=== PATIENT | female | born 2005 | race Caucasian/White ===

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

== ENCOUNTER 2025-04-10 02:31 | Emergency (ER) | payer OTHER, SELFPAY ==
[2025-04-10 02:36] VITALS: BP 129/94; PULSE 80; RESP 18; TEMP 36.7; O2SAT 99; BMI 24.5
[2025-04-10] MEDS: Ondansetron 4 MG/2 ML Vial IV (03:06)
[2025-04-10] MEDS: 0.9% Normal Saline (1000mL) 1,000 ML 999 ML IV (03:06)
[2025-04-10] MEDS: Morphine 4 MG/ML Syringe IV (03:07)
[2025-04-10] MEDS: Dicyclomine 20 MG/2 ML Vial IM (03:08)
[2025-04-10 03:17] LABS: Absolute Neutrophil Count 10.9 X10^3/uL (2.0-7.7); Basophil# 0.05 X10^3/uL; Basophil% 0.4 % (0-1); Eosinophil# 0.15 X10^3/uL; Eosinophils% 1.1 % (0-5); Hematocrit 38.9 % (37-47); Hemoglobin 13.5 g/dL (12.0-15.0); Lymphocyte % 15.5 % (19-41); Mean Corp Hgb Conc 34.7 g/dL (32-36); Mean Corpuscular Hgb 30.3 pg (27.0-32.0); Mean Corpuscular Volume 87.2 fL (81-99); Mean Platelet Vol. 10.1 fl (6.2-12.0); Monocyte# 0.83 X10^3/uL; Monocyte% 5.9 % (0-10); NRBC Flagged by Analyzer 0 % (0-5); Neutrophil # 10.89 X10^3/uL (2.7-7.7); Neutrophil % 76.7 % (47-70); Platelet Count 270 K/mm3 (150-450); RBC Distribution Width SD 38.7 fl (35.1-43.9); Red Blood Count 4.46 M/mm3 (4.2-5.4); White Blood Count 14.2 K/mm3 (4.4-11.0)
[2025-04-10 03:25] LABS: AST(SGOT) 23 U/L (<=31); Alanine Aminotransfer ALT/SGPT 15 U/L (<=34); Albumin, Serum 4.2 g/dL (3.5-5.0); Alkaline Phosphatase 80 U/L (35-104); Anion Gap 14 (5-15); BUN 18 mg/dL (4-19); BUN/Creat Ratio 20.5 RATIO (10-20); Calcium,Total 9.1 mg/dL (7.6-11.0); Carbon Dioxide 23.5 mmol/L (21.0-32.0); Chloride 102 mmol/L (98-108); Creatinine, Serum 0.87 mg/dL (0.70-1.20); EST Glomerular Filtration Rate 98 (>60); Estimated Creatinine Clearance 88.61 ml/min (50-250); Globulin 2.7 g/dL (2.2-4.2); Glucose 98 mg/dL (70-99); Lipase 19 U/L (13-75); Magnesium 2.1 mg/dL (1.5-2.2); Potassium 3.6 mmol/L (3.3-5.1); Protein, Total 6.9 g/dL (5.9-8.4); Sodium Level 139 mmol/L (133-145); Total Bilirubin 0.25 mg/dL (0.00-1.30)
--- NOTE | 2025-04-10 03:26 | CT_ITS ---
PROCEDURE: ABDOMEN/PELVIS W IV CONT ONLY 04/10/2025 REASON FOR EXAM: POSTOPERATIVE ABDOMINAL PAIN TECHNIQUE: Abdomen and pelvis CT with intravenous contrast. Coronal and Sagittal reconstruction series were provided. PATIENT PREPARATION: Per protocol ORAL CONTRAST TYPE: None. CONTRAST: Isovue-350 VOLUME: 100 mL Gauge IV One or more dose reduction techniques were used (e.g., Automated exposure control, adjustment of the mA and/or kV according to patient size, use of iterative reconstruction technique. RADIATION DOSE SUMMARY: CTDlvol: 7.2 mGy DLP: 402 mGycm COMPARISON: None. FINDINGS: Diffuse thickening of the anorectal junction, probably secondary to recent intervention, edema and/or spasm. Associated perirectal fluid collection is noted measuring 7.6 x 4.2 cm in its largest transverse and anteroposterior dimensions respectively. Secondary moderate narrowing of the anorectal junction. Fluid-filled dilated colon proximal to this level. Associated mild stercoral colitis of the sigmoid colon. No evidence of perforation or pneumatosis coli. The largest transverse dimension of the distended colon is 4.8 cm at the level of the transverse colon. The visualized lung bases are unremarkable. Normal liver. Normal gallbladder and extrahepatic biliary system. Normal spleen. Normal pancreas. Normal bilateral adrenal glands. Normal size of the right kidney. There is no right renal mass. There are no right renal calculi. There is no right hydronephrosis. Normal visualized right ureter. Normal size of the left kidney. There is no left renal mass. There are no left renal calculi. There is no left hydronephrosis. Normal visualized left ureter. Normal visualized stomach. Normal small intestine. The appendix is visualized and appears normal. Normal abdominal aorta. Normal inferior vena cava. Normal retroperitoneum. Normal urinary bladder. There is no pelvic mass lesion or lymphadenopathy. Normal abdominal wall. Normal osseous structures. CT/Abdomen/Pelvis W IV Cont ONLY IMPRESSION: 1. Diffuse thickening of the anorectal junction, probably secondary to recent i ntervention, edema and/or spasm. Associated perirectal fluid collection is noted measuring 7.6 x 4.2 cm in its largest montes sverse and anteroposterior dimensions respectively. 2. Secondary moderate narrowing of the anorectal junction. 3. Fluid-filled dilated colon proximal to this level. 4. Associated mild stercoral colitis of the sigmoid colon. 5. No evidence of perforation or pneumatosis coli. 6. The largest transverse dimension of the distended colon is 4.8 cm at the lev el of the transverse colon. Reading Location: [id number]
[2025-04-10] MEDS: DiphenhydrAMINE 50 MG/ML Syringe 25 MG IV (03:57)
[2025-04-10] MEDS: Haloperidol Lactate 5 MG/ML Vial IV (03:58)
[2025-04-10 04:32] VITALS: RESP 16
[2025-04-10] MEDS: Magnesium Citrate 300 ML PO (05:31)
--- NOTE | 2025-04-10 05:41 | EX.ED.DYSGE1 ---
HPI History of Present Illness Chief Complaint: Abd Pain Informant: patient and parent Narrative Narrative: Patient is a 20-year-old female who underwent a robotic rectopexy surgery at by Dr. Rodríguez roughly 1 week ago. Patient and mother state that she was doing well and her symptoms are managed with just Tylenol and/or Motrin. However on Thursday she developed increasing abdominal pain and back pain. She states she took oxycodone which was prescribed after the surgery and this did seem to help for a few hours but then the pain returned and worsened and would not respond to further doses of the medication. The patient denies any fevers or chills or dysuria. She states she feels that she has to have a bowel movement but is only able to get a small amount out. Based on the worsening pain roughly 1 week from surgery she presents for evaluation [facility] Medical History (Updated 04/10/25 @ 05:[address] Clifton Gonsalves, ) IBS (irritable bowel syndrome) Fracture of thumb, right, closed Disease of tonsils and adenoids Encounter for screening for COVID-19 Home Medications ?Medication ?Instructions ?Recorded ?Last Taken ?Type docusate sodium 100 mg capsule 100 mg PO BID 04/10/25 Unknown History ibuprofen 600 mg tablet 600 mg PO .Q3HR PRN pain 04/10/25 Unknown History oxycodone 5 mg tablet 5 mg PO Q6H PRN pain 04/10/25 Unknown History Allergy/AdvReac Type Severity Reaction Status Date / Time azithromycin Allergy Mild RASH Verified 04/10/25 02:36 Social History Smoking Status: Never smoker substance use type: does not use ROS ROS ED Constitutional Constitutional ED: Denies chills or fever(s) ENT ENT ED: Denies sore throat Cardiovascular Cardiovascular: Denies chest pain Respiratory/Chest Respiratory/Chest: Denies cough or dyspnea Gastrointestinal Gastrointestinal: Reports abdominal pain, constipation and nausea; Denies diarrhea or vomiting Genitourinary Genitourinary ED: Denies dysuria Musculoskeletal Musculoskeletal: Reports back pain; Denies myalgias Integumentary Denies rash Neurologic Neurologic: Denies headache(s) Hematologic/Lymphatic Hematologic/Lymphatic: Denies easy bleeding or easy bruising EXAM Physical Exam Const Vital Signs: 04/10/25 02:36 04/10/25 04:32 Temperature 98.0 F Temperature Source Temporal Pulse Rate 80 Respiratory Rate 18 16 Blood Pressure 129/94 H Blood Pressure Mean 105 Pulse Ox 99 Oxygen Delivery Method Room Air Positive well nourished and well developed General Appearance ED: well developed; Negative for pallor HEENT HEENT Narrative: Normocephalic atraumatic No tongue or lip swelling no oral lesions no airway edema or compromise No signs of infection noted in the posterior pharynx Eyes PERRL and EOMs intact bilaterally General Eye ED: Negative for scleral icterus Neck supple Resp normal respiratory effort and clear to auscultation bilaterally Cardio regular rate and regular rhythm GI no masses GI Narrative: Abdomen is soft with hypoactive bowel sounds. There is slight/mild distention noted without increased tympany. There is mild diffuse pain with palpation without voluntary guarding or rigidity. No peritoneal signs or pulsatile mass There are abdominal wounds consistent with recent surgical procedure that are clean dry and intact without secondary findings to suggest infection Auscultation: hypoactive bowel sounds Palpation: soft Extremity normal to inspection Neuro oriented x3, CN's II-XII intact bilaterally and no sensory deficits noted Sensorium / Orientation: alert Motor Exam: strength 5/5 throughout Psych mental status grossly normal Skin no rashes or lesions noted Skin Narrative: Postsurgical abdominal wounds that are clean dry and intact as documented above General Skin Exam: Negative for jaundice or pallor MDM MDM MDM Narrative Medical decision making narrative: Patient arrived to the ER with stable vitals. She reported she has been doing well status post surgery but today had increasing pain. With concern for postoperative infection such as abscess or perforation she was brought in for evaluation. Exam indicates patient could be constipated versus ileus versus potential gas distention from the surgical procedure. Basic blood work is obtained and does show a white count of 14.2 and her neutrophil count is elevated 10.9. However the patient is afebrile and normotensive so I feel this is most likely stress response and not secondary to true infection. The patient CT scan of the abdomen and pelvis reveals a large stool burden with intestinal inflammation and distention. However there is no sign of bowel obstruction or perforation. There is a fluid collection but this is most likely secondary to her recent surgical procedure. I did discuss the case with her general surgeon Dr. Rodríguez. At this time she agrees that the fluid collection is most likely sterile and not infectious as the patient is afebrile and normotensive and that her pain is most likely related to the intestinal inflammation and constipation. She recommends an enema and magnesium citrate. This was provided to the patient in the ER. The patient and mother were informed of the discussion with her general surgeon and that the recommendation is discharge at this time with outpatient follow-up. The patient was able to have further bowel movements in the ER which reportedly did help reduce some of her symptoms. She has remained hemodynamically stable with a soft nonsurgical abdomen and therefore she will be discharged to follow-up with general surgery as directed History & Record Review Discussion w/independent historian: Patient and Family Lab Data Attestation: I reviewed the patient's lab results. Labs: Laboratory Results - last 24 hr 04/10/25 02:53 WBC 14.2 H RBC 4.46 Hgb 13.5 Hct 38.9 MCV 87.2 MCH 30.3 MCHC 34.7 RDW Std Deviation 38.7 RDW Coeff of Sarah 12.0 Plt Count 270 MPV 10.1 Immature Gran % (Auto) 0.400 Neut % (Auto) 76.7 H Lymph % (Auto) 15.5 L Butts % (Auto) 5.9 Eos % (Auto) 1.1 Baso % (Auto) 0.4 Absolute Neuts (auto) 10.9 H Absolute Lymphs (auto) 2.20 Nucleated RBC % 0 Sodium 139 Potassium 3.6 Chloride 102 Carbon Dioxide 23.5 Anion Gap 14 BUN 18 Creatinine 0.87 Estim Creat Clear Calc 88.61 Est GFR (MDRD) Non-Af 98 BUN/Creatinine Ratio 20.5 H Glucose 98 Calcium 9.1 Magnesium 2.1 Total Bilirubin 0.25 Direct Bilirubin 0.10 AST 23 ALT 15 Alkaline Phosphatase 80 Total Protein 6.9 Albumin 4.2 Globulin 2.7 Lipase 19 Radiography Diagnostic Testing: Clinical Impression(s) from Imaging Studies Abdomen/Pelvis CT 04/10/25 03:26 IMPRESSION: 1. Diffuse thickening of the anorectal junction, probably secondary to recent intervention, edema and/or spasm. Associated perirectal fluid collection is noted measuring 7.6 x 4.2 cm in its largest transverse and anteroposterior dimensions respectively. 2. Secondary moderate narrowing of the anorectal junction. 3. Fluid-filled dilated colon proximal to this level. 4. Associated mild stercoral colitis of the sigmoid colon. 5. No evidence of perforation or pneumatosis coli. 6. The largest transverse dimension of the distended colon is 4.8 cm at the level of the transverse colon. Reading [facility] Management Discussion w/another healthcare provider: [facility] Nurse Discharge Plan Triage Chief Complaint: Abd Pain ED Provider: Clifton Gonsalves Dx/Rx/DC Orders Clinical Impression: Acute postoperative abdominal pain, Constipation Instructions: Abdominal Pain, ED Constipation (Adult) Prescriptions: No Action docusate sodium 100 mg capsule 100 mg PO BID ibuprofen 600 mg tablet 600 mg PO .Q3HR PRN (Reason: pain) oxycodone 5 mg tablet 5 mg PO Q6H PRN (Reason: pain) Primary Care Provider: Dean Flores Referrals: Dean Flores MD [Primary Care Provider] - Activity Restrictions/Additional Instructions: Please follow-up with your surgeon Dr. Rodríguez for repeat evaluation. She was notified this morning. She will review your CT scan later today and contact you. As your scan shows significant constipation please do not take any further oxycodone as this will worsen your constipation. Use Tylenol and Motrin for pain control. Continue with Dulcolax and/or MiraLAX or Colace to help stimulate bowel movement. You may also use the magnesium citrate provided from the ER to help evacuate your intestines. If you develop a fever of 100.4 or higher or have any further concerns please return to the ER for repeat evaluation. Print Language: Latvian Disposition Disposition: Home, Self Care
[2025-04-10 06:32] VITALS: BP 118/70; PULSE 85; RESP 16; TEMP 36.4; O2SAT 96
== END 2025-04-10 06:33 | disposition home or self-care (01) ==
PROVIDERS: Emergency Provider Emergency Medicine; PCP Family Medicine; Visit Provider Emergency Medicine
DX: G89.18 Other acute postprocedural pain (principal); R10.9 Unspecified abdominal pain; K59.00 Constipation, unspecified; M54.9 Dorsalgia, unspecified
CPT/HCPCS: 74177; 80048; 80076; 83690; 83735; 85025; 99283; Q9967; A4216; J2405

== ENCOUNTER 2025-04-13 19:34 | Emergency (ER) | payer OTHER, SELFPAY ==
[2025-04-13 19:34] VITALS: BP 119/102; PULSE 128; RESP 20; TEMP 36.6; O2SAT 100
--- NOTE | 2025-04-13 19:58 | ED.VIS.GI ---
HPI HPI - GI History of Present Illness Chief Complaint: Other, Pain/Inj Detail of Chief Complaint: Constipation after rectal prolapse repair surgery about a week ago. Informant: patient and parent Abdominal Pain/Flank Pain Onset: Days Context: Gradual Onset Timing: Intermittent Quality: Cramping Location: - (Lower abdomen and rectum.) Current Severity: Mild Maximum Severity: Mild Nausea/Vomiting/Emesis GI Symptom: Negative for Nausea or Vomiting Diarrhea/Melena/Hematochezia GI Symptom: Positive for - (Constipation. Last bowel movement on Thursday.); Negative for Diarrhea, Melena or Hematochezia Associated Symptoms Associated Symptoms: Negative for Dysuria, Frequency, Hematuria or Urgency Narrative Narrative: 20-year-old female on April 04 had laparoscopic rectal prolapse repair surgery done at [facility]. Since that time she has had problems with constipation. Was recently seen in this emergency department had a CAT scan which showed constipation and normal postop changes. Was treated with enemas and improved. She has not had much of a bowel movement since Thursday. They have been trying different things at home and working with her: Rectal surgeon from . Today was having more crampy pain. Prior similar symptoms: Yes Recent Ill[facility] Medical History IBS (irritable bowel syndrome) Fracture of thumb, right, closed Disease of tonsils and adenoids Encounter for screening for COVID-19 Home Medications ?Medication ?Instructions ?Recorded ?Last Taken ?Type docusate sodium 100 mg capsule 100 mg PO BID 04/10/25 Unknown History ibuprofen 600 mg tablet 600 mg PO .Q3HR PRN pain 04/10/25 Unknown History Allergy/AdvReac Type Severity Reaction Status Date / Time azithromycin Allergy Mild RASH Verified 04/13/25 19:37 Social History Smoking Status: Never smoker substance use type: does not use ROS ROS ED ROS Narrative Constipation. Constitutional Constitutional ED: Denies chills or fever(s) ENT ENT ED: Denies ear pain Cardiovascular Cardiovascular: Denies chest pain Respiratory/Chest Respiratory/Chest: Denies cough Gastrointestinal Gastrointestinal: Reports abdominal pain and constipation; Denies diarrhea, melena, nausea or vomiting Genitourinary Genitourinary ED: Denies dysuria or hematuria Musculoskeletal Musculoskeletal: Denies arthralgias or back pain Integumentary Denies abscess or Abrasions Neurologic Neurologic: Denies headache(s) Psychiatric Psychiatric: Denies anxiety Endocrine Endocrinology: Denies polydipsia Hematologic/Lymphatic Hematologic/Lymphatic: Denies easy bleeding Allergic/Immunologic Allergic/Immunologic ED: Denies mouth swelling, tongue swelling or urticaria EXAM Physical Exam Narrative Exam Narrative: 20-year-old female vital signs are stable is tachycardic. Complaining of abdominal cramping. Parents present in room. H EENT exam pupils round react light. Moist mucous membranes. Neck nontender. Back nontender. Lungs clear to auscultation bilaterally. Heart tachycardic rate about 120 no murmur. Abdomen soft fusilli tender well-healing laparoscopic incisions. Dry and clean. No significant distention. No signs of obstruction. Positive bowel sounds. Moving all 4 extremities. Nontender no edema. Neurologically she is awake alert. No focal motor deficits. Answering questions and following commands. Const Vital Signs: 04/13/25 19:34 04/13/25 20:34 04/13/25 20:35 Temperature 98 F Temperature Source Temporal Pulse Rate 128 H 98 Respiratory Rate 20 H 18 Respiratory Effort Normal Respiratory Pattern Tachypnea Blood Pressure 119/102 H 136/93 H Blood Pressure Mean 107 107 Pulse Ox 100 97 Oxygen Delivery Method Room Air Room Air Positive well nourished and well developed; Negative for obese, cachectic, contractures or unkempt General Appearance ED: well developed and NAD; Negative for unkempt, cachectic, contractures or pallor Nutritional Appearance: Negative for cachectic or obese HEENT Reports moist mucous membranes normocephalic and atraumatic Eyes PERRL and EOMs intact bilaterally Neck no lymphadenopathy, supple and no JVD Resp normal respiratory effort and clear to auscultation bilaterally Cardio regular rhythm, S1 normal heart sound, S2 normal heart sound and no murmurs; Negative for regular rate Rate: tachycardic GI non-distended and no masses; Negative for non-tender GI Narrative: Mildly tender. Well-healing laparoscopic incisions. Dry and clean. No obstruction. No significant distention. Auscultation: normoactive bowel sounds Palpation: soft and tender; Negative for guarding, rigid, hernia, mass, pulsatile mass or rebound tenderness present Back/Spine no CVA tenderness Extremity full ROM General Extremety ED: Negative for edema or tenderness General Extremity: Negative for edema Neuro CN's II-XII intact bilaterally and moves all extremities Sensorium / Orientation: alert, oriented to person, oriented to place and oriented to time; Negative for orientation impaired Motor Exam: strength 5/5 throughout Psych mental status grossly normal and thought process normal Appearance: Negative for unkempt Skin no wounds General Skin Exam: Negative for jaundice or pallor Lesions: no lesions Rashes: no rashes MDM MDM MDM Narrative Medical decision making narrative: 20-year-old female constipation with abdominal cramping after rectal prolapse laparoscopic repair surgery on April 04. I spoke to her general surgeon who did her procedure Dr. Rodríguez. She recommended a enema. And if the patient needs to be transferred she is have to accept her to . I will discuss this with the family. Repeat exam patient is doing well at 21:18. She has had 3 liquid bowel movement since she has been here. She wanted to hold off on the enema because she was feeling better. Her abdomen is benign. Her and her parents are comfortable with her being discharged home. They will follow-up with her colorectal surgeon from tomorrow. They are going to do a soft diet. Liquids. Continue using the MiraLAX and stool softeners. History & Record Review Discussion w/independent historian: Patient Additional record(s) reviewed:: Prior inpatient record, Prior outpatient record, Prior ED visit and Prior labs Radiography Diagnostic Testing: Clinical Impression(s) from Imaging Studies [facility] X-Ray 04/13/25 20:01 IMPRESSION: No bowel obstruction or ileus. Reading Location: [id number] 2 films 1 view. By myself and radiologist. Shows no obstruction. Stool in the rectum but not significantly throughout the colon. No air-fluid levels. I went over the film with the parents. Discharge Plan Triage Chief Complaint: Other, Pain/Inj ED Provider: Mark Lowry Dx/Rx/DC Orders Clinical Impression: Constipation, History of intestinal surgery Instructions: ED Constipation (Adult) Prescriptions: No Action docusate sodium 100 mg capsule 100 mg PO BID ibuprofen 600 mg tablet 600 mg PO .Q3HR PRN (Reason: pain) Primary Care Provider: Dean Flores Referrals: Dean Flores MD [Primary Care Provider] - Activity Restrictions/Additional Instructions: Call and follow-up with your surgeon from Dr. Rodríguez in her office tomorrow. Plenty of fluids. Fiber. Soft diet. Slowly increase as tolerated. Continue your MiraLAX as needed. Enema if having significant constipation with you not having bowel movements and feel bloated. Print Language: Sinhala Disposition Disposition: Home, Self Care
--- NOTE | 2025-04-13 20:01 | RAD_ITS ---
PROCEDURE: ABDOMEN SINGLE VIEW 04/13/2025 REASON FOR EXAM: CONSTIPATION TECHNIQUE: Single view abdomen. FINDINGS: No bowel obstruction or ileus. No suspicious calcifications. No acute fracture or dislocations. RAD/Abdomen Single View IMPRESSION: No bowel obstruction or ileus. Reading Location: [id number]
[2025-04-13 20:34] VITALS: BP 136/93; PULSE 98; RESP 18; O2SAT 97
[2025-04-13 21:24] VITALS: BP 122/70; PULSE 68; RESP 15; TEMP 36.6; O2SAT 99
--- OUTSIDE RECORDS SUMMARY | 2025-04-13 22:19 | XMS RPT_ITS | CCD ---
Author Organization [facility] Care Team Providers Care Half Section Ironer Name Role Phone Unavailable Primary Care Provider UnavailDr. Wing Enrique Primary Care Unavailable [facility], Mr. Ollie Cunningham Attending Unavail able Mark MEANS, Wing Raphael Primary Care Provider PIPER LIN Referring Unavailable FLORES, WING XANDER Primary Care Unavailable MARIANA PARRY Attending Unavailable PIPER LIN Referring Unavailable FLORES, WING XANDER Primary Care Unavailable LIZETH LOPEZ Attending Unavailwilber FLORES, WING XANDER Primary Care Unavailable VAHE BOWMAN Attending Unavailable VAHE BOWMAN Referring Unavailable PIPER LIN Admitting Unavailable PIPER LIN Attending Unavailable FLORES, WING XANDER Primary Care Unavailable FLORES, WING XANDER Primary Care Unavailable FLORES, WING XANDER Referring Unavailable VAHE BOWMAN Attending Unavailable MARK, WING XANDER Primary Care Unavailable VAHE BOWMAN Attending Unavailable PIPER LIN Attending Unavailable ANA JACK Referring Unavailable FLORES, WING XANDER Primary Care Unavailable PETERSON THORNTON Attending Unavailable PIPER LIN Referring Unavailable FLORES, WING XANDER Primary Care Unavailable PIPER LIN Referring Unavailable PIPER LIN Attending Unavailable FLORES, WING XANDER Primary Care Unavailable PIPER LIN Attending Unavailable PIPER LIN Referring Unavailable FLORES, WING XANDER Primary Care Unavailable Mark MEANS, Wing Weber Primary Care Provider [phone] Wing Flores MD Primary Care Provider WING FLORES Primary Care Unavailable WING FLORES Primary Care Unavailable WING FLORES Primary Care Unavailable KARIME ROSS Attending Unavailable Dr. Wing Flores MD Primary Care Provider [phone] Dr. Clifton Gonsalves DO Emergency Provider [phone] Clifton Gonsalves Attending Unavailable Wing Flores Primary Care Unavailable WING FLORES Primary Care Unavailable WING FLORES Primary Care Unavailable DENA TODD Attending Unavailable WING FLORES Primary Care Unavailable DENA TODD Admitting Unavailable DENA TODD Attending Unavailable WING FLORES Primary Care Unavailable DENA TODD Referring Unavailable WING FLORES Primary Care Unavailable Allergies Allergy Classification Reported Allergen(s) Allergy Type Date of Onset Reaction(s) Facility (4 sources) Azithromycin; Translations: [AZITHROMYCIN] Drug Allergy 04-04-2025 [facility] (3 sources) Neomycin; Translations: [NEOMYCIN] Drug Allergy 04-04-[address] [facility] Work Phone: (1 source) Azithromycin Drug Allergy 04-10-2025 [facility] Medications Current Medications Medication Drug Class(es) Dates Sig (Normalized) Sig (Original) acetaminophen 325 mg oral tablet (3 sources) Start: 04-04-2025 End: 04-18-2025 take 2 tablets by mouth every six hours acetaminophen (Tylenol) 325 mg tablet Indications: Rectal prolapse Take 2 tablets (650 mg) by mouth every 6 hours for 14 days. 112 tablet 04/04/2025 04/18/2025 Active Start: 04-04-2025 take 1 tablet by thomas th every four hours as needed 650 mg, oral, Every 4 hours PRN, pain mild (1-3), first line, Starting on Thu04/04/25 at 1050, Recovery (only), When able to take oral medications., If ordered PRN for pain, nurse is permitted to administer this medication for higher pain scores based on patient preference? Yes End: 04-04-2025 acetaminophen (Tylenol 8 KRYSTLE R) 650 mg ER tablet Take 1,000 mg by mouth every 8 hours if needed for mild pain (1 - 3). Do not crush, chew, or split. 04/04/2025 Discontinued (Stop Taking at Discharge) amoxicillin 875 mg / clavulanate 125 mg oral tablet (2 sources) Penicillin-class Antibacterial Start: 11-13-2023 take 1 tablet by mouth every twelve hours amoxicillin-pot clavulanate (Augmentin) 875-125 mg tablet Take 1 tablet by mouth every 12 hours. 11/13/2023 Active benzonatate 100 mg oral capsule (1 source) Non-narcotic Antitussive Start: 11-18-2024 End: 11-25-2024 take 1 capsule by mouth three times daily as needed for cough benzonatate (TESSALON PERLE) 100 mg capsule Indications: Viral illness Take 1 capsule by mouth three times a day as needed for cough for up to 7 days. 21 capsule 11/18/2024 11/25/2024 Active docusate sodium 100 mg oral capsule (2 sources) Start: 04-10-2025 take 1 capsule by mouth twice daily Docusate Sodium 100 mg capsule Active 100 mg PO TWICE A DAY April 10, 2025 12:00am Start: 04-04-2025 End: 04-14-2025 take 1 tablet by mouth twice daily docusate sodium (Colace) 100 mg tablet Indications: Rectal prolapse Take 1 tablet (100 mg) by mouth 2 times a day for 20 doses. 20 tablet 04/04/2025 04/14/2025 Active doxycycline hyclate 100 mg oral tablet (1 source) Tetracycline-class Drug Start: 10-22-2024 End: 10-27-2024 take 1 tablet by mouth twice daily doxycycline (VIBRA-TABS) 100 mg tablet Take 1 tablet by mouth two times a day for 5 days. 10 tablet 10/22/2024 10/27/2024 Active escitalopram 10 mg oral tablet (10 sources) Serotonin Reuptake Inhibitor Start: 11-30-2022 End: 10-12-2024 take 1 tablet by mouth once daily escitalopram (Lexapro) 10 mg tablet Take 1 tablet (10 mg) by mouth once daily. 11/30/2022 Active Start: 11-30-2022 End: 10-22-2024 escitalopram oxalate (LEXAPR O) 10 mg tablet Take 15 mg by mouth once daily. 11/30/2022 10/22/2024 Discontinued (Course of therapy completed) Comment on above: Take 15 mg by mouth once daily. gabapentin 100 mg oral capsule (2 sources) Anti-epileptic Agent Start: 12-15-2024 take 1 capsule by mouth 3 day(s) before bedtime gabapentin (Neurontin) 100 mg capsule Indications: Rectal prolapse Take one capsule by mouth starting three days before surgery at bedtime. 3 capsule 12/15/2024 Active 0.5 ml HYDROmorphone hydrochloride 1 mg/ml prefilled syringe (2 sources) Opioid Agonist Start: 04-04-2025 0.5 mg, intravenous, Every 5 min PRN, pain severe (7-10), first line, Starting on Thu04/04/25 at 1050, Recovery (only), Max total of 4 mg regardless of dose. Start: 04-04-2025 0.25 mg, intra venous, Every 5 min PRN, pain moderate (4-6), first line, Starting on Thu04/04/25 at 1050, Recovery (only), Max total of 4 mg regardless of dose. hyoscyamine sulfate 0.125 mg oral tablet (3 sources) Start: 10-06-2023 End: 10-22-2024 take 1 tablet by mouth every six hours hyoscyamine (Anaspaz, Levsin) 0.125 mg tablet Take 1 tablet (0.125 mg) by mouth every 6 hours. 10/06/2023 Active ibuprofen 600 mg oral tablet (5 sources) Nonsteroidal Anti-inflammatory Drug Start: 04-10-2025 take 1 tablet by mouth every three hours as needed for pain Ibuprofen 600 mg tablet Active 600 mg PO .Q3HR as needed for pain April 10, 2025 12:00am Start: 04-04-2025 End: 04-18-2025 take 1 tablet by mouth every six hours ibuprofen 600 mg tablet Indications: Rectal prolapse Take 1 tablet (600 mg) by mouth every 6 hours for 14 days. 56 tablet 04/04/2025 04/18/2025 Active Start: 11-10-2023 End: 04-04-2025 take 1 tablet by mouth four times daily at mealtime ibuprofen 400 mg tablet take 1 tablet by mouth 4 TIMES A DAY with FOOD 11/10/2023 04/04/2025 Discontinued (Stop Taking at Discharge) methylPREDNISolone 4 mg oral tablet (2 sources) Corticosteroid Start: 11-13-2023 methylPREDNISolone (Medrol Dospak) 4 mg tablets TAKE BY MOUTH DIRECTED ON PACKAGE 11/13/2023 Active metroNIDAZOLE 250 mg oral tablet (2 sources) Nitroimidazole Antimicrobial Start: 12-15-2024 metroNIDAZOLE (Flagyl) 250 mg tablet Indications: Rectal prolapse Take one tablet at 6p, 7p, and 11p the night before surgery. 3 tablet 12/15/2024 Active neomycin sulfate 500 mg oral tablet (2 sources) Aminoglycoside Antibacterial Start: 12-15-2024 neomycin (Mycifradin) 500 mg tablet Indications: Rectal prolapse Take two tabs by mouth at 6p, 7pm, and 11p the night before surgery. 6 tablet 12/15/2024 Active ondansetron 4 mg oral tablet (4 sources) Serotonin-3 Receptor Antagonist Start: 04-04-2025 End: 04-11-2025 take 1 tablet by mouth every six hours for nausea ondansetron (Zofran) 4 mg tablet Indications: Rectal prolapse Take 1 tablet (4 mg) by mouth every 6 hours if needed for nausea for up to 20 doses. 20 tablet 04/04/2025 04/11/2025 Active Start: 03-02-2025 End: 03-02-2025 ondansetron ODT (Zofran-ODT) disintegrating tablet 4 mg Start: 03-02-2025 End: 03-02-2025 take 4 mg by mouth once 4 mg, oral, Once, On 02/08 at 1735, For 1 dose Start: 03-02-2025 End: 03-09-2025 take 1 tablet by mouth every eight hours as needed for nausea and nausea ondansetron ODT (Zofran-ODT) 4 mg disintegrating tablet Indications: Nausea Dissolve 1 tablet (4 mg) in the mouth every 8 hours if needed for nausea or vomiting for up to 7 days. 20 tablet 03/02/2025 03/09/2025 Active oxyCODONE hydrochloride 5 mg oral tablet (3 sources) Opioid Agonist Start: 04-04-2025 End: 04-11-2025 take 1 tablet by mouth every six hours as needed for pain Oxycodone 5 mg tablet Active 5 mg PO EVERY 6 HOURS as needed for pain April 10, 2025 12:00am Start: 04-04-2025 take 1 tablet by thomas every four hours as needed 5 mg, oral, Every 4 hours PRN, pain moderate (4-6), second line, Starting on Thu04/04/25 at 1050, Recovery (only), When able to take oral medications., If ordered PRN for pain, nurse is permitted to administer this medication for higher pain scores based on patient preference? Yes oxygen (O2) therapy (1 source) Start: 04-04-2025 inhalation, Co ntinuous PRN - O2/gases, other, Starting on Thu04/04/25 at 1050, Recovery (only), Device: Nasal Cannula, Rate in liters per minute: Other, Custom Value: 1-6 LPM, Keep O2 Sat Above: 92% predniSONE 20 mg oral tablet (1 source) Start: 11-18-2024 End: 11-21-2024 take 1 tablet by mouth twice daily predniSONE (DELTASONE) 20 mg tablet Indications: Viral illness Take 1 tablet by mouth two times a day for 3 days. 6 tablet 11/18/2024 11/21/2024 Active Completed/Discontinued Medications Medication Drug Class(es) Dates Sig (Normalized) Sig (Original) acetaminophen 325 mg / HYDROcodone bitartrate 5 mg oral tablet (3 sources) Opioid Agonist Start: 11-10-2023 End: 04-04-2025 take 1 tablet by mouth once HYDROcodone-acetam inophen (Arnold) 5-325 mg tablet Take 1 tablet by mouth 1 time. 11/10/2023 04/04/2025 Discontinued (Stop Taking at Discharge) aprepitant 40 mg oral capsule (1 source) Substance P/Neurokinin-1 Receptor Antagonist Start: 04-04-2025 End: 04-04-2025 take 40 mg by mouth once 40 mg, oral, Once, On Thu04/04/25 at 1430, For 1 dose, Phase II/On Unit Start: 04-04-2025 End: 04-04-2025 take 40 mg by mouth once 40 mg, oral, Once, On Thu at 1430, For 1 dose, Phase II/On Unit azithromycin 40 mg/ml oral suspension (3 sources) Macrolide Antimicrobial Start: 10-15-2015 End: 10-22-2024 azithromycin (ZITHROMAX) 200 mg/5 mL suspension Indications: Cough Take 12 ml by mouth on day one. Then 6 ml by mouth on days 2-5. 36 mL 0 10/15/2015 10/22/2024 Discontinued (Course of therapy completed) Comment on above: Take 12 ml by mouth on day one. Then 6 ml by mouth on days 2-5. calcium chloride 0.0014 meq/ml / potassium chloride 0.004 meq/ml / sodium chloride 0.103 meq/ml / sodium lactate 0.028 meq/ml injectable solution (2 sources) Start: 04-04-2025 End: 04-04-2025 take 100 mL intravenously every hour 100 mL/hr, intravenous, Continuous, Starting on Thu04/04/25 at 1115, For 2 hours, Recovery (only) Start: 03-23-2024 End: 03-23-2024 CONTINUOUS, Intravenous, at 100 mL/hr, Starting on Thu03/23/24 at 1100, For 90 days, PACU chlorhexidine gluconate 1.2 mg/ml mouthwash (5 sources) Start: 11-10-2023 End: 04-04-2025 chlorhexidine (Peridex) 0.12 % solution Indications: Rectal prolapse Rinse mouth with 15 ml after toothbrushing the night before surgery and on the morning of surgery. Expectorate after rinsing. Do not swallow. 120 mL 12/15/2024 04/04/2025 Discontinued (Stop Taking at Discharge) Start: 11-10-2023 End: 10-22-2024 Chlorhexidine Gluconate (PER IDEX) 0.12 % solution swish 15 MLS by mouth for 30 SECONDS then SPIT use twice a day after meals 11/10/2023 10/22/2024 Discontinued (Course of therapy completed) codeine phosphate 2 mg/ml / guaiFENesin 20 mg/ml oral solution (3 sources) Opioid Agonist Start: 11-03-2014 End: 10-22-2024 take 2.5-5 mL by mouth every six hours as needed codeine-guaiFENesin (ROBITUSSIN AC) 10-100 mg/5 mL syrup Take 2.5-5 mL by mouth four times daily as needed for Cough. May cause drowsiness. 60 mL 0 11/03/2014 10/22/2024 Discontinued (Course of therapy completed) Comment on above: Take 2.5-5 mL by thomas th four times daily as needed for Cough. May cause drowsiness. Dextromethorphan (3 sources) Uncompetitive O-hymcge-X-aspart ate Receptor Antagonist, Sigma-1 Agonist End: 10-22-2024 DEXTROMETHORPHAN HBR (DELSYM ORAL) Take by mouth. 10/22/2024 Discontinued (Course of therapy completed) DEXTROMETHORPHAN HBR (DELSYM ORAL) Take by mouth. 0 Active Comment on above: Take by mouth. diatrizoate meglumine-sodium (GASTROGRAFIN) 66-10 % oral solution 120 mL (1 source) Start: 02-25-20 End: 02-25-20 120 mL (2.02 ml/kg/DOSE), Rectal, ONCE, 1 dose, On Brandy 02/25/24 at 1400 diphenhydrAMINE (1 source) Histamine-1 Receptor Antagonist Start: 04-04-20 End: 04-04-20 25 mg, intravenous, Once, On 04/04/25 at 1215, For 1 dose, If giving IV push, max rate of 25 mg/min. rifAXIMin 550 mg oral tablet (7 sources) Rifamycin Antibacterial Start: 10-05-20 End: 10-22-20 take 1 tablet by mouth three times daily XIFAXAN 550 mg tablet Take 550 mg by mouth three times a day. 10/05/2023 10/22/2024 Discontinued (Course of therapy completed) rifAXIMin (Xifax an) 200 mg tablet Take 0.5 tablets (100 mg) by mouth. Active End: 10-12-2024 RIFAXIMIN ORAL Take by mouth once daily. 10/12/2024 Discontinued (Med List Cleanup) rifAXIMin (XIFAX AN) 100 MG TABS Take 1 Tablet (100 mg) by mouth Active Problems Active Problems Problem Classification Problem Date Documented Da te Episodic/Chronic Fracture of upper limb (3 sources) Closed fracture thumb distal phalanx ; Translations: [Displaced fracture of distal phalanx of unspecified thumb, initial encounter for closed fracture] 03-25-2021 Episodic Immunizations and screening for infectious disease (3 sources) Patient encounter status; Translations: [Encounter for screening for COVID-19] 07-11-2021 Episodic Nausea and vomiting (3 sources) Nausea; Translations: [Nausea] Onset: 03-02-2025 03-02-2025 Episodic Noninfectious gastroenteritis (3 sources) Gastroenteritis; Translations: [Noninfective gastroenteritis and colitis, unspecified] Onset: 03-02-2025 03-02-2025 Episodic Other gastrointestinal disorders (1 source) Constipation; Translations: [Constipation, unspecified] 04-10-2025 Episodic Other lower respiratory disease (1 source) Lower respiratory tract infection; Translations: [Unspecified acute lower respiratory infection] 10-22-2024 Episodic Other nervous system disorders (1 source) Acute abdominal pain; Translations: [Other acute postprocedural pain] 04-10-2025 Episodic Other upper respiratory disease (3 sources) Respiratory tract congestion; Translations: [Nasal congestion] 07-11-2021 Episodic Other upper respiratory infections (3 sources) Viral upper respiratory tract infection; Translations: [Acute upper respiratory infection, unspecified] 11-14-2021 Episodic Unclassified (7 sources) Colorectal ERAS Onset: 10-13-2024 10-13-2024 Unclassified (7 sources) ERAS Nutrition Onset: 10-13-2024 10-13-2024 Viral infection (1 source) Viral disease; Translations: [Viral infection, unspecified] 11-18-2024 Episodic Past or Other Problems Problem Classification Problem Date Documented Date Episodic/Chronic Abdominal pain (6 sources) Abdominal pain; Translations: [Unspecified abdominal pain] Onset: 12-02-2014 12-02-2014 Episodic Anal and rectal conditions (13 sources) Rectal prolapse; Translations: [Rectal prolapse] Onset: 01-21-2024 01-21-2024 Episodic Other connective tissue disease (2 sources) Hypermobility syndrome; Translations: [Hypermobility syndrome] Onset: 10-12-2024 10-12-2024 Episodic Other connective tissue disease (1 source) Hypermobility syndrome; Translations: [Hypermobility syndrome] Onset: 10-12-2024 Episodic Unclassified (3 sources) Onset: 10-12-2024 10-12-2024 Results Test Name Value Interpretation Reference Range Facility CT TRANSFER OF OUTSIDE FILMS on 04-11-2025 CT TRANSFER OF OUTSIDE FILMS Outside images for comparison or treatment purposes, not interpreted by Radiologists. [facility] [place] Comment on above: Order Comment: Abdom en/Pelvis W IV Cont ONLY 04/10/2025 3:26am Abdomen/Pelvis W IV Cont ONL Yon 04-10-2025 Abdomen/Pelvis W IV Cont ONLY [facility] Imaging Services [id number] [place], [place] [id number] Abdomen/Pelvis W IV Cont ONLY MR#: [id number] Acct: [id number] Name: KELLY RAMOS Rep #: [id number] : 2005 F 20 From: Matthias garsia MD PCP: Dr. Wing Flores MD Status: REG ER Study: Abdomen/Pelvis W IV Cont ONLY Date of Exam: Exam# [id number] Ordering Dr: Clifton Gonsalves DO PROCEDURE: ABDOMEN/PELVIS W IV CONT ONLY 04/10/2025 REASON FOR EXAM: POSTOPERATIVE ABDOMINAL PAIN TECHNIQUE: Abdomen and pelvis CT with intravenous contrast. Coronal and Sagittal reconstruction series were provided. PATIENT PREPARATION: Per protocol ORAL CONTRAST TYPE: None. CONTRAST: Isovue-350 VOLUME: 100 mL Gauge IV One or more dose reduction techniques were used (e.g., Automated exposure control, adjustment of the mA and/or kV according to patient size, use of iterative reconstruction technique. RADIATION DOSE SUMMARY: CTDlvol: 7.2 mGy DLP: 402 mGycm COMPARISON: None. FINDINGS: Diffuse thickening of the anorectal junction, probably secondary to recent intervention, edema and/or spasm. Associated perirectal fluid collection is noted measuring 7.6 x 4.2 cm in its largest transverse and anteroposterior dimensions respectively. Secondary moderate narrowing of the anorectal junction. Fluid-filled dilated colon proximal to this level. Associated mild stercoral colitis of the sigmoid colon. No evidence of perforation or pneumatosis coli. The largest transverse dimension of the distended colon is 4.8 cm at the level of the transverse colon. The visualized lung bases are unremarkable. Normal liver. Normal gallbladder and extrahepatic biliary system. Normal spleen. Normal pancreas. Normal bilateral adrenal glands. Normal size of the right kidney. There is no right renal mass. There are no right renal calculi. There is no right hydronephrosis. Normal visualized right ureter. Normal size of the left kidney. There is no left renal mass. There are no left renal calculi. There is no left hydronephrosis. Normal visualized left ureter. Normal visualized stomach. Normal small intestine. The appendix is visualized and appears normal. Normal abdominal aorta. Normal inferior vena cava. Normal retroperitoneum. Normal urinary bladder. There is no pelvic mass lesion or lymphadenopathy. Normal abdominal wall. Normal osseous structures. CT/Abdomen/Pelvis W IV Cont ONLY IMPRESSION: 1. Diffuse thickening of the anorectal junction, probably secondary to recent intervention, edema and/or spasm. Associated perirectal fluid collection is noted measuring 7.6 x 4.2 cm in its largest transverse and anteroposterior dimensions respectively. 2. Secondary moderate narrowing of the anorectal junction. 3. Fluid-filled dilated colon proximal to this level. 4. Associated mild stercoral colitis of the sigmoid colon. 5. No evidence of perforation or pneumatosis coli. 6. The largest transverse dimension of the distended colon is 4.8 cm at the level of the transverse colon. Reading Location: [place] [address] CC: Dr. Wing Flores MD; Clifton Gonsalves DO Aerospace Engineer: Signed Normal [facility] Absolute lymphocyte countOrd ered By: Clifton Gonsalves on 04-10-2025 Lymphocytes Auto (Unsp spec) [#/Vol] 2.20 10*3/uL 0.83-4.51 [facility] Absolute neutrophil countOrd ered By: Clifton Gonsalves on 04-10-2025 Neutrophils (Bld) [#/Vol] 10.9 10*3/uL High 2.0-7.7 [facility] Anion gap in Serum or Plasma Ordered By: Clifton Gonsalves on 04-10-2025 Anion gap [Moles/Vol] 14 mmol/L 5-15 [facility] Automated lymphocyte count a s percentage of total leukocytesOrdered By: Clifton Gonsalves on 04-10-2025 Lymphocytes/100 WBC Auto (Unsp spec) 15.5 % Low 19-41 [facility] BUN/creatinine ratioOrdered By: Clifton Gonsalves on 04-10-2025 Urea nitrogen/Creatinine [Mass ratio] 20.5 mg/mg High 10-20 [facility] Basic Metabolic Profile (BMP )on 04-10-2025 BUN/CRE 20.5 RATIO High 10- [facility] Comment on above: Performed By: #### L 501.5200, L100.0100, L500.3400, L500.2500, L501.2450 #### [facility] [address] [place], [address] Calcium [Mass/Vol] 9.1 mg/dL Normal 7.6-11.0 [facility] Comment on above: Performed By: #### L 501.5200, L100.0100, L500.3400, L500.2500, L501.2450 #### [facility] [address] [place], [address] Chloride [Moles/Vol] 102 mmol/L Normal 98-108 [facility] Comment on above: Performed By: #### L [id number], L100.0100, L500.3400, L500.2500, L501.2450 #### [facility] [address] [place], [address] CO2 [Moles/Vol] 23.5 mmol/L Normal 21.0-32.0 [facility] Comment on above: Performed By: #### L 501.5200, L100.0100, L500.3400, L500.2500, L501.2450 #### [facility] [address] [place], [address] Creatinine [Mass/Vol] 0.87 mg/dL Normal 0.70-1.20 [facility] Comment on above: Performed By: #### L [id number], L100.0100, L500.3400, L500.2500, L501.2450 #### [facility] [address] [place], [address] ECRCL 88.61 ml/min Normal 50-250 [facility] Comment on above: Performed By: #### L 501.5200, L100.0100, L500.3400, L500.2500, L501.2450 #### [facility] [address] [place], [address] GAP 14 Normal 5-15 [facility] Comment on above: Performed By: #### L 501.5200, L100.0100, L500.3400, L500.2500, L501.2450 #### [facility] [address] [place], [address] GFR/1.73 sq M.predicted among non-blacks MDRD (S/P/Bld) [Vol rate/Area] 98 mL/min/{1.73_m2} Normal >60 [facility] Comment on above: Result Comment: mL/m in/1.73m2 CKD-EPI Creatinine Equation (2020) Performed By: #### L 501.5200, L100.0100, L500.3400, L500.2500, L501.2450 #### [facility] [address] [place], [address] Glucose [Mass/Vol] 98 mg/dL Normal 70-99 [facility] Comment on above: Performed By: #### L 501.5200, L100.0100, L500.3400, L500.2500, L501.2450 #### [facility] [address] [place], [address] Potassium [Moles/Vol] 3.6 mmol/L Normal 3.3-5.1 [facility] Comment on above: Performed By: #### L 501.5200, L100.0100, L500.3400, L500.2500, L501.2450 #### [facility] [address] [place], [address] Sodium [Moles/Vol] 139 mmol/L Normal 133-145 [facility] Comment on above: Performed By: #### L 501.5200, L100.0100, L500.3400, L500.2500, L501.2450 #### [facility] [address] [place], [address] Urea nitrogen [Mass/Vol] 18 mg/dL Normal 4-19 [facility] Comment on above: Performed By: #### L 501.5200, L100.0100, L500.3400, L500.2500, L501.2450 #### [facility] [address] [place], [address] Basophil percentageOrdered B y: Clifton Gonsalves on 04-10-2025 Basophils/100 WBC (Bld) 0.4 % 0-1 [facility] Bilirubin directOrdered By: Clifton Gonsalves on 04-10-2025 Bilirubin.direct [Mass/Vol] 0.10 mg/dL 0.00-0.30 [facility] Bilirubin, totalOrdered By: Clifton Gonsalves on 04-10-2025 Bilirubin [Mass/Vol] 0.25 mg/dL 0.00-1.30 [facility] CBC W/Diff, Automatedon Absolute Lymph 2.20 X10 3/uL Normal 0.83-4.51 [facility] [facility] Comment on above: Performed By: #### L 501.5200, L100.0100, L500.3400, L500.2500, L501.2450 #### [facility] [address] [place], [address] Absolute Neut 10.9 X10 3/uL High 2.0-7.7 [facility] Comment on above: Performed By: #### L 501.5200, L100.0100, L500.3400, L500.2500, L501.2450 #### [facility] [address] [place], [address] Basophils/100 WBC (Bld) 0.4 % Normal 0-1 [facility] Comment on above: Performed By: #### L 501.5200, L100.0100, L500.3400, L500.2500, L501.2450 #### [facility] [address] [place], [address] Eosinophils/100 WBC (Bld) 1.1 % Normal 0-5 [facility] Comment on above: Performed By: #### L 501.5200, L100.0100, L500.3400, L500.2500, L501.2450 #### [facility] [address] [place], [address] Erythrocyte distribution width (RBC) [Ratio] 12.0 % Normal 11.6-14.6 [facility] Comment on above: Performed By: #### L 501.5200, L100.0100, L500.3400, L500.2500, L501.2450 #### [facility] [address] [place], [address] Hematocrit (Bld) [Volume fraction] 38.9 % Normal 37-47 [facility] Comment on above: Performed By: #### L 501.5200, L100.0100, L500.3400, L500.2500, L501.2450 #### [facility] [address] [place], [address] Hemoglobin (Bld) [Mass/Vol] 13.5 g/dL Normal 12.0-15.0 [facility] Comment on above: Performed By: #### L 501.5200, L100.0100, L500.3400, L500.2500, L501.2450 #### [facility] [address] [facility] [place], [address] IG% 0.400 Normal 0.0-0.9 [facility] Comment on above: Result Comment: IG% - Immature Granulocytes (promyelocytes, myelocytes and metamyelocytes) > 1% indicates that a LEFT SHIFT is Present. Performed By: #### L 501.5200, L100.0100, L500.3400, L500.2500, L501.2450 #### [facility] [address] [place], [address] Lymphocytes/100 WBC (Bld) 15.5 % Low 19-41 [facility] Comment on above: Performed By: #### L 501.5200, L100.0100, L500.3400, L500.2500, L501.2450 #### [facility] [address] [place], [address] MCH (RBC) [Entitic mass] 30.3 pg Normal 27.0-32.0 [facility] Comment on above: Performed By: #### L 501.5200, L100.0100, L500.3400, L500.2500, L501.2450 #### [facility] [address] [place], [address] MCHC (RBC) [Mass/Vol] 34.7 g/dL Normal 32-36 [facility] Comment on above: Performed By: #### L 501.5200, L100.0100, L500.3400, L500.2500, L501.2450 #### [facility] [address] [place], [address] MCV (RBC) [Entitic vol] 87.2 fL Normal 81-99 [facility] Comment on above: Performed By: #### L 501.5200, L100.0100, L500.3400, L500.2500, L501.2450 #### [facility] [address] [place], [address] Monocytes/100 WBC (Bld) 5.9 % Normal 0-10 [facility] Comment on above: Performed By: #### L 501.5200, L100.0100, L500.3400, L500.2500, L501.2450 #### [facility] [address] [place], [address] Neutrophils/100 WBC (Bld) 76.7 % High 47-70 [facility] Comment on above: Performed By: #### L 501.5200, L100.0100, L500.3400, L500.2500, L501.2450 #### [facility] [address] [place], [address] Nucleated RBC (Bld) [#/Vol] 0 10*3/uL Normal 0-5 [facility] Comment on above: Performed By: #### L 501.5200, L100.0100, L500.3400, L500.2500, L501.2450 #### [facility] [address] [place], [address] Platelet mean volume (Bld) [Entitic vol] 10.1 fL Normal 6.2-12.0 [facility] Comment on above: Performed By: #### L 501.5200, L100.0100, L500.3400, L500.2500, L501.2450 #### [facility] [address] [place], [address] Platelets (Bld) [#/Vol] 270 10*3/uL Normal 150-450 [facility] Comment on above: Performed By: #### L 501.5200, L100.0100, L500.3400, L500.2500, L501.2450 #### [facility] [address] [place], [address] RBC (Bld) [#/Vol] 4.46 10*6/uL Normal 4.2-5.4 [facility] Comment on above: Performed By: #### L 501.5200, L100.0100, L500.3400, L500.2500, L501.2450 #### [facility] [address] [place], [address] RDW SD 38.7 fl Normal 35.1-43.9 [facility] Comment on above: Performed By: #### L 501.5200, L100.0100, L500.3400, L500.2500, L501.2450 #### [facility] [address] [facility] [place], [address] WBC (Bld) [#/Vol] 14.2 10*3/uL High 4.4-11.0 [facility] Comment on above: Performed By: #### L 501.5200, L100.0100, L500.3400, L500.2500, L501.2450 #### [facility] [address] [place], [address] Carbon dioxide, total [Moles /volume] in Central venous bloodOrdered By: Clifton Gonsalves on 04-10-2025 CO2 [Moles/Vol] 23.5 mmol/L 21.0-32.0 [facility] Chloride assayOrdered By: Glory Gonsalves on 04-10-2025 Chloride [Moles/Vol] 102 mmol/L 98-108 [facility] Emergency Department Summary on 04-10-2025 Emergency Department Summary [facility] Medical Records Department [address] [place] [address] Emergency Department Summary 04/10/25 MR#: [id number] Acct: [id number] Name: KELLY RAMOS Rep #: [id number] : 2005 20 From: Clifton Gonsalves DO PCP: Dr. Wing Flores MD Status:REG ER Location: ED HPI History of Present Illness Chief Complaint: Abd Pain Informant: patient and parent Narrative Narrative: Patient is a 20-year-old female who underwent a robotic rectopexy surgery at by Dr. Todd roughly 1 week ago. Patient and mother state that she was doing well and her symptoms are managed with just Tylenol and/or Motrin. However on Thursday she developed increasing abdominal pain and back pain. She states she took oxycodone which was prescribed after the surgery and this did seem to help for a few hours but then the pain returned and worsened and would not respond to further doses of the medication. The patient denies any fevers or chills or dysuria. She states she feels that she has to have a bowel movement but is only able to get a small amount out. Based on the worsening pain roughly 1 week from surgery she presents for evaluation [facility] Medical History (Updated 04/10/25 @ 05:[address] Clifton Gonsalves, DO) IBS (irritable bowel syndrome) Fracture of thumb, right, closed Disease of tonsils and adenoids Encounter for screening for COVID-19 Home Medications ???Medication ???Instructions ???Recorded ???Last Taken ???Type docusate sodium 100 mg capsule 100 mg PO BID 04/10/25 Unknown His tory ibuprofen 600 mg tablet 600 mg PO .Q3HR PRN pain 04/10/25 Unknown History oxycodone 5 mg tablet 5 mg PO Q6H PRN pain 04/10/25 Unkn own History Allergy/AdvReac Type Severity Reaction Status Date / Time azithromycin Allergy Mild RASH Verified 04/10/25 02:36 Social History Smoking Status: Never smoker substance use type: does not use ROS ROS ED Constitutional Constitutional ED: Denies chills or fever(s) ENT ENT ED: Denies sore throat Cardiovascular Cardiovascular: Denies chest pain Respiratory/Chest Respiratory/Chest: Denies cough or dyspnea Gastrointestinal Gastrointestinal: Reports abdominal pain, constipation and nausea; Denies diarrhea or vomiting Genitourinary Genitourinary ED: Denies dysuria Musculoskeletal Musculoskeletal: Reports back pain; Denies myalgias Integumentary Denies rash Neurologic Neurologic: Denies headache(s) Hematologic/Lymphati c Hematologic/Lymphati c: Denies easy bleeding or easy bruising EXAM Physical Exam Const Vital Signs: 04/10/25 02:36 04/10/25 04:32 Temperature 98.0 F Temperature Source Temporal Pulse Rate 80 Respiratory Rate 18 16 Blood Pressure 129/94 H Blood Pressure Mean 105 Pulse Ox 99 Oxygen Delivery Method Room Air Positive well nourished and well developed General Appearance ED: well developed; Negative for pallor HEENT HEENT Narrative: Normocephalic atraumatic No tongue or lip swelling no oral lesions no airway edema or compromise No signs of infection noted in the posterior pharynx Eyes PERRL and EOMs intact bilaterally General Eye ED: Negative for scleral icterus Neck supple Resp normal respiratory effort and clear to auscultation bilaterally Cardio regular rate and regular rhythm GI no masses GI Narrative: Abdomen is soft with hypoactive bowel sounds. There is slight/mild distention noted without increased tympany. There is mild diffuse pain with palpation without voluntary guarding or rigidity. No peritoneal signs or pulsatile mass There are abdominal wounds consistent with recent surgical procedure that are clean dry and intact without secondary findings to suggest infection Auscultation: hypoactive bowel sounds Palpation: soft Extremity normal to inspection Neuro oriented x3, CN's II-XII intact bilaterally and no sensory deficits noted Sensorium / Orientation: alert Motor Exam: strength 5/5 throughout Psych mental status grossly normal Skin no rashes or lesions noted Skin Narrative: Postsurgical abdominal wounds that are clean dry and intact as documented above General Skin Exam: Negative for jaundice or pallor MDM MDM MDM Narrative Medical decision making narrative: Patient arrived to the ER with stable vitals. She reported she has been doing well status post surgery but today had increasing pain. With concern for postoperative infection such as abscess or perforation she was brought in for evaluation. Exam indicates patient could be constipated versus ileus versus potential gas distention from the surgical procedure. Basic blood work is obtained and does show a white count of 14.2 and her neutrophil count is elevated 10.9. However the patient is afebrile and (more content not included)... Normal [facility] Eosinophil percentageOrdered By: Clifton Gonsalves on 04-10-2025 Eosinophils/100 WBC (Bld) 1.1 % 0-5 [facility] Erythrocyte distribution wid th ratioOrdered By: Clifton Gonsalves on 04-10-2025 Erythrocyte distribution width (RBC) [Ratio] 12.0 % 11.6-14.6 [facility] Erythrocyte distribution wid th standard deviationOrdered By: Clifton Gonsalves on 04-10-2025 Erythrocyte distribution width (RBC) [Ratio] 38.7 fl 35.1-43.9 [facility] Glomerular filtration rate ( GFR) estimation/1.73 sq m using serum, plasma, or whole bOrdered By: Clifton Gonsalves on 04-10-2025 GFR/1.73 sq M.predicted among non-blacks MDRD (S/P/Bld) [Vol rate/Area] 98 mL/min/{1.73_m2} >60 [facility] Comment on above: mL/min/1.73m2 CKD-EP I Creatinine Equation (2020) Hematocrit Auto (Bld) [Volum e fraction]Ordered By: Clifton Gonsalves on 04-10-2025 Hematocrit (Bld) [Volume fraction] 38.9 % 37-47 [facility] Hemoglobin measurementOrdere d By: Clifton Gonsalves on 04-10-2025 Hemoglobin (Bld) [Mass/Vol] 13.5 g/dL 12.0-15.0 [facility] Immature granulocytes/100 WB C Auto (Bld)Ordered By: Clifton Gonsalves on 04-10-2025 Immature granulocytes/100 WBC (Bld) 0.400 % 0.0-0.9 [facility] Comment on above: IG% - Immature Granu locytes (promyelocytes, myelocytes and metamyelocytes) > 1% indicates that a LEFT SHIFT is Present. Laboratory - Chemistry and C hemistry - challengeOrdered By: Clifton Gonsalves on 04-10-2025 AST [Catalytic activity/Vol] 23 U/L <32 [facility] Lipaseon 04-10-2025 Lipase [Catalytic activity/Vol] 19 U/L Normal 13-75 [facility] Comment on above: Result Comment: Minal ortez note: LIPASE revised reference range effective 23. New Lipase methodology. Expected to produce lower values than the previous assay method. NEW Reference Range: 13 - 75 U/L Performed By: #### L 501.5200, L100.0100, L500.3400, L500.2500, L501.2450 #### [facility] [address] [place] [address], [id number] Lipase measurementOrdered By : Clifton Gonsalves on 04-10-2025 Lipase [Catalytic activity/Vol] 19 U/L 13-75 [facility] Comment on above: Please note:LIPASE r evised reference range effective 23. New Lipase methodology. Expected to produce lower values than the previous assay method. NEW Reference Range: 13 - 75 U/L Liver Profileon 04-10-2025 Albumin [Mass/Vol] 4.2 g/dL Normal 3.5-5.0 [facility] Comment on above: Performed By: #### L 501.5200, L100.0100, L500.3400, L500.2500, L501.2450 #### [facility] [address] [place], [address] ALK PHOS 80 U/L Normal 35-104 [facility] Comment on above: Performed By: #### L 501.5200, L100.0100, L500.3400, L500.2500, L501.2450 #### [facility] [address] [place], [address] ALT [Catalytic activity/Vol] 15 U/L Normal <=34 [facility] Comment on above: Performed By: #### L 501.5200, L100.0100, L500.3400, L500.2500, L501.2450 #### [facility] [address] [place], [address] AST [Catalytic activity/Vol] 23 U/L Normal <=31 [facility] Comment on above: Performed By: #### L 501.5200, L100.0100, L500.3400, L500.2500, L501.2450 #### [facility] [address] [place], [address] Bilirubin [Mass/Vol] 0.25 mg/dL Normal 0.00-1.30 [facility] Comment on above: Performed By: #### L 501.5200, L100.0100, L500.3400, L500.2500, L501.2450 #### [facility] [address] [place], [address] Bilirubin.direct [Mass/Vol] 0.10 mg/dL Normal 0.00-0.30 [facility] Comment on above: Performed By: #### L 501.5200, L100.0100, L500.3400, L500.2500, L501.2450 #### [facility] [address] [place], [address] Globulin (S) [Mass/Vol] 2.7 g/dL Normal 2.2-4.2 [facility] Comment on above: Performed By: #### L 501.5200, L100.0100, L500.3400, L500.2500, L501.2450 #### [facility] [address] [place], [address] T PROT 6.9 g/dL Normal 5.9-8.4 [facility] Comment on above: Performed By: #### L 501.5200, L100.0100, L500.3400, L500.2500, L501.2450 #### [facility] [address] [place], [address] MCV (mean corpuscular volume ) determinationOrdered By: Clifton Gonsalves on 04-10-2025 MCV (RBC) [Entitic vol] 87.2 fL 81-99 [facility] Magnesiumon 04-10-2025 Magnesium [Mass/Vol] 2.1 mg/dL Normal 1.5-2.2 [facility] Comment on above: Performed By: #### L 501.5200, L100.0100, L500.3400, L500.2500, L501.2450 #### [facility] [address] [place], [address] Magnesium measurement (mass/ volume)Ordered By: Clifton Gonsalves on 04-10-2025 Magnesium (Unsp spec) [Mass/Vol] 2.1 mg/dL 1.5-2.2 [facility] Mean corpuscular hemoglobin (MCH) determinationOrdered By: Clifton Gonsalves on 04-10-2025 MCH (RBC) [Entitic mass] 30.3 pg 27.0-32.0 [facility] Mean corpuscular hemoglobin concentration (MCHC) determinationOrdered By: Clifton Gonsalves on 04-10-2025 MCHC (RBC) [Mass/Vol] 34.7 g/dL 32-36 [facility] Mean platelet volume determi nationOrdered By: Clifton Gonsalves on 04-10-2025 Platelet mean volume (Bld) [Entitic vol] 10.1 fL 6.2-12.0 [facility] Monocyte percentageOrdered B y: Clifton Gonsalves on 04-10-2025 Monocytes/100 WBC (Bld) 5.9 % 0-10 [facility] Neutrophil percentageOrdered By: Clifton Gonsalves on 04-10-2025 Neutrophils/100 WBC (Bld) 76.7 % High 47-70 [facility] Nucleated red blood cell per centageOrdered By: Clifton Gonsalves on 04-10-2025 Nucleated RBC/100 WBC (Bld) [Ratio] 0 % 0-5 [facility] Platelet countOrdered By: Glory Gonsalves on 04-10-2025 Platelets (Bld) [#/Vol] 270 10*3/uL 150-450 [facility] Potassium measurement (mass/ volume)Ordered By: Clifton Gonsalves on 04-10-2025 Potassium (Unsp spec) [Mass/Vol] 3.6 mmol/L 3.3-5.1 [facility] RBC Auto (Bld) [#/Vol]Ordere d By: Clifton Gonsalves on 04-10-2025 RBC (Bld) [#/Vol] 4.46 10*6/uL 4.2-5.4 [facility] Serum creatinine measurement (mass/volume)Ordered By: Clifton Gonsalves on 04-10-2025 Creatinine [Mass/Vol] 0.87 mg/dL 0.70-1.20 [facility] Serum globulin measurementOr dered By: Clifton Gonsalves on 04-10-2025 Globulin (S) [Mass/Vol] 2.7 g/dL 2.2-4.2 [facility] Serum glucose measurement (m ass/volume)Ordered By: Clifton Gonsalves on 04-10-2025 Glucose [Mass/Vol] 98 mg/dL 70-99 [facility] Serum or plasma alanine sprague otransferase (ALT) measurementOrdered By: Clifton Gonsalves on 04-10-2025 ALT [Catalytic activity/Vol] 15 U/L <35 [facility] Serum or plasma albumin jem urement (mass/volume)Ordered By: Clifton Gonsalves on 04-10-2025 Albumin [Mass/Vol] 4.2 g/dL 3.5-5.0 [facility] Serum or plasma alkaline emre sphatase measurementOrdered By: Clifton Gonsalves on 04-10-2025 ALP [Catalytic activity/Vol] 80 U/L 35-104 [facility] Serum or plasma calcium jem urement (mass/volume)Ordered By: Clifton Gonsalves on 04-10-2025 Calcium [Mass/Vol] 9.1 mg/dL 7.6-11.0 [facility] Serum or plasma urea nitroge n measurement (mass/volume)Ordered By: Clifton Gonsalves on 04-10-2025 Urea nitrogen [Mass/Vol] 18 mg/dL 4-19 [facility] Sodium levelOrdered By: Fazal Gonsalves on 04-10-2025 Sodium [Moles/Vol] 139 mmol/L 133-145 [facility] Total proteinOrdered By: Dustin Gonsalves on 04-10-2025 Protein [Mass/Vol] 6.9 g/dL 5.9-8.4 [facility] White blood cell (WBC) count Ordered By: Clifton Gonsalves on 04-10-2025 WBC (Bld) [#/Vol] 14.2 10*3/uL High 4.4-11.0 [facility] HCG ( test) Ql (U)o n 04-04-2025 Interpretation and review of laboratory results Normal [facility] Work Phone: Preg Test, Ur Negative Negative [facility] Work Phone: [facility] Work Phone: BASIC METABOLIC PANEL WITH A NION GAPon 03-25-2025 BUN/CREATININE RATIO SEE NOTE: Normal 6-22 [facility] Comment on above: Result Comment: Not Reported: BUN and Creatinine are within reference range. Performed By: #### 9 0027, 6477 #### [facility] [address] [place] [address], [address] [place] [address] Installer Helper: Chilo Matias MD Calcium [Mass/Vol] 9.1 mg/dL Normal 8.6-10.2 [facility] Comment on above: Performed By: #### 9 2497, 1759 #### [facility] of [address], [address] [place] [address] Installer Helper: Chilo Matias MD Chloride [Moles/Vol] 103 mmol/L Normal 98-110 [facility] Comment on above: Performed By: #### 9 2497, 1759 #### [facility] of [address], [address] [place] [address] Installer Helper: Chilo Matias MD CO2 [Moles/Vol] 24 mmol/L Normal 20-32 [facility] Comment on above: Performed By: #### 9 2497, 1759 #### [facility] [place] [address] Installer Helper: Chilo Matias MD Creatinine [Mass/Vol] 0.93 mg/dL Normal 0.50-0.[address] [facility] [address] [facility] Comment on above: Performed By: #### 9 2497, 1759 #### [facility] of [address], [address] [place] [address] Installer Helper: Chilo Matias MD ELECTROLYTE BALANCE 12 mmol/L (calc) Normal 7-17 [facility] Comment on above: Performed By: #### 9 2497, 1759 #### [facility] [place] [address] Installer Helper: Chilo Matias MD GFR/1.73 sq M.predicted among non-blacks MDRD (S/P/Bld) [Vol rate/Area] 90 mL/min/{1.73_m2} Normal > OR = 60 [facility] Comment on above: Performed By: #### 9 2497, 1759 #### [facility] of [place] [address] Installer Helper: Chilo Matias MD Glucose [Mass/Vol] 78 mg/dL Normal 65-99 [facility] Comment on above: Result Comment: Fasting reference interval Performed By: #### 9 2497, 1759 #### [facility] of [address] [place] [address] Installer Helper: Chilo Matias MD Potassium [Moles/Vol] 4.3 mmol/L Normal 3.5-5.[address] [facility] [address] [facility] Comment on above: Performed By: #### 9 2497, 1759 #### [facility] of [address], [address] [place] [address] Installer Helper: Chilo Matias MD Sodium [Moles/Vol] 139 mmol/L Normal 135-146 [facility] Comment on above: Performed By: #### 9 2497, 1759 #### [facility] of [address], [address] [place] [address] Installer Helper: Chilo Matias MD Urea nitrogen [Mass/Vol] 19 mg/dL Normal 7-25 [facility] Comment on above: Performed By: #### 9 2497, 1759 #### [facility] of [address], [address] [place] [address] Installer Helper: Chilo Matias MD CBC (H/H, RBC, INDICES, WBC, PLT)on 03-25-2025 Erythrocyte distribution width (RBC) [Ratio] 12.4 % Normal 11.0-15.0 [facility] Comment on above: Performed By: #### 9 2497, 1759 #### [facility] of [address], [address] [place] [address] Installer Helper: Chilo Matias MD Hematocrit (Bld) [Volume fraction] 44.5 % Normal 35.0-45.0 [facility] Comment on above: Performed By: #### 9 2497, 1759 #### [facility] of [address], [address] [place] [address] Installer Helper: Chilo Matias MD Hemoglobin (Bld) [Mass/Vol] 14.8 g/dL Normal 11.7-15.5 [facility] Comment on above: Performed By: #### 9 2497, 1759 #### [facility] of [address], [address] [place] [address] Installer Helper: Chilo Matias MD MCH (RBC) [Entitic mass] 31.0 pg Normal 27.0-33.0 [facility] Comment on above: Performed By: #### 9 2497, 1759 #### [facility] [place] [address] Installer Helper: Chilo Matias MD MCHC (RBC) [Mass/Vol] 33.3 g/dL Normal 32.0-36.[address] [facility] Comment on above: Result Comment: For adults, a slight decrease in the calculated MCHC value (in the range of 30 to 32 g/dL) is most likely not clinically significant; however, it should be interpreted with caution in correlation with other red cell parameters and the patient's clinical condition. Performed By: #### 9 2497, 1759 #### [facility] [place] [address] Installer Helper: Chilo Matias MD MCV (RBC) [Entitic vol] 93.1 fL Normal 80.0-100.0 [facility] Comment on above: Performed By: #### 9 2497, 1759 #### [facility] [place] [address] Installer Helper: Chiol Matias MD Platelet mean volume (Bld) [Entitic vol] 10.0 fL Normal 7.5-12.5 [facility] Comment on above: Performed By: #### 9 2497, 175 #### [facility] [place] [address] Installer Helper: Chilo Matias MD Platelets (Bld) [#/Vol] 227 10*3/uL Normal 140-400 [facility] Comment on above: Performed By: #### 9 2497, 1759 #### [facility] [place] [address] Installer Helper: Chilo Matias MD RBC (Bld) [#/Vol] 4.78 10*6/uL Normal 3.80-5.10 [facility] Comment on above: Performed By: #### 9 2498, 1759 #### [facility] [address], [address] [place] [address] Installer Helper: Chilo Matias MD WBC (Bld) [#/Vol] 6.1 10*3/uL Normal 3.8-10.8 [facility] Comment on above: Performed By: #### 9 2498, 1759 #### [facility] of [facility] [address], [address] [place] [address] Installer Helper: Chilo Matias MD Blood type and Indirect anti body screen panel (Bld)on 03-23-2025 ABO group Nom (Bld) B [facility] Comment on above: Performed By: #### 3 4532-2 #### DONAL JACQUES ([id number]) [facility] [address] [place] [address] [place] Blood group antibody screen Ql Negative [facility] Comment on above: Performed By: #### 3 4532-2 #### DONAL JACQUES ([id number]) [facility] ([facility]) [address] [place] [address] [place] D Ag Ql (Bld) Positive [facility] Comment on above: Performed By: #### 3 4532-2 #### DONAL JACQUES ([id number]) [facility] ([facility]) [address] [place] [address] [place] CBC (H/H, RBC, INDICES, WBC, PLT)on 12-22-2024 HEMATOCRIT Normal [facility] Comment on above: Performed By: #### 1 300, 20149 #### [facility] [address], [address] [place] [address] Installer Helper: Chilo Matias MD HEMOGLOBIN Normal [facility] Comment on above: Performed By: #### 1 938, 47547 #### [facility] [address], [address] [place] [address] Installer Helper: Chilo Matias MD [facility] Normal [facility] Comment on above: Performed By: #### 1 744, 77473 #### [facility] [address], [address] [place] [phone] Installer Helper: Chilo Matias MD [facility] Normal [facility] Comment on above: Performed By: #### 1 759, 05444 #### [facility] [address], [address] [place] [phone] Installer Helper: Chilo Matias MD [facility] Normal [facility] Comment on above: Performed By: #### 1 759, 63491 #### [facility] [address], [address] [place], [place] [phone] Installer Helper: Chilo Matias MD [facility] Normal [facility] Comment on above: Performed By: #### 1 759, 15102 #### [facility] [address], [address] [place], [place] [phone] Installer Helper: Chilo Matias MD PLATELET COUNT Normal [facility] Comment on above: Performed By: #### 1 759, 04103 #### [facility] [address], [address] [place], [place] [phone] Installer Helper: Chilo Matias MD [facility] Normal [facility] Comment on above: Performed By: #### 1 499, 56511 #### [facility] [address], [address] [place] [address] Installer Helper: Chilo Matias MD RED BLOOD CELL COUNT [facility] Comment on above: Performed By: #### 1 759, 46243 #### [facility] [address], [address] [place] [phone] Installer Helper: Chilo Matias MD WHITE BLOOD CELL COUNT [facility] Comment on above: Performed By: #### 1 566, 58389 #### [facility] [address], [address] [place] [phone] Installer Helper: Chilo Matias MD COMPREHENSIVE METABOLIC PANE L W/ANION GAPon 12-22-2024 Albumin [Mass/Vol] 4.4 g/dL Normal 3.6-5.1 [facility] Comment on above: Performed By: #### 1 289, 96702 #### [facility] of [place] [address] Installer Helper: Chilo Matias MD ALP [Catalytic activity/Vol] 66 U/L Normal 36-128 [facility] Comment on above: Performed By: #### 1 759, 64876 #### [facility] of [address], [address] [place] [address] Installer Helper: Chilo Matias MD ALT [Catalytic activity/Vol] 13 U/L Normal 5-32 [facility] Comment on above: Performed By: #### 1 759, 48616 #### [facility] of [place] [address] Installer Helper: Chilo Matias MD AST [Catalytic activity/Vol] 18 U/L Normal 12-32 [facility] Comment on above: Performed By: #### 1 699, 32344 #### [facility] of [place] [address] Installer Helper: Chilo Matias MD Bilirubin [Mass/Vol] 0.4 mg/dL Normal 0.2-1.1 [facility] Comment on above: Performed By: #### 1 420, 00576 #### [facility] [place] [address] Installer Helper: Chilo Matias MD Calcium [Mass/Vol] 9.0 mg/dL Normal 8.9-10.4 [facility] Comment on above: Performed By: #### 1 999, 79285 #### [facility] of [place] [address] Installer Helper: Chilo Matias MD Chloride [Moles/Vol] 106 mmol/L Normal 98-110 [facility] Comment on above: Performed By: #### 1 232, 23215 #### [facility] [place] [address] Installer Helper: Chilo Matias MD CO2 [Moles/Vol] 27 mmol/L Normal 20-32 [facility] Comment on above: Performed By: #### 1 659, 96777 #### [facility] of [address], [address] [place] [address] Installer Helper: Chilo Matias MD Creatinine [Mass/Vol] 0.83 mg/dL Normal 0.50-0.[address] [facility] [address] [facility] Comment on above: Performed By: #### 1 759, 39206 #### [facility] of [address], [address] [place] [address] Installer Helper: Chilo Matias MD ELECTROLYTE BALANCE 8 mmol/L (calc) Normal 7-17 [facility] Comment on above: Performed By: #### 1 688, 07286 #### [facility] [address], [address] [place] [address] Installer Helper: Chilo Matias MD GFR/1.73 sq M.predicted among non-blacks MDRD (S/P/Bld) [Vol rate/Area] 104 mL/min/{1.73_m2} Normal > OR = 60 [facility] Comment on above: Performed By: #### 1 534, 80657 #### [facility] [place] [address] Installer Helper: Chilo Matias MD Glucose [Mass/Vol] 77 mg/dL Normal 65-99 [facility] Comment on above: Result Comment: Fasting reference interval Performed By: #### 1 786, 06580 #### [facility] of [address], [address] [place] [address] Installer Helper: Chilo Matias MD Potassium [Moles/Vol] 4.3 mmol/L Normal 3.8-5.[address] [facility] Comment on above: Performed By: #### 1 131, 51381 #### [facility] of [address], [address] [place] [address] Installer Helper: Chilo Matias MD Protein [Mass/Vol] 6.5 g/dL Normal 6.3-8.2 [facility] Comment on above: Performed By: #### 1 759, 65246 #### [facility] [address], [address] [place] [address] Installer Helper: Chilo Matias MD Sodium [Moles/Vol] 141 mmol/L Normal 135-146 [facility] Comment on above: Performed By: #### 1 759, 92018 #### [facility] [address], [address] [place] [address] Installer Helper: Chilo Matias MD Urea nitrogen [Mass/Vol] 15 mg/dL Normal 7-20 [facility] Comment on above: Performed By: #### 1 759, 31818 #### [facility] [address], [address] [place] [address] Installer Helper: Chilo Matias MD Blood type and Indirect anti body screen panel (Bld)on 12-21-2024 ABO group Nom (Bld) B [facility] Comment on above: Performed By: #### 3 4532-2 #### DONAL JACQUES ([id number]) [facility] [address] [place] [address] Blood group antibody screen Ql Negative [facility] Comment on above: Performed By: #### 3 4532-2 ###Hussain JACQUES ([id number]) [facility] [address] [place] [address] D Ag Ql (Bld) Positive [facility] Comment on above: Performed By: #### 3 4532-2 ###Hussain JACQUES ([id number]) [facility] [address] [place] [address] CNOVon 11-18-2024 CNOV Office Visit ([facility]) KELLY RAMOS ([id number]) 5 F Date Time Provider Department 11/18/24 4:45 PM DAVID HOPKINS [facility] During your visit today, we recorded the following information about you: Temperature Pulse Respiration Blood pressure 97.6 degrees 76/minute 18/minute 131/75 Weight Last Period 58 kg 11/07/24 David Hopkins PA-C 11/18/2024 5:31 PM Signed This note was created using [employer]. Subjective Kelly Ramos is a 19 year old female. Patient is a 19-year-old female who complains of congestion and cough that she has been experiencing for the past 6 days. Patient also reports mild sore throat that she has had for the past 3 days. Patient does attend [employer] and does live in the dormitory. Patient reports that there have been no cases of mononucleosis or strep that she is aware of in the dorm. Patient has no history of asthma and does not smoke. Patient states that several of her family members were also recently evaluated for similar symptoms and all were diagnosed with viral upper respiratory infections. Cough Associated symptoms include sore throat. Ear Pain Associated symptoms include congestion, coughing and a sore throat. Review of Systems HENT: Positive for congestion and sore throat. Respiratory: Positive for cough. All other systems reviewed and are negative. Objective BP 131/75 Pulse 76 Temp 36.4 ?C (97.6 ?F) Resp 18 Wt 58 kg (127 lb 13.9 oz) LMP 11/07/2024 (Approximate) SpO2 99% Physical Exam Vitals and nursing note reviewed. Constitutional: Appearance: Normal appearance. She is normal weight. HENT: Head: Normocephalic and atraumatic. Right Ear: Tympanic membrane, ear canal and external ear normal. Left Ear: Tympanic membrane, ear canal and external ear normal. Nose: Nose normal. Mouth/Throat: Mouth: Mucous membranes are moist. Pharynx: Oropharynx is clear. Eyes: Extraocular Movements: Extraocular movements intact. Conjunctiva/sclera: Conjunctivae normal. Pupils: Pupils are equal, round, and reactive to light. Cardiovascular: Rate and Rhythm: Normal rate and regular rhythm. Pulses: Normal pulses. Heart sounds: Normal heart sounds. Pulmonary: Effort: Pulmonary effort is normal. Breath sounds: Normal breath sounds. Musculoskeletal: Cervical back: Normal range of motion and neck supple. Skin: General: Skin is warm and dry. Capillary Refill: Capillary refill takes less than 2 seconds. Neurological: General: No focal deficit present. Mental Status: She is alert and oriented to person, place, and time. Psychiatric: Mood and Affect: Mood normal. Behavior: Behavior normal. Thought Content: Thought content normal. Judgment: Judgment normal. Assessment and Plan Unremarkable physical exam findings as noted above. Rapid strep PCR is negative. Patient was provided with prescriptions for prednisone 20 mg and Tessalon 100 mg. Supportive care was discussed and the patient verbalizes clear understanding of same. CLINICAL IMPRESSION: Viral Illness ASSESSMENT/PLAN: 1. Viral illness - ICD9: 079.99, ICD10: B34.9 - STREP A MOLECULAR (POC) - PREDNISONE 20 MG TABLET - BENZONATATE 100 MG CAPSULE David Hopkins PA-C Allergies As of Date: 11/18/2024 (No Known Allergies) Date Reviewed: 11/18/2024 Reviewed by: Paige Cunningham LPN - Fully Assessed Reason for Visit: Cough [28] Cmt: Cough, chest congestion, productive green, thick phlegm, heaviness in chest, low grade fever, x 6 days Ear Pain [817] Cmt: Bilat ear pain R is worse Primary Visit Diagnosis:Viral illness [B34.9] Order(s):STREP A MOLECULAR (POC) [8816948] Order #: [id number]. #:[id number] predniSONE (DELTASONE) 20 mg tabletTake 1 tablet by mouth two times a day for 3 days.Disp: 6 tabletRfl: 0 benzonatate (TESSALON PERLE) 100 mg capsuleTake 1 capsule by mouth three times a day as needed for cough for up to 7 days.Disp: 21 capsuleRfl: 0 Prescriptions as of 11/18/2024 - escitalopram oxalate (LEXAPRO) 10 mg tablet Take 10 mg by mouth once daily. - predniSONE (DELTASONE) 20 mg tablet Take 1 tablet by mouth two times a day for 3 days. - benzonatate (TESSALON PERLE) 100 mg capsule Take 1 capsule by mouth three times a day as needed for cough for up to 7 days. Problem List As Of Date: 11/18/2024 (None) Prescriptions ordered this encounter Disp Refills Start End PREDNISONE 20 MG TABLET 6 ta* 0 11/18/2024 11/21/2024 Route: ORAL Sig: Take 1 tablet by mouth two times a day for 3 days. BENZONATATE 100 MG CAPSULE 21 c* 0 11/18/2024 11/25/2024 Route: ORAL Sig: Take 1 capsule by mouth three times a day as needed for cough for up to 7 days. Level of Service: OFFICE/OUTPATIENT ESTABLISHED MOD [facility] 30 MIN [97390] Encounter Status:Closed by DAVID HOPKINS on 11/18/24 Normal [facility] STREP A MOLECULAR (POC)on Procedural Control Valid [facility] Strep A (POCT) Negative Negative [facility] CNOVon 10-22-2024 CNOV Office Visit ([facility]) KELLY RAMOS ([id number]) 5 F Date Time Provider Department 10/22/24 11:30 AM JAIR RILEY [facility] During your visit today, we recorded the following information about you: Temperature Pulse Respiration Blood pressure 98.2 degrees 82/minute 18/minute 108/68 Weight Last Period 59.5 kg 10/08/24 Jair Riley APRN.LABORATORY TECHNICIAN 10/22/2024 11:31 AM Signed Subjective HPI Nontoxic-appearing female presents urgent care chief complaint cough chest congestion. Initially had bodyaches chills fatigue. The symptoms have improved. Cough is stayed productive and prominent. OTC medications at night and this has helped with cough suppressant. Denies any chest pain or hemoptysis. No fevers. No pleuritic pain. Is not is not breast-feeding. Past medical history prescription medications allergies reviewed. BP 108/68 Pulse 82 Temp 36.8 ?C (98.2 ?F) Resp 18 Wt 59.5 kg (131 lb 2.8 oz) LMP 10/08/2024 (Approximate) SpO2 99% .Patient presents with: Cough: Persistent cough, fatigue, chest tightness, wheeze, lots of mucous, deep cough x 1.5 weeks History reviewed. No pertinent past medical history. History reviewed. No pertinent surgical history. ALLERGIES Patient has no known allergies. MEDICATIONS doxycycline (VIBRA-TABS) 100 mg tablet Take 1 tablet by mouth two times a day for 5 days. History reviewed. No pertinent family history. Social History Tobacco Use Smoking status: Never Smokeless tobacco: Never Review of Systems Constitutional: Positive for malaise/fatigue. Negative for chills and fever. HENT: Negative for congestion, ear discharge, ear pain, sinus pain and sore throat. Eyes: Negative for blurred vision, pain, discharge and redness. Respiratory: Positive for cough and sputum production. Negative for hemoptysis, shortness of breath, wheezing and stridor. Cardiovascular: Negative for chest pain. Gastrointestinal: Negative for abdominal pain, diarrhea, nausea and vomiting. Musculoskeletal: Positive for myalgias. Skin: Negative for itching and rash. Neurological: Negative for dizziness and headaches. Objective Physical Exam Constitutional: General: She is not in acute distress. Appearance: She is not diaphoretic. HENT: Head: Normocephalic. Jaw: No trismus, tenderness, swelling or pain on movement. Mouth/Throat: Mouth: Mucous membranes are moist. Pharynx: Oropharynx is clear. Uvula midline. No pharyngeal swelling, oropharyngeal exudate, posterior oropharyngeal erythema or uvula swelling. Eyes: Conjunctiva/sclera: Conjunctivae normal. Pupils: Pupils are equal, round, and reactive to light. Cardiovascular: Rate and Rhythm: Normal rate and regular rhythm. Heart sounds: Normal heart sounds. Pulmonary: Effort: Pulmonary effort is normal. No tachypnea, accessory muscle usage or respiratory distress. Breath sounds: No stridor. Rhonchi present. No wheezing or rales. Abdominal: General: There is no distension. Palpations: Abdomen is soft. Tenderness: There is no abdominal tenderness. There is no guarding or rebound. Musculoskeletal: Cervical back: Normal range of motion and neck supple. No edema, erythema, rigidity or tenderness. No pain with movement. Normal range of motion. Lymphadenopathy: Cervical: No cervical adenopathy. Skin: General: Skin is warm and dry. Neurological: Mental Status: She is alert and oriented to person, place, and time. ASSESSMENT/PLAN: 1. Lower respiratory tract infection - ICD9: 519.8, ICD10: J22 Diagnosed with lower respiratory tract infection. Placed on doxycycline. Patient was educated on supportive therapies. Patient will follow up with primary care provider 48 hours reevaluation. Patient was instructed to immediately proceed to emergency room for any new, worsening, or symptoms lasting longer than anticipated. The patient's clinical presentation is otherwise unremarkable at this time. Based on exam and clinical finding, the patient is stable for discharge. Plan of care was discussed with patient. Patient verbalizes understanding and agrees to plan of care. This note was generated using [employer] Navigation software. It may contain errors in wording, punctuation, or spelling. Jair Riley APRN.LABORATORY TECHNICIAN Allergies As of Date: 10/22/2024 (No Known Allergies) Date Reviewed: 10/22/2024 Reviewed by: Jair Riley APRN.LABORATORY TECHNICIAN - Fully Assessed Reason for Visit: Cough [28] Cmt: Persistent cough, fatigue, chest tightness, wheeze, lots of mucous, deep cough x 1.5 weeks Primary Visit Diagnosis:Lower respiratory tract infection [J22] Order(s):doxycycline (VIBRA-TABS) 100 mg tabletTake 1 tablet by mouth two times a day for 5 days.Disp: 10 tabletRfl: 0 Prescriptions as of 10/22/2024 - doxycycline (VIBRA-TABS) 100 mg tablet Take 1 tablet by mouth two times a day for 5 days. Problem (more content not included)... Normal [facility] CNOV Office Visit ([facility]STR) KELLY RAMOS ([id number]) 5 F Date Time Provider Department 10/22/24 11:00 AM [facility] During your visit today, we recorded the following information about you: Referring Provider: SELF [200] Allergies As of Date: 10/22/2024 (No Known Allergies) Date Reviewed: 10/22/2024 Reviewed by: Jair Riley APRN.LABORATORY TECHNICIAN - Fully Assessed Reason for Visit: Appointment Cancelled [1023] Primary Visit Diagnosis:APPOINTMEN T CANCELLED Prescriptions as of 10/26/2024 - doxycycline (VIBRA-TABS) 100 mg tablet Take 1 tablet by mouth two times a day for 5 days. Problem List As Of Date: 10/22/2024 (None) Encounter Status:Closed by MEGA JOLLY CMA on 10/26/24 Normal [facility] Progress Noteon 04-06-2024 [employer] Authentication Interface Message Text [facility] SURG[facility] CONSULT Name: Kelly Ramos Referring/Requesting Physician: Piper Lin MD PCP: Wing Flores MD Source: Mother Date of Service: 04/06/2024 CHIEF COMPLAINT: rectal prolapse HISTORY OF PRESENT ILLNESS: Patient is a 19 y.o. female with an unremarkable PMH, who presents w/the chief complaint of rectal prolapse. She had issues with rectal prolapse when she was 3 and 4 years old and that was due to constipation and treated with Miralax. She was diagnosed with irritable bowel syndrome at 10 years old. It improved but she feels like she has had issues with partial prolapse but full prolapse at about 16 years old. She has the full rectal prolapse with every bowel movement, sometimes while urinating, or any increased interabdomianl pressure. She is able to reduce it by squeezing her buttocks together. She started to see again in the Spring 2023. She has more issues with diarrhea but also has issues with constipation. She has not tried many medications.She is flexible and able to hyperextend elbows, she has issues with fatigue, has issues with orthostatic hypotension, IBS, and rectal prolapse. No issues with her heart or eyes. The patient's mother states that Dr. Piper Lin requests recommendations regarding the chief complaint listed above. My evaluation and recommendations on this patient will be communicated back to the requesting provider by way of shared medical record or letter/fax. PAST MEDICAL HISTORY: Past Medical History: Diagnosis Date Constipation PAST SURGICAL HISTORY: Past Surgical History: Procedure Laterality Date COLONOSCOPY N/A 03/23/2024 Colonoscopy with biopsies (possible polypectomy) performed by Piper Lin MD at [facility] OR RECTAL PROLAPSE REPAIR TONSILLECTOMY AND ADENOIDECTOMY ANESTHESIA COMPLICATIONS: None MEDS: Current Outpatient Medications: escitalopram (LEXAPRO) 10 MG tablet, Take 1 Tablet (10 mg) by mouth daily, Disp: , Rfl: rifAXIMin (XIFAXAN) 100 MG TABS, Take 1 Tablet (100 mg) by mouth, Disp: , Rfl: ALLERGY: No Known Allergies FAMILY HISTORY: Family History Problem Relation Age of Onset Anesth Problems Neg Hx Bleeding Problem Neg Hx SOCIAL HISTORY: Patient lives with the her mother School: [employer] REVIEW OF SYSTEMS: History obtained from Mother General ROS: negative Psychological ROS: anxiety Ophthalmic ROS: negative ENT ROS: negative Allergy and Immunology ROS: negative Hematological and Lymphatic ROS: negative Endocrine ROS: negative Respiratory ROS: no cough, shortness of breath, or wheezing Cardiovascular ROS: negative Gastrointestinal ROS: IBS Genito-Urinary ROS: negative Musculoskeletal ROS: hyperextension of elbows, flexible Neurological ROS: negative Dermatological ROS: negative PHYSICAL EXAM: VITAL SIGNS: Temp 36.6 C (97.8 F) (Temporal) Ht (!) 156.5 cm Wt 58.9 kg LMP 03/28/2024 BMI 24.05 kg/m GEN/CONSTITUTIONAL: The patient is a 19 y.o. female who is in no apparent acute distress, well developed and well nourished. Non-toxic appearing SKIN: No jaundice, rashes, or petechiae. HEENT: Normocephalic, atraumatic. Normal appearing external nose, lips and ears. EYES: The sclera are anicteric NECK: Supple, No mass. No cervical lymphadenopathy RESPIRATORY: Breath sounds clear and equal to auscultation bilaterally. Normal respiratory effort. No crackles or rhonchi, No wheezing, no crepitus, no repiratory distress. CV: The heart has a regular rate and rhythm without murmur, clicks, or rubs. The extremities are warm and well perfused bilaterally. No lower extremity edema. GI: The abdomen is soft, non-tender, and non-distended. ANUS/BUTTOCKS: circumferential rectal prolapse out about 1 to 2 cm(she was able to reproduce while using the restroom and examined with ). MUSCULOSKELETAL: The extremities are grossly normal, without major deformity. NEURO/PSYCH: Alert and oriented x3, Kelly follows commands well. Normal and appropriate mood and affect for his age and the situation. IMAGING: FL Colon Order: [id number] Status: Final result Visible to patient: Yes (seen) Next appt: 07/26/2024 at 09:00 AM in Gastroenterology (Piper Lin MD) Dx: Rectal prolapse 0 Result Notes Details Reading Physician Reading Date Result Priority Josue Daley MD [phone] 02/25/2024 Kelton Zhou MD [phone] 02/25/2024 Narrative & Impression CLINICAL HISTORY: Recurrent Rectal prolapse COMPARISON: None TECHNIQUE: Low-dose fluoroscopy (3 frames/sec) was used for evaluation of the colon. Fluoroscopy time: 1.1 minutes Estimated Dose area product: 310.46 uGy-m2. Contrast: Dilute Gastrografin (diluted 1:5 with water) administered per rectum by gravity drip. FINDINGS: The limited fluoroscopic polisher hand image shows bowel gas in a nonobstructive patte (more content not included)... Normal [facility] PATHOLOGY SURGICAL LAB TESTo n 03-23-2024 CASE REPORT Normal [facility] Comment on above: Order Comment: Relea se to patient->Automatic (5 days after final result) Result Comment: Surg ical Pathology Report Case: [id number] Authorizing Provider: Piper Lin MD Collected: 03/23/2024 0935 Ordering Location: [facility] Received: 03/23/2024 1300 Pathologist: Ilana Mccormack DO Specimens: A) - Terminal Ileum, TERMINAL ILEUM B) - Right Colon, RIGHT COLON C) - Left Colon, LEFT COLON D) - Rectosigmoid, RECTOSIGMOID Performed By: #### 7 741 #### FRANCIS Galan ([id number]) [employer] ([employer] Clinical Information Normal [facility] Comment on above: Order Comment: Relea se to patient->Automatic (5 days after final result) Result Comment: Rect al prolapse. Performed By: #### 7 741 #### FRANCIS Galan ([id number]) [employer] ([employer]) [address] Final Diagnosis Normal [facility] Comment on above: Order Comment: Relea se to patient->Automatic (5 days after final result) Result Comment: A. S mall bowel, terminal ileum, biopsies: -Small bowel mucosa with no significant histopathologic changes. B. Colon, right, biopsies: -Colonic mucosa with mucosal lymphoid aggregate. C. Colon, left, biopsy: -Colonic mucosa with focal active colitis. D. Colon, rectosigmoid, biopsy: -Colonic mucosa with no significant histopathologic changes. Performed By: #### 7 741 #### FRANCIS Galan ([id number]) [employer] ([employer]) [address] Gross Description Normal [facility] Comment on above: Order Comment: Relea se to patient->Automatic (5 days after final result) Result Comment: A. R eceived in formalin labeled with the patient's name and MRN are two breaux soft tissue fragments aggregating to 0.6 x 0.1 x 0.1 cm. They are totally submitted in cassette A1. B. Received in formalin labeled with the patient's name and MRN are two breaux soft tissue fragments aggregating to 0.7 x 0.1 x 0.1 cm. They are totally submitted in cassette B1. C. Received in formalin labeled with the patient's name and MRN is a breaux soft tissue fragment measuring 0.3 x 0.2 x 0.1 cm. It is totally submitted in cassette C1. D. Received in formalin labeled with the patient's name and MRN is a breaux soft tissue fragment measuring 0.3 x 0.1 x 0.1 cm. It is totally submitted in cassette D1. Performed By: #### 7 741 #### FRANCIS Galan ([id number]) [employer] ([employer]) [address] Microscopic Examination Microscopic slid es reviewed. Normal [facility] Comment on above: Order Comment: Relea se to patient->Automatic (5 days after final result) Performed By: #### 7 741 #### FRANCIS ANTONIO W ([id number]) [facility] ([place]) [address] POCT urine HCGOrdered By: Ronnie Onofre on 03-23-2024 Clear Background *Present [facility] Control Line *Present [facility] HCG ( test) Ql (U) Negative Negative [facility] LOT # [id number] [facility] [place] COLONon 02-25-2024 [place] COLON CLINICAL HISTORY: Recurrent Rectal prolapse COMPARISON: None TECHNIQUE: Low-dose fluoroscopy (3 frames/sec) was used for evaluation of the colon. Fluoroscopy time: 1.1 minutes Estimated Dose area product: 310.46 uGy-m2. Contrast: Dilute Gastrografin (diluted 1:5 with water) administered per rectum by gravity drip. FINDINGS: The limited fluoroscopic polisher hand image shows bowel gas in a nonobstructive pattern. There is a minimal amount of stool in the colon. Contrast extended to the cecum located in the right lower quadrant with reflux into the distal ileum. The rectosigmoid ratio is normal. Caliber of the descending and sigmoid colon is less than the rest of the colon, however normal haustral markings are seen throughout. No focal stricture was visualized. With drainage via gravity and subsequent spontaneous evacuation, there is partial clearance of contrast with moderate residual contrast within the colonic and distal ileal loops. IMPRESSION: 1. Normal contrast enema findings. 2. The rectal prolapse is not assessed dynamically with this examination. Defecography may be helpful for dynamic assessment (noting, however, this study is not performed at [facility]). Created by resident and approved This report has been created using voice recognition software Signed by: Dr. Josue Daley at 02/25/2024 15:13 Normal [facility] RF Colon Views W contrast [place] on 02-25-2024 IMPRESSION: 1. Normal contrast enema findings. 2. The rectal prolapse is not assessed dynamically with this examination. Defecography may be helpful for dynamic assessment (noting, however, this study is not performed at [facility]). Created by resident and approved This report has been created using voice recognition software [facility] CLINICAL HISTORY: Recurrent Rectal prolapse COMPARISON: None TECHNIQUE: Low-dose fluoroscopy (3 frames/sec) was used for evaluation of the colon. Fluoroscopy time: 1.1 minutes Estimated Dose area product: 310.46 uGy-m2. Contrast: Dilute Gastrografin (diluted 1:5 with water) administered per rectum by gravity drip. FINDINGS: The limited fluoroscopic polisher hand image shows bowel gas in a nonobstructive pattern. There is a minimal amount of stool in the colon. Contrast extended to the cecum located in the right lower quadrant with reflux into the distal ileum. The rectosigmoid ratio is normal. Caliber of the descending and sigmoid colon is less than the rest of the colon, however normal haustral markings are seen throughout. No focal stricture was visualized. With drainage via gravity and subsequent spontaneous evacuation, there is partial clearance of contrast with moderate residual contrast within the colonic and distal ileal loops. [facility] Josue Daley MD - 02/25/2024 CLINICAL HISTORY: Recurrent Rectal prolapse COMPARISON: None TECHNIQUE: Low-dose fluoroscopy (3 frames/sec) was used for evaluation of the colon. Fluoroscopy time: 1.1 minutes Estimated Dose area product: 310.46 uGy-m2. Contrast: Dilute Gastrografin (diluted 1:5 with water) administered per rectum by gravity drip. FINDINGS: The limited fluoroscopic polisher hand image shows bowel gas in a nonobstructive pattern. There is a minimal amount of stool in the colon. Contrast extended to the cecum located in the right lower quadrant with reflux into the distal ileum. The rectosigmoid ratio is normal. Caliber of the descending and sigmoid colon is less than the rest of the colon, however normal haustral markings are seen throughout. No focal stricture was visualized. With drainage via gravity and subsequent spontaneous evacuation, there is partial clearance of contrast with moderate residual contrast within the colonic and distal ileal loops. IMPRESSION: 1. Normal contrast enema findings. 2. The rectal prolapse is not assessed dynamically with this examination. Defecography may be helpful for dynamic assessment (noting, however, this study is not performed at [facility]. Created by resident and approved This report has been created using voice recognition software [facility] Study observation (narrative) [facility] RF Colon Views W contrast [place] Ordered By: Josue Daley on 02-25-2024 [facility] Work Phone: Endomysial IgA Abon 01-26-20 Endomysial IgA Ab Negative Normal Negative [facility] Comment on above: Order Comment: Relea se to patient->Automatic [id number]&Blood Result Comment: A ne gative serum IgA endomysial antibody is usually seen in normal individuals, however a diagnosis of celiac disease, dermatitis herpetiformis and other gluten sensitive disorders cannot be completely excluded, as this test may be negative in a subset of individuals with these disorders. If the clinical suspicion for one of these disorders is high, recommend further testing for gluten sensitivity as indicated by the Celiac Disease Comprehensive [place] ([place] Test Unit Code CDCOM). In addition serum IgA endomysial antibody may also be negative in gluten-sensitive patients (with celiac disease, dermatitis herpetiformis or other gluten-sensitive disorders), who adhere to a strict gluten-free diet. ADDITIONAL INFORMATION This test has been modified from the validation architect's instructions. Its performance characteristics were determined by [facility] in a manner consistent with CLIA requirements. This test has not been cleared or approved by the U.S. Food and Drug Administration. Test Performed by: [facility] [place] [address] Production Broaching Machine Operator: Ramirez Alatorre M.D. Ph.D.; CLIA# [id number] Performed By: #### E NDOM #### [address] [id number] Transglutaminase IgAon 01-24 Transglutaminase IgA 2.00 AU/mL Normal 0.00-8.99 [facility] Comment on above: Order Comment: Relea se to patient->Automatic [id number]&Blood Result Comment: NEGATIVE Interpretation of Results: Negative: <9.0 AU/mL Equivocal: 9.0-16.0 AU/mL Positive: >16.0 AU/mL Method: The anti-tTG antibodies were determined using an TONY-based commercially available kit (Eu-tTG [facility], [facility]). Performed By: #### T RGLA #### [address] [id number] IgAon 01-21-2024 Immunoglobulin A 196 mg/dL 61 - 348 mg/dL [facility] Immunoglobulin Aon 4 Immunoglobulin A 196 mg/dL Normal 61-348 [facility] Comment on above: Order Comment: Relea se to patient->Automatic [id number]&Blood Performed By: #### I GA #### [address] [id number] No Panel Informationon 01-20 Release to patient->Automatic [facility] Progress Noteon 01-21-2024 [employer] Authentication Interface Message Text Assessment Kelly is a 19 y.o. female with a past medical history of Rectal Prolapse , here with Rectal prolapse. ---History from patient ---Last seen in 2014 (also for rectal prolapse) 1. Rectal prolapse Currently - Patient has issues of recurrent rectal prolapse; has been going on longer than she can remember. Happens with every stool. No diarrhea or constipation noted. Plan Labs - one week for results ---Celiac/Thyroid Continue Xifaxan 550mg po q8hrs ---started by PCP for IBS - D Discussed, given recurrent rectal prolapse, and if surgery is a consideration - there are several other tests to consider 1) Colonoscopy 2) AR-Manometry 3) Barium enema If patient would like to consider surgery, we have to evaluate and know there are no other issues causing her problems, so this is the workup we would need to do ---patient agreeable to workup Patient was apparently going to be seen by Peds Surgery - but they asked that further workup be done before considering surgical intervention for her rectal Prolapase Follow up 3-4 months ---Really depends on results of workup This note or partial portions of this note may have been created using a copy forward or copy paste feature, but these portions have been verified and re-edited for accuracy and any portions not in need of editing or reviews are not being used to generate any component necessary for billing purposes. Elements necessary for proper CPT code selection are based only on elements of the visit that are truly unique to this visit. Subjective Chief Complaint: Rectal Problems She is unaccompanied. No certified court/medical interpreter was used. Initial History ABD pain - No overt issues, unless may have some RLQ/LLQ pain with stooling Stooling - 3-4x per day ---Soft ---no blood ---no pain ---Some straining and uncomfortable ---Prolapse happens everyday; anytime she stools ---Easily reducible; no signs of incarceration UO - No issues N/V - No issues Appetite - No issues Growth - No weight loss Activity - No issues ---1st year; [place] Fevers - No issues Rashes - No issues Mouth - No issues Currently - Overall, feeling well, but chronic/recurrent issues of rectal prolapse for years Review of Systems Constitutional: Positive for weight gain. Negative for recurrent fevers and weight loss. HENT: Negative for trouble swallowing. Respiratory: Negative for coughing, wheezing and asthma. Cardiovascular: Negative for heart murmur, heart problems and chest pain. Endocrine: Negative for poor growth. Gastrointestinal: Negative for constipation (Recurrent Rectal Prolapse), diarrhea, vomiting, heartburn, blood in stool, trouble swallowing, abdominal pain and nausea. Genitourinary: Negative for dysuria, hematuria and frequent urination. Neurological: Negative for developmental delays and seizures. Musculoskeletal: Negative for joint pain. Skin: Negative for rash. Allergy/Immune: Negative for allergies. Hematology: Negative for no easy bleeding and no anemia. Objective Visit Vitals: BP 110/60 (BP Site: Right Arm, Patient Position: Sitting, BP Cuff Size: Adult) Pulse 72 Temp 36.4 C (97.6 F) (Temporal) Ht 158 cm Wt 59.5 kg LMP 01/14/2024 BMI 23.84 kg/m Physical Exam Vitals reviewed. Constitutional: General: She is active. Appearance: She is well-developed and well-nourished. She is not overweight and not thin. HENT: Mouth/Throat: Mouth: Mucous membranes are moist. Eyes: Conjunctiva/sclera: Conjunctivae normal. Cardiovascular: Heart sounds: No murmur heard. Pulmonary: Effort: Pulmonary effort is normal. Breath sounds: Normal breath sounds. Abdominal: General: Bowel sounds are normal. There is no distension. Palpations: Abdomen is soft. Abdomen is not rigid. There is no hepatosplenomegaly. Tenderness: There is no abdominal tenderness. There is no CVA tenderness, guarding or rebound. Genitourinary: Comments: Deferred Musculoskeletal: Cervical back: Normal range of motion. Neurological: Mental Status: She is alert. Skin: General: Skin is warm. Coloration: Skin is not jaundiced or pale. Findings: No petechiae. Nails: There is no cyanosis. Piper Lin MD P - [phone] 01/21/2024 Normal [facility] TSH with Reflex to T4, Freeo n 01-21-2024 TSH with reflex to T4, Free 1.270 [facility] TSH with reflex T4FRon 01-20 TSH with reflex T4FR 1.270 uIU/mL Normal 0.500-4.[address] [facility] Comment on above: Order Comment: Relea se to patient->Automatic [id number]&Blood Performed By: #### T SHR #### [place] [address] No Panel InformationOrdered By: Neo Jean on 10-05-2023 Endomysial IgA Antibody Negative Negative [facility] Serum IgA measurement (units /volume)Ordered By: Neo Jean on 10-05-2023 IgA Qn (S) 140 mg/dL 87-352 [facility] Comment on above: Performed at: [facility] [employer] [address] [id number] Director: Neo Hewitt PhD, Phone: [phone] Serum or plasma C reactive p rotein measurement (mass/volume)Ordered By: Neo Jean on 10-05-2023 CRP [Mass/Vol] mg/L 0.0-3.0 [facility] Comment on above: C-Reactive Protein ( CRP) provides useful information for thediagnosis, therapy and monitoring of inflammatory processesand associated diseases. For the evaluation of Relative Riskfor Cardiovascular Disease, a High Sensitivity CRP (HSCRP)should be ordered. Serum tissue transglutaminas e IgA antibody assay (units/volume)Ordered By: Neo Jean on 10-05-2023 tTG IgA Qn (S) <2 U/mL 0-3 [facility] Comment on above: Negative 0 - 3 Weak Positive 4 - 10 Positive >10 Tissue Transglutaminase (tTG) has been identified as the endomysial antigen. Studies have demonstr- ated that endomysial IgA antibodies have over 99% specificity for gluten sensitive enteropathy. Provider Note - ED v3on 08-2 Provider Note - ED v3 Provider Note: Results/Vital Signs: Pediatric Clinical Scoring (KALEY) is no recent KALEY charted on this account Chart Review: HISTORY OF PRESENTING ILLNESS KELLY is a 18 year old Female and was seen by me at 03-Jul-2023 17:10 for a chief complaint of (Left thumb wound). Other complaints include: Patient presents for evaluation of left thumb wound. Patient accidentally lacerated the pad of the left thumb with a razor just prior to arrival. Patient did cleanse the wound and wrapped. Patient states achieving hemostasis has been difficult. Patient is current with Tdap. No other reported injuries. No other complaints.. Triage Information: Most recent Vital Sign Value Date PAST MEDICAL HISTORY ALLERGIES/INTOLERANC ES: No Known Allergies HEALTH HISTORY: No documented data. OUTPATIENT MEDICATIONS: Home Medications Review Status for Reconciliation: Complete Med Status: Patient Currently Takes Medications Drug Name: Lexapro Instructions: null SIGNIFICANT EVENTS: No documented data. REVIEW OF SYSTEMS REVIEW OF SYSTEMS: Comments Constitutional: See HPI Integumentary: See HPI Neurologic: Alert and oriented X4, No numbness, No tingling. All other systems are negative PHYSICAL EXAM CONSTITUTIONAL: Well appearing, well nourished, awake, alert, oriented to person, place, time/situation and in no apparent distress. EYES: Clear bilaterally, pupils equal, round and reactive to light. MUSCULOSKELETAL: Spine appears normal, range of motion is not limited, no muscle or joint tenderness. NEUROLOGICAL: Alert and oriented, no focal deficits, no motor or sensory deficits. SKIN: Palmar aspect of the still left thumb with an approximate 1 cm diameter skin avulsion; the wound is clean MDM MDM/ED COURSE: Exam revealed a skin avulsion of the left thumb. Hemostasis was difficult to achieve so to mL of 1% lidocaine with epinephrine was injected and good hemostasis was achieved. Wound was cleansed with Betasept and dressed with bacitracin and Telfa. Patient tolerated well. Wound was reviewed and written down for the patient. Patient was provided with necessary wound care materials. Patient's clinical presentation is otherwise unremarkable at this time. Patient is discharged with instructions to follow-up with primary care or seek emergency medical attention for worsening symptoms or any new concerns. DISPOSITION Diagnosis/Annotation : ED Dx Name:Avulsion of skin of thumb Code:S61.009A Disposition: discharged Type: home CONSULT CRITICAL CARE TIME Is this a critically ill patient: no Electronic Signatures: Ollie Poe (PAC) (Signed 03-Jul-2023 17:18) Authored: HPI, PMH, ROS, PE, Results/Vital Signs, MDM/ED Course, Clinical Impression, Attestation, Chart Review, Scores Last Updated: 03-Jul-2023 17:18 by Ollie Poe (PAC) [facility] Absolute lymphocyte counton 10-06-2022 Lymphocytes Auto (Unsp spec) [#/Vol] 2.62 10*3/uL 0.83-4.51 [facility] Work Phone: Basophil percentageon 2021 Basophils/100 WBC (Bld) 0.4 % 0-1 [facility] Work Phone: Bilirubin [Mass/Vol] 0.20 mg/dL 0.20-1.00 [facility] Work Phone: Comment on above: For patients on eltr ombopag therapy, use of Dimension [place] TBIL is not recommended. Chloride [Moles/Vol] 105 mmol/L 98-107 [facility] Work Phone: Eosinophils/100 WBC (Bld) 1.5 % 0-3 [facility] Work Phone: Glucose [Mass/Vol] 82 mg/dL 74-106 [facility] Work Phone: Neutrophils (Bld) [#/Vol] 4.0 10*3/uL 2.0-7.7 [facility] Work Phone: Neutrophils/100 WBC (Bld) 54.1 % 34-64 [facility] Work Phone: Potassium [Moles/Vol] 4.3 mmol/L 3.5-5.1 [facility] Work Phone: Protein [Mass/Vol] 6.8 g/dL 6.4-8.2 [facility] Work Phone: Sodium [Moles/Vol] 139 mmol/L 136-145 [facility] Work Phone: WBC (Bld) [#/Vol] 7.5 10*3/uL 4.5-13.0 [facility] Work Phone: Blood erythrocytes count (nu mber/volume)on 10-06-2022 RBC (Bld) [#/Vol] 4.31 10*6/uL 4.1-4.8 [facility] Work Phone: Blood hemoglobin measurement (mass/volume)on 10-06-2022 Hemoglobin (Bld) [Mass/Vol] 13.5 g/dL 12.0-15.0 [facility] Work Phone: Blood lymphocytes/100 leukoc yteson 10-06-2022 Lymphocytes/100 WBC (Bld) 35.2 % 25-45 [facility] Work Phone: Blood monocytes/100 leukocyt eson 10-06-2022 Monocytes/100 WBC (Bld) 8.5 % 3-6 [facility] Work Phone: Blood platelet mean volumeon 10-06-2022 Platelet mean volume (Bld) [Entitic vol] 10.4 fL 6.2-12.0 [facility] Work Phone: Determination of erythrocyte mean corpuscular volume (MCV)on 10-06-2022 MCV (RBC) [Entitic vol] 92.1 fL 78-96 [facility] Work Phone: Hematocrit Auto (Bld) [Volum e fraction]on 10-06-2022 Hematocrit (Bld) [Volume fraction] 39.7 % 37-46 [facility] Work Phone: Laboratory - Chemistry and C hemistry - challengeon 10-06-2022 ALP [Catalytic activity/Vol] 83 U/L 47-119 [facility] Work Phone: ALT [Catalytic activity/Vol] 34 U/L 13-56 [facility] Work Phone: CO2 [Moles/Vol] 26.0 mmol/L 21.0-32.0 [facility] Work Phone: Globulin (S) [Mass/Vol] 2.9 g/dL 2.2-4.2 [facility] Work Phone: Urea nitrogen/Creatinine [Mass ratio] 25.8 mg/mg 10-20 [facility] Work Phone: Laboratory - Hematology and Cell countson 10-06-2022 Erythrocyte distribution width (RBC) [Entitic vol] 40.9 fL 35.1-43.9 [facility] Work Phone: Erythrocyte distribution width (RBC) [Ratio] 11.9 % 11.6-14.6 [facility] Work Phone: Immature granulocytes/100 WBC (Bld) 0.300 % 0.0-0.9 [facility] Work Phone: Comment on above: IG% - Immature Granu locytes (promyelocytes, myelocytes and metamyelocytes) > 1% indicates that a LEFT SHIFT is Present. MCH (RBC) [Entitic mass] 31.3 pg 25.0-35.0 [facility] Work Phone: Nucleated RBC/100 WBC (Bld) [Ratio] 0 % 0-5 [facility] Work Phone: MCHC Auto (RBC) [Mass/Vol]on 10-06-2022 MCHC (RBC) [Mass/Vol] 34.0 g/dL 32-36 [facility] Work Phone: No Panel Informationon 10-06 Estimated GFR (MDRD) [facility] Work Phone: Comment on above: Test not performedAf rican Gambian GFR Calc Estimated GFR (MDRD) Non-Af [facility] Work Phone: Comment on above: Test not performedNo n- GFR Calc Thyroid Stimulating Hormone (TSH) 1.79 uIU/mL 0.358-3.74 [facility] Work Phone: Vitamin D 25-Hydroxy 27.9 ng/mL [facility] Work Phone: Comment on above: Vitamin D 25(OH) Sta tus Range Deficiency <20 ng/mL (50nmol/L) Insufficiency 20 - 30 ng/mL (50 - 75 nmol/L) Sufficiency 30 - 100 ng/mL (75 - 250 nmol/L) Toxicity >100 ng/mL (>250 nmol/L) Platelets bldon 10-06-2022 Platelets (Bld) [#/Vol] 246 10*3/uL 150-450 [facility] Work Phone: Serum or plasma albumin jem urement (mass/volume)on 10-06-2022 Albumin [Mass/Vol] 3.9 g/dL 3.2-5.0 [facility] Work Phone: Serum or plasma albumin/glob ulin mass ratioon 10-06-2022 Albumin/Globulin [Mass ratio] 1.3 {ratio} 0.9-2.4 [facility] Work Phone: Serum or plasma calcium jem urement (mass/volume)on 10-06-2022 Calcium [Mass/Vol] 8.4 mg/dL 8.5-10.1 [facility] Work Phone: Serum or plasma creatinine m easurement (mass/volume)on 10-06-2022 Creatinine [Mass/Vol] 0.81 mg/dL 0.55-1.02 [facility] Work Phone: Comment on above: The validity of the calculated GFR & GFRAA in patients over 70 years has not been determined. Clinical correlation is essential. Serum or plasma urea nitroge n measurement (mass/volume)on 10-06-2022 Urea nitrogen [Mass/Vol] 21 mg/dL 7-18 [facility] Work Phone: Thin prep Papanicolaou smear with manual screeningon 10-06-2022 Thin prep Papanicolaou smear with manual screening 27 U/L 15-37 [facility] Work Phone: Thin prep Papanicolaou smear with manual screening 8 5-15 [facility] Work Phone: Vital Signs Date Time Vital Sign Value Performing Clinician Facility 04-10-2025 06:32-0400 Body temperature 97.6 [degF] Dr. Wing Flores MD Work Phone: [facility] 04-10-2025 06:32-0400 Diastolic blood pressure 70 mm[Hg] Dr. Wing Flores MD Work Phone: [phone] [address] 04-10-2025 06:32-0400 Heart rate 85 /min Dr. Wing Flores MD Work Phone: [facility] 04-10-2025 06:32-0400 Respiratory rate 16 /min Dr. Wing Flores MD Work Phone: [facility] 04-10-2025 06:32-0400 SaO2% (BldA) [Mass fraction] 96 % Dr. Wing Flores MD Work Phone: [phone] [place] [address] 04-10-2025 06:32-0400 Systolic blood pressure 118 mm[Hg] Dr. Wing Flores MD Work Phone: [facility] 04-10-2025 02:36-0400 Body height 157.[address] Wing Flores MD Work Phone: [facility] 04-10-2025 02:36-0400 Body mass index (BMI) [Ratio] 24.5 kg/m2 Dr. Wing Flores MD Work Phone: [facility] 04-10-2025 02:36-0400 Body weight 60.[address] Wing Flores MD Work Phone: [facility] 04-04-2025 14:21-0400 Body temperature 97.5 [degF] Dena Todd MD Work Phone: [facility] 04-04-2025 14:21-0400 Diastolic blood pressure 56 mm[Hg] Dena Todd MD Work Phone: [facility] 04-04-2025 14:21-0400 Heart rate 88 /min Dena Todd MD Work Phone: [facility] 04-04-2025 14:21-0400 Respiratory rate 16 /min Dena Todd MD Work Phone: [facility] 04-04-2025 14:21-0400 SaO2% (BldA) [Mass fraction] 98 % Dena Todd MD Work Phone: [facility] 04-04-2025 14:21-0400 Systolic blood pressure 115 mm[Hg] Dena Todd MD Work Phone: [facility] 04-04-2025 06:53-0400 Body height 157.5 cm Dena Todd MD Work Phone: [facility] 04-04-2025 06:53-0400 Body mass index (BMI) [Ratio] 23.59 kg/m2 Dena Todd MD Work Phone: [facility] 04-04-2025 06:53-0400 Body weight 58.5 kg Dena Todd MD Work Phone: [facility] 03-02-2025 17:21-0400 Body temperature 98.29 [degF] Karime Ross APRN-LABORATORY TECHNICIAN Work Phone: [facility] 03-02-2025 17:21-0400 Diastolic blood pressure 73 mm[Hg] Karime Ross APRN-LABORATORY TECHNICIAN Work Phone: [facility] 03-02-2025 17:21-0400 Heart rate 90 /min Karime Ross INTERMODAL TRUCK DRIVER-LABORATORY TECHNICIAN Work Phone: [facility] 03-02-2025 17:21-0400 Respiratory rate 15 /min Karime Ross INTERMODAL TRUCK DRIVER-LABORATORY TECHNICIAN Work Phone: [facility] 03-02-2025 17:21-0400 SaO2% (BldA) [Mass fraction] 98 % Karime Ross INTERMODAL TRUCK DRIVER-LABORATORY TECHNICIAN Work Phone: [facility] 03-02-2025 17:21-0400 Systolic blood pressure 109 mm[Hg] Karime Ross INTERMODAL TRUCK DRIVER-LABORATORY TECHNICIAN Work Phone: [facility] 11-18-2024 16:50-0500 Body temperature 97.59 [degF] David Clutter PA-C Work Phone: [facility] 11-18-2024 16:50-0500 Body weight 58 kg David Clutter PA-C Work Phone: [facility] 11-18-2024 16:50-0500 Diastolic blood pressure 75 mm[Hg] David Clutter PA-C Work Phone: [facility] 11-18-2024 16:50-0500 Heart rate 76 /min David Clutter PA-C Work Phone: [facility] 11-18-2024 16:50-0500 Respiratory rate 18 /min David Clutter PA-C Work Phone: [facility] 11-18-2024 16:50-0500 SaO2% (BldA) [Mass fraction] 99 % David Clutter PA-C Work Phone: [facility] 11-18-2024 16:50-0500 Systolic blood pressure 131 mm[Hg] David Clutter PA-C Work Phone: [facility] 10-22-2024 11:17-0500 Body temperature 98.2 [degF] Jair Riley INTERMODAL TRUCK DRIVER.LABORATORY TECHNICIAN Work Phone: [facility] 10-22-2024 11:17-0500 Body weight 59.5 kg Jair Krishnasheri INTERMODAL TRUCK DRIVER.LABORATORY TECHNICIAN Work Phone: [facility] 10-22-2024 11:17-0500 Diastolic blood pressure 68 mm[Hg] Jair Krishnasheri INTERMODAL TRUCK DRIVER.LABORATORY TECHNICIAN Work Phone: [facility] 10-22-2024 11:17-0500 Heart rate 82 /min Jair Krishnasheri INTERMODAL TRUCK DRIVER.LABORATORY TECHNICIAN Work Phone: [facility] 10-22-2024 11:17-0500 Respiratory rate 18 /min [facility] INTERMODAL TRUCK DRIVER.LABORATORY TECHNICIAN Work Phone: [facility] 10-22-2024 11:17-0500 SaO2% (BldA) [Mass fraction] 99 % Jair Krishnasheri INTERMODAL TRUCK DRIVER.LABORATORY TECHNICIAN Work Phone: [facility] 10-22-2024 11:17-0500 Systolic blood pressure 108 mm[Hg] Jair Rosemary INTERMODAL TRUCK DRIVER.LABORATORY TECHNICIAN Work Phone: [facility] 10-12-2024 09:05-0500 Body height 157.5 cm Dena Todd MD Work Phone: [facility] 10-12-2024 09:05-0500 Body mass index (BMI) [Ratio] 23.23 kg/m2 Dena Todd MD Work Phone: [facility] 10-12-2024 09:05-0500 Body temperature 96.8 [degF] Dena Todd MD Work Phone: [facility] 10-12-2024 09:05-0500 Body weight 57.61 kg Dena Todd MD Work Phone: [facility] 10-12-2024 09:05-0500 Diastolic blood pressure 68 mm[Hg] Dena Todd MD Work Phone: [facility] 10-12-2024 09:05-0500 Heart rate 75 /min Dena Todd MD Work Phone: [facility] 10-12-2024 09:05-0500 Respiratory rate 18 /min Dena Todd MD Work Phone: [facility] 10-12-2024 09:05-0500 Systolic blood pressure 106 mm[Hg] Dena Todd MD Work Phone: [facility] 03-23-2024 11:15-0400 Body temperature 98.2 [degF] Piper Lin MD Work Phone: [facility] 03-23-2024 11:15-0400 Diastolic blood pressure 63 mm[Hg] Piper Lin MD Work Phone: [facility] 03-23-2024 11:15-0400 Heart rate 67 /min Piper Lin MD Work Phone: [facility] 03-23-2024 11:15-0400 Respiratory rate 16 /min Piper Lin MD Work Phone: [facility] 03-23-2024 11:15-0400 SaO2% (BldA) [Mass fraction] 100 % Piper Lin MD Work Phone: [facility] 03-23-2024 11:15-0400 Systolic blood pressure 102 mm[Hg] Piper Lin MD Work Phone: [facility] 03-23-2024 08:34-0400 Body height 157.7 cm Piper Lin MD Work Phone: [facility] 03-23-2024 08:34-0400 Body mass index (BMI) [Ratio] 23.16 kg/m2 Piper Lin MD Work Phone: [facility] 03-23-2024 08:34-0400 Body weight 57.6 kg Piper Lin MD Work Phone: [facility] Encounters Encounter Date Encounter Type Care Provider Facility Start: 04-11-2025 End: 04-11-2025 ambulatory [facility] Start: 04-10-2025 End: 04-10-2025 Emergency department patient visit Dr. Wing Flores MD Work Phone: -Emergency Department Work Phone: Start: 04-04-2025 End: 04-04-2025 ambulatory [facility] Start: 04-04-2025 End: 04-04-2025 Subsequent hospital visit by physician Dena Todd MD Work Phone: [facility] [place] Comment on above: Rectal prolapse (Deborah molly Dx) Start: 03-23-2025 End: 03-23-2025 [facility] Start: 03-02-2025 End: 03-02-2025 Patient encounter procedure Karime Ross INTERMODAL TRUCK DRIVER-LABORATORY TECHNICIAN Work Phone: [facility] Comment on above: Gastroenteritis (Deborah molly Dx); Nausea Start: 03-02-2025 End: 03-02-2025 [facility] Start: 12-21-2024 End: 12-21-2024 [facility] Start: 11-18-2024 End: 11-18-2024 [facility] Facility:[facility] Start: 11-18-2024 End: 11-18-2024 Office outpatient visit 25 minutes David Hopkins PA-C Work Phone: [facility] Comment on above: Viral illness (Prima ry Dx) Start: 10-22-2024 End: 10-22-2024 Office outpatient visit 25 minutes Jair Riley INTERMODAL TRUCK DRIVER.LABORATORY TECHNICIAN Work Phone: [facility] Comment on above: Lower respiratory tr act infection (Primary Dx) Start: 10-22-2024 End: 10-22-2024 ambulatory [facility] Facility:[facility] Start: 10-12-2024 End: 10-12-2024 ambulatory [facility] Start: 10-12-2024 End: 10-12-2024 Office outpatient new 45 minutes Dena Todd MD Work Phone: [facility] Comment on above: Rectal prolapse (Deborah molly Dx); Hypermobility syndrome Start: 07-27-2024 End: 07-27-2024 ambulatory [facility] Start: 06-29-2024 End: 06-29-2024 ambulatory [facility] Start: 06-22-2024 End: 06-22-2024 ambulatory [facility] Start: 04-06-2024 End: 04-06-2024 ambulatory [facility] Start: 03-28-2024 End: 03-28-2024 ambulatory [facility] Start: 03-23-2024 End: 03-23-2024 ambulatory [facility] Start: 03-23-2024 End: 03-23-2024 Preprocedural examination done Piper Lin MD Work Phone: [facility] Start: 03-23-2024 End: 03-23-2024 Subsequent hospital visit by physician Piper Lin MD Work Phone: [facility] Comment on above: Pre-operative examin ation; Abdominal pain, unspecified abdominal location; Rectal prolapse Start: 03-08-2024 End: 03-08-2024 ambulatory [facility] Start: 02-25-2024 End: 02-25-2024 Subsequent hospital visit by physician Piper Lin MD Work Phone: Radiology Comment on above: Rectal prolapse (Deborah molly Dx) Start: 02-25-2024 End: 02-25-2024 ambulatory PIPER LIN [facility] Start: 01-21-2024 End: 01-21-2024 Subsequent hospital visit by physician Piper Lin MD Work Phone: [facility] Comment on above: Rectal prolapse Start: 01-21-2024 End: 01-21-2024 ambulatory [facility] Start: 10-05-2023 End: 10-05-2023 ambulatory [facility] Work Phone: Start: 10-05-2023 End: 10-05-2023 Patient encounter procedure [facility] Work Phone: Start: 07-03-2023 End: 07-03-2023 Emergency department patient visit Dr. Wing Flores Facility:[id number] Start: 12-23-2022 Telephone encounter Rhiannon Antonio INTERMODAL TRUCK DRIVER.LABORATORY TECHNICIAN Work Phone: [facility] Comment on above: Results Results (Lab/) Start: 10-06-2022 End: 10-06-2022 ambulatory [facility] Work Phone: Start: 10-06-2022 End: 10-06-2022 Patient encounter procedure [facility] Family Procedures Date Procedure Procedure Detail Performing Clinician Start: 04-10-2025 Computed tomography of abdomen and pelvis with intravenous contrast Dr. Wing Flores MD Work Phone: Start: 04-10-[address] Wing Flores MD Work Phone: Start: 04-04-2025 PULSE OXIMETRY, CONTINUOUS Danny Mcqueen MD Work Phone: Start: 04-04-2025 Urine test visual color cmprsn meths Dena Todd MD Work Phone: Start: 04-04-2025 PULSE OXIMETRY, SPOT Me robby Todd MD Work Phone: Start: 11-18-2024 STREP A MOLECULAR (POC) David BARRAGANC Work Phone: Start: 03-23-2024 Urine test visual color cmprsn meths Peterson Norberto INTERMODAL TRUCK DRIVER-LABORATORY TECHNICIAN Work Phone: Start: 02-25-2024 Radiologic exam colo n single contrast study Piper Lin MD Work Phone: Start: 01-21-2024 IMMUNOGLOBULIN A Kathie Lin MD Work Phone: Start: 01-21-2024 TSH WITH REFLEX TO T4, FREE Piper Lin MD Work Phone: Plan of Treatment Date Care Activity Detail Author Start: 2055 Zoster Vaccines (1 of 2) Zoster Vaccines (1 of 2) [facility] Start: 07-10-2025 Influenza vaccination Influenza Vaccine (Season Ended) [facility] Start: 04-04-2025 End: 04-04-2025 Admission to same day surgery center 04/04/2025 8:05 AM EDT - 04/04/2025 11:35 AM EDT Surgery [facility] [place] [address] [place] [address] eDna Todd MD [address] [place] [address] Robot Assisted Rectopexy [66060 (CPT )] [facility] [place] Comment on above: Robot Assisted Rectopexy [10042 (CPT )] Start: 04-04-2025 End: 04-04-2025 Laparoscopy proctopexy prolapse RECTOPEXY, ROBOT-ASSISTED Rectal prolapse 04/04/2025 8:05 AM [facility] Start: 04-04-2025 Subsequent hospital visit by physician 04/04/2025 6:35 AM EDT Hospital Encounter [facility] [place] [address] [place] [address] Dena Todd MD [address] [place] [address] [facility] [place] Start: 07-26-2024 End: 07-26-2024 Patient encounter procedure 07/26/2024 9:00 AM EDT Office Visit [address] [address] [place] [address] [facility] [place] Start: 07-10-2024 COVID-19 Vaccine ( season) COVID-19 Vaccine ( season) [facility] Start: 07-10-2024 FLU (Season Ended) FLU (Season Ended) [facility] Start: 07-10-2024 Influenza vaccination Influenza Vaccine (#1) [facility] Start: 03-28-2024 End: 03-28-2024 Patient encounter procedure 03/28/2024 1:00 PM EDT Procedure visit [facility] [place] [address] [place], [place] [id number] Mariana Parry, [address] [id number] [facility] [place] Start: 03-23-2024 End: 03-23-2024 Admission to same day surgery center 03/23/2024 9:30 AM EDT - 03/23/2024 10:25 AM EDT Surgery [facility] [place] [id number] Piper Lin MD [place] [id number] Colonoscopy with biopsies (possible polypectomy) [facility] Comment on above: Colonoscopy with biopsies (possible poly pectomy) Start: 03-23-2024 End: 03-23-2024 Colsc flx w/removal lesion by hot bx forceps [facility] Start: 03-23-2024 Subsequent hospital visit by physician 03/23/2024 9:30 AM EDT Hospital Encounter [facility] [place], [place] [id number] Piper Lin MD [place], [place] [id number] [facility] Start: 03-08-2024 End: 03-08-2024 ambulatory 03/08/2024 3:00 PM EDT Telehealth [facility] -[address] [address] Peterson Thornton APRN-[place] [address] Pre [facility] - Start: 02-25-2024 End: 02-25-2024 Patient encounter procedure 02/25/2024 1:40 PM EDT Appointment Radiology [address] [place] [address] [place] [address] Radiology Start: 2024 Hepatitis B (1 of 3 - 19+ 3-dose series) Hepatitis B (1 of 3 - 19+ 3-dose series) [facility] Start: 2024 Hepatitis B Vaccine (1 of 3 - 19+ 3-dose series) Hepatitis B Vaccine (1 of 3 - 19+ 3-dose series) [facility] Start: 2024 Hepatitis B Vaccines (1 of 3 - 19+ 3-dose series) Hepatitis B Vaccines (1 of 3 - 19+ 3-dose series) [facility] Start: 2024 Urine microalbumin profile DTaP,Tdap,Td Vaccine (1 - Tdap) [facility] Start: 12-30-2023 Meningococcal B Vaccine (2 of 2 - Trumenba SCDM 2-dose series) Meningococcal B Vaccine (2 of 2 - Trumenba SCDM 2-dose series) [facility] Start: 12-30-2023 Meningococcal B Vaccine: Consider Based On Risk (2 of 2 - Risk Trumenba 2-dose series) Meningococcal B Vaccine: Consider Based On Risk (2 of 2 - Risk Trumenba 2-dose series) [facility] Start: 07-10-2023 COVID-19 ( season) COVID-19 ( season) [facility] Start: 07-10-2023 FLU (#1) FLU (#1) [facility] Start: 2023 Anxiety Screening Anxiety Screening [facility] Start: 02-24-2023 Depression Screening Depression Screening [facility] Start: 2023 GC (Gonorrhea) Screening (18-24) GC (Gonorrhea) Screening (18-24) [facility] Start: 2023 Hearing Screening Hearing Screening [facility] Start: 2023 Hepatitis C screening Hepatitis C Screening [facility] Start: 2023 HIV screening HIV Screening [facility] Start: 2023 PATH Education 18+ Years PATH Education 18+ Years [facility] Start: 2023 Screening for Chlamydia trachomatis Chlamydia Screening () [facility] Start: 07-10-2022 Influenza vaccination INFLUENZA (#1) [facility] Start: 01-10-2021 Hepatitis A Vaccines (2 of 2 - 2-dose series) Hepatitis A Vaccines (2 of 2 - 2-dose series) [facility] Start: 2021 MenB (1 of 2 - MenB 2-Dose Series Bexsero) MenB (1 of 2 - MenB 2-Dose Series Bexsero) [facility] Start: 2021 MENINGOCOCCAL CONJUGATE (1 - 2-dose series) MENINGOCOCCAL CONJUGATE (1 - 2-dose series) [facility] Start: 08-10-2020 HPV Vaccine (2 - 3-dose series) HPV Vaccine (2 - 3-dose series) [facility] Start: 08-10-2020 HPV Vaccines (2 - 3-dose series) HPV Vaccines (2 - 3-dose series) [facility] Start: 2020 CHLAMYDIA SCREENING (<18) CHLAMYDIA SCREENING (<18) [facility] Start: 2020 GC (GONORRHEA) SCREENING (<18) GC (GONORRHEA) SCREENING (<18) [facility] Start: 2020 HPV (1 - 3-dose series) HPV (1 - 3-dose series) [facility] Start: 2020 PATH Education 15-17+ Years PATH Education 15-17+ Years [facility] Start: 2020 Vision Screening Vision Screening [facility] Start: 2019 PEDS TO ADULT TRANSITION ANNUAL ASSESSMENT PEDS TO ADULT TRANSITION ANNUAL ASSESSMENT [facility] Start: 2018 Varicella (1 of 2 - 13+ 2-dose series) Varicella (1 of 2 - 13+ 2-dose series) [facility] Start: 2018 Varicella vaccination Varicella Vaccines (1 of 2 - 13+ 2-dose series) [facility] Start: 2017 Adult depression screening assessment DEPRESSION SCREENING [facility] Start: 2017 PATH Education 12-14+ Years PATH Education 12-14+ Years [facility] Start: 2017 PATH Transitional Assessment PATH Transitional Assessment [facility] Start: 2017 PEDS TO ADULT TRANSITION INITIAL DISCUSSION PEDS TO ADULT TRANSITION INITIAL DISCUSSION [facility] Start: 2016 HPV VACCINE (1 - 2-dose series) HPV VACCINE (1 - 2-dose series) [facility] Start: 2015 MENINGOCOCCAL B: Consider based on risk (1 of 2 - Risk Bexsero 2-dose series) MENINGOCOCCAL B: Consider based on risk (1 of 2 - Risk Bexsero 2-dose series) [facility] Start: 2012 DTaP/Tdap/Td Vaccines (1 - Tdap) DTaP/Tdap/Td Vaccines (1 - Tdap) [facility] Start: 2012 Tetanus Diphtheria and Pertussis Vaccines (1 - Tdap) Tetanus Diphtheria and Pertussis Vaccines (1 - Tdap) [facility] Start: 2012 Urine microalbumin profile DTAP,TDAP,TD (1 - Tdap) [facility] Start: 09-28-2009 MMR (1 of 1 - Standard series) MMR (1 of 1 - Standard series) [facility] Start: 09-28-2009 MMR (1 of 2 - Standard series) MMR (1 of 2 - Standard series) [facility] Start: 09-28-2009 MMR Vaccines (1 of 1 - Standard series) MMR Vaccines (1 of 1 - Standard series) [facility] Start: 09-28-2009 VARICELLA (1 of 2 - 2-dose childhood series) VARICELLA (1 of 2 - 2-dose childhood series) [facility] Start: 2009 Hearing Screening (#1) Hearing Screening (#1) [facility] Start: 2005 COVID-19 VACCINE (#1) COVID-19 VACCINE (#1) [facility] Start: 2005 POLIO (1 of 3 - 4-dose series) POLIO (1 of 3 - 4-dose series) [facility] Start: 2005 HEPATITIS B (1 of 3 - 3-dose series) HEPATITIS B (1 of 3 - 3-dose series) [facility] Start: 2005 HIV screening HIV Screening [facility] Start: 2005 Lipid panel Lipid Panel [facility] Start: 2005 Yearly Adult Physical Yearly Adult Physical [facility] End: 04-04-2025 Blood type and Indirect antibody screen panel - Blood Type And Screen Lab Timed As needed (Lab) until discontinued starting 04/04/2025 [facility] Service Area Work Phone: Comment on above: As needed (Lab) until discontinued start ing 04/04/2025 Colonoscopy w/biopsy single/multiple Colonoscopy Rectal prolapse [facility] End: 01-21-2024 Endomysial IgA Ab [facility] Work Phone: Comment on above: 1 Occurrences starting 01/21/2024 until 01/21/2024 Patient Education Abdominal Pain ED Constipation (Adult) [facility] Work Phone: Patient referral [facility] Work Phone: Surgical Pathology Lab Test [facility] Work Phone: Comment on above: Release Upon Ordering for 1 Occurrences starting 03/23/2024, 1 completed End: 01-21-2024 Tissue transglutaminase, IgA [facility] Comment on above: 1 Occurrences starting 01/21/2024 until 01/21/2024 Immunizations Immunization Date Immunization Notes Care Provider Fa marc 06-29-2023 meningococcal B vacc ine, fully recombinant Karime Ross APRN-LABORATORY TECHNICIAN Work Phone: [facility] Work Phone: 06-29-2023 meningococcal oligosaccharide (groups A, C, Y and W-135) diphtheria toxoid conjugate vaccine (MCV4O) Karime Ross APRN-LABORATORY TECHNICIAN Work Phone: [facility] Work Phone: 07-13-2020 hepatitis A vaccine, pediatric/adolescent dosage, 2 dose schedule Karime Ross APRN-CATRACHITA Work Phone: [facility] Work Phone: 07-13-2020 Human Papillomavirus 9-valent vaccine Karime Ross APRN-CATRACHITA Work Phone: [facility] Work Phone: 07-13-2020 hepatitis A and hepa titis B vaccine Dena Todd MD Work Phone: [facility] Work Phone: 07-13-2020 HPV, unspecified formulation Dena Todd MD Work Phone: [facility] Work Phone: 09-29-2018 influenza, injectabl e, quadrivalent, preservative free Karime Ross APRN-CATRACHITA Work Phone: [facility] Work Phone: 09-29-2018 influenza virus vacc ine, unspecified formulation Dena Todd MD Work Phone: [facility] Work Phone: 08-31-2009 influenza virus vacc ine, live, attenuated, for intranasal use Karime Ross APRN-LABORATORY TECHNICIAN Work Phone: [facility] Work Phone: 08-31-2009 novel Influenza-H1N1 -09, live virus for nasal administration Karime Ross APRN-LABORATORY TECHNICIAN Work Phone: [facility] Work Phone: Payers Date Payer Category Payer Self-pay [id number] 2024 Unknown MMO MMO [employer] PPO [id number] 2024-[facility] [phone] [address] [place] [address] PPO [id number] 2022 Private Health Insurance [id number] 2019 Managed Care (Private) [id number] 2019 Private Health Insurance [id number] 2014 Unknown [id number] 2005 Unknown [id number] 069 2005 Unknown [id number] [id number] 79 2005 Unknown [id number] [id number] 79 2005 Unknown [id number] 2.16.840.1.968149.3.579.2.4 79 2005 Unknown [id number] 2.16.840.1.436756.3.579.2.4 79 2005 Unknown [id number] 2.16.840.1.275637.3.579.2.4 79 2005 Unknown [id number] 2.16.840.1.620037.3.579.2.4 79 2005 Unknown [id number] 2.16.840.1.716168.3.579.2.4 79 2005 Unknown [id number] 2.16.840.1.390316.3.579.2.4 79 2005 Unknown [id number] 2.16.840.1.776269.3.579.2.4 79 2005 Unknown [id number] 2.16.840.1.345432.3.579.2.4 79 2005 Unknown [id number] 2.16.840.1.682639.3.579.2.1 243 2005 Unknown [id number] 2.16.840.1.021265.3.579.2.1 242 2005 Unknown [id number] 2.16.840.1.416617.3.579.2.1 242 2005 Unknown [id number] 2.16.840.1.353508.3.579.2.1 242 2005 Unknown [id number] 2.16.840.1.023101.3.579.2.1 242 2005 Unknown [id number] [id number] 245 Private Health Insurance [id number] Unknown [id number] 62 Social History Date Type Detail Facility Start: 11-06-2021 Tobacco smoking status [facility] Unknown if ever smoked [facility] Start: 03-25-2021 Non-smoker [facility] Start: 2005 Sex Assigned At Female [facility] Start: 10-15-2015 End: 04-10-2025 Tobacco smoking status TXIS Never smoked tobacco [facility] Start: 10-15-2015 End: 03-02-2025 Tobacco use and exposure Smokeless tobacco non-user [facility] Start: 12-22-2022 End: 11-18-2024 Alcohol intake Not Asked [facility] Start: 2005 Sex Assigned At Not on file [facility] Start: 01-21-2024 End: 03-08-2024 Alcoholic beverage intake Current non-drinker of alcohol (finding) [facility] Start: 01-21-2024 End: 04-04-2025 History of Social function [facility] Start: 01-21-2024 End: 04-04-2025 Tobacco use panel [facility] Start: 10-02-2024 End: 04-04-2025 Exposure to SARS-CoV-2 (event) Not sure [facility] Start: 04-04-2025 Alcoholic beverage intake Lifetime non-drinker (finding) [facility] Work Phone: NEGATED: Highlighted rowStart: NINF History of tobacco use Passive smoker [facility] Goals Date Patient Goal Desired Activity /State Personal health goal Personal health goal Personal health goal Personal health goal Functional Status Date Assessment Result Facility 04-04-2025 [facility] s everity rating scale screener - recent [C-SSRS] [facility] Work Phone: Clinical Notes 12-23-2022 to 04-10-2025 Perioperative Nursing Note - Annalisa Avitia RN - 04/04/2025 1:21 PM EDTPerioperative Nursing Note - Annabel Berkowitz RN - 04/04/2025 12:39 PM EDTSDavid Gomes MD - 04/04/2025 8:13 AM EDT Note Date & Type Note Facility 04-10-2025 Discharge summary [facility] 04-10-2025 Radiology Diagnostic study note [facility] Imaging Services [address] [place] [address] Abdomen/Pelvis W IV Cont ONLY MR#: [id number] Acct: [id number] Name: KELLY RAMOS Rep #: [id number] : 2005 F 20 From: Abdoul Franklin MD PCP: Dr. Wing Flores MD Status: REG ER Study:Abdomen/Pelvis W IV Cont ONLY Date of E xam: 04/10/25 Exam# [id number] Ordering Dr: Glory Gonsalves DO PROCEDURE: ABDOMEN/PELVIS W IV CONT ONLY 04/10/2025 REASON FOR EXAM: POSTOPERATIVE ABDOMINAL PAIN TECHNIQUE: Abdomen and pelvis CT with intravenous contrast. Coronal and Sagittal reconstruction series were provided. PATIENT PREPARATION: Per protocol ORAL CONTRAST TYPE: None. CONTRAST: Isovue-350 VOLUME: 100 mL Gauge IV One or more dose reduction techniques were used (e.g., Automated exposure control, adjustment of the mA and/or kV according to patient size, use of iterative reconstruction technique. RADIATION DOSE SUMMARY: CTDlvol: 7.2 mGy DLP: 402 mGycm COMPARISON: None. FINDINGS: Diffuse thickening of the anorectal junction, probably secondary to recent intervention, edema and/or spasm. Associated perirectal fluid collection is noted measuring 7.6 x 4.2 cm in its largest transverse and anteroposterior dimensions respectively. Secondary moderate narrowing of the anorectal junction. Fluid-filled dilated colon proximal to this level. Associated mild stercoral colitis of the sigmoid colon. No evidence of perforation or pneumatosis coli. The largest transverse dimension of the distended colon is 4.8 cm at the level of the transverse colon. The visualized lung bases are unremarkable. Normal liver. Normal gallbladder and extrahepatic biliary system. Normal spleen. Normal pancreas. Normal bilateral adrenal glands. Normal size of the right kidney. There is no right renal mass. There are no right renal calculi. There is no right hydronephrosis. Normal visualized right ureter. Normal size of the left kidney. There is no left renal mass. There are no leftrenal calculi. There is no left hydronephrosis. Normal visualized left ureter. Normal visualized stomach. Normal small intestine. The appendix is visualized and appears normal. Normal abdominal aorta. Normal inferior vena cava. Normal retroperitoneum. Normal urinary bladder. There is no pelvic mass lesion or lymphadenopathy. Normal abdominal wall. Normal osseous structures. CT/Abdomen/Pelvis W IV Cont ONLY IMPRESSION: 1. Diffuse thickening of the anorectal junction, probably secondary to recent intervention, edema and/or spasm. Associated perirectal fluid collection is noted measuring 7.6 x 4.2 cm in its largest transverse and anteroposterior dimensions respectively. 2. Secondary moderate narrowing of the anorectal junction. 3. Fluid-filled dilated colon proximal to this level. 4. Associated mild stercoral colitis of the sigmoid colon. 5. No evidence of perforation or pneumatosis coli. 6. The largest transverse dimension of the distended colon is 4.8 cm at the level of the transverse colon. Reading [facility] CC: Dr. Wing Flores MD; Clifton Andes, DO ~ Aerospace Engineer: Signed [facility] 04-04-2025 Miscellaneous Notes 1321- Assuming care of pt at this time. Bedside report received from outgoing RN. 1344- Discharge instructions provided to pt and family. Educated on medications, effects of anesthesia, and homecoming care. Pt and family verbalizing understanding of all instructions provided at this time. All questions and concerns answered. Pt given contact information for provider. 1355- Pt assisted with dressing with help of family. pt complaining of increased nausea. Dr. Mcqueen notified at this time. 1409- pt medicated per emr order. 1236 Assuming care of pt at this time. Bedside report received from outgoing RN. 1242 Pt mother- amna given update 1245 no changes 1300 no changes 1315 no changes 1320 see changes 1059 Assuming care of pt at this time. Bedside report received from outgoing RN. Pt arrived to pacu bay 45 at this time, report received from OR and anesthesia staff. Phase 1 care started. Message sent to family via text at this time. 1100 see changes 1108 o2 removed 1115 see changes 1128 dilaudid 0.5mg given 1130 see changes 1135 dilaudid 0.5mg given 1145 see changes 1148 dilaudid 0.5mg given 1200 report given to Bess pts mother given update Robotic Assisted Rectopexy Operative Note Date: 04/04/2025 OR Location: [facility] OR Name: Kelly Marvin Ramos, : 2005, Age: 20 y.o., , Sex: female Diagnosis Pre-op Diagnosis * Rectal prolapse [K62.3] Post-op Diagnosis * Rectal prolapse [K62.3] Procedures Robotic Assisted Rectopexy 22176 - [place] LAPAROSCOPY PROCTOPEXY PROLAPSE Surgeons * Dena Todd - Primary Resident/Fellow/Other Branch Billing Payroll Clerk: Surgeons and Role: * Verónica Gomes MD - Resident - Assisting Staff: Bonded Strand Operator: Head Still Operator: Chante Guillory Person: Henrietta Agrawalub Person: Jw Montoya Scrub: Susanne Montoya Head Still Operator: Mayelin Anesthesia Staff: Anesthesiologist: Danny Mcqueen MD C-AA: RADHA Mayo; RADHA Mendoza Procedure Summary Anesthesia: Anesthesia type not filed in the log. ASA: II Estimated Blood Loss: 10 mL Intra-op Medications: Administrations occurring from 0805 to 1230 on 04/04/25: Medication Name Total Dose BUPivacaine HCl (Marcaine) 0.5 % (5 mg/mL) 30 mL in sodium chloride 0.9% 30 mL syringe 53 mL ceFAZolin (Ancef) vial 1 g 2 g dexAMETHasone (Decadron) 4 mg/mL IV Syringe 2 mL 8 mg esmolol (Brevibloc) injection 50 mg fentaNYL (Sublimaze) injection 50 mcg/mL 200 mcg HYDROmorphone (Dilaudid) injection 1 mg/mL 1 mg LR infusion Cannot be calculated lidocaine (Xylocaine) injection 2 % 100 mg midazolam PF (Versed) injection 1 mg/mL 2 mg ondansetron (Zofran) 2 mg/mL injection 4 mg propofol (Diprivan) injection 10 mg/mL 200 mg rocuronium (ZeMuron) 50 mg/5 mL injection 150 mg sugammadex (Bridion) 200 mg/2 mL injection 200 mg metroNIDAZOLE (Flagyl) 500 mg in sodium chloride (iso) IV 100 mL 500 mg Anesthesia Record Intraprocedure I/O Totals Intake metroNIDAZOLE (Flagyl) 500 mg in sodium chloride (iso) IV 100 mL 100.00 mL Total Intake 100 mL Output Est. Blood Loss 10 mL Total Output 10 mL Net Net Volume 90 mL Specimen: No specimens collected Drains and/or Catheters: * None in log * Findings: stretchy pelvic tissues, otherwise normal peritoneal cavity. Indications: Kelly Ramos is an 20 y.o. female who is having surgery for Rectal prolapse [K62.3]. The patient was seen in the preoperative area. The risks, benefits, complications, treatment options, non-operative alternatives, expected recovery and outcomes were discussed with the patient. The possibilities of reaction to medication, pulmonary aspiration, injury to surrounding structures, bleeding, recurrent infection, the need for additional procedures, failure to diagnose a condition, and creating a complication requiring transfusion or operation were discussed with the patient. The patient concurred with the proposed plan, giving informed consent. The site of surgery was properly noted/marked if necessary per policy. The patient has been actively warmed in preoperative area. Preoperative antibiotics have been ordered and given within 1 hours of incision. Venous thrombosis prophylaxis have been ordered including bilateral sequential compression devices Procedure Details: The patient was brought to the operating room and moved to the table in the lithotomy position. General endotracheal anesthesia was induced IV antibiotics and a heparin shot were administered. The patient was prepped using ChloraPrep which was allowed to dry for 3 minutes and taped and draped in the usual sterile fashion. An 8 mm robotic port site was created in the umbilicus the peritoneal cavity was entered using an Optiview without injury to the underlying bowel. Pneumoperitoneum was established and two 8 mm ports were placed on the left and 1 on the right under direct vision. A 5 mm assistant business manager port was placed in the right lateral position. The patient was then placed in the Trendelenburg position and the robot was brought in and docked. The right peritoneum of the mesorectum was scored using cut on the monopolar scissors. The avascular plane between the posterior aspect of the mesorectum and the presacral tissues was dissected using the monopolar cautery all the way to the pelvic floor. The right and left sides were joined and the anterior peritoneal reflection was scored. The rectovaginal septum was dissected down to the anus. The lateral stalks were maintained intact. The sacral promontory was cleared and the left thickened peritoneum was sutured to the sacral promontory using two #1 Ethibond sutures. The right side of the thickened anterior peritoneal reflection was sutured to the sacral promontory using two #1 Ethibond sutures as well. There was no kinking of the rectum or the colon after this procedure. The uterus was held up using a Octavio needle stitch this was taken down and bleeding was stopped and the uterus and tubes and ovaries laid over the exposed mesorectum, therefore the peritoneum was not closed. A four-quadrant tap block was performed instilling 10 cc of quarter percent Marcaine in the right upper quadrant of the right lower quadrant left upper quadrant left lower quadrant under direct vision in the transversus abdominus plane. We watched the ports come out and the skin was closed using 4-0 Monocryl in an interrupted fashion and closed with LiquiBand. Evidence of Infection: No Complications: None; patient tolerated the procedure well. Disposition: PACU - hemodynamically stable. Condition: stable Attending Attestation: I was present and scrubbed for the entire procedure. Dena Todd documented in this encounter [facility] Work Phone: 04-04-2025 Nurse Surgical operation note 1321- Assuming care of pt at this time. Bedside report received from outgoing RN. 1344- Discharge instructions provided to pt and family. Educated on medications, effects of anesthesia, and homecoming care. Pt and family verbalizing understanding of all instructions provided at this time. All questions and concerns answered. Pt given contact information for provider. 1355- Pt assisted with dressing with help of family. pt complaining of increased nausea. Dr. Mcqueen notified at this time. 1409- pt medicated per emr order. [facility] 04-04-2025 Nurse Surgical operation note 1236 Assuming care of pt at this time. Bedside report received from outgoing RN. 1242 Pt mother- amna given update 1245 no changes 1300 no changes 1315 no changes 1320 see changes [facility] Work Phone: 04-04-2025 Nurse Surgical operation note 1059 Assuming care of pt at this time. Bedside report received from outgoing RN. Pt arrived to pacu bay 45 at this time, report received from OR and anesthesia staff. Phase 1 care started. Message sent to family via text at this time. 1100 see changes 1108 o2 removed 1115 see changes 1128 dilaudid 0.5mg given 1130 see changes 1135 dilaudid 0.5mg given 1145 see changes 1148 dilaudid 0.5mg given 1200 report given to Bess, pts mother given update [facility] Work Phone: 04-04-2025 Surgery Surgical operation note Robotic Assisted Rectopexy Operative Note Date: 04/04/2025 OR Location: [facility] OR Name: Kelly Ramos, : 2005, Age: 20 y.o., , Sex: female Diagnosis Pre-op Diagnosis * Rectal prolapse [K62.3] Post-op Diagnosis * Rectal prolapse [K62.3] Procedures Robotic Assisted Rectopexy 29918 - [place] LAPAROSCOPY PROCTOPEXY PROLAPSE Surgeons * Dena Todd - Primary Resident/Fellow/Other Branch Billing Payroll Clerk: Surgeons and Role: * Verónica Gomes MD - Resident - Assisting Staff: Bonded Strand Operator: Head Still Operator: Chante Guillory Person: Henrietta Agrawalub Person: Jw Montoya Scrub: Susanne Montoya Head Still Operator: Mayelin Anesthesia Staff: Anesthesiologist: Danny Mcqueen MD C-AA: RADHA Mayo; RADHA Mendoza Procedure Summary Anesthesia: Anesthesia type not filed in the log. ASA: II Estimated Blood Loss: 10 mL Intra-op Medications: Administrations occurring from 0805 to 1230 on 04/04/25: Medication Name Total Dose BUPivacaine HCl (Marcaine) 0.5 % (5 mg/mL) 30 mL in sodium chloride 0.9% 30 mL syringe 53 mL ceFAZolin (Ancef) vial 1 g 2 g dexAMETHasone (Decadron) 4 mg/mL IV Syringe 2 mL 8 mg esmolol (Brevibloc) injection 50 mg fentaNYL (Sublimaze) injection 50 mcg/mL 200 mcg HYDROmorphone (Dilaudid) injection 1 mg/mL 1 mg LR infusion Cannot be calculated lidocaine (Xylocaine) injection 2 % 100 mg midazolam PF (Versed) injection 1 mg/mL 2 mg ondansetron (Zofran) 2 mg/mL injection 4 mg propofol (Diprivan) injection 10 mg/mL 200 mg rocuronium (ZeMuron) 50 mg/5 mL injection 150 mg sugammadex (Bridion) 200 mg/2 mL injection 200 mg metroNIDAZOLE (Flagyl) 500 mg in sodium chloride (iso) IV 100 mL 500 mg Anesthesia Record Intraprocedure I/O Totals Intake metroNIDAZOLE (Flagyl) 500 mg in sodium chloride (iso) IV 100 mL 100.00 mL Total Intake 100 mL Output Est. Blood Loss 10 mL Total Output 10 mL Net Net Volume 90 mL Specimen: No specimens collected Drains and/or Catheters: * None in log * Findings: stretchy pelvic tissues, otherwise normal peritoneal cavity. Indications: Kelly Ramos is an 20 y.o. female who is having surgery for Rectal prolapse [K62.3]. The patient was seen in the preoperative area. The risks, benefits, complications, treatment options, non-operative alternatives, expected recovery and outcomes were discussed with the patient. The possibilities of reaction to medication, pulmonary aspiration, injury to surrounding structures, bleeding, recurrent infection, the need for additional procedures, failure to diagnose a condition, and creating a complication requiring transfusion or operation were discussed with the patient. The patient concurred with the proposed plan, giving informed consent. The site of surgery was properly noted/marked if necessary per policy. The patient has been actively warmed in preoperative area. Preoperative antibiotics have been ordered and given within 1 hours of incision. Venous thrombosis prophylaxis have been ordered including bilateral sequential compression devices Procedure Details: The patient was brought to the operating room and moved to the table in the lithotomy position. General endotracheal anesthesia was induced IV antibiotics and a heparin shot were administered. The patient was prepped using ChloraPrep which was allowed to dry for 3 minutes and taped and draped in the usual sterile fashion. An 8 mm robotic port site was created in the umbilicus the peritoneal cavity was entered using an Optiview without injury to the underlying bowel. Pneumoperitoneum was established and two 8 mm ports were placed on the left and 1 on the right under direct vision. A 5 mm assistant business manager port was placed in the right lateral position. The patient was then placed in the Trendelenburg position and the robot was brought in and docked. The right peritoneum of the mesorectum was scored using cut on the monopolar scissors. The avascular plane between the posterior aspect of the mesorectum and the presacral tissues was dissected using the monopolar cautery all the way to the pelvic floor. The right and left sides were joined and the anterior peritoneal reflection was scored. The rectovaginal septum was dissected down to the anus. The lateral stalks were maintained intact. The sacral promontory was cleared and the left thickened peritoneum was sutured to the sacral promontory using two #1 Ethibond sutures. The right side of the thickened anterior peritoneal reflection was sutured to the sacral promontory using two #1 Ethibond sutures as well. There was no kinking of the rectum or the colon after this procedure. The uterus was held up using a Octavio needle stitch this was taken down and bleeding was stopped and the uterus and tubes and ovaries laid over the exposed mesorectum, therefore the peritoneum was not closed. A four-quadrant tap block was performed instilling 10 cc of quarter percent Marcaine in the right upper quadrant of the right lower quadrant left upper quadrant left lower quadrant under direct vision in the transversus abdominus plane. We watched the ports come out and the skin was closed using 4-0 Monocryl in an interrupted fashion and closed with LiquiBand. Evidence of Infection: No Complications: None; patient tolerated the procedure well. Disposition: PACU - hemodynamically stable. Condition: stable Attending Attestation: I was present and scrubbed for the entire procedure. Dena Todd [facility] Work Phone: 04-04-2025 History and physical note History Of Present Illness Kelly Ramos is a 20 y.o. female presenting with rectal prolapse. Has been dealing with it since she was a toddler. Has been taking miralax and benefiber for constipation. It is not painful but is generally uncomfortable and happens very frequently. Completed bowel prep, had some nausea and episodes of emesis. Otherwise feels well. No new medical issues or medications since she saw Dr. Todd in 10/2024 Past Medical History Medical History[1] Surgical History Surgical History[2] Social History She reports that she has never smoked. She has never used smokeless tobacco. She reports that she does not drink alcohol and does not use drugs. Family History Family History[3] Allergies Azithromycin and Neomycin Review of Systems: negative other than noted in HPI Physical Exam General: Awake, alert, conversive, nontoxic appearing HENT: NCAT Eyes: EOMI, no icterus Cardio: RR Respiratory/Thorax: even, unlabored on RA Gastrointestinal: soft, NT, ND Genitourinary: voiding Skin: warm, dry Musculoskeletal: BENAVIDEZ Extremities: no edema Psychological: appropriate mood/affect Last Recorded Vitals Blood pressure 112/61, pulse 68, temperature 36.7 C (98.1 F), temperature source Temporal, resp. rate 16, height 1.575 m (5' 2), weight 58.5 kg (128 lb 15.5 oz), last menstrual period 03/21/2025, SpO2 98%. Relevant Results Assessment & Plan Rectal prolapse Proceed to OR for Robotic Rectopexy with Dr. Todd Consent completed at office visit, questions addressed today Verónica Gomes MD General Surgery PGY-3 Colon and Rectal Surgery Verónica Gomes MD [1] Past Medical History: Diagnosis Date Abdominal pain Rectal prolapse [2] Past Surgical History: Procedure Laterality Date COLONOSCOPY WISDOM TOOTH EXTRACTION [3] No family history on file. Cosigned by Dena Todd MD at 04/04/2025 8:22 AM EDT [facility] Work Phone: 04-04-2025 History and physical note History Of Present Illness Kelly Ramos is a 20 y.o. female presenting with rectal prolapse. Has been dealing with it since she was a toddler. Has been taking miralax and benefiber for constipation. It is not painful but is generally uncomfortable and happens very frequently. Completed bowel prep, had some nausea and episodes of emesis. Otherwise feels well. No new medical issues or medications since she saw Dr. Todd in 10/2024 Past Medical History Medical History[1] Surgical History Surgical History[2] Social History She reports that she has never smoked. She has never used smokeless tobacco. She reports that she does not drink alcohol and does not use drugs. Family History Family History[3] Allergies Azithromycin and Neomycin Review of Systems: negative other than noted in HPI Physical Exam General: Awake, alert, conversive, nontoxic appearing HENT: NCAT Eyes: EOMI, no icterus Cardio: RR Respiratory/Thorax: even, unlabored on RA Gastrointestinal: soft, NT, ND Genitourinary: voiding Skin: warm, dry Musculoskeletal: BENAVIDEZ Extremities: no edema Psychological: appropriate mood/affect Last Recorded Vitals Blood pressure 112/61, pulse 68, temperature 36.7 C (98.1 F), temperature source Temporal, resp. rate 16, height 1.575 m (5' 2), weight 58.5 kg (128 lb 15.5 oz), last menstrual period 03/21/2025, SpO2 98%. Relevant Results Assessment & Plan Rectal prolapse Proceed to OR for Robotic Rectopexy with Dr. Todd Consent completed at office visit, questions addressed today Verónica Gomes MD General Surgery PGY-3 Colon and Rectal Surgery Verónica Gomes MD [1] Past Medical History: Diagnosis Date Abdominal pain Rectal prolapse [2] Past Surgical History: Procedure Laterality Date COLONOSCOPY WISDOM TOOTH EXTRACTION [3] No family history on file. Cosigned by Dena Todd MD at 04/04/2025 8:22 AM EDT documented in this encounter [facility] Work Phone: 03-02-2025 History of Present illness Narrative [facility] NOTE: Name: Kelly Ramos, 20 y.o. CSN:[id number] ALL: Allergies[1] Chief Complaint: Nausea, loss of appetite, and Diarrhea (Chills, sweats X 6 days) Encounter Date: 03/02/2025 HPI: The history was obtained from the patient. Kelly is a 20 y.o. female, who presents with a chief complaint of nausea that began 3 days ago. The nausea is described as moderate and is associated with such as diarrhea and decreased appetite. Nausea wax and wanes, worse with eating. Tolerating PO fluids well. No history of recent travel, medication use, alcohol consumption, or dietary changes. The nausea has worsened since onset. Denies any recent trauma, fever, or significant weight loss, reports bloating and diarrhea. Reports history of rectal prolapse which is scheduled for surgical repair on 04/04/2025, patient reports no change in those symptoms. PMHx: Medical History[2] Current Medications[3] PMSx: Surgical History[4] Fam Hx: Family History[5] SOC. Hx: Social History Socioeconomic History Marital status: Single Spouse name: Not on file Number of children: Not on file Years of education: Not on file Highest education level: Not on file Occupational History Not on file Tobacco Use Smoking status: Never Smokeless tobacco: Never Substance and Sexual Activity Alcohol use: Not on file Drug use: Not on file Sexual activity: Not on file Other Topics Concern Not on file Social History Narrative Not on file Social Drivers of Health Financial Resource Strain: Not on file Food Insecurity: Not on file Transportation Needs: Not on file Physical Activity: Not on file Stress: Not on file Social Connections: Not on file Intimate Partner Violence: Not on file Housing Stability: Not on file Vitals: 03/02/25 1721 BP: 109/73 Pulse: 90 Resp: 15 Temp: 36.8 C (98.3 F) SpO2: 98% Physical Exam Vitals and nursing note reviewed. Constitutional: Appearance: Normal appearance. HENT: Head: Normocephalic and atraumatic. Mouth/Throat: Mouth: Mucous membranes are moist. Pharynx: Oropharynx is clear. Eyes: Pupils: Pupils are equal, round, and reactive to light. Cardiovascular: Rate and Rhythm: Normal rate and regular rhythm. Pulses: Normal pulses. Heart sounds: Normal heart sounds. Pulmonary: Effort: Pulmonary effort is normal. Breath sounds: Normal breath sounds. Abdominal: General: Abdomen is flat. Bowel sounds are increased. Palpations: Abdomen is soft. Tenderness: There is generalized abdominal tenderness. There is no guarding or rebound. Negative signs include Adrian's sign, Rovsing's sign, McBurney's sign, psoas sign and obturator sign. Musculoskeletal: General: Normal range of motion. Cervical back: Normal range of motion. Skin: General: Skin is warm and dry. Capillary Refill: Capillary refill takes less than 2 seconds. Neurological: Mental Status: She is alert and oriented to person, place, and time. I did personally review Kelly's past medical history, surgical history, social history, as well as family history (when relevant). In this case, I also oversaw the her drug management by reviewing her medication list, allergy list, as well as the medications that I prescribed during the UC course and/or recommended as an out-patient (including possible OTC medications such as acetaminophen, NSAIDs , etc). After reviewing the items above, I did look at previous medical documentation, such as recent hospitalizations, office visits, and/or recent consultations with PCP/specialist. SDOH: Another factor that I considered in Kelly's care was her Social Determinants of Health (SDOH). During this UC encounter, she did not have social determinants of health. Those SDOH influencing Kelly's care are: none UC COURSE/MEDICAL DECISION MAKING: Kelly is a 20 y.o., who presents with a working diagnosis of 1. Gastroenteritis 2. Nausea Plan of Care: 1) Zofran given in office and prescription sent to [facility] pharmacy 2) encouraged to continue drinking p.o. fluids, if unable to tolerate fluids to be seen in the emergency department for further evaluation of dehydration 3) if symptoms change or worsen, develop abdominal pain, fever, chills patient agreeable to follow-up at the emergency department for further evaluation No red flags. Plan of care reviewed with patient, agreeable to discharge Dwain Ross DNP Advanced Practice Provider [facility] Please note: While the patient may or may not have received printed discharge paperwork, all relevant medical findings, test results, and treatment details are accessible through the electronic medical record system. The patient is encouraged to review their chart via the patient portal for comprehensive information and follow-up instructions. [1] No Known Allergies [2] No past medical history on file. [3] Current Outpatient Medications Medication Sig Dispense Refill escitalopram (Lexapro) 10 mg tablet Take 1 tablet (10 mg) by mouth once daily. amoxicillin-pot clavulanate (Augmentin) 875-125 mg tablet Take 1 tablet by mouth every 12 hours. (Patient not taking: Reported on 03/02/2025) chlorhexidine (Peridex) 0.12 % solution swish 15 MLS by mouth for 30 SECONDS then SPIT use twice a day after meals (Patient not taking: Reported on 03/02/2025) chlorhexidine (Peridex) 0.12 % solution Rinse mouth with 15 ml after toothbrushing the night before surgery and on the morning of surgery. Expectorate after rinsing. Do not swallow. (Patient not taking: Reported on 03/02/2025) 120 mL 0 gabapentin (Neurontin) 100 mg capsule Take one capsule by mouth starting three days before surgery at bedtime. (Patient not taking: Reported on 03/02/2025) 3 capsule 0 HYDROcodone-acetaminophen (Arnold) 5-325 mg tablet Take 1 tablet by mouth 1 time. (Patient not taking: Reported on 03/02/2025) hyoscyamine (Anaspaz, Levsin) 0.125 mg tablet Take 1 tablet (0.125 mg) by mouth every 6 hours. (Patient not taking: Reported on 03/02/2025) ibuprofen 400 mg tablet take 1 tablet by mouth 4 TIMES A DAY with FOOD (Patient not taking: Reported on 03/02/2025) methylPREDNISolone (Medrol Dospak) 4 mg tablets TAKE BY MOUTH DIRECTED ON PACKAGE (Patient not taking: Reported on 03/02/2025) metroNIDAZOLE (Flagyl) 250 mg tablet Take one tablet at 6p, 7p, and 11p the night before surgery. (Patient not taking: Reported on 03/02/2025) 3 tablet 0 neomycin (Mycifradin) 500 mg tablet Take two tabs by mouth at 6p, 7pm, and 11p the night before surgery. (Patient not taking: Reported on 03/02/2025) 6 tablet 0 ondansetron ODT (Zofran-ODT) 4 mg disintegrating tablet Dissolve 1 tablet (4 mg) in the mouth every 8 hours if needed for nausea or vomiting for up to 7 days. 20 tablet 0 rifAXIMin (Xifaxan) 200 mg tablet Take 0.5 tablets (100 mg) by mouth. (Patient not taking: Reported on 03/02/2025) No current facility-administered medications for this visit. [4] No past surgical history on file. [5] No family history on file. documented in this encounter [facility] Work Phone: 11-18-2024 Note HNO ID: [id number] Author: DAVID HOPKINS PA-C Service: ? Author Type: Physician Branch Billing Payroll Clerk Type: Progress Notes Filed: 11/18/2024 17:31 Note Text: This note was created using [employer]ter. Subjective Kelly Ramos is a 19 year old female. Patient is a 19-year-old female who complains of congestion and cough that she has been experiencing for the past 6 days. Patient also reports mild sore throat that she has had for the past 3 days. Patient does attend [employer] and does live in the dormitory. Patient reports that there have been no cases of mononucleosis or strep that she is aware of in the dorm. Patient has no history of asthma and does not smoke. Patient states that several of her family members were also recently evaluated for similar symptoms and all were diagnosed with viral upper respiratory infections. Cough Associated symptoms include sore throat. Ear Pain Associated symptoms include congestion, coughing and a sore throat. Review of Systems HENT: Positive for congestion and sore throat. Respiratory: Positive for cough. All other systems reviewed and are negative. Objective BP 131/75 Pulse 76 Temp 36.4 ?C (97.6 ?F) Resp 18 Wt 58 kg (127 lb 13.9 oz) LMP 11/07/2024 (Approximate) SpO2 99% Physical Exam Vitals and nursing note reviewed. Constitutional: Appearance: Normal appearance. She is normal weight. HENT: Head: Normocephalic and atraumatic. Right Ear: Tympanic membrane, ear canal and external ear normal. Left Ear: Tympanic membrane, ear canal and external ear normal. Nose: Nose normal. Mouth/Throat: Mouth: Mucous membranes are moist. Pharynx: Oropharynx is clear. Eyes: Extraocular Movements: Extraocular movements intact. Conjunctiva/sclera: Conjunctivae normal. Pupils: Pupils are equal, round, and reactive to light. Cardiovascular: Rate and Rhythm: Normal rate and regular rhythm. Pulses: Normal pulses. Heart sounds: Normal heart sounds. Pulmonary: Effort: Pulmonary effort is normal. Breath sounds: Normal breath sounds. Musculoskeletal: Cervical back: Normal range of motion and neck supple. Skin: General: Skin is warm and dry. Capillary Refill: Capillary refill takes less than 2 seconds. Neurological: General: No focal deficit present. Mental Status: She is alert and oriented to person, place, and time. Psychiatric: Mood and Affect: Mood normal. Behavior: Behavior normal. Thought Content: Thought content normal. Judgment: Judgment normal. Assessment and Plan Unremarkable physical exam findings as noted above. Rapid strep PCR is negative. Patient was provided with prescriptions for prednisone 20 mg and Tessalon 100 mg. Supportive care was discussed and the patient verbalizes clear understanding of same. CLINICAL IMPRESSION: Viral Illness ASSESSMENT/PLAN: 1. Viral illness - ICD9: 079.99, ICD10: B34.9 - STREP A MOLECULAR (POC) - PREDNISONE 20 MG TABLET - BENZONATATE 100 MG CAPSULE David Hopkins PA-C [facility] 11-18-2024 History of Present illness Narrative This note was created using [employer]ter. Subjective Kelly Ramos is a 19 year old female. Patient is a 19-year-old female who complains of congestion and cough that she has been experiencing for the past 6 days. Patient also reports mild sore throat that she has had for the past 3 days. Patient does attend [employer] and does live in the dormitory. Patient reports that there have been no cases of mononucleosis or strep that she is aware of in the dorm. Patient has no history of asthma and does not smoke. Patient states that several of her family members were also recently evaluated for similar symptoms and all were diagnosed with viral upper respiratory infections. Cough Associated symptoms include sore throat. Ear Pain Associated symptoms include congestion, coughing and a sore throat. Review of Systems HENT: Positive for congestion and sore throat. Respiratory: Positive for cough. All other systems reviewed and are negative. Objective BP 131/75 Pulse 76 Temp 36.4 C (97.6 F) Resp 18 Wt 58 kg (127 lb 13.9 oz) LMP 11/07/2024 (Approximate) SpO2 99% Physical Exam Vitals and nursing note reviewed. Constitutional: Appearance: Normal appearance. She is normal weight. HENT: Head: Normocephalic and atraumatic. Right Ear: Tympanic membrane, ear canal and external ear normal. Left Ear: Tympanic membrane, ear canal and external ear normal. Nose: Nose normal. Mouth/Throat: Mouth: Mucous membranes are moist. Pharynx: Oropharynx is clear. Eyes: Extraocular Movements: Extraocular movements intact. Conjunctiva/sclera: Conjunctivae normal. Pupils: Pupils are equal, round, and reactive to light. Cardiovascular: Rate and Rhythm: Normal rate and regular rhythm. Pulses: Normal pulses. Heart sounds: Normal heart sounds. Pulmonary: Effort: Pulmonary effort is normal. Breath sounds: Normal breath sounds. Musculoskeletal: Cervical back: Normal range of motion and neck supple. Skin: General: Skin is warm and dry. Capillary Refill: Capillary refill takes less than 2 seconds. Neurological: General: No focal deficit present. Mental Status: She is alert and oriented to person, place, and time. Psychiatric: Mood and Affect: Mood normal. Behavior: Behavior normal. Thought Content: Thought content normal. Judgment: Judgment normal. Assessment and Plan Unremarkable physical exam findings as noted above. Rapid strep PCR is negative. Patient was provided with prescriptions for prednisone 20 mg and Tessalon 100 mg. Supportive care was discussed and the patient verbalizes clear understanding of same. CLINICAL IMPRESSION: Viral Illness ASSESSMENT/PLAN: 1. Viral illness - ICD9: 079.99, ICD10: B34.9 - STREP A MOLECULAR (POC) - PREDNISONE 20 MG TABLET - BENZONATATE 100 MG CAPSULE David ANGELA Hopkins documented in this encounter [facility] 10-22-2024 Note HNO ID: [id number] Author: JAIR RILEY APRN.LABORATORY TECHNICIAN Service: ? Author Type: Nurse Practitioner Type: Progress Notes Filed: 10/22/2024 11:31 Note Text: Subjective HPI Nontoxic-appearing female presents urgent care chief complaint cough chest congestion. Initially had bodyaches chills fatigue. The symptoms have improved. Cough is stayed productive and prominent. OTC medications at night and this has helped with cough suppressant. Denies any chest pain or hemoptysis. No fevers. No pleuritic pain. Is not is not breast-feeding. Past medical history prescription medications allergies reviewed. BP 108/68 Pulse 82 Temp 36.8 ?C (98.2 ?F) Resp 18 Wt 59.5 kg (131 lb 2.8 oz) LMP 10/08/2024 (Approximate) SpO2 99% .Patient presents with: Cough: Persistent cough, fatigue, chest tightness, wheeze, lots of mucous, deep cough x 1.5 weeks History reviewed. No pertinent past medical history. History reviewed. No pertinent surgical history. ALLERGIES Patient has no known allergies. MEDICATIONS doxycycline (VIBRA-TABS) 100 mg tablet Take 1 tablet by mouth two times a day for 5 days. History reviewed. No pertinent family history. Social History Tobacco Use Smoking status: Never Smokeless tobacco: Never Review of Systems Constitutional: Positive for malaise/fatigue. Negative for chills and fever. HENT: Negative for congestion, ear discharge, ear pain, sinus pain and sore throat. Eyes: Negative for blurred vision, pain, discharge and redness. Respiratory: Positive for cough and sputum production. Negative for hemoptysis, shortness of breath, wheezing and stridor. Cardiovascular: Negative for chest pain. Gastrointestinal: Negative for abdominal pain, diarrhea, nausea and vomiting. Musculoskeletal: Positive for myalgias. Skin: Negative for itching and rash. Neurological: Negative for dizziness and headaches. Objective Physical Exam Constitutional: General: She is not in acute distress. Appearance: She is not diaphoretic. HENT: Head: Normocephalic. Jaw: No trismus, tenderness, swelling or pain on movement. Mouth/Throat: Mouth: Mucous membranes are moist. Pharynx: Oropharynx is clear. Uvula midline. No pharyngeal swelling, oropharyngeal exudate, posterior oropharyngeal erythema or uvula swelling. Eyes: Conjunctiva/sclera: Conjunctivae normal. Pupils: Pupils are equal, round, and reactive to light. Cardiovascular: Rate and Rhythm: Normal rate and regular rhythm. Heart sounds: Normal heart sounds. Pulmonary: Effort: Pulmonary effort is normal. No tachypnea, accessory muscle usage or respiratory distress. Breath sounds: No stridor. Rhonchi present. No wheezing or rales. Abdominal: General: There is no distension. Palpations: Abdomen is soft. Tenderness: There is no abdominal tenderness. There is no guarding or rebound. Musculoskeletal: Cervical back: Normal range of motion and neck supple. No edema, erythema, rigidity or tenderness. No pain with movement. Normal range of motion. Lymphadenopathy: Cervical: No cervical adenopathy. Skin: General: Skin is warm and dry. Neurological: Mental Status: She is alert and oriented to person, place, and time. ASSESSMENT/PLAN: 1. Lower respiratory tract infection - ICD9: 519.8, ICD10: J22 Diagnosed with lower respiratory tract infection. Placed on doxycycline. Patient was educated on supportive therapies. Patient will follow up with primary care provider 48 hours reevaluation. Patient was instructed to immediately proceed to emergency room for any new, worsening, or symptoms lasting longer than anticipated. The patient's clinical presentation is otherwise unremarkable at this time. Based on exam and clinical finding, the patient is stable for discharge. Plan of care was discussed with patient. Patient verbalizes understanding and agrees to plan of care. This note was generated using UAV Navigation software. It may contain errors in wording, punctuation, or spelling. Jair Riley APRN.[facility] 10-22-2024 History of Present illness Narrative Subjective HPI Nontoxic-appearing female presents urgent care chief complaint cough chest congestion. Initially had bodyaches chills fatigue. The symptoms have improved. Cough is stayed productive and prominent. OTC medications at night and this has helped with cough suppressant. Denies any chest pain or hemoptysis. No fevers. No pleuritic pain. Is not is not breast-feeding. Past medical history prescription medications allergies reviewed. BP 108/68 Pulse 82 Temp 36.8 C (98.2 F) Resp 18 Wt 59.5 kg (131 lb 2.8 oz) LMP 10/08/2024 (Approximate) SpO2 99% .Patient presents with: Cough: Persistent cough, fatigue, chest tightness, wheeze, lots of mucous, deep cough x 1.5 weeks History reviewed. No pertinent past medical history. History reviewed. No pertinent surgical history. ALLERGIES Patient has no known allergies. MEDICATIONS doxycycline (VIBRA-TABS) 100 mg tablet Take 1 tablet by mouth two times a day for 5 days. History reviewed. No pertinent family history. Social History Tobacco Use Smoking status: Never Smokeless tobacco: Never Review of Systems Constitutional: Positive for malaise/fatigue. Negative for chills and fever. HENT: Negative for congestion, ear discharge, ear pain, sinus pain and sore throat. Eyes: Negative for blurred vision, pain, discharge and redness. Respiratory: Positive for cough and sputum production. Negative for hemoptysis, shortness of breath, wheezing and stridor. Cardiovascular: Negative for chest pain. Gastrointestinal: Negative for abdominal pain, diarrhea, nausea and vomiting. Musculoskeletal: Positive for myalgias. Skin: Negative for itching and rash. Neurological: Negative for dizziness and headaches. Objective Physical Exam Constitutional: General: She is not in acute distress. Appearance: She is not diaphoretic. HENT: Head: Normocephalic. Jaw: No trismus, tenderness, swelling or pain on movement. Mouth/Throat: Mouth: Mucous membranes are moist. Pharynx: Oropharynx is clear. Uvula midline. No pharyngeal swelling, oropharyngeal exudate, posterior oropharyngeal erythema or uvula swelling. Eyes: Conjunctiva/sclera: Conjunctivae normal. Pupils: Pupils are equal, round, and reactive to light. Cardiovascular: Rate and Rhythm: Normal rate and regular rhythm. Heart sounds: Normal heart sounds. Pulmonary: Effort: Pulmonary effort is normal. No tachypnea, accessory muscle usage or respiratory distress. Breath sounds: No stridor. Rhonchi present. No wheezing or rales. Abdominal: General: There is no distension. Palpations: Abdomen is soft. Tenderness: There is no abdominal tenderness. There is no guarding or rebound. Musculoskeletal: Cervical back: Normal range of motion and neck supple. No edema, erythema, rigidity or tenderness. No pain with movement. Normal range of motion. Lymphadenopathy: Cervical: No cervical adenopathy. Skin: General: Skin is warm and dry. Neurological: Mental Status: She is alert and oriented to person, place, and time. ASSESSMENT/PLAN: 1. Lower respiratory tract infection - ICD9: 519.8, ICD10: J22 Diagnosed with lower respiratory tract infection. Placed on doxycycline. Patient was educated on supportive therapies. Patient will follow up with primary care provider 48 hours reevaluation. Patient was instructed to immediately proceed to emergency room for any new, worsening, or symptoms lasting longer than anticipated. The patient's clinical presentation is otherwise unremarkable at this time. Based on exam and clinical finding, the patient is stable for discharge. Plan of care was discussed with patient. Patient verbalizes understanding and agrees to plan of care. This note was generated using UAV Navigation software. It may contain errors in wording, punctuation, or spelling. Jair Riley APRN.CATRACHITA documented in this encounter [facility] 10-12-2024 History of Present illness Narrative Kelly Ramos is a 19 year old female presents to the office for evaluation of rectal prolapse. She has been dealing with rectal prolapse for about since she was [age] years old. She was having issues with constipation. She was moving her bowel every day but she was straining. She was taking Miralax 1/2 capful daily and Benefiber. Mom took Kelly to the doctor and was diagnosed with rectal prolapse. Then the prolapse stopped bothering her and was not coming out all the time. By middle school she was having stomach upset, gas, cramping and intermittent loose bowels. Was diagnosed with IBS. She was not taking Miralax or fiber at this time. Sometimes had the feeling in her stomach that she needed to move her bowels but nothing would come out. When she got to high school the prolapse is sticking out further. Current bowel habit is 2-3 times per day. Prolapse is coming out all the time when she is on the toilet and coming out when she is working out. She is not taking any laxatives. Her stool consistency is all over the place from watery to soft and formed. She is sitting on the toilet for only a few minutes to have a bowel motion. No pain with a bowel motion. She did go for biofeedback 2023. She reports that the biofeedback did not help her at all. She started biofeedback, but they She is only sitting for 1-2 minutes. She does have some stomach discomfort and tries to poop and doesn't really need to go and sits a little longer. She does have occasional diarrhea. 01/21/2024 Anorectal Manometry Normal resting pressure Normal squeeze. Normal push Unable to elicit RAIR 03/23/2024 Colonoscopy to TI The ascending colon, descending colon, transverse colon and terminal ileum were identified by visual landmarks. In the rectum the scope was retroflexed to evaluate for internal hemorrhoids and anorectal pathology. Normal terminal ileum. Biopsy obtained. Normal in the mid ascending colon, mid descending colon and rectum. Biopsy obtained. Pathology A. Small bowel, terminal ileum, biopsies: Small bowel mucosa with no significant histopathologic changes B. Colon, right, biopsies: Colonic mucosa with mucosal lymphoid aggregate C. Colon, left, biopsy: Colonic mucosa with focal active colitis D. Colon, rectosigmoid biopsy: Colonic mucosa with no significant histopathologic changes. Past Medical History Constipation Surgical History Social History Smoking: ETOH: Family History Allergies Patient has no known allergies. Review of Systems Constitutional: Negative for fever, chills, anorexia, weight loss, malaise ENMT: Negative for nasal discharge, congestion, ear pain, mouth pain, throat pain Respiratory: Negative for cough, hemoptysis, wheezing, shortness of breath Cardiac: Negative for chest pain, dyspnea on exertion, orthopnea, palpitations, syncope Gastrointestinal: Negative for nausea, vomiting, diarrhea, constipation, abdominal pain, Genitourinary: Negative for discharge, dysuria, flank pain, frequency, hematuria Musculoskeletal: Negative for decreased ROM, pain, swelling, weakness Neurological: Negative for dizziness, confusion, headache, seizures, syncope Psychiatric: Negative for mood changes, anxiety, hallucinations, sleep changes, suicidal ideas Skin: Negative for mass, pain, itching, rash, ulcer Endocrine: Negative for heat intolerance, cold intolerance, excessive sweating, polyuria, excess thirst Hematologic/Lymph: Negative for anemia, bruising, easy bleeding, night sweats, petechiae, history of DVT/PE or cancer Allergic/Immunologic: Negative for anaphylaxis, itchy/ teary eyes, itching, sneezing, swelling Physical Exam Constitutional: Well developed, awake/alert/oriented x3, no distress, alert and cooperative Eyes: Sclera anicteric, no conjunctival inflammation, conjugate gaze ENMT: mucous membranes moist, no apparent injury, Head/Neck: Neck supple, no apparent injury, No JVD, trachea midline, no bruits Respiratory/Thorax: Patent airways, CTAB, normal breath sounds with good chest expansion, thorax symmetric Cardiovascular: Regular, rate and rhythm, no murmurs, normal S1 and S2 Gastrointestinal: Nondistended, soft, non-tender, no rebound tenderness or guarding, no masses palpable, no organomegaly, +BS, no bruits Extremities: normal extremities, no cyanosis edema, contusions or wounds, 2+ femoral pulses B/L, hypermobility of the hands, elbow joints Neurological: alert and oriented x3, normal strength, Normal gait Lymphatic: No palpable inguinal lymphadenopathy Psychological: Appropriate mood and behavior Skin: Warm and dry, no lesions, no rashes Anorectal: Normal rectal tone. No external hemorrhoids. Full thickness prolapse that comes in an out with a push and has concentric rings Impression: Pt with rectal prolapse has had the appropriate work up I think that she is high risk of Ehler's Danlos IBS Plan: Metamucil discussed Discussed food sensitivity testing Plan for robotic rectopexy Consent done documented in this encounter [facility] Work Phone: 03-23-2024 Plan of care note Ongoing [facility] 03-23-2024 Miscellaneous Notes Ongoing Patient Name KELLY RAMOS Date of 2005 Record Number [id number] Date/Time of Procedure 03/23/2024 , 9:30:00 AM Referring Physician Endoscopist VEDA SALDAÑA PROCEDURE PERFORMED Colonoscopy INDICATIONS FOR EXAMINATION Rectal prolapse [K62.3] K62.3 Rectal prolapse MEDICATIONSGeneral Anesthesia with LMA; ASA II ESTIMATED BLOOD LOSS2 ML INSTRUMENTS CF [id number] PROCEDURE TECHNIQUE A physical exam was performed. Informed consent was obtained from the patient's parents/guardian after explaining all the risks (perforation, bleeding, infection and adverse effects to the medicine), benefits and alternatives to the procedure which the patient's parents appeared to understand and so stated. The patient was connected to the monitoring devices and placed in the supine position. Continuous oxygen was provided and IV medicine administered thru an indwelling cannula. After adequate general anesthesia was achieved, a digital exam was performed and the colonoscope introduced in to the rectum and advanced under direct visualization to the terminal ileum The ascending colon, descending colon, transverse colon and terminal ileum were identified by visual landmarks. The scope was subsequently removed slowly while carefully examining the color, texture, anatomy, and integrity of the mucosa on the way out. In the rectum, the scope was retroflexed to evaluate for internal hemorrhoids and anorectal pathology. The patient was subsequently transferred to the recovery area in satisfactory condition. Bowel Prep Quality: Excellent FINDINGS Normal in the terminal ileum. Biopsy obtained, results pending. Complete hemostasis achieved. Normal in the mid ascending colon, mid descending colon and rectum. Biopsy obtained, results pending. Complete hemostasis achieved. ENDOSCOPIC DIAGNOSIS Normal colonoscopy RECOMMENDATIONS Pending biopsy. documented in this encounter [facility] 03-23-2024 Procedure note Patient Name KELLY RAMOS Date of 2005 Record Number [id number] Date/Time of Procedure 03/23/2024 , 9:30:00 AM Referring Physician Endoscopist VEDA SALDAÑA PROCEDURE PERFORMED Colonoscopy INDICATIONS FOR EXAMINATION Rectal prolapse [K62.3] K62.3 Rectal prolapse MEDICATIONSGeneral Anesthesia with LMA; ASA II ESTIMATED BLOOD LOSS2 ML INSTRUMENTS CF [id number] PROCEDURE TECHNIQUE A physical exam was performed. Informed consent was obtained from the patient's parents/guardian after explaining all the risks (perforation, bleeding, infection and adverse effects to the medicine), benefits and alternatives to the procedure which the patient's parents appeared to understand and so stated. The patient was connected to the monitoring devices and placed in the supine position. Continuous oxygen was provided and IV medicine administered thru an indwelling cannula. After adequate general anesthesia was achieved, a digital exam was performed and the colonoscope introduced in to the rectum and advanced under direct visualization to the terminal ileum The ascending colon, descending colon, transverse colon and terminal ileum were identified by visual landmarks. The scope was subsequently removed slowly while carefully examining the color, texture, anatomy, and integrity of the mucosa on the way out. In the rectum, the scope was retroflexed to evaluate for internal hemorrhoids and anorectal pathology. The patient was subsequently transferred to the recovery area in satisfactory condition. Bowel Prep Quality: Excellent FINDINGS Normal in the terminal ileum. Biopsy obtained, results pending. Complete hemostasis achieved. Normal in the mid ascending colon, mid descending colon and rectum. Biopsy obtained, results pending. Complete hemostasis achieved. ENDOSCOPIC DIAGNOSIS Normal colonoscopy RECOMMENDATIONS Pending biopsy. [facility] 03-23-2024 Attending History and physical note H&P reviewed, patient examined, no changes have occured since H&P completed. Piper Lin MD P - [phone] 03/23/2024 Source Note - Peterson Thornton APRN-CNP - 03/08/2024 3:00 PM EDT PRE-OP CONSULTATION This is a telemedicine video visit requested by the patient/guardian that was performed with the patient's location at home and the provider's location at office. DATE OF SERVICE: 03/08/2024 TRAVELING OPERATOR PROVIDER: LAYLA Godinez SURGICAL DIAGNOSIS: Rectal prolapse Proposed surgery date: 03/23/2024 Proposed surgical procedure: Colonoscopy with biopsies (possible polypectomy) Advice/opinion was requested by Piper Lin MD for pre-surgical consultation. CHIEF COMPLAINT: Rectal prolapse HISTORY OF PRESENT ILLNESS: Kelly Ramos is a 19 y.o. female who is being consulted via telehealth/video for perioperative evaluation. The history is provided by the patient and a chart review for evaluation for surgical risk factors. PMH significant for rectal prolapse and abdominal pain Kelly has a history of recurrent rectal prolapse, she is currently been experiencing rectal prolapse with every bowel movement. She complains of discomfort with the prolapse. Abdominal pain: intermittently, related to IBS, treats with xifaxin Vomiting: no. Nausea: no. Regurgitation: no. Trouble swallowing: no. Bowel movements: Frequency: several x/day. Consistency: soft. Blood in stools: no. Blood on toilet paper with wiping: no Denies: Decreased appetite, weight loss, fever, joint pain, or rashes. Endorses: mouth sores, rashes Symptoms are not improving with conservative therapy and will need to proceed to the OR. MEDICAL/SURGICAL HISTORY: Past Medical History: Diagnosis Date Constipation Past Surgical History: Procedure Laterality Date RECTAL PROLAPSE REPAIR TONSILLECTOMY AND ADENOIDECTOMY Past hospitalizations: yes - not in last year DRUG/FOOD ALLERGIES: No Known Allergies MEDICATIONS: Outpatient Encounter Medications as of 03/08/2024 Medication Sig Dispense Refill escitalopram (LEXAPRO) 10 MG tablet Take 1 Tablet (10 mg) by mouth daily rifAXIMin (XIFAXAN) 100 MG TABS Take 1 Tablet (100 mg) by mouth No facility-administered encounter medications on file as of 03/08/2024. ANESTHESIA HISTORY: Difficulty with anesthesia? No Family history of difficulty with anesthesia? no Signs/symptoms of MAXX? no BLEEDING HISTORY: History of bleeding issues in patient? no Bleeding problems in family? no History of anemia in patient? no Sickle Cell issues in patient or family? no 03/08/2024 VTE Flowsheet Mobility Status: Any impaired mobility 48hrs post-operative 0 Surgery/procedure will require indwelling CVC or PICC > 48 hrs post-op 0 REVIEW OF SYSTEMS: Comprehensive review of systems: History obtained from chart review and the patient. General ROS: negative ENT ROS: negative Respiratory ROS: no cough, shortness of breath, or wheezing Cardiovascular ROS: no chest pain or dyspnea on exertion Gastrointestinal ROS: positive for - rectal prolapse-see HPI Musculoskeletal ROS: negative Dermatological ROS: negative A complete ROS was performed. Pertinent positives have been documented above or are in the HPI. All other systems were negative. Recent Illnesses? no Hx of COVID in last 12 months? no HISTORY: Noncontributory DEVELOPMENTAL HISTORY: Milestones: Not pertinent IMMUNIZATIONS: Stated as up to date, no records available COVID vaccinated? no SOCIAL/FAMILY HISTORY: Kelly lives with parents, one brother, and one sister Special Needs: None Preferred Language: Citizen Of [place] School: College Smoking/Alcohol/Drug Use or Exposure: None Family History Problem Relation Age of Onset Anesth Problems Neg Hx Bleeding Problem Neg Hx VITAL SIGNS: Temp and weight obtained via home equipment/family during this Telehealth visit. Completed set of vital signs to be completed on the day of this procedure. Vitals: Ht Readings from Last 1 Encounters: 01/21/24 158 cm (21%, Z= -0.81)* * Growth percentiles are based on CDC (Girls, 2-20 Years) data. Wt Readings from Last 1 Encounters: 01/21/24 59.5 kg (59%, Z= 0.22)* * Growth percentiles are based on CDC (Girls, 2-20 Years) data. No height and weight on file for this encounter. SpO2 Readings from Last 3 Encounters: No data found for SpO2 PHYSICAL EXAM: Focused provider physical to be completed on the day of this procedure General: Patient appears healthy, well developed, well nourished, in no acute distress and alert, oriented appropriately for age Head: atraumatic and normocephalic Neuro: alert, oriented appropriately for age Eyes: sclera and conjunctiva clear Ears: normal, tragus nontender Nose: nares patent without discharge Dentition: intact Throat: oropharynx is clear Neck: there is full range of motion Chest: pt appears to be breathing easily, no acute distress noted Cardiac: deferred Abdomen: nontender Back: deferred : deferred Skin: pink Lymphatic: not examined Musculoskeletal: normal tone, moves all extremities equally with full range of motion DIAGNOSTIC STUDIES REVIEWED: The following lab results have been ordered/reviewed. HCG DOS Calcium Date Value Ref Range Status 12/03/2014 9.2 7.6 - 11.0 mg/dL Final Carbon Dioxide Date Value Ref Range Status 12/03/2014 24.2 20.0 - 29.0 mEq/L Final Chloride Date Value Ref Range Status 12/03/2014 107 96 - 108 mEq/L Final Creatinine Date Value Ref Range Status 12/03/2014 0.64 (H) 0.30 - 0.60 mg/dL Final Comment: Premature 0.3-1.0 mg/dL Glucose Date Value Ref Range Status 12/03/2014 89 70 - 99 mg/dL Final Comment: Criteria for Diagnosis of Diabetes(Effective 04/14/11): Fasting specimen (no caloric intake for at least 8 hours). <100 mg/dl Normal 100-125 mg/dl Increased Risk for Diabetes >125 mg/dl Diagnostic for Diabetes Random Glucose (any time of day without regard to last meal). >=200 mg/dl plus Classic Symptoms of Diabetes Potassium Date Value Ref Range Status 12/03/2014 4.2 3.3 - 5.1 mEq/L Final Sodium Date Value Ref Range Status 12/03/2014 139 133 - 145 mEq/L Final BUN Date Value Ref Range Status 12/03/2014 13 4 - 19 mg/dL Final No results found for: RBC, RDW, WBC, HCT, HGB, MCH, MCHC, MCV, MPV, BASOPCT, EOSPCT, LYMPHOPCT, MONOPCT, NEUTOPHILPCT, CORRECTEDWBC, NEUTROPHIL, NRBC, PLTEST No results found for: HGB No results found for: APTT, INR TSH Date Value Ref Range Status 12/03/2014 1.565 0.350 - 5.500 uIU/mL Final No results found for: HCGUR No results found for: HCGSERUM ASSESSMENT: Patient Active Problem List Diagnosis Abdominal pain Rectal prolapse Kelly Ramos is a 19 y.o. female with PMH significant for rectal prolapse and abdominal pain. [facility] physical examination limited due to telehealth via video encounter. Pertinent and/or unperformed aspects of physical exam due to these limitations will be performed and/or addended by attending provider/anesthesia on day of surgery. Family instructed to contact the surgery center/PSH if any changes occur since this evaluation. PLAN: Surgery as scheduled Patient/family education -No contraindication to surgery based off history and physical exam. -Educated family that if patient develops viral illness, fever, requires unexpected breathing treatments or antibiotics or any other changes prior to surgery to notify the surgery center. -Educated family to stop all herbals/multivitamins/ibuprofen products at least 2 weeks prior to surgery. -Educated family to postpone vaccines for 3 days prior to surgery -Remove all piercings and nail italian/acrylics on the day of surgery -HCG DOS Care coordination: Wing Flores MD OTHER FINDINGS OR COMMENTS: Cc: MD Peterson Delgadillo APRN-CNP 03/08/2024 3:08 PM This visit was conducted via telehealth. I spent 40 minutes with patient/family and performing chart review for this consult. Counseling and/or coordination of care was greater than 50% of the total time spent on the encounter. This note or partial portions of this note may have been created using a copy forward or copy paste feature, but these portions have been verified and re-edited for accuracy and any portions not in need of editing or review are not being used to generate any component necessary for billing purposes. Elements necessary for proper CPT code selection are based only on elements of the visit that are reviewed, re-examined or unique to this visit. [facility] 03-23-2024 History and physical note H&P reviewed, patient examined, no changes have occured since H&P completed. Piper Lin MD P - [phone] 03/23/2024 Source Note - Peterson Thornton APRN-CNP - 03/08/2024 3:00 PM EDT PRE-OP CONSULTATION This is a telemedicine video visit requested by the patient/guardian that was performed with the patient's location at home and the provider's location at office. DATE OF SERVICE: 03/08/2024 TRAVELING OPERATOR PROVIDER: LAYLA Godinez SURGICAL DIAGNOSIS: Rectal prolapse Proposed surgery date: 03/23/2024 Proposed surgical procedure: Colonoscopy with biopsies (possible polypectomy) Advice/opinion was requested by Piper Lin MD for pre-surgical consultation. CHIEF COMPLAINT: Rectal prolapse HISTORY OF PRESENT ILLNESS: Kelly Ramos is a 19 y.o. female who is being consulted via telehealth/video for perioperative evaluation. The history is provided by the patient and a chart review for evaluation for surgical risk factors. PMH significant for rectal prolapse and abdominal pain Kelly has a history of recurrent rectal prolapse, she is currently been experiencing rectal prolapse with every bowel movement. She complains of discomfort with the prolapse. Abdominal pain: intermittently, related to IBS, treats with xifaxin Vomiting: no. Nausea: no. Regurgitation: no. Trouble swallowing: no. Bowel movements: Frequency: several x/day. Consistency: soft. Blood in stools: no. Blood on toilet paper with wiping: no Denies: Decreased appetite, weight loss, fever, joint pain, or rashes. Endorses: mouth sores, rashes Symptoms are not improving with conservative therapy and will need to proceed to the OR. MEDICAL/SURGICAL HISTORY: Past Medical History: Diagnosis Date Constipation Past Surgical History: Procedure Laterality Date RECTAL PROLAPSE REPAIR TONSILLECTOMY AND ADENOIDECTOMY Past hospitalizations: yes - not in last year DRUG/FOOD ALLERGIES: No Known Allergies MEDICATIONS: Outpatient Encounter Medications as of 03/08/2024 Medication Sig Dispense Refill escitalopram (LEXAPRO) 10 MG tablet Take 1 Tablet (10 mg) by mouth daily rifAXIMin (XIFAXAN) 100 MG TABS Take 1 Tablet (100 mg) by mouth No facility-administered encounter medications on file as of 03/08/2024. ANESTHESIA HISTORY: Difficulty with anesthesia? No Family history of difficulty with anesthesia? no Signs/symptoms of MAXX? no BLEEDING HISTORY: History of bleeding issues in patient? no Bleeding problems in family? no History of anemia in patient? no Sickle Cell issues in patient or family? no 03/08/2024 VTE Flowsheet Mobility Status: Any impaired mobility 48hrs post-operative 0 Surgery/procedure will require indwelling CVC or PICC > 48 hrs post-op 0 REVIEW OF SYSTEMS: Comprehensive review of systems: History obtained from chart review and the patient. General ROS: negative ENT ROS: negative Respiratory ROS: no cough, shortness of breath, or wheezing Cardiovascular ROS: no chest pain or dyspnea on exertion Gastrointestinal ROS: positive for - rectal prolapse-see HPI Musculoskeletal ROS: negative Dermatological ROS: negative A complete ROS was performed. Pertinent positives have been documented above or are in the HPI. All other systems were negative. Recent Illnesses? no Hx of COVID in last 12 months? no HISTORY: Noncontributory DEVELOPMENTAL HISTORY: Milestones: Not pertinent IMMUNIZATIONS: Stated as up to date, no records available COVID vaccinated? no SOCIAL/FAMILY HISTORY: Kelly lives with parents, one brother, and one sister Special Needs: None Preferred Language: Citizen Of [place] School: College Smoking/Alcohol/Drug Use or Exposure: None Family History Problem Relation Age of Onset Anesth Problems Neg Hx Bleeding Problem Neg Hx VITAL SIGNS: Temp and weight obtained via home equipment/family during this Telehealth visit. Completed set of vital signs to be completed on the day of this procedure. Vitals: Ht Readings from Last 1 Encounters: 01/21/24 158 cm (21%, Z= -0.81)* * Growth percentiles are based on CDC (Girls, 2-20 Years) data. Wt Readings from Last 1 Encounters: 01/21/24 59.5 kg (59%, Z= 0.22)* * Growth percentiles are based on CDC (Girls, 2-20 Years) data. No height and weight on file for this encounter. SpO2 Readings from Last 3 Encounters: No data found for SpO2 PHYSICAL EXAM: Focused provider physical to be completed on the day of this procedure General: Patient appears healthy, well developed, well nourished, in no acute distress and alert, oriented appropriately for age Head: atraumatic and normocephalic Neuro: alert, oriented appropriately for age Eyes: sclera and conjunctiva clear Ears: normal, tragus nontender Nose: nares patent without discharge Dentition: intact Throat: oropharynx is clear Neck: there is full range of motion Chest: pt appears to be breathing easily, no acute distress noted Cardiac: deferred Abdomen: nontender Back: deferred : deferred Skin: pink Lymphatic: not examined Musculoskeletal: normal tone, moves all extremities equally with full range of motion DIAGNOSTIC STUDIES REVIEWED: The following lab results have been ordered/reviewed. HCG DOS Calcium Date Value Ref Range Status 12/03/2014 9.2 7.6 - 11.0 mg/dL Final Carbon Dioxide Date Value Ref Range Status 12/03/2014 24.2 20.0 - 29.0 mEq/L Final Chloride Date Value Ref Range Status 12/03/2014 107 96 - 108 mEq/L Final Creatinine Date Value Ref Range Status 12/03/2014 0.64 (H) 0.30 - 0.60 mg/dL Final Comment: Premature 0.3-1.0 mg/dL Glucose Date Value Ref Range Status 12/03/2014 89 70 - 99 mg/dL Final Comment: Criteria for Diagnosis of Diabetes(Effective 04/14/11): Fasting specimen (no caloric intake for at least 8 hours). <100 mg/dl Normal 100-125 mg/dl Increased Risk for Diabetes >125 mg/dl Diagnostic for Diabetes Random Glucose (any time of day without regard to last meal). >=200 mg/dl plus Classic Symptoms of Diabetes Potassium Date Value Ref Range Status 12/03/2014 4.2 3.3 - 5.1 mEq/L Final Sodium Date Value Ref Range Status 12/03/2014 139 133 - 145 mEq/L Final BUN Date Value Ref Range Status 12/03/2014 13 4 - 19 mg/dL Final No results found for: RBC, RDW, WBC, HCT, HGB, MCH, MCHC, MCV, MPV, BASOPCT, EOSPCT, LYMPHOPCT, MONOPCT, NEUTOPHILPCT, CORRECTEDWBC, NEUTROPHIL, NRBC, PLTEST No results found for: HGB No results found for: APTT, INR TSH Date Value Ref Range Status 12/03/2014 1.565 0.350 - 5.500 uIU/mL Final No results found for: HCGUR No results found for: HCGSERUM ASSESSMENT: Patient Active Problem List Diagnosis Abdominal pain Rectal prolapse Kelly Ramos is a 19 y.o. female with PMH significant for rectal prolapse and abdominal pain. [facility] physical examination limited due to telehealth via video encounter. Pertinent and/or unperformed aspects of physical exam due to these limitations will be performed and/or addended by attending provider/anesthesia on day of surgery. Family instructed to contact the surgery center/PSH if any changes occur since this evaluation. PLAN: Surgery as scheduled Patient/family education -No contraindication to surgery based off history and physical exam. -Educated family that if patient develops viral illness, fever, requires unexpected breathing treatments or antibiotics or any other changes prior to surgery to notify the surgery center. -Educated family to stop all herbals/multivitamins/ibuprofen products at least 2 weeks prior to surgery. -Educated family to postpone vaccines for 3 days prior to surgery -Remove all piercings and nail italian/acrylics on the day of surgery -HCG DOS Care coordination: Wing Flores MD OTHER FINDINGS OR COMMENTS: Cc: MD Peterson Delgadillo APRN-CNP 03/08/2024 3:08 PM This visit was conducted via telehealth. I spent 40 minutes with patient/family and performing chart review for this consult. Counseling and/or coordination of care was greater than 50% of the total time spent on the encounter. This note or partial portions of this note may have been created using a copy forward or copy paste feature, but these portions have been verified and re-edited for accuracy and any portions not in need of editing or review are not being used to generate any component necessary for billing purposes. Elements necessary for proper CPT code selection are based only on elements of the visit that are reviewed, re-examined or unique to this visit. documented in this encounter [facility] 03-08-2024 Note PRE-OP CONSULTATION This is a telemedicine video visit requested by the patient/guardian that was performed with the patient's location at home and the provider's location at office. DATE OF SERVICE: 03/08/2024 TRAVELING OPERATOR PROVIDER: LAYLA Godinez SURGICAL DIAGNOSIS: Rectal prolapse Proposed surgery date: 03/23/2024 Proposed surgical procedure: Colonoscopy with biopsies (possible polypectomy) Advice/opinion was requested by Piper Lin MD for pre-surgical consultation. CHIEF COMPLAINT: Rectal prolapse HISTORY OF PRESENT ILLNESS: Kelly Ramos is a 19 y.o. female who is being consulted via telehealth/video for perioperative evaluation. The history is provided by the patient and a chart review for evaluation for surgical risk factors. PMH significant for rectal prolapse and abdominal pain Kelly has a history of recurrent rectal prolapse, she is currently been experiencing rectal prolapse with every bowel movement. She complains of discomfort with the prolapse. Abdominal pain: intermittently, related to IBS, treats with xifaxin Vomiting: no. Nausea: no. Regurgitation: no. Trouble swallowing: no. Bowel movements: Frequency: several x/day. Consistency: soft. Blood in stools: no. Blood on toilet paper with wiping: no Denies: Decreased appetite, weight loss, fever, joint pain, or rashes. Endorses: mouth sores, rashes Symptoms are not improving with conservative therapy and will need to proceed to the OR. MEDICAL/SURGICAL HISTORY: Past Medical History: Diagnosis Date Constipation Past Surgical History: Procedure Laterality Date RECTAL PROLAPSE REPAIR TONSILLECTOMY AND ADENOIDECTOMY Past hospitalizations: yes - not in last year DRUG/FOOD ALLERGIES: No Known Allergies MEDICATIONS: Outpatient Encounter Medications as of 03/08/2024 Medication Sig Dispense Refill escitalopram (LEXAPRO) 10 MG tablet Take 1 Tablet (10 mg) by mouth daily rifAXIMin (XIFAXAN) 100 MG TABS Take 1 Tablet (100 mg) by mouth No facility-administered encounter medications on file as of 03/08/2024. ANESTHESIA HISTORY: Difficulty with anesthesia? No Family history of difficulty with anesthesia? no Signs/symptoms of MAXX? no BLEEDING HISTORY: History of bleeding issues in patient? no Bleeding problems in family? no History of anemia in patient? no Sickle Cell issues in patient or family? no 03/08/2024 VTE Flowsheet Mobility Status: Any impaired mobility 48hrs post-operative 0 Surgery/procedure will require indwelling CVC or PICC > 48 hrs post-op 0 REVIEW OF SYSTEMS: Comprehensive review of systems: History obtained from chart review and the patient. General ROS: negative ENT ROS: negative Respiratory ROS: no cough, shortness of breath, or wheezing Cardiovascular ROS: no chest pain or dyspnea on exertion Gastrointestinal ROS: positive for - rectal prolapse-see HPI Musculoskeletal ROS: negative Dermatological ROS: negative A complete ROS was performed. Pertinent positives have been documented above or are in the HPI. All other systems were negative. Recent Illnesses? no Hx of COVID in last 12 months? no HISTORY: Noncontributory DEVELOPMENTAL HISTORY: Milestones: Not pertinent IMMUNIZATIONS: Stated as up to date, no records available COVID vaccinated? no SOCIAL/FAMILY HISTORY: Kelly lives with parents, one brother, and one sister Special Needs: None Preferred Language: Citizen Of [place] School: College Smoking/Alcohol/Drug Use or Exposure: None Family History Problem Relation Age of Onset Anesth Problems Neg Hx Bleeding Problem Neg Hx VITAL SIGNS: Temp and weight obtained via home equipment/family during this Telehealth visit. Completed set of vital signs to be completed on the day of this procedure. Vitals: Ht Readings from Last 1 Encounters: 01/21/24 158 cm (21%, Z= -0.81)* * Growth percentiles are based on CDC (Girls, 2-20 Years) data. Wt Readings from Last 1 Encounters: 01/21/24 59.5 kg (59%, Z= 0.22)* * Growth percentiles are based on CDC (Girls, 2-20 Years) data. No height and weight on file for this encounter. SpO2 Readings from Last 3 Encounters: No data found for SpO2 PHYSICAL EXAM: Focused provider physical to be completed on the day of this procedure General: Patient appears healthy, well developed, well nourished, in no acute distress and alert, oriented appropriately for age Head: atraumatic and normocephalic Neuro: alert, oriented appropriately for age Eyes: sclera and conjunctiva clear Ears: normal, tragus nontender Nose: nares patent without discharge Dentition: intact Throat: oropharynx is clear Neck: there is full range of motion Chest: pt appears to be breathing easily, no acute distress noted Cardiac: deferred Abdomen: nontender Back: deferred : deferred Skin: pink Lymphatic: not examined Musculoskeletal: normal tone, moves all extremities equally with full range of motion DIAGNOSTIC [place] (more content not included)... [facility] 02-25-2024 History of Present illness Narrative On 02/25/2024 at 1359 I performed Diagnostic contrast enema without supervision. The supervising provider for this procedure was N/A. The procedure was successfully performed. There were not complications. documented in this encounter [facility] 12-23-2022 Miscellaneous Notes Pt's father Mark notified of all results, mark voiced understanding. Sabi Ledezma LPN Covid flu, rsv all negative. .me documented in this encounter [facility] 12-23-2022 Miscellaneous Notes Patient given results and verbalized understanding of instructions given. Ilana Castaneda Please notify of negative covid test, flu rsv still pending. Rhiannon Antonio APRN.CNP documented in this encounter [facility] Discharge summary Note Date/Time April 10, 2025 6:25am [facility] Medical Records Department [address] [place] [address] Emergency Department Summary 04/10/25 MR#: [id number] Acct: [id number] Name: KELLY RAMOS Rep #:[id number] : 2005 20 From: Clifton Gonsalves DO PCP: Dr. Wing Flores MD Status:REG ER Location: ED HPI History of Present Illness Chief Complaint: Abd Pain Informant: patient and parent Narrative Narrative: Patient is a 20-year-old female who underwent a robotic rectopexy surgery at by Dr. Todd roughly 1 week ago. Patient and mother state that she was doingwell and her symptoms are managed with just Tylenol and/or Motrin. However on Thursday she developed increasing abdominal pain and back pain. She states she took oxycodone which was prescribed after the surgery and this did seem to help for a few hours but then the pain returned and worsened and would not respond tofurther doses of the medication. The patient denies any fevers or chills or dysuria. She states she feels that she has to have a bowel movement but is onlyable to get a small amount out. Based on the worsening pain roughly 1 week fromsurgery she presents for evaluation [facility] Medical History (Updated 04/10/25 @ 05:[address] Clifton Gonsalves DO) IBS (irritable bowel syndrome) Fracture of thumb, right, closed Disease of tonsils and adenoids Encounter for screening for COVID-19 Home Medications ?Medication ?Instructions ?Recorded ?Last Taken ?Type docusate sodium 100 mg capsule 100 mg PO BID 04/10/25 Unknown History ibuprofen 600 mg tablet 600 mg PO .Q3HR PRN pain 01/03 Unknown History oxycodone 5 mg tablet 5 mg PO Q6H PRN pain 5 Unknown History Allergy/AdvReac Type Severity Reaction Status Date / Time azithromycin Allergy Mild RASH Verified 04/10/25 02:36 Social History Smoking Status: Never smoker substance use type: does not use ROS ROS ED Constitutional Constitutional ED: Denies chills or fever(s) ENT ENT ED: Denies sore throat Cardiovascular Cardiovascular: Denies chest pain Respiratory/Chest Respiratory/Chest: Denies cough or dyspnea Gastrointestinal Gastrointestinal: Reports abdominal pain, constipation and nausea; Denies diarrhea or vomiting Genitourinary Genitourinary ED: Denies dysuria Musculoskeletal Musculoskeletal: Reports back pain; Denies myalgias Integumentary Denies rash Neurologic Neurologic: Denies headache(s) Hematologic/Lymphatic Hematologic/Lymphatic: Denies easy bleeding or easy bruising EXAM Physical Exam Const Vital Signs: 04/10/25 02:36 04/10/25 04:32 Temperature 98.0 F Temperature Source Temporal Pulse Rate 80 Respiratory Rate 18 16 Blood Pressure 129/94 H Blood Pressure Mean 105 Pulse Ox 99 Oxygen Delivery Method Room Air Positive well nourished and well developed General Appearance ED: well developed; Negative for pallor HEENT HEENT Narrative: Normocephalic atraumatic No tongue or lip swelling no oral lesions no airway edema or compromise No signs of infection noted in the posterior pharynx Eyes PERRL and EOMs intact bilaterally General Eye ED: Negative for scleral icterus Neck supple Resp normal respiratory effort and clear to auscultation bilaterally Cardio regular rate and regular rhythm GI no masses GI Narrative: Abdomen is soft with hypoactive bowel sounds. There is slight/mild distention noted without increased tympany. There is mild diffuse pain with palpation without voluntary guarding or rigidity. No peritoneal signs or pulsatile mass There are abdominal wounds consistent with recent surgical procedure that are clean dry and intact without secondary findings to suggest infection Auscultation: hypoactive bowel sounds Palpation: soft Extremity normal to inspection Neuro oriented x3, CN's II-XII intact bilaterally and no sensory deficits noted Sensorium / Orientation: alert Motor Exam: strength 5/5 throughout Psych mental status grossly normal Skin no rashes or lesions noted Skin Narrative: Postsurgical abdominal wounds that are clean dry and intact as documented above General Skin Exam: Negative for jaundice or pallor MDM MDM MDM Narrative Medical decision making narrative: Patient arrived to the ER with stable vitals. She reported she has been doing well status post surgery but today had increasing pain. With concern for postoperative infection such as abscess or perforation she was brought in for evaluation. Exam indicates patient could be constipated versus ileus versus potential gas distention from the surgical procedure. Basic blood work is obtained and does show a white count of 14.2 and her neutrophil count is elevated 10.9. However the patient is afebrile and normotensive so I feel this is most likely stress response and not secondary to true infection. The patientCT scan of the abdomen and pelvis reveals a large stool burden with intestinal inflammation and distention. However there is no sign of bowel obstruction or perforation. There is a fluid collection but this is most likely secondary to her recent surgical procedure. I did discuss the case with her general surgeon Dr. Todd. At this time she agrees that the fluid collection is most likely sterile and not infectious as the patient is afebrile and normotensive and that her pain is most likely related to the intestinal inflammation and constipation. She recommends an enema and magnesium citrate. This was provided to the patient in the ER. The patient and mother were informed of the discussion with her general surgeon and that the recommendation is discharge at this time with outpatient follow-up. The patient was able to have further bowel movements in the ER which reportedly did help reduce some of her symptoms. She has remained hemodynamically stable with a soft nonsurgical abdomen and therefore she will bedischarged to follow-up with general surgery as directed History & Record Review Discussion w/independent historian: Patient and Family Lab Data Attestation: I reviewed the patient's lab results. Labs: Laboratory Results - last 24 hr 04/10/25 02:53 WBC 14.2 H RBC 4.46 Hgb 13.5 Hct 38.9 MCV 87.2 MCH 30.3 MCHC 34.7 RDW Std Deviation 38.7 RDW Coeff of Sarah 12.0 Plt Count 270 MPV 10.1 Immature Gran % (Auto) 0.400 Neut % (Auto) 76.7 H Lymph % (Auto) 15.5 L [place] % (Auto) 5.9 Eos % (Auto) 1.1 Baso % (Auto) 0.4 Absolute Neuts (auto) 10.9 H Absolute Lymphs (auto) 2.20 Nucleated RBC % 0 Sodium 139 Potassium 3.6 Chloride 102 Carbon Dioxide 23.5 Anion Gap 14 BUN 18 Creatinine 0.87 Estim Creat Clear Calc 88.61 Est GFR (MDRD) Non-Af 98 BUN/Creatinine Ratio 20.5 H Glucose 98 Calcium 9.1 Magnesium 2.1 Total Bilirubin 0.25 Direct Bilirubin 0.10 AST 23 ALT 15 Alkaline Phosphatase 80 Total Protein 6.9 Albumin 4.2 Globulin 2.7 Lipase 19 Radiography Diagnostic Testing: Clinical Impression(s) from Imaging Studies Abdomen/Pelvis CT 04/10/25 03:26 IMPRESSION: 1. Diffuse thickening of the anorectal junction, probably secondary to recent intervention, edema and/or spasm. Associated perirectal fluid collection is noted measuring 7.6 x 4.2 cm in its largest transverse and anteroposterior dimensions respectively. 2. Secondary moderate narrowing of the anorectal junction. 3. Fluid-filled dilated colon proximal to this level. 4. Associated mild stercoral colitis of the sigmoid colon. 5. No evidence of perforation or pneumatosis coli. 6. The largest transverse dimension of the distended colon is 4.8 cm at the level of the transverse colon. Reading Location: [place] [address] Management Discussion w/another healthcare provider: [employer] Discharge Plan Triage Chief Complaint: Abd Pain ED Provider: Clifton Gonsalves Dx/Rx/DC Orders Clinical Impression: Acute postoperative abdominal pain, Constipation Instructions: Abdominal Pain, ED Constipation (Adult) Prescriptions: No Action docusate sodium 100 mg capsule 100 mg PO BID ibuprofen 600 mg tablet 600 mg PO .Q3HR PRN (Reason: pain) oxycodone 5 mg tablet 5 mg PO Q6H PRN (Reason: pain) Primary Care Provider: Wing Flores Referrals: Wing Flores MD [Primary Care Provider] - Activity Restrictions/Additional Instructions: Please follow-up with your surgeon Dr. Todd for repeat evaluation. She was notified this morning. She will review your CT scan later today and contactyou. As your scan shows significant constipation please do not take any furtheroxycodone as this will worsen your constipation. Use Tylenol and Motrin for pain control. Continue with Dulcolax and/or MiraLAX or Colace to help stimulatebowel movement. You may also use the magnesium citrate provided from the ER to help evacuate your intestines. If you develop a fever of 100.4 or higher or have any further concerns please return to the ER for repeat evaluation. Print Language: Citizen Of [place] Disposition Disposition: Home, Self Care What to do if you have Problems For any increased pain, shortness of breath, bleeding, nausea or vomiting, chestpain, or any unexpected problems, contact your Primary Care Provider. Call [facility] ([phone]) or report to the closest Emergency Room. Call 911 if necessary. 04/10/25624 <Electronically signed by Clifton Gonsalves DO> Cosigner Signature (if applicable): CC: Dr. Wing Flores MD ~ Signed [facility] Work Phone: Evaluation noteNo assessment information available [facility] Work Phone: Evaluation note* Diagnosis Rectal prolapse documented in this encounter [facility] note* Diagnosis Rectal prolapse- Primary Rectal prolapse- Primary Rectal prolapse documented in this encounter [facility] note* Diagnosis Rectal prolapse- Primary Pre-operative examination Preoperative examination, unspecified Abdominal pain, unspecified abdominal location Rectal prolapse documented in this encounter [facility] note* Diagnosis Rectal prolapse- Primary Hypermobility syndrome documented in this encounter [facility] Work Phone: Evaluation note* Diagnosis Lower respiratory tract infection- Primary Other diseases of respiratory system, not elsewhere classified documented in this encounter [facility] note* Diagnosis Viral illness- Primary Unspecified viral infection, in conditions classified elsewhere and of unspecified site documented in this encounter [facility] note* Diagnosis Rectal prolapse- Primary Gastroenteritis- Primary Other and unspecified noninfectious gastroenteritis and colitis Nausea Nausea alone Rectal prolapse documented in this encounter [facility] Work Phone: Evaluation note* Diagnosis Rectal prolapse- Primary Rectal prolapse documented in this encounter [facility] Work Phone: Hospital Discharge instructions* Attachments The following attachments cannot be sent through Care Everywhere. * Managing pain after surgery (Citizen Of [place]) * How to Prevent Surgical Site Infections (Citizen Of [place]) * General Anesthesia Discharge Instructions (Citizen [place]) documented in this [facility] Work Phone: Hospital Discharge instructions Additional Instructions Please follow-up with your surgeon Dr. Todd for repeat evaluation. She was notified this morning. She will review your CT scan later today and contact you. As your scan shows significant constipation please do not take any further oxycodone as this will worsen your constipation. Use Tylenol and Motrin for pain control. Continue with Dulcolax and/or MiraLAX or Colace to help stimulate bowel movement. You may also use the magnesium citrate provided from the ER to help evacuate your intestines. If you develop a fever of 100.4 or higher or have any further concerns please return to the ER for repeat evaluation.[facility] Work Phone: Reason for referral (narrative)* Referral (Routine) - Closed Specialty Diagnoses / Procedures Referred By Contac t Referred To Contact Radiology Diagnoses Rectal prolapse Procedures FL Colon Piper Lin MD [place] [id number] Referral ID Status Reason Start Date Expiration Date Visits Re quested Visits Authorized [id number] Closed 01/26/2024 03/08/2024 1 [facility]No reason for referral [facility] Work Phone: Reason for visit Narrative* Referral (Routine) - Closed Specialty Diagnoses / Procedures Referred By Contac t Referred To Contact Radiology Diagnoses Rectal prolapse Procedures [place] [address] Referral ID Status Reason Start Date Expiration Date Visits Re quested Visits Authorized [id number] Closed 01/26/2024 03/08/2024 1 1 [facility] Narrative* Auth/Cert Specialty Diagnoses / Procedures Referred By Contac t Referred To Contact Diagnoses Rectal prolapse Rectal prolapse [K62.3] Procedures [place] LAPAROSCOPY PROCTOPEXY PROLAPSE Robotic Assisted Rectopexy Dena Todd MD [address] [place] [address] Phone: tel: fax: [facility] [place] [address] [place] [address] fax: Referral ID Status Reason Start Date Expiration Date Visits Re quested Visits Authorized [id number] 1 1 [facility] Work Phone: Advance Directives No Advanced Directives Records Found Advance Directive Response Recorded Date/ Time Living Will No October 26 015 9:30pm Power of Aluminum Molder No October 26, 2015 9:30pm Date Activated Date Inactivated Comments 04/04/2025 6:37 AM Question Answer Comments Plan of Care: Code Status Discussion Completed Decision Maker: Patient Advance Directive Response Recorded Date/ Time Do you have a Healthcare Power of Aluminum Molder? No April 10, 2025 2:40am Health Concerns Infection Onset Date Last Indicated Resolved Time COVID-19 Rule-Out 12/22/2022 12/22/2022 12/23/2022 5:57 AM EST Summary Purpose Family History No Family History Records FoundNo Family History Records FoundNo Family History Records FoundNo Family History Records FoundNo Family History Records FoundNo Family History Records FoundNo Family History Records FoundNo Family History Records FoundNo Family History Records FoundNo Family History Records Found Chief Complaint and Reason for Visit Chief Complaint ABD PAIN/DIARRHEA Chief Complaint Admit Date ABDOMINAL PAIN April 10, 2025 2:31a m Additional Source Comments Goals (unrecognized section and content) Goals may be documented in a n alternate sectionGoals may be documented in an alternate sectionGoals may be documented in an alternate section Source Comments (unrecognize d section and content) In the event this informatio n is protected by the Federal Confidentiality of Alcohol and Drug Abuse Patient Records regulations: The Federal rules restrict any use of the information to criminally investigate or prosecute any alcohol or drug abuse patient.[facility] the event this information is protected by the Federal Confidentiality of Alcohol and Drug Abuse Patient Records regulations: The Federal rules restrict any use of the information to criminally investigate or prosecute any alcohol or drug abuse patient.[facility] the event this information is protected by the Federal Confidentiality of Alcohol and Drug Abuse Patient Records regulations: The Federal rules restrict any use of the information to criminally investigate or prosecute any alcohol or drug abuse patient.[facility] the event this information is protected by the Federal Confidentiality of Alcohol and Drug Abuse Patient Records regulations: The Federal rules restrict any use of the information to criminally investigate or prosecute any alcohol or drug abuse patient.[facility] Reason for Visit (unrecogniz ed section and content) Reason Comments Results Reason Comments Results Lab Specialty Diagnoses / Procedures Referred By Jenac t Referred To Contact Diagnoses Rectal prolapse Rectal prolapse [K62.3] Procedures [place] COLSC FLX W/REMOVAL LESION BY HOT BX FORCEPS W[place] COLSC FLX W/RMVL OF TUMOR POLYP LESION SNARE TQ Colonoscopy with biopsies (possible polypectomy) Colonoscopy with biopsies (possible polypectomy) [place] [address] Referral ID Status Reason Start Date Expiration Date Visits Re quested Visits Authorized [id number] 1 1 Reason Comments New patient visit rectal prolapse Reason Comments Cough Persistent cough, fa tigue, chest tightness, wheeze, lots of mucous, deep cough x 1.5 weeks Reason Comments Cough Cough, chest congest ion, productive green, thick phlegm, heaviness in chest, low grade fever, x 6 days Ear Pain Bilat ear pain R is worse Reason Comments Nausea loss of appetite Diarrhea Chills, sweats X 6 d ays INFORMATION SOURCE (unrecogn ized section and content) DATE CREATED AUTHOR 07/04/2023 [facility] DATE CREATED AUTHOR AUTHOR'S ORGANIZ ATION 07/29/2024 [facility] DATE CREATED AUTHOR AUTHOR'S ORGANIZ ATION 10/25/2024 [facility] DATE CREATED AUTHOR AUTHOR'S ORGANIZ ATION 11/23/2024 [facility] DATE CREATED AUTHOR AUTHOR'S ORGANIZ ATION 12/24/2024 [facility] DATE CREATED AUTHOR AUTHOR'S ORGANIZ ATION 03/04/2025 [facility] DATE CREATED AUTHOR AUTHOR'S ORGANIZ ATION 03/25/2025 [facility] DATE CREATED AUTHOR AUTHOR'S ORGANIZ ATION 04/10/2025 [facility] DATE CREATED AUTHOR AUTHOR'S ORGANIZ ATION 04/12/2025 [facility] DATE CREATED AUTHOR AUTHOR'S ORGANIZ ATION 04/12/2025 [facility] Care Teams (unrecognized sec tion and content) Team Status: Active Member Role Status Dates Dr. Wing Flores MD Family Provider Active Dr. Wing Flores MD Primary Care Provider Active Team Status: Inactive Member Role Status Dates Dr. Wing Flores MD Primary Care Provider Active Dr. Neo Jean MD Attending Provider, Referring Provider Active Half Section Ironer Relationship Specialty Start Date End Date Wing Flores MD [address] [place] [address] PCP - General 12/02/14 Half Section Ironer Relationship Specialty Start Date End Date Wing Flores MD [address] [facility] [address] [place] [address] PCP - General 12/02/14 Half Section Ironer Relationship Specialty Start Date End Date Wing Flores MD [address] [facility] [address] [place] [address] PCP - General 12/02/14 Half Section Ironer Relationship Specialty Start Date End Date Wing Flores MD [address] [facility] [address] [place] [address] PCP - General 07/03/23 Half Section Ironer Relationship Specialty Start Date End Date iWng Flores MD [address] [facility] [address] [place] [address] PCP - General Family Medicine 11/13/23 Half Section Ironer Relationship Specialty Start Date End Date Wing Flores MD [address] [facility] [address] [place] [address] PCP - General Family Medicine 11/13/23 Half Section Ironer Relationship Specialty Start Date End Date Wing Flores MD [address] [facility] [address] [place] [address] PCP - General 07/03/23 Half Section Ironer Relationship Specialty Start Date End Date Wing Flores MD [address] [facility] [address] [place] [address] PCP - General 07/03/23 Team Status: Active Member Role Status Dates Dr. Wing Flores MD Primary Care Provider Active Team Status: Inactive Member Role Status Dates Dr. Wing Flores MD Primary Care Provider Active Start: April 10, 2025 End: April 10, 2025 Dr. Clifton Gonsalves DO Emergency Provider Active Start: April 10, 2025 End: April 10, 2025 Continuous Active and Recently Administ ered Medications (unrecognized section and content) Medication Order 03/21/2024 03/22/2024 03/23/2024 Lactated Ringers IV (CANCELED) CONTINUOUS, Intravenous, at 100 mL/hr, Starting on Thu03/23/24 at 1100, For 90 days, PACU 1031 (Restarted from Bag - Provider: Madison Fernandez, RN)1044 (Dose/Rate Verification - Provider: Madison Fernandez, RN)1053 (Stopped - Provider: Madison Fernandez, GERMAINE) Scheduled Medication Order 04/02/2025 04/03/2025 04/04/2025 aprepitant (Emend) capsule 40 mg (COMPLETED) 40 mg, oral, Once, On Thu04/04/25 at 1430, For 1 dose, Phase II/On Unit 1409 (Given - Provid er: Annalisa Avitia RN) ceFAZolin (Ancef) 1 g in dextrose (iso) IV 50 mL 1 g, intravenous, at 100 mL/hr, Administer over 30 Minutes, Once, On Thu04/04/25 at 0700, For 1 dose, Preprocedure, Administer within 60 minutes prior to incision. premix bag, Dosing of this medication varies based on severity of illness. Does this patient have sepsis or concern for sepsis (probable or documented infection plus systemic manifestations of infection)? No, Suspected Indication (Select all that apply): Surgical Prophylaxis, Indications: Surgical Prophylaxis 0700 (Due) diphenhydrAMINE (BENADryl) injection 25 mg (COMPLETED) 25 mg, intravenous, Once, On Thu04/04/25 at 1215, For 1 dose, If giving IV push, max rate of 25 mg/min. 1235 (Given - Provid er: Bess Adames RN) lidocaine PF (Xylocaine) 10 mg/mL (1 %) injection 1 mg 1 mg (0.1 mL), subcutaneous, Once, On Thu04/04/25 at 1115, For 1 dose, Recovery (only), To be used for IV insertion ONLY 1115 (Due) metroNIDAZOLE (Flagyl) 500 mg in sodium chloride (iso) IV 100 mL (COMPLETED) 500 mg, intravenous, Administer over 60 Minutes, Once, On Thu04/04/25 at 0700, For 1 dose, Preprocedure, Administer within 60 minutes of incision., Dosing of this medication varies based on severity of illness. Does this patient have sepsis or concern for sepsis (probable or documented infection plus systemic manifestations of infection)? No, Suspected Indication (Select all that apply): Surgical Prophylaxis, Indications: Surgical Prophylaxis 0851 (Given - Provid er: RADHA Mendoza) Continuous Medication Order 04/02/2025 04/03/2025 04/04/2025 lactated Ringer's infusion 100 mL/hr, intravenous, Continuous, Starting on Thu04/04/25 at 1115, For 2 hours, Recovery (only) 1059 (Continued from OR - Provider: Annabel Berkowitz RN)1258 (Due: Order Ending - Provider: Annabel Berkowitz RN - Comment: [Order ends at this time. Document the following action when infusion is complete: Stopped]) PRN Medication Order 04/02/2025 04/03/2025 04/04/2025 acetaminophen (Tylenol) tablet 650 mg 650 mg, oral, Every 4 hours PRN, pain mild (1-3), first line, Starting on Thu04/04/25 at 1050, Recovery (only), When able to take oral medications., If ordered PRN for pain, nurse is permitted to administer this medication for higher pain scores based on patient preference? Yes BUPivacaine HCl (Marcaine) 0.5 % (5 mg/mL) 30 mL in sodium chloride 0.9% 30 mL syringe (CANCELED) As needed, Starting on Thu04/04/25 at 0911, Intraprocedure 0911 (Given - Provid er: Dena Todd MD) HYDROmorphone (Dilaudid) injection 0.25 mg 0.25 mg, intravenous, Every 5 min PRN, pain moderate (4-6), first line, Starting on Thu04/04/25 at 1050, Recovery (only), Max total of 4 mg regardless of dose. HYDROmorphone (Dilaudid) injection 0.5 mg 0.5 mg, intravenous, Every 5 min PRN, pain severe (7-10), first line, Starting on Thu04/04/25 at 1050, Recovery (only), Max total of 4 mg regardless of dose. 1128 (Given - Provid er: Annabel Berkowitz RN)1135 (Given - Provider: Annabel Berkowitz RN)1148 (Given - Provider: Annabel Berkowitz RN) oxyCODONE (Roxicodone) immediate release tablet 5 mg 5 mg, oral, Every 4 hours PRN, pain moderate (4-6), second line, Starting on Thu04/04/25 at 1050, Recovery (only), When able to take oral medications., If ordered PRN for pain, nurse is permitted to administer this medication for higher pain scores based on patient preference? Yes oxygen (O2) therapy inhalation, Continuous PRN - O2/gases, other, Starting on Thu04/04/25 at 1050, Recovery (only), Device: Nasal Cannula, Rate in liters per minute: Other, Custom Value: 1-6 LPM, Keep O2 Sat Above: 92% 1059 (Start - Provid er: Annabel Berkowitz RN)1108 (Stopped - Provider: Annabel Berkowitz RN) FOR RECORDS PERTAINING TO PATIENTS WHO ARE OR HAVE BEEN ENROLLED IN A CHEMICAL DEPENDENCY/SUBSTANCEABUSE PROGRAM, SOME INFORMATION MAY BE OMITTED. This clinical summary was aggregated from multiple sources. Caution should be exercised in using it in the provision of clinical care. This summary normalizes information from multiple sources, and as a consequence, information in this document may materially change the coding, format and clinical context of patient data. In addition, data may be omitted in some cases. CLINICAL DECISIONS SHOULD BE BASED ON THE PRIMARY CLINICAL RECORDS. [employer] provides no warranty or guarantee of the accuracy or completeness of information in this document.
== END 2025-04-13 21:25 | disposition home or self-care (01) ==
PROVIDERS: Emergency Provider Emergency Medicine; PCP Family Medicine; Referring Provider Emergency Medicine; Visit Provider Emergency Medicine
DX: K59.00 Constipation, unspecified (principal); R10.9 Unspecified abdominal pain; Z98.890 Other specified postprocedural states
CPT/HCPCS: 74018; 99282; A4216

== ENCOUNTER 2025-05-11 18:27 | Emergency (ER) | payer OTHER, SELFPAY ==
[2025-05-11 18:28] VITALS: BP 119/88; PULSE 115; RESP 18; TEMP 36.2; O2SAT 97; BMI 22.4
[2025-05-11 18:49] LABS: Mucous, Urine 0 SEEN /hpf (<or=2+); Red Blood Cells-Urine 0 SEEN /hpf (0-5)
[2025-05-11] MEDS: 0.9% Normal Saline (1000mL) 1,000 ML 999 ML IV (19:32)
[2025-05-11 19:41] LABS: Color, Urine Yellow (Yellow); Glucose, Dipstick Normal (Normal); Ketone-Dipstick 50 mg/dl (Negative); Leukocyte Esterase-Dipstick Negative /ul (Negative); Nitrite-Dipstick Negative (Negative); Occult Blood-Urine Negative /ul (Negative); Protein-Dipstick 15 mg/dl (Negative); Specific Gravity, Urine 1.025 (1.002-1.030); Urine Bilirubin Dipstick Negative (Negative)
[2025-05-11 20:14] LABS: Hematocrit 39.1 % (37-47); Hemoglobin 13.9 g/dL (12.0-15.0); Immature Granulocytes Count 0.020 X10^3/uL (0.0-0.0); Mean Corp Hgb Conc 35.5 g/dL (32-36); Mean Corpuscular Volume 87.7 fL (81-99); Mean Platelet Vol. 9.9 fl (6.2-12.0); NRBC Flagged by Analyzer 0 % (0-5); Platelet Count 236 K/mm3 (150-450); RBC Distribution Width CV 12.0 % (11.6-14.6); RBC Distribution Width SD 38.8 fl (35.1-43.9); Red Blood Count 4.46 M/mm3 (4.2-5.4); White Blood Count 7.5 K/mm3 (4.4-11.0)
[2025-05-11 20:27] VITALS: BP 119/70; PULSE 71; RESP 14; O2SAT 100
[2025-05-11 20:40] LABS: Squamous Epithelial Cells - UA 0-5 SEEN /hpf (5-10)
[2025-05-11 20:49] LABS: AST(SGOT) 20 U/L (<=31); Alanine Aminotransfer ALT/SGPT 13 U/L (<=34); Albumin, Serum 4.4 g/dL (3.5-5.0); Alkaline Phosphatase 93 U/L (35-104); Anion Gap 13 (5-15); BUN 12 mg/dL (4-19); BUN/Creat Ratio 13.2 RATIO (10-20); Calcium,Total 9.0 mg/dL (7.6-11.0); Carbon Dioxide 22.3 mmol/L (21.0-32.0); Chloride 104 mmol/L (98-108); Estimated Creatinine Clearance 77.15 ml/min (50-250); Globulin 2.5 g/dL (2.2-4.2); Glucose 81 mg/dL (70-99); Lipase 23 U/L (13-75); Potassium 3.8 mmol/L (3.3-5.1)
[2025-05-11 20:58] LABS: Internal QC Validated? YES +Cl - CLEAR BKGD; Pregnancy, Serum, hCG Quali. NEGATIVE Negative; Record Kit Lot#, Serum Preg. 947241
[2025-05-11 22:33] VITALS: BP 118/60; PULSE 75; RESP 18; TEMP 36.8; O2SAT 99
== END 2025-05-11 22:34 | disposition home or self-care (01) ==
PROVIDERS: Emergency Provider Emergency Medicine; PCP Family Medicine; Visit Provider Emergency Medicine
DX: R19.7 Diarrhea, unspecified (principal); R10.84 Generalized abdominal pain; R11.0 Nausea; K58.2 Mixed irritable bowel syndrome
CPT/HCPCS: 74177; 80053; 81001; 83690; 84703; 85025; 87493; 96361; 96374; 96376; 99283; Q9967; A4216; J2405

== ENCOUNTER → 2025-06-12 | Outpatient (CLI) | payer SELFPAY ==
[2025-06-12 16:17] LABS: AST(SGOT) 21 U/L (<=31); Alanine Aminotransfer ALT/SGPT 12 U/L (<=34); Albumin, Serum 4.4 g/dL (3.5-5.0); Alkaline Phosphatase 89 U/L (35-104); Anion Gap 12 (5-15); BUN 19 mg/dL (4-19); BUN/Creat Ratio 23.0 RATIO (10-20); Calcium,Total 9.0 mg/dL (7.6-11.0); Carbon Dioxide 21.8 mmol/L (21.0-32.0); Chloride 107 mmol/L (98-108); Globulin 2.2 g/dL (2.2-4.2); Glucose 121 mg/dL (70-99); Potassium 4.0 mmol/L (3.3-5.1)
[2025-06-12 16:59] LABS: CRP < 3.00 mg/L (0.0-3.0)
[2025-06-16 04:07] LABS: Egg, White <0.10 kU/L (Class 0); SCALLOP <0.10 kU/L (Class 0); SESAME SEED <0.10 kU/L (Class 0); Walnut, (Food) <0.10 kU/L (Class 0)
== END | disposition home or self-care (01) ==
LOC: LAB 15:06
PROVIDERS: PCP Family Medicine; Referring Provider Internal Medicine Gastroenterology; Visit Provider Internal Medicine Gastroenterology
DX: K59.00 Constipation, unspecified (principal)
CPT/HCPCS: 36415; 80053; 82784; 82785; 83516; 86003; 86036; 86037; 86140; 86255; 86664; 86671

== ENCOUNTER → 2025-06-13 | Outpatient (CLI) | payer SELFPAY ==
--- OUTSIDE RECORDS SUMMARY | 2025-06-13 18:55 | XMS RPT_ITS | CCD ---
Author Organization [facility] CliniSywi Care Team Providers Care Video Recorder Mechanic Name Role Phone Unavailable Primary Care Provider UnavailDr. Wing Enrique Primary Care Unavailable [facility], Mr. Ollie Cunningham Attending Unavail able Wing Flores MD Primary Care Provider PIPER LIN Referring Unavailable [...] Unavailable FLORES, WING XANDER Primary Care Unavailable Wing Flores MD Primary Care Provider [phone] Wing Flores MD Primary Care Provider [phone] WING FLORES Primary Care Unavailable WING FLORES Primary Care Unavailable WING FLORES Primary Care Unavailable KARIME ROSS Attending Unavailable Mark MEANS, Dr. Moran Primary Care Provider Dr. Clifton Gonsalves DO Emergency Provider Alen MEANS, Dr. Flores Referring Provider Dr. Mark Lowry MD Emergency Provider COSTEDIO, DENA M Referring Unavailable FLORES, WING A Primary Care Unavailable COSTEDIO, DENA M Referring Unavailable FLORES, WING A Primary Care Unavailable COSTEDIO, DENA M Referring Unavailable FLORES, WING A Primary Care Unavailable Dr. Clifton Gonsalves DO Attending Provider Alen MEANS, Dr. Flores Attending Provider Mark MEANS, Dr. Moran Referring Provider Meg Noriega Attending Provider [phone] Jhonathan MEANS, Dr. Malcolm Attending Provider FLORES, WING A Primary Care Unavailable FLORES, WING A Primary Care Unavailable COSTEDIO, DENA M Attending Unavailable FLORES, WING A Primary Care Unavailable COSTEDIO, DENA M Admitting Unavailable COSTEDIO, DENA M Attending Unavailable FLORES, WING A Primary Care Unavailable COSTEDIO, DENA M Attending Unavailable FLORES, WING A Primary Care Unavailable Flores, Wing Referring Unavailable Flores, Wing Primary Care Unavailable Meg Antonio Attending Unavailable Flores, Wing Primary Care Unavailable Gold Ring Attending Unavailable Flores, Wing Primary Care Unavailable Clifton Gonsalves Attending Unavailable Flores, Wing Primary Care Unavailable Mark Lowry Referring Unavailable Mark Lowry Attending Unavailable Flores, Wing Primary Care Unavailable Mark Lowry Attending Unavailable Flores, Wing Primary Care Unavailable Meg Antonio Referring Unavailable Meg Antonio Attending Unavailable Meg Noriega Referring Provider [phone] Xavi Manjarrez DO Attending Provider Allergies Allergy Classification Reported Allergen(s) Allergy Type Date of Onset Reaction(s) Facility (13 sources) Azithromycin; Translations: [AZITHROMYCIN] Drug Allergy 04-04-2025 [facility] (7 sources) Neomycin; Translations: [NEOMYCIN] Drug Allergy 04-04-2025 [facility] Work Phone: (1 source) Azithromycin Drug Allergy 05-16-2025 [facility] Repository Medications Current Medications Medication Drug Class(es) Dates Sig (Normalized) Sig (Original) acetaminophen 325 mg oral tablet (4 sources) Start: 04-04-2025 End: 04-18-2025 take 2 [...] mg / clavulanate 125 mg oral tablet (6 sources) Penicillin-class Antibacterial Start: 11-13-2023 take 1 [...] 7 days. 21 capsule 11/18/2024 11/25/2024 Active chlorhexidine gluconate 1.2 mg/ml mouthwash (9 sources) Start: 11-10-2023 End: 04-04-2025 chlorhexidine (Peridex) 0.12 % solution swish 15 MLS by mouth for 30 SECONDS then SPIT use twice a day after meals 11/10/2023 Active Start: 11-10-2023 End: 10-22-2024 Chlorhexidine Gluconate (PER IDEX) 0.12 % solution swish 15 MLS by mouth for 30 SECONDS then SPIT use twice a day after meals 11/10/2023 10/22/2024 Discontinued (Course of therapy completed) doxycycline hyclate 100 mg oral tablet (1 source) Tetracycline-class Drug Start: 10-22-2024 End: 10-27-2024 take 1 tablet by mouth twice daily doxycycline (VIBRA-TABS) 100 mg tablet Take 1 tablet by mouth two times a day for 5 days. 10 tablet 10/22/2024 10/27/2024 Active escitalopram 10 mg oral tablet (14 sources) Serotonin Reuptake Inhibitor Start: 11-30-2022 End: [...] once daily. gabapentin 100 mg oral capsule (6 sources) Anti-epileptic Agent Start: take 1 capsule by mouth 3 day(s) before bedtime gabapentin (Neurontin) 100 mg capsule Indications: Rectal prolapse Take one capsule by mouth starting three days before surgery at bedtime. 3 capsule 12/15/2024 Active hydrocortisone acetate 25 mg rectal suppository (3 sources) Corticosteroid Start: End: hydrocortisone (Anusol-HC) 25 mg suppository Indications: Rectal prolapse Insert 1 suppository (25 mg) into the rectum 2 times a day for 10 days. 12 suppository 1 04/13/2025 04/23/2025 Active 0.5 ml HYDROmorphone hydrochloride 1 mg/ml prefilled syringe (2 sources) Opioid Agonist Start: 0.5 mg, intravenous, Every 5 min PRN, pain severe (7-10), first line, Starting on Thu04/04/25 at 1050, Recovery (only), Max total of 4 mg regardless of dose. Start: 04-04-2025 0.25 mg, intra venous, Every 5 min PRN, pain moderate (4-6), first line, Starting on Thu04/04/25 at 1050, Recovery (only), Max total of 4 mg regardless of dose. hyoscyamine sulfate 0.125 mg oral tablet (7 sources) Start: 10-06-2023 End: 10-22-2024 take 1 tablet by mouth every six hours hyoscyamine (Anaspaz, Levsin) 0.125 mg tablet Take 1 tablet (0.125 mg) by mouth every 6 hours. 10/06/2023 Active ibuprofen 600 mg oral tablet (12 sources) Nonsteroidal Anti-inflammatory Drug Start: 04-10-2025 take 1 tablet by mouth every three hours as needed for pain Ibuprofen 600 mg tablet Active 600 mg PO .Q3HR as needed for pain April 10, 2025 12:00am Start: 04-04-2025 End: 04-19-2025 take 1 tablet by mouth every six hours ibuprofen 600 mg tablet Indications: Rectal prolapse Take 1 tablet (600 mg) by mouth every 6 hours for 14 days. 56 tablet 04/04/2025 04/19/2025 Active Start: 11-10-2023 End: 04-04-2025 take 1 tablet by mouth four times daily at mealtime ibuprofen 400 mg tablet take 1 tablet by mouth 4 TIMES A DAY with FOOD 11/10/2023 04/04/2025 Discontinued (Stop Taking at Discharge) methylPREDNISolone 4 mg oral tablet (6 sources) Corticosteroid Start: 11-13-2023 methylPREDNISolone (Medrol Dospak) 4 mg tablets TAKE BY MOUTH DIRECTED ON PACKAGE 11/13/2023 Active neomycin sulfate 500 mg oral tablet (6 sources) Aminoglycoside Antibacterial Start: 12-15-2024 neomycin (Mycifradin) 500 mg tablet Indications: Rectal prolapse Take two tabs by mouth at 6p, 7pm, and 11p the night before surgery. 6 tablet 12/15/2024 Active oxygen (O2) therapy (1 source) Start: 04-04-2025 inhalation, Continuous PRN - O2/gases, other, Starting [...] 1 tablet by mouth once HYDROcodone-acetam inophen ([place]) 5-325 mg tablet Take 1 tablet by [...] Thu03/23/24 at 1100, For 90 days, PACU codeine phosphate 2 mg/ml / guaiFENesin 20 [...] on above: Take 2.5-5 mL by thomas four times daily as needed for Cough. May cause drowsiness. Dextromethorphan (3 sources) Uncompetitive C-dzhxzl-G-aspart ate Receptor Antagonist, Sigma-1 Agonist End: 10-22-2024 DEXTROMETHORPHAN HBR (DELSYM ORAL) Take by mouth. 10/22/2024 Discontinued (Course of therapy completed) DEXTROMETHORPHAN HBR (DELSYM ORAL) Take by mouth. 0 Active Comment on above: Take by mouth. diatrizoate meglumine-sodium (GASTROGRAFIN) 66-10 % oral solution 120 mL (1 source) Start: End: 120 mL (2.02 ml/kg/DOSE), Rectal, ONCE, 1 dose, On Brandy 02/25/24 at 1400 dicyclomine hydrochloride 20 mg oral tablet (4 sources) Anticholinergic Start: End: take 1 tablet by mouth three times daily as needed for pain Dicyclomine 20 mg tablet Discontinued 20 mg PO THREE TIMES A DAY as needed for abdominal pain 15 0 May 11, 2025 10:28pm May 16, 2025 9:07am diphenhydrAMINE (1 source) Histamine-1 Receptor Antagonist Start: 025 End: 25 mg, intravenous, Once, On Thu04/04/25 at 1215, For 1 dose, If giving IV push, max rate of 25 mg/min. docusate sodium 100 mg oral capsule (8 sources) Start: End: take 1 capsule by mouth twice daily Docusate Sodium 100 mg capsule Discontinued 100 mg PO TWICE A DAY April 10, 2025 12:00am June 12, 2025 2:07pm Start: 04-04-2025 End: 04-14-2025 take 1 tablet by mouth twice daily docusate sodium (Colace) 100 mg tablet Indications: Rectal prolapse Take 1 tablet (100 mg) by mouth 2 times a day for 20 doses. 20 tablet 04/04/2025 04/14/2025 Active methocarbamol 500 mg oral tablet (2 sources) Muscle Relaxant Start: 05-16-2025 End: 06-12-2025 take 1 tablet by mouth three times daily as needed for pain Methocarbamol 500 mg tablet Discontinued 500 mg PO THREE TIMES A DAY as needed for pain/spasms 30 0 May 16, 2025 12:00am June 12, 2025 2:08pm metroNIDAZOLE 500 mg oral tablet (9 sources) Nitroimidazole Antimicrobial Start: 05-16-2025 End: 06-12-2025 take 1 tablet by mouth three times daily Metronidazole 500 mg tablet Discontinued 500 mg PO THREE TIMES A DAY May 16, 2025 12:00am June 12, 2025 2:08pm Start: 12-15-2024 metroNIDAZOLE (Flagyl) 250 mg tablet Indications: Rectal prolapse Take one tablet at 6p, 7p, and 11p the night before surgery. 3 tablet 12/15/2024 Active ondansetron 4 mg disintegrating oral tablet (8 sources) Serotonin-3 Receptor Antagonist Start: 05-11-2025 End: 06-12-2025 take 1 tablet by mouth every six hours as needed for nausea and vomiting Ondansetron 4 mg tablet,disintegrating Discontinued 4 mg PO EVERY 6 HOURS as needed for nausea and vomiting 14 0 May 11, 2025 12:00am June 12, 2025 2:08pm Start: 04-04-2025 End: 04-11-2025 take 1 tablet [...] mouth once 4 mg, oral, Once, On Brandy02/08 at 1735, For 1 dose Start: 03-02-2025 [...] Active oxyCODONE hydrochloride 5 mg oral tablet (8 sources) Opioid Agonist Start: 04-04-2025 End: 04-13-2025 take 1 tablet by mouth every six hours as needed for pain Oxycodone 5 mg tablet Discontinued 5 mg PO EVERY 6 HOURS as needed for pain April 10, 2025 12:00am April 13, 2025 9:01pm Start: 04-04-2025 take 1 tablet by thomas th every four hours as needed 5 mg, oral, Every 4 hours PRN, pain moderate (4-6), second line, Starting on Thu04/04/25 at 1050, Recovery (only), When able to take oral medications., If ordered PRN for pain, nurse is permitted to administer this medication for higher pain scores based on patient preference? Yes rifAXIMin 550 mg oral tablet (11 sources) Rifamycin Antibacterial Start: 10-05-2023 End: 10-22-2024 take 1 tablet by mouth three times [...] Classification Problem Date Documented Da te Episodic/Chronic Abdominal pain (11 sources) Abdominal pain; Translations: [Unspecified abdominal pain] Onset: 12-02-2014 12-02-2014 Episodic Fracture of upper limb (8 sources) Closed fracture thumb distal phalanx ; Translations: [Displaced fracture of distal phalanx of unspecified thumb, initial encounter for closed fracture] 03-25-2021 Episodic Immunizations and screening for infectious disease (8 sources) Patient encounter status; Translations: [Encounter for screening for COVID-19] 07-11-2021 Episodic Nausea and vomiting (3 sources) Nausea; Translations: [Nausea] Onset: 03-02-2025 03-02-2025 Episodic Noninfectious gastroenteritis (3 sources) Gastroenteritis; Translations: [Noninfective gastroenteritis and colitis, unspecified] Onset: 03-02-2025 03-02-2025 Episodic Other gastrointestinal disorders (12 sources) Constipation; Translations: [Constipation, unspecified] 04-10-2025 Episodic Other gastrointestinal disorders (4 sources) History of irritable bowel syndrome; Translations: [Personal history of other diseases of the digestive system] 05-11-2025 Episodic Other gastrointestinal disorders (4 sources) Diarrhea; Translations: [Diarrhea, unspecified] 05-11-2025 Episodic Other gastrointestinal disorders (1 source) Constipation, unspecified; Translations: [Constipation, unspecified] Onset: 04-21-2025 Episodic Other lower respiratory disease (1 source) Lower respiratory tract infection; Translations: [Unspecified acute lower respiratory infection] 10-22-2024 Episodic Other nervous system disorders (6 sources) Acute abdominal pain; Translations: [Other acute postprocedural pain] 04-10-2025 Episodic Other upper respiratory disease (8 sources) Respiratory tract congestion; Translations: [Nasal congestion] 07-11-2021 Episodic Other upper respiratory infections (8 sources) Viral upper respiratory tract infection; Translations: [Acute upper respiratory infection, unspecified] 11-14-2021 Episodic Spondylosis; intervertebral disc disorders; other back problems (2 sources) Lumbar radiculopathy; Translations: [Radiculopathy, lumbar region] 05-16-2025 Episodic Unclassified (20 sources) [facility] Col[facility]AS Onset: 10-13-2024 10-13-2024 Unclassified (20 sources) [facility] ERAS Nutrition Onset: 10-13-2024 10-13-2024 Unclassified (4 sources) Autogenerated Problem Onset: 03-17-2025 03-17-2025 Unclassified (2 sources) Low back pain, unspecified; Translations: [Low back pain, unspecified] Onset: 05-16-2025 Unclassified (1 source) Lumbar back pain Unclassified (2 sources) M54.50 - Low back pain, unspecified Viral infection (1 source) Viral disease; Translations: [Viral infection, unspecified] 11-18-2024 Episodic Past or Other Problems Problem Classification Problem Date Documented Date Episodic/Chronic Anal and rectal conditions (18 sources) Rectal prolapse; Translations: [Rectal prolapse] Onset: 01-21-2024 01-21-2024 Episodic Other connective tissue disease (3 sources) Hypermobility syndrome; Translations: [Hypermobility syndrome] Onset: 10-12-2024 10-12-2024 Episodic Other connective tissue disease (1 source) Hypermobility syndrome; Translations: [Hypermobility syndrome] Onset: 10-12-2024 Episodic Unclassified (7 sources) Onset: 10-12-2024 Resolved: 04-19-2025 10-12-2024 Results Test Name Value Interpretation Reference Range Facility Inital Evaluation (1) - PT 05-19-2025 Inital Evaluation (1) - PT [facility] Physical Therapy [facility] [place] [address] / REHABILITATION SERVICES INITIAL EVALUATION MR#: [id number] Acct: [id number] Name: KELLY RAMOS Rep #: [id number] : 2005 20 From: Gino Galvez PT, Cert. T, OCS Referring Dr.: ADELE Reyez Status: REG RCR Insurance: [facility] SELF PAY INSURANCE Patient's Visit Information Visit Information Visit Information: KELLY RAMOS is a 20 year old F referred to Physical Therapy by ADELE Reyez with a diagnosis of LOW BACK PAIN. Date of Evaluation: 05/19/25 Physical Therapist: Gino Galvez, PT, Cert MDT, OCS Visit Plan Frequency: 2x /Week Duration: 4 Weeks Plan: PT INTERVENTIONS FOCUS ON DLS IN NEUTRAL POSITION, POSTURAL EX'S HIP STRENGTHENING ,MODALITIES PRN AND ACTIVITY MODIFICATION Subjective Subjective: This 20 y/o female presents to physical therapy with lumbar pain. Patient ahs had lumbar pain many years 14 -15 years old. Symptoms never got better . Patient rectal prolapse surgery abdominal approach April 04 . Symptoms got worse after PT. Patient had lifting restriction 5 # ( gallon milk) . Seen Jackie Antonio ,try PT x-rays -normal ,other than extra vertebrae .If PT doesn't help May do MRI. Patient was in ER abnormal pain. Recommend ibuprofen. Locations symmetrical LS ,ache pain worse right than left. Occasional affects ache. Pain occurred one time with twisting. Occasionally paresthesia/tingling -. Patient aggravating bending ,standing ,lifting ,sitting some ,arching. Last summer did working pain symptom worse. Alleviating flexion in sitting . Coughing/sneezing irritates abdominal. No abnormal night pain. Patient to normal activities ,like pickle ball ,work. VOCATION: student Pain Bilateral Back: Pain Intensity (Out of 10): 4 Pain Intensity Range: 10 Objective Objective: POSTURE: rounded shoulders head forward GAIT:reciprocal pattern PALALPTION: SI right TTP NEURO: denies paresthesia/tingling ,reflexes L3-4,L4-5,L5- S1 2/3 LUMBAR ROM: flexion /extension/side glides WNL all planes excessive motion MMT: quads/hams 4/5 ,hip flexion 4-/5 ,hip abd 4/5 ,ankle 5/5 SYMMETRIES: align - Stork test -Standing [place] test MUSCLUAR ENDURANCE: unable to hold Special Tests L/S Slump test left side: Negative L/S Slump test right side: Negative L/S Left Straight Leg Raise: Negative L/S Right Straight Leg Raise: Negative Lumbar Standing: Flexion - Mechanical Response: No effect Lumbar Standing: Flexion - Symptoms During Testing: No effect Lumbar Standing: Flexion - Symptoms After Testing: No effect Lumbar Standing: Extension - Mechanical Response: No effect Lumbar Standing: Extension - Symptoms During Testing: Increases Lumbar Standing: Extension - Symptoms After Testing: No worse Lumbar Standing: Right Side Glides - Mechanical Response: No effect Lumbar Standing: Right Side [place] - Symptoms During Testing: No effect Lumbar Standing: Right Side [place] - Symptoms After Testing: No effect Lumbar Standing: Left Side [place] - Mechanical Response: No effect Lumbar Standing: Left Side [place] - Symptoms During Testing: No effect Lumbar Standing: Left Side [place] - Symptoms After Testing: No effect Balance/Special Test Scores Oswestry Low Back Score: 23 Goals Goal 1:: Patient to be I with HEP for lumbar Goal Time Frame: 4-6 Weeks Goal 2:: Patient to improve muscular endurance test for abdominals by 10-15 seconds Goal Time Frame: 4-6 Weeks Goal 3:: Patient to improve back oswestry score by 5 points to improve QOL, and function Goal Time Frame: 4-6 Weeks Goal 4:: Patient to demonstrate 50% improvement with less pain and improved function Goal Time Frame: 4-6 Weeks Rehabilitation Potential Physical Therapy Diagnosis: This patient has lumbar pain with poor dynamic lumbar due to weakness with pain worse with standing and bending thus benefit from skilled PT Rehabilitation Potential: Good Anticipated Interventions Patient/Client Instruction: Educate patient on: Condition and Plan of Care For the Purpose of:: To decrease pain, To improve muscle performance and motor function, To improve ability to perform ADL's, To increase tolerance to activity/condition/p osition, To improve ability of physical actions for home/community/work/ leisure, To reduce risk of recurrence and To improve health and function Therapeutic Exercise to Include: Strength training, Endurance training, Balance training, Postural training, Flexibilty training and Dynamic Lumbar Stabilization For the Purpose of:: To decrease pain, To improve muscle performance and motor function, To improve ability to perform ADL's, To increase tolerance to activity/condition/p osition, To improve ability of physical actions for home/community/work/ leisure, To reduce risk of recurrence and To improve health and (more content not included)... Normal [facility] L/S Spine Min 4 Viewson 07-0 L/S Spine Min 4 Views [facility] Imaging Services [address] [place], [place] [address] [phone] L/S Spine Min 4 Views MR#: [id number] Acct: [id number] Name: KELLY RAMOS Rep #: [id number] : 2005 F 20 From: David Zazueta MD PCP: Dr. Wing Flores MD Status: DEP AMB Study: L/S Spine Min 4 Views Date of Exam: 05/16/25 Exam# [id number] Ordering Dr: Meg Antonio EXAM: XR Lumbosacral Spine Flexion/Extension Only, 2 or 3 Views CLINICAL INDICATION: ABDOMINAL SURGERY 2 MONTHS AGO, INCREASED BACK PAIN SINCE TECHNIQUE: Lateral flexion/extension views of the lumbar spine and sacrum. COMPARISON: No relevant prior studies available. FINDINGS: VERTEBRAE: Unremarkable. No acute fracture. Normal sagittal alignment. No instability. SACRUM/COCCYX: Unremarkable as visualized. No acute fracture. DISC SPACES: No acute findings. No significant narrowing. SOFT TISSUES: Unremarkable. OTHER FINDINGS: No acute or significant dynamic instability. RAD/L/S Spine Min 4 Views IMPRESSION: No acute or significant dynamic instability. [facility] CC: ADELE Reyez; Dr. Wing Flores MD Business System Manager: Signed Normal [facility] Orthopedic Visit Reporton Orthopedic Visit Report [facility] [address] [place] [address] OFFICE VISIT Date of Service: 05/16/25 MR#: [id number] Acct: [id number] Name: KELLY RAMOS Rep #: [id number] : 2005 Provider: ADELE Reyez Age/Sex: 20/F [place] [facility] Status: Signed Intake Vital Signs 04/13/25 19:34 05/11/25 18:28 05/16/25 09:05 Height 5 ft 2 in 5 ft 2 in 5 ft 2 in Weight: 126 lb BMI 23.0 Intake Visit Reasons: LUMBAR SPINE Chief Complaint: lumbar spine Accompanied by: Mother Allergies azithromycin Allergy (Mild, Verified 05/16/25 09:07) RASH Medications ???Medication ???Instructions ???Recorded ???Confirmed ???Type docusate sodium 100 mg capsule 100 mg PO BID 04/10/25 05/16/25 Hi story ibuprofen 600 mg tablet 600 mg PO .Q3HR PRN pain 04/10/25 05/16/25 History ondansetron 4 mg disintegrating 4 mg PO Q6H PRN nausea and 5 05/16/25 Rx tablet vomiting #14 tabs methocarbamol 500 mg tablet 500 mg PO TID PRN pain/spasms #30 05/16/25 05/16/25 Rx tabs metronidazole 500 mg tablet 500 mg PO TID 05/16/25 05/16/25 Hi story PFSH Medical History (Updated 05/16/25 @ 10:27 by ADELE Reyez) Rectal prolapse IBS (irritable bowel syndrome) Fracture of thumb, right, closed Disease of tonsils and adenoids Encounter for screening for COVID-19 Surgical History (Updated 05/16/25 @ 09:21 by Susanna Duran RN) History of rectopexy Social History Smoking Status: Never smoker substance use type: does not use HPI LUMBAR SPINE Details: This documentation accurately reflects the service provided and the decisions made by me, ADELE Reyez 05/16/25 0904. Part of today???s visit was documented by Susanna Duran RN, acting as scribe. KELLY RAMOS is a 20 year old F here today for lumbar spine pain. This has been going on for the last 6 years. She had surgery in March for a rectal prolapse. The low back pain has gotten worse since the surgery. During the surgery the peritoneum was sutured to the sacral promontory and she is not sure if this is causing her increased pain. Patient says that she is approximately 6 weeks out from the surgery and during this time that she was on restrictions of no lifting greater than 5 pounds. Says that the restrictions are lifted after 6 weeks and she follows up with the surgeon tomorrow for a postop appointment. The low back pain is equal bilaterally and radiates into her right buttocks. She denies numbness and tingling into her legs. She has difficulty standing for long periods or walking long distances. Sitting for too long also increases her pain. She has done PT about 5 years ago for low back pain and states it was helpful. She has also seen a chiropractor in the past. She has not had an MRI in the past. She has not seen a pain management doctor. She was told during PT that she has hypermobility in her joints and is not sure if this is contributing to her pain. She will take ibuprofen and Tylenol as needed [id number] for her pain. Says that this gives her some mild relief. Ortho Exam General General: Yes no acute distress Neurologic: Yes alert and Yes oriented x3 Spine SPINE TESTING CERVICAL THORACIC LUMBAR Musculoskeletal Strength 0=absent - 5=normal Details: Neurological exam of the lower extremities shows 5x5 power. Normal sensations across all dermatomes. No hyperreflexia. No midline tenderness, mild paraspinal tenderness. Coding Level of Care Code Off vis,new,level 3 Diagnoses Lumbar radiculopathy M54.16 Assessment and Plan Assessment and Plan (1) Lumbar radiculopathy: Status: Acute Orders: Orders L/S Spine Min 4 Views Today M54.50 - Low back pain, unspecified Referrals Physical Therapy Referral M54.50 - Low back pain, unspecified Medications: New methocarbamol 500 mg PO TID PRN 30 tabs 0RF pain/spasms Plan Obtained and reviewed lumbar x-rays today in the clinic. Independent interpretation of the x-rays was performed. X-rays show lumbosacral transitional anatomy. No significant degenerative changes, no significant instability, no fractures. No MRI. Explained the x-ray findings in detail. At this time recommend that the patient attempt physical therapy to increase extensor core strength and stretching before proceeding with an MRI. The patient says that she has not been lifting anything greater than 5 pounds for the last 6 weeks following her surgery, she does follow-up with her surgeon tomorrow and recommend that she get clearance from their office that it is okay for her to do physical therapy or if there is any further restrictions at this time. After physical therapy if she continues to have pain she will let the (more content not included)... Normal [facility] CLOSTRIDIUM DIFFICILE TOXINB ,QL REAL TIME PCRon 05-15-2025 CLOSTRIDIUM DIFFICILE TOXINB,QL REAL TIME PCR Not detected Normal NOT DETECTED [facility] Comment on above: Order Comment: FASTI NG:NO FASTING: NO Result Comment: This test is for use only with liquid or soft stools; performance characteristics of other clinical specimen types have not been established. This assay was performed by Cepheid GeneXpert(R) PCR. The performance characteristics of this assay have been determined by [facility]. Performance characteristics refer to the analytical performance of the test. For additional information, please refer to http://education.InSpa/faq/UXI701 (This link is being provided for informational/educational purposes only.) Performed By: #### [id number] #### [facility] [place] [id number] [facility], [address] [place] [address] Conductor Yard: Chilo Matias MD Abdomen/Pelvis W IV Cont ONL Yon 05-11-2025 Abdomen/Pelvis W IV Cont ONLY [facility] Imaging Services [address] [place] [id number] Abdomen/Pelvis W IV Cont ONLY MR#: [id number] Acct: [id number] Name: KELLY RAMOS Rep #: [id number] : 2005 F 20 From: Felisha Castillo nd, MD PCP: Dr. Wing Flores MD Status: [facility] ER Study: Abdomen/Pelvis W IV Cont ONLY Date of Exam: Exam# [id number] Ordering Dr: Mark Lowry MD PROCEDURE: ABDOMEN/PELVIS W IV CONT ONLY 05/11/2025 REASON FOR EXAM: ABD PAIN TECHNIQUE: ABDOMEN/PELVIS W IV CONT ONLY Coronal and Sagittal reconstruction series were provided. CONTRAST: Isovue 370 VOLUME: 100 mL One or more dose reduction techniques were used (e.g., Automated exposure control, adjustment of the mA and/or kV according to patient size, use of iterative reconstruction technique. RADIATION DOSE SUMMARY: DLP: 314 mGycm COMPARISON: CT abdomen pelvis 04/10/2025. FINDINGS: Lung bases: Unremarkable. Liver: Normal in size without suspicious hepatic mass. The major portal veins are patent. No biliary ductal dilation. Gallbladder: No radiopaque stones within the gallbladder. Spleen: Normal in size. Pancreas: Unremarkable. Adrenals: No adrenal mass. Kidneys: No hydronephrosis or nephrolithiasis. Bladder: Minimally distended and unremarkable. Reproductive Organs: Normal uterine size and contour. Ovaries are unremarkable. Bowel: The bowel loops are nondilated. There is mild improvement in the persistent wall thickening of the distal sigmoid colon and rectum. Slight interval improvement in the moderate narrowing at the anorectal junction. Continued decreased size of the perirectal/presacral fluid collection. No rim enhancement of the ill-defined fluid collection. No pneumoperitoneum. No inflammatory mass in the expected region of the appendix. Lymph nodes: No suspicious lymph node enlargement. Vasculature: The abdominal aorta and IVC are normal. Bones: Unremarkable. CT/Abdomen/Pelvis W IV Cont ONLY IMPRESSION: 1. Slight interval improvement in the persistent wall thickening of the distal sigmoid colon and rectum with moderate narrowing of the anorectal junction. 2. Continued decreased size of the perirectal/presacral fluid collection, which is indeterminate and may represent postoperative edema or developing phlegmon. No discrete abscess identified. Reading Location: [id number] CC: Dr. Wing Flores MD; Dr. Mark Lowry MD Business System Manager: Signed Normal [facility] Absolute lymphocyte countOrd ered By: Mark Lowry on 05-11-2025 Lymphocytes Auto (Unsp spec) [#/Vol] 2.07 10*3/uL 0.83-4.51 [facility] Absolute neutrophil countOrd ered By: Mark Lowry on 05-11-2025 Neutrophils (Bld) [#/Vol] 4.5 10*3/uL 2.0-7.7 [facility] Anion gap in Serum or Plasma Ordered By: Mark Lowry on 05-11-2025 Anion gap [Moles/Vol] 13 mmol/L 5-15 [facility] Automated lymphocyte count a s percentage of total leukocytesOrdered By: Mark Lowry on 05-11-2025 Lymphocytes/100 WBC Auto (Unsp spec) 27.7 % 19-41 [facility] BUN/creatinine ratioOrdered By: Mark Lowry on 05-11-2025 Urea nitrogen/Creatinine [Mass ratio] 13.2 mg/mg 10-20 [facility] Basophil percentageOrdered B y: Mark Lowry on 05-11-2025 Basophils/100 WBC (Bld) 0.4 % 0-1 [facility] Bilirubin Test strip Ql (U)O rdered By: Mark Lowry on 05-11-2025 Bilirubin Ql (U) Negative Negative [facility] Bilirubin, totalOrdered By: Mark Lowry on 05-11-2025 Bilirubin [Mass/Vol] 0.36 mg/dL 0.00-1.30 [facility] CBC W/Diff, Automatedon 07- Absolute Lymph 2.07 X10 3/uL Normal 0.83-4.51 [facility] Comment on above: Performed By: #### M 100.6796 #### [facility] [address] [place], [address] Absolute Neut 4.5 X10 3/uL Normal 2.0-7.7 [facility] Comment on above: Performed By: #### M 100.6796 #### [facility] [address] [place], [address] Basophils/100 WBC (Bld) 0.4 % Normal 0-1 [facility] Comment on above: Performed By: #### M 100.96 #### [facility] [address] [place], [address] Eosinophils/100 WBC (Bld) 2.1 % Normal 0-5 [facility] Comment on above: Performed By: #### M 100.6796 #### [facility] [address] [place], [address] Erythrocyte distribution width (RBC) [Ratio] 12.0 % Normal 11.6-14.6 [facility] Comment on above: Performed By: #### M 100.6796 #### [facility] [address] [place], [address] Hematocrit (Bld) [Volume fraction] 39.1 % Normal 37-47 [facility] Comment on above: Performed By: #### M 100.6796 #### [facility] [address] [place], [address] Hemoglobin (Bld) [Mass/Vol] 13.9 g/dL Normal 12.0-15.0 [facility] Comment on above: Performed By: #### M 100.96 #### [facility] [address] [place], [address] IG% 0.300 Normal 0.0-0.9 [facility] Comment on above: Result Comment: IG% - Immature Granulocytes (promyelocytes, myelocytes and metamyelocytes) > 1% indicates that a LEFT SHIFT is Present. Performed By: #### M 100.96 #### [facility] [address] [place], [address] Lymphocytes/100 WBC (Bld) 27.7 % Normal 19-41 [facility] Comment on above: Performed By: #### M 100.96 #### [facility] [address] [place], [address] MCH (RBC) [Entitic mass] 31.2 pg Normal 27.0-32.0 [facility] Comment on above: Performed By: #### M 100.96 #### [facility] [address] [place], [address] MCHC (RBC) [Mass/Vol] 35.5 g/dL Normal 32-36 [facility] Comment on above: Performed By: #### M 100.96 #### [facility] [address] [place], [address] MCV (RBC) [Entitic vol] 87.7 fL Normal 81-99 [facility] Comment on above: Performed By: #### M 100.96 #### [facility] [address] [place], [address] Monocytes/100 WBC (Bld) 8.7 % Normal 0-10 [facility] Comment on above: Performed By: #### M 100.96 #### [facility] [address] [place], [address] Neutrophils/100 WBC (Bld) 60.8 % Normal 47-70 [facility] Comment on above: Performed By: #### M 100.96 #### [facility] [address] [place], [address] Nucleated RBC (Bld) [#/Vol] 0 10*3/uL Normal 0-5 [facility] Comment on above: Performed By: #### M 100.96 #### [facility] [address] [place], [address] Platelet mean volume (Bld) [Entitic vol] 9.9 fL Normal 6.2-12.0 [facility] Comment on above: Performed By: #### M 100.96 #### [facility] [address] [place], [address] Platelets (Bld) [#/Vol] 236 10*3/uL Normal 150-450 [facility] Comment on above: Performed By: #### M 100.96 #### [facility] [address] [place], [address] RBC (Bld) [#/Vol] 4.46 10*6/uL Normal 4.2-5.4 [facility] Comment on above: Performed By: #### M 100.6795 #### [facility] [address] [place], [address] RDW SD 38.8 fl Normal 35.1-43.9 [facility] Comment on above: Performed By: #### M 100.96 #### [facility] [address] [place], [address] WBC (Bld) [#/Vol] 7.5 10*3/uL Normal 4.4-11.0 [facility] Comment on above: Performed By: #### M .96 #### [facility] [address] [place], [address] CDIFF (PCR)on 05-11-2025 CDIFF Is the patient receiving laxatives? N New/unexplained onset of 3 or more stools in past 24 hrs? Y A positive C. difficile molecular test does not differentiate between an active C. difficile infection and C. difficile colonization. Use clinical judgement and paired toxin/antigen testing to identify true infection and need for treatment. C diff DNA Spec Ql KELSIE+probe Reference Range: Negative Cepheid GeneXpert: polymerase chain reaction (PCR) 027 027 NAP1-B1 Presumptive Negative *for epidemiolologic???us e C. Diff PCR Negative- No toxigenic C. Diff Detected Normal [facility] Comment on above: Performed By: #### M 100.1196 #### [facility] [address] [facility] [address] Carbon dioxide, total [Moles /volume] in Central venous bloodOrdered By: Mark Lowry on 05-11-2025 CO2 [Moles/Vol] 22.3 mmol/L 21.0-32.0 [facility] Chloride assayOrdered By: Micha Lowry on 05-11-2025 Chloride [Moles/Vol] 104 mmol/L 98-108 [facility] Clostridium difficile detect ion by polymerase chain reactionOrdered By: Mark Lowry on 05-11-2025 C. difficile DNA KELSIE+probe Ql (Unsp spec) [facility] Comprehensive Metabolic Prof ilon 05-11-2025 Albumin [Mass/Vol] 4.4 g/dL Normal 3.5-5.0 [facility] Comment on above: Performed By: #### M 100.7896 #### [facility] [address] [facility] [place], [address] Albumin/Globulin [Mass ratio] 1.7 {ratio} Normal 0.9-2.4 [facility] Comment on above: Performed By: #### M 100.8396 #### [facility] [address] [facility] [place], [address] ALK PHOS 93 U/L Normal 35-104 [facility] Comment on above: Performed By: #### M 100.3896 #### [facility] [address] [place], [address] ALT [Catalytic activity/Vol] 13 U/L Normal <=34 [facility] Comment on above: Performed By: #### M 100.9337 #### [facility] [address] [place], [address] AST [Catalytic activity/Vol] 20 U/L Normal <=31 [facility] Comment on above: Performed By: #### M 100.96 #### [facility] [address] [place], [address] Bilirubin [Mass/Vol] 0.36 mg/dL Normal 0.00-1.30 [facility] Comment on above: Performed By: #### M 100.4696 #### [facility] [address] [place], [address] BUN/CRE 13.2 RATIO Normal 10-20 [facility] Comment on above: Performed By: #### M 100.1596 #### [facility] [address] [place], [address] Calcium [Mass/Vol] 9.0 mg/dL Normal 7.6-11.0 [facility] Comment on above: Performed By: #### M 100.8496 #### [facility] [address] [place], [address] Chloride [Moles/Vol] 104 mmol/L Normal 98-108 [facility] Comment on above: Performed By: #### M 100.8196 #### [facility] [address] [place], [address] CO2 [Moles/Vol] 22.3 mmol/L Normal 21.0-32.0 [facility] Comment on above: Performed By: #### M 100.1148 #### [facility] [address] [place], [address] Creatinine [Mass/Vol] 0.92 mg/dL Normal 0.70-1.20 [facility] Comment on above: Performed By: #### M 100.96 #### [facility] [address] [place], [address] ECRCL 77.15 ml/min Normal 50-250 [facility] Comment on above: Performed By: #### M 100.96 #### [facility] [address] [place], [address] GAP 13 Normal 5-15 [facility] Comment on above: Performed By: #### M 100.96 #### [facility] [address] [place], [address] GFR/1.73 sq M.predicted among non-blacks MDRD (S/P/Bld) [Vol rate/Area] 91 mL/min/{1.73_m2} Normal >60 [facility] Comment on above: Result Comment: mL/m in/1.73m2 CKD-EPI Creatinine Equation (2020) Performed By: #### M 100.96 #### [facility] [address] [place], [address] Globulin (S) [Mass/Vol] 2.5 g/dL Normal 2.2-4.2 [facility] Comment on above: Performed By: #### M 100.96 #### [facility] [address] [place], [address] Glucose [Mass/Vol] 81 mg/dL Normal 70-99 [facility] Comment on above: Performed By: #### M 100.96 #### [facility] [address] [place], [address] Potassium [Moles/Vol] 3.8 mmol/L Normal 3.3-5.1 [facility] Comment on above: Performed By: #### M 100.96 #### [facility] [address] [place], [place], [address] Sodium [Moles/Vol] 139 mmol/L Normal 133-145 [facility] Comment on above: Performed By: #### M 100.6796 #### [facility] [address] [place], [id number] T PROT 6.9 g/dL Normal 5.9-8.4 [facility] Comment on above: Performed By: #### M 100.6796 #### [facility] [address] [place], [place], [address] Urea nitrogen [Mass/Vol] 12 mg/dL Normal 4-19 [facility] Comment on above: Performed By: #### M 100.6096 #### [facility] [address] [place], [place], [id number] Emergency Department Summary on 05-11-2025 Emergency Department Summary [facility] Medical Records Department [address] [place] [address] Emergency Department Summary 05/11/25 MR#: [id number] Acct: [id number] Name: KELLY RAMOS Rep #: [id number] : 2005 20 From: Mark Lowry MD PCP: Dr. Wing Flores MD Status:[facility] ER Location: ED HPI HPI - GI History of Present Illness Chief Complaint: Abd Pain Detail of Chief Complaint: Diarrhea x 12 days. Abdominal cramping. Informant: patient, parent and family Abdominal Pain/Flank Pain Onset: Days Context: Gradual Onset Timing: Continuous Quality: Aching and Cramping Location: Diffuse Current Severity: Mild Maximum Severity: Mild Worsened by: Nothing Relieved by: Nothing Nausea/Vomiting/Emes is GI Symptom: Positive for Nausea; Negative for Vomiting Onset: Days Severity: Mild Diarrhea/Melena/Darrius tochezia GI Symptom: Positive for Diarrhea; Negative for Melena or Hematochezia Onset: Days (The last 12 days.) Stool Quality: Positive for Watery Severity: Moderate Associated Symptoms Associated Symptoms: Negative for Dysuria, Frequency, Hematuria or Urgency Narrative Narrative: 20-year-old female history of prolapsed rectum that she had surgery and repair at [facility]. She has a history of irritable bowel and has episodes of constipation and diarrhea. For the last 12 days she she has had increasing amounts of diarrhea she has gone about every 30 minutes to an hour for the last 24 hours. Mild nausea no vomiting. No fever. No dysuria. Diffuse abdominal cramping. No other prior abdominal surgeries other than the rectal prolapse repair. Prior similar symptoms: No Recent Illness/Hospitalizat ion: No PFSH PFS Medical History (Updated 05/11/25 @ 22:[address] Mark Lowry MD) Rectal prolapse IBS (irritable bowel syndrome) Fracture of thumb, right, closed Disease of tonsils and adenoids Encounter for screening for COVID-19 Home Medications ???Medication ???Instructions ???Recorded ???Last Taken ???Type docusate sodium 100 mg capsule 100 mg PO BID 04/10/25 Unknown His tory ibuprofen 600 mg tablet 600 mg PO .Q3HR PRN pain 04/10/25 Unknown History dicyclomine 20 mg tablet 20 mg PO TID PRN abdominal pain Unknown Rx #15 tabs ondansetron 4 mg disintegrating 4 mg PO Q6H PRN nausea and 5 Unknown Rx tablet vomiting #14 tabs Allergy/AdvReac Type Severity Reaction Status Date / Time azithromycin Allergy Mild RASH Verified 05/11/25 18:28 Social History Smoking Status: Never smoker substance use type: does not use ROS ROS ED ROS Narrative Nausea. No vomiting. Positive diarrhea. Abdominal cramping. Constitutional Constitutional ED: Denies chills or fever(s) ENT ENT ED: Denies ear pain Cardiovascular Cardiovascular: Denies chest pain Respiratory/Chest Respiratory/Chest: Denies cough or dyspnea Gastrointestinal Gastrointestinal: Reports abdominal pain, diarrhea and nausea; Denies melena or vomiting Genitourinary Genitourinary ED: Denies dysuria or hematuria Musculoskeletal Musculoskeletal: Denies arthralgias or back pain Integumentary Denies abscess or Abrasions Neurologic Neurologic: Denies headache(s) Endocrine Endocrinology: Denies polydipsia Hematologic/Lymphati c Hematologic/Lymphati c: Denies easy bleeding Allergic/Immunologic Allergic/Immunologic ED: Denies mouth swelling, tongue swelling or urticaria EXAM Physical Exam Narrative Exam Narrative: Well-appearing 20-year-old female. Vital signs stable she does not look septic or toxic. Family at bedside. H EENT exam pupils round reactive light. Mytrex membranes. Neck nontender JVD. Lungs clear to auscultation bilaterally. Heart tachycardic 110 no murmur chest wall ribs nontender. Abdomen soft nondistended normal bowel sounds without peritoneal signs. Diffusely tender. No hernia or mass. No obstruction. Moving all 4 extremities. Nontender no edema. Back nontender. Neurologically she is awake alert answering questions following commands. Const Vital Signs: 05/11/25 18:28 05/11/25 20:27 Temperature 97.1 F L Temperature Source Temporal Pulse Rate 115 H 71 Respiratory Rate 18 14 Blood Pressure 119/88 H 119/70 Blood Pressure Mean 98 86 Pulse Ox 97 100 Oxygen Delivery Method Room Air Room Air Positive well nourished and well developed; Negative for obese, cachectic, contractures or unkempt General Appearance ED: well developed and NAD; Negative for unkempt, cachectic, contractures or pallor Nutritional Appearance: Negative for cachectic or obese HEENT Reports moist mucous membranes normocephalic and atraumatic Eyes PERRL and EOMs intact bilaterally General Eye ED: Negative for pale conjunctiva or scleral icterus Neck no lymphadenopathy, supp (more content not included)... Normal [facility] Eosinophil percentageOrdered By: Mark Lowry on 05-11-2025 Eosinophils/100 WBC (Bld) 2.1 % 0-5 [facility] Erythrocyte distribution wid th ratioOrdered By: Mark Lowry on 05-11-2025 Erythrocyte distribution width (RBC) [Ratio] 12.0 % 11.6-14.6 [facility] Erythrocyte distribution wid th standard deviationOrdered By: Mark Lowry on 05-11-2025 Erythrocyte distribution width (RBC) [Ratio] 38.8 fl 35.1-43.9 [facility] Glomerular filtration rate ( GFR) estimation/1.73 sq m using serum, plasma, or whole bOrdered By: Mark Lowry on 05-11-2025 GFR/1.73 sq M.predicted among non-blacks MDRD (S/P/Bld) [Vol rate/Area] 91 mL/min/{1.73_m2} >60 [facility] Comment on above: mL/min/1.73m2 CKD-EP I Creatinine Equation (2020) Hematocrit Auto (Bld) [Volum e fraction]Ordered By: Mark Lowry on 05-11-2025 Hematocrit (Bld) [Volume fraction] 39.1 % 37-47 [facility] Hemoglobin measurementOrdere d By: Mark Lowry on 05-11-2025 Hemoglobin (Bld) [Mass/Vol] 13.9 g/dL 12.0-15.0 [facility] Immature granulocytes/100 WB C Auto (Bld)Ordered By: Mark Lowry on 05-11-2025 Immature granulocytes/100 WBC (Bld) 0.300 % 0.0-0.9 [facility] Comment on above: IG% - Immature Granu locytes (promyelocytes, myelocytes and metamyelocytes) > 1% indicates that a LEFT SHIFT is Present. Ketones Test strip Ql (U)Ord ered By: Mark Lowry on 05-11-2025 Ketones Ql (U) 50 mg/dl High Negative [facility] - Chemistry and C hemistry - challengeOrdered By: Mark Lowry on 05-11-2025 AST [Catalytic activity/Vol] 20 U/L <32 [facility] Lipaseon 05-11-2025 Lipase [Catalytic activity/Vol] 23 U/L Normal 13-75 [facility] Comment on above: Result Comment: Minal ortez note: LIPASE revised reference range effective 23. New Lipase methodology. Expected to produce lower values than the previous assay method. NEW Reference Range: 13 - 75 U/L Performed By: #### M 100.6796 #### [facility] [address] [place], [place] [address], [address] Lipase measurementOrdered By : Mark Lowry on 05-11-2025 Lipase [Catalytic activity/Vol] 23 U/L 13-75 [facility] Comment on above: Please note:LIPASE r evised reference range effective 23. New Lipase methodology. Expected to produce lower values than the previous assay method. NEW Reference Range: 13 - 75 U/L MCV (mean corpuscular volume ) determinationOrdered By: Mark Lowry on 07-03-2025 MCV (RBC) [Entitic vol] 87.7 fL 81-99 [facility] Mean corpuscular hemoglobin (MCH) determinationOrdered By: Mark Lowry on 05-11-2025 MCH (RBC) [Entitic mass] 31.2 pg 27.0-32.0 [facility] Mean corpuscular hemoglobin concentration (MCHC) determinationOrdered By: Mark Lowry on 05-11-2025 MCHC (RBC) [Mass/Vol] 35.5 g/dL 32-36 [facility] Mean platelet volume determi nationOrdered By: Mark Lowry on 05-11-2025 Platelet mean volume (Bld) [Entitic vol] 9.9 fL 6.2-12.0 [facility] Microscopic analysis of urin e for red blood cells (RBC)Ordered By: Mark Lowry on 05-11-2025 Microscopic analysis of urine for red blood cells (RBC) 0 SEEN /hpf 0-5 [facility] Monocyte percentageOrdered B y: Mark Lowry on 05-11-2025 Monocytes/100 WBC (Bld) 8.7 % 0-10 [facility] Mucus LM Ql (Urine sed)Order ed By: Mark Lowry on 05-11-2025 Mucus Ql (Urine sed) 0 SEEN /hpf [facility] Neutrophil percentageOrdered By: Mark Lowry on 05-11-2025 Neutrophils/100 WBC (Bld) 60.8 % 47-70 [facility] Nitrite Test strip Ql (U)Ord ered By: Mark Lowry on 05-11-2025 Nitrite Ql (U) Negative Negative [facility] Nucleated red blood cell per centageOrdered By: Mark Lowry on 05-11-2025 Nucleated RBC/100 WBC (Bld) [Ratio] 0 % 0-5 [facility] Platelet countOrdered By: Micha Lowry on 05-11-2025 Platelets (Bld) [#/Vol] 236 10*3/uL 150-450 [facility] Potassium measurement (mass/ volume)Ordered By: Mrak Lowry on 05-11-2025 Potassium (Unsp spec) [Mass/Vol] 3.8 mmol/L 3.3-5.1 [facility] ,Serum,hCG Quali.on 05-11-2025 HCG, SERUM QUAL Negative Normal [facility] Comment on above: Performed By: #### M 100.6796 #### [facility] [place] [address], [address] Protein Test strip Ql (U)Ord ered By: Mark Lowry on 05-11-2025 Protein Ql (U) 15 mg/dl High Negative [facility] RBC Auto (Bld) [#/Vol]Ordere d By: Mark Lowry on 05-11-2025 RBC (Bld) [#/Vol] 4.46 10*6/uL 4.2-5.4 [facility] Serum beta-hCG test, qualita tiveOrdered By: Mark Lowry on 05-11-2025 Beta HCG ( test) Ql Negative [facility] Serum creatinine measurement (mass/volume)Ordered By: Mark Lowry on 05-11-2025 Creatinine [Mass/Vol] 0.92 mg/dL 0.70-1.20 [facility] Serum globulin measurementOr dered By: Mark Lowry on 05-11-2025 Globulin (S) [Mass/Vol] 2.5 g/dL 2.2-4.2 [facility] Serum glucose measurement (m ass/volume)Ordered By: Mark Lowry on 05-11-2025 Glucose [Mass/Vol] 81 mg/dL 70-99 [facility] Serum or plasma alanine sprague otransferase (ALT) measurementOrdered By: Mark Lowry on 05-11-2025 ALT [Catalytic activity/Vol] 13 U/L <35 [facility] Serum or plasma albumin jem urement (mass/volume)Ordered By: Mark Lowry on 05-11-2025 Albumin [Mass/Vol] 4.4 g/dL 3.5-5.0 [facility] Serum or plasma albumin/glob ulin mass ratioOrdered By: Mark Lowry on 05-11-2025 Albumin/Globulin [Mass ratio] 1.7 {ratio} 0.9-2.4 [facility] Serum or plasma alkaline emre sphatase measurementOrdered By: Mark Lowry on 05-11-2025 ALP [Catalytic activity/Vol] 93 U/L 35-104 [facility] Serum or plasma calcium jem urement (mass/volume)Ordered By: Mark Lowry on 07-03-2025 Calcium [Mass/Vol] 9.0 mg/dL 7.6-11.0 [facility] Serum or plasma urea nitroge n measurement (mass/volume)Ordered By: Mark Lowry on 05-11-2025 Urea nitrogen [Mass/Vol] 12 mg/dL 4-19 [facility] Sodium levelOrdered By: Mark Lowry on 05-11-2025 Sodium [Moles/Vol] 139 mmol/L 133-145 [facility] Squamous epithelial cells de tection in urine sediment by light microscopyOrdered By: Mark Lowry on 05-11-2025 Epithelial cells.squamous LM Ql (Urine sed) 0-5 SEEN /hpf 5-10 [facility] Total proteinOrdered By: Bart Lowry on 05-11-2025 Protein [Mass/Vol] 6.9 g/dL 5.9-8.4 [facility] Urinalysis, Completeon 05-11 BACTERIA RARE Normal None Seen [facility] Comment on above: Order Comment: CLEAN CATCH Performed By: #### M 100.96 #### [facility] [address] [place], [address] EPI,SQUAMOUS 0-5 SEEN Normal 5-10 [facility] Comment on above: Order Comment: CLEAN CATCH Performed By: #### M 100.96 #### [facility] [address] [place], [address] WBC 0-5 SEEN Normal 0-5 [facility] Comment on above: Order Comment: CLEAN CATCH Performed By: #### M 100.96 #### [facility] [address] [place], [address] Mucus Ql (Urine sed) 0 SEEN Normal [facility] Comment on above: Order Comment: CLEAN CATCH Performed By: #### M 100.96 #### [facility] [address] [place], [address] RBC 0 SEEN Normal 0-5 [facility] Comment on above: Order Comment: CLEAN CATCH Performed By: #### M 100.96 #### [facility] [address] [place], [address] Urine clarityOrdered By: Bart Lowry on 05-11-2025 Clarity (U) Clear Clear [facility] Urine color determinationOrd ered By: Mark Lowry on 05-11-2025 Color (U) Yellow Yellow [facility] Urine glucose detectionOrder ed By: Mark Lowry on 05-11-2025 Glucose Ql (U) Normal mg/dl Normal [facility] Urine leukocyte esterase det ection by dipstickOrdered By: Mark Lowry on 05-11-2025 Leukocyte esterase Test strip Ql (U) Negative Negative [facility] Urine pHOrdered By: Mark Loyd ght on 05-11-2025 pH (U) 6.0 [pH] 5.0 - 8.0 [facility] Urine sediment bacteria coun t by microscopy (number/high power field)Ordered By: Mark Lowry on 05-11-2025 Bacteria LM.HPF (Urine sed) [#/Area] RARE /hpf None Seen [facility] Urine specific gravity measu rementOrdered By: Mark Lowry on 05-11-2025 Specific gravity (U) [Rel density] 1.025 1.002-1.030 [facility] Urine urobilinogen measureme ntOrdered By: Mark Lowry on 05-11-2025 Urobilinogen Ql (U) Normal mg/dl Normal [facility] White blood cell (WBC) count Ordered By: Mark Lowry on 05-11-2025 WBC (Bld) [#/Vol] 7.5 10*3/uL 4.4-11.0 [facility] White blood cell countOrdere d By: Mark Lowry on 05-11-2025 White blood cell count 0-5 SEEN /hpf 0-[address] [facility] [address] TRANSFER OF OUTSIDE FILMS on 04-18-2025 CT TRANSFER OF OUTSIDE FILMS Outside images for comparison or treatment purposes, not interpreted by Radiologists. Normal [facility] Comment on above: Order Comment: Abdom en/Pelvis W IV Cont ONLY 04/10/2025 3:26am Study Interpretation of outs yuridia studyon 04-18-2025 Outside images for comparison or treatment purposes, not interpreted by Radiologists. IMAGING Outside images for comparison or treatment purposes, not interpreted by Radiologists. IMAGING XR TRANSFER OF OUTSIDE FILMS on 04-18-2025 XR TRANSFER OF OUTSIDE FILMS Outside images for comparison or treatment purposes, not interpreted by Radiologists. [facility] Comment on above: Order Comment: Abdom en Single View 04/13/2025 8:05 PM Abdomen Single Viewon 2024 Abdomen Single View [facility] Imaging Services [address] [place] [address] Abdomen Single View MR#: [id number] Acct: [id number] Name: KELLY RAMOS Rep #: [id number] : 2005 F 20 From: Salvador Delvalle PCP: Dr. Wing Flores MD Status: PRE ER Study: Abdomen Single View Date of Exam: 04/13/25 Exam# [id number] Ordering Dr: Mark Lowry MD PROCEDURE: ABDOMEN SINGLE VIEW 04/13/2025 REASON FOR EXAM: CONSTIPATION TECHNIQUE: Single view abdomen. FINDINGS: No bowel obstruction or ileus. No suspicious calcifications. No acute fracture or dislocations. RAD/Abdomen Single View IMPRESSION: No bowel obstruction or ileus. Reading Location: [facility] CC: Dr. Wing Flores MD; Dr. Mark Lowry MD Business System Manager: Signed [facility] Emergency Department Summary on 04-13-2025 Emergency Department Summary [facility] Medical Records Department [address] [place] [address] Emergency Department Summary 04/13/25 MR#: [id number] Acct: [id number] Name: KELLY RAMOS Rep #: [id number] : 2005 20 From: Mark Lowry MD PCP: Dr. Wing Flores MD Status:REG ER Location: ED HPI HPI - GI History of Present Illness Chief Complaint: Other, Pain/Inj Detail of Chief Complaint: Constipation after rectal prolapse repair surgery about a week ago. Informant: patient and parent Abdominal Pain/Flank Pain Onset: Days Context: Gradual Onset Timing: Intermittent Quality: Cramping Location: - (Lower abdomen and rectum.) Current Severity: Mild Maximum Severity: Mild Nausea/Vomiting/Emes is GI Symptom: Negative for Nausea or Vomiting Diarrhea/Melena/Darrius tochezia GI Symptom: Positive for - (Constipation. Last bowel movement on Thursday.); Negative for Diarrhea, Melena or Hematochezia Associated Symptoms Associated Symptoms: Negative for Dysuria, Frequency, Hematuria or Urgency Narrative Narrative: 20-year-old female on April 04 had laparoscopic rectal prolapse repair surgery done at [facility]. Since that time she has had problems with constipation. Was recently seen in this emergency department had a CAT scan which showed constipation and normal postop changes. Was treated with enemas and improved. She has not had much of a bowel movement since Thursday. They have been trying different things at home and working with her: Rectal surgeon from . Today was having more crampy pain. Prior similar symptoms: Yes Recent Illness/Hospitalizat ion: Yes [facility] Medical History IBS (irritable bowel syndrome) Fracture of thumb, right, closed Disease of tonsils and adenoids Encounter for screening for COVID-19 Home Medications ???Medication ???Instructions ???Recorded ???Last Taken ???Type docusate sodium 100 mg capsule 100 mg PO BID 04/10/25 Unknown His tory ibuprofen 600 mg tablet 600 mg PO .Q3HR PRN pain 04/10/25 Unknown History Allergy/AdvReac Type Severity Reaction Status Date / Time azithromycin Allergy Mild RASH Verified 04/13/25 19:37 Social History Smoking Status: Never smoker substance use type: does not use ROS ROS ED ROS Narrative Constipation. Constitutional Constitutional ED: Denies chills or fever(s) ENT ENT ED: Denies ear pain Cardiovascular Cardiovascular: Denies chest pain Respiratory/Chest Respiratory/Chest: Denies cough Gastrointestinal Gastrointestinal: Reports abdominal pain and constipation; Denies diarrhea, melena, nausea or vomiting Genitourinary Genitourinary ED: Denies dysuria or hematuria Musculoskeletal Musculoskeletal: Denies arthralgias or back pain Integumentary Denies abscess or Abrasions Neurologic Neurologic: Denies headache(s) Psychiatric Psychiatric: Denies anxiety Endocrine Endocrinology: Denies polydipsia Hematologic/Lymphati c Hematologic/Lymphati c: Denies easy bleeding Allergic/Immunologic Allergic/Immunologic ED: Denies mouth swelling, tongue swelling or urticaria EXAM Physical Exam Narrative Exam Narrative: 20-year-old female vital signs are stable is tachycardic. Complaining of abdominal cramping. Parents present in room. H EENT exam pupils round react light. Moist mucous membranes. Neck nontender. Back nontender. Lungs clear to auscultation bilaterally. Heart tachycardic rate about 120 no murmur. Abdomen soft fusilli tender well-healing laparoscopic incisions. Dry and clean. No significant distention. No signs of obstruction. Positive bowel sounds. Moving all 4 extremities. Nontender no edema. Neurologically she is awake alert. No focal motor deficits. Answering questions and following commands. Const Vital Signs: 04/13/25 19:34 04/13/25 20:34 04/13/25 20:35 Temperature 98 F Temperature Source Temporal Pulse Rate 128 H 98 Respiratory Rate 20 H 18 Respiratory Effort Normal Respiratory Pattern Tachypnea Blood Pressure 119/102 H 136/93 H Blood Pressure Mean 107 107 Pulse Ox 100 97 Oxygen Delivery Method Room Air Room Air Positive well nourished and well developed; Negative for obese, cachectic, contractures or unkempt General Appearance ED: well developed and NAD; Negative for unkempt, cachectic, contractures or pallor Nutritional Appearance: Negative for cachectic or obese HEENT Reports moist mucous membranes normocephalic and atraumatic Eyes PERRL and EOMs intact bilaterally Neck no lymphadenopathy, supple and no JVD Resp normal respiratory effort and clear to auscultation bilaterally Cardio regular rhythm, S1 normal heart sound, S2 normal heart sound and no murmurs; Negative for regular rate Rate: tachycardic (more content not included)... Normal [facility] CT TRANSFER OF OUTSIDE FILMS on 04-11-2025 CT TRANSFER OF OUTSIDE FILMS Outside images for comparison or treatment purposes, not interpreted by Radiologists. Normal [facility] Comment on above: Order Comment: Abdom en/Pelvis W IV Cont ONLY 04/10/2025 3:26am Study Interpretation of outs yuridia studyon 04-11-2025 Outside images for comparison or treatment purposes, not interpreted by Radiologists. IMAGING Abdomen/Pelvis W IV Cont ONL Yon 04-10-2025 Abdomen/Pelvis W IV Cont ONLY [facility] Imaging Services [address] [place] [address] Abdomen/Pelvis W IV Cont ONLY MR#: [id number] Acct: [id number] Name: KELLY RAMOS Rep #: [id number] : 2005 F 20 From: Matthias garsia MD PCP: Dr. Wing Flores MD Status: [facility] ER Study: Abdomen/Pelvis W IV Cont ONLY Date of Exam: Exam# [id number] Ordering Dr: Clifton Gonsalves DO PROCEDURE: ABDOMEN/PELVIS [...] level of the transverse colon. Reading Location: [place] [address] CC: Dr. Wing Flores MD; Clifton Gonsalves DO Business System Manager: Signed Normal [facility] Absolute lymphocyte countOrd ered By: Clifton Gonsalves on 04-10-2025 Lymphocytes Auto (Unsp spec) [#/Vol] 2.20 10*3/uL 0.83-4.51 [facility] Absolute neutrophil countOrd ered By: Clifton Gonsalves on 04-10-2025 Neutrophils (Bld) [#/Vol] 10.9 10*3/uL High 2.0-7.7 [facility] Anion gap in Serum or Plasma Ordered By: Clifton Gonsalves on 04-10-2025 Anion gap [Moles/Vol] 14 mmol/L 5-15 [facility] Automated lymphocyte count a s percentage of total leukocytesOrdered By: Clifton Gonsalves on 04-10-2025 Lymphocytes/100 WBC Auto (Unsp spec) 15.5 % Low 19-41 [facility] BUN/creatinine ratioOrdered By: Clifton Gonsalves on 04-10-2025 Urea nitrogen/Creatinine [Mass ratio] 20.5 mg/mg High 10-20 [facility] Basic Metabolic Profile (BMP )on 04-10-2025 BUN/CRE 20.5 RATIO High 08-28 [facility] Comment on above: Performed By: #### L 500.2500, L501.2450, L501.5200, L100.0100, L500.3400 #### [facility] [address] [place], [address] Calcium [Mass/Vol] 9.1 mg/dL Normal 7.6-11.0 [facility] Comment on above: Performed By: #### L 500.2500, L501.2450, L501.5200, L100.0100, L500.3400 #### [facility] [address] [place], [address] Chloride [Moles/Vol] 102 mmol/L Normal 98-108 [facility] Comment on above: Performed By: #### L 500.2500, L501.2450, L501.5200, L100.0100, L500.3400 #### [facility] [address] [place], [address] CO2 [Moles/Vol] 23.5 mmol/L Normal 21.0-32.0 [facility] Comment on above: Performed By: #### L 500.2500, L501.2450, L501.5200, L100.0100, L500.3400 #### [facility] [address] [place], [address] Creatinine [Mass/Vol] 0.87 mg/dL Normal 0.70-1.20 [facility] Comment on above: Performed By: #### L 500.2500, L501.2450, L501.5200, L100.0100, L500.3400 #### [facility] [address] [place], [address] ECRCL 88.61 ml/min Normal 50-250 [facility] Comment on above: Performed By: #### L 500.2500, L501.2450, L501.5200, L100.0100, L500.3400 #### [facility] [address] [place], [address] GAP 14 Normal 5-15 [facility] Comment on above: Performed By: #### L 500.2500, L501.2450, L501.5200, L100.0100, L500.3400 #### [facility] [address] [place], [address] GFR/1.73 sq M.predicted among non-blacks MDRD (S/P/Bld) [Vol rate/Area] 98 mL/min/{1.73_m2} Normal >60 [facility] Comment on above: Result Comment: mL/m in/1.73m2 CKD-EPI Creatinine Equation (2020) Performed By: #### L 500.2500, L501.2450, L501.5200, L100.0100, L500.3400 #### [facility] [address] [place], [address] Glucose [Mass/Vol] 98 mg/dL Normal 70-99 [facility] Comment on above: Performed By: #### L 500.2500, L501.2450, L501.5200, L100.0100, L500.3400 #### [facility] [address] [place], [address] Potassium [Moles/Vol] 3.6 mmol/L Normal 3.3-5.1 [facility] Comment on above: Performed By: #### L 500.2500, L501.2450, L501.5200, L100.0100, L500.3400 #### [facility] [address] [place], [address] Sodium [Moles/Vol] 139 mmol/L Normal 133-145 [facility] Comment on above: Performed By: #### L 500.2500, L501.2450, L501.5200, L100.0100, L500.3400 #### [facility] [address] [place], [address] Urea nitrogen [Mass/Vol] 18 mg/dL Normal 4-19 [facility] Comment on above: Performed By: #### L 500.2500, L501.2450, L501.5200, L100.0100, L500.3400 #### [facility] [address] [place], [address] Basophil percentageOrdered B y: Clifton Gonsalves on 04-10-2025 Basophils/100 WBC (Bld) 0.4 % 0-1 [facility] Bilirubin directOrdered By: Clifton Gonsalves on 04-10-2025 Bilirubin.direct [Mass/Vol] 0.10 mg/dL 0.00-0.30 [facility] Bilirubin, totalOrdered By: Clifton Gonsalves on 04-10-2025 Bilirubin [Mass/Vol] 0.25 mg/dL 0.00-1.30 [facility] CBC W/Diff, Automatedon Absolute Lymph 2.20 X10 3/uL Normal 0.83-4.51 [facility] Comment on above: Performed By: #### L 500.2500, L501.2450, L501.5200, L100.0100, L500.3400 #### [facility] [address] [place], [address] Absolute Neut 10.9 X10 3/uL High 2.0-7.7 [facility] Comment on above: Performed By: #### L 500.2500, L501.2450, L501.5200, L100.0100, L500.3400 #### [facility] [address] [place], [address] Basophils/100 WBC (Bld) 0.4 % Normal 0-1 [facility] Comment on above: Performed By: #### L 500.2500, L501.2450, L501.5200, L100.0100, L500.3400 #### [facility] [address] [place], [address] Eosinophils/100 WBC (Bld) 1.1 % Normal 0-5 [facility] Comment on above: Performed By: #### L 500.2500, L501.2450, L501.5200, L100.0100, L500.3400 #### [facility] [address] [place], [address] Erythrocyte distribution width (RBC) [Ratio] 12.0 % Normal 11.6-14.6 [facility] Comment on above: Performed By: #### L 500.2500, L501.2450, L501.5200, L100.0100, L500.3400 #### [facility] [address] [place], [address] Hematocrit (Bld) [Volume fraction] 38.9 % Normal 37-47 [facility] Comment on above: Performed By: #### L 500.2500, L501.2450, L501.5200, L100.0100, L500.3400 #### [facility] [address] [place], [address] Hemoglobin (Bld) [Mass/Vol] 13.5 g/dL Normal 12.0-15.0 [facility] Comment on above: Performed By: #### L 500.2500, L501.2450, L501.5200, L100.0100, L500.3400 #### [facility] [address] [place], [address] IG% 0.400 Normal 0.0-0.9 [facility] Comment on above: Result Comment: IG% - Immature Granulocytes (promyelocytes, myelocytes and metamyelocytes) > 1% indicates that a LEFT SHIFT is Present. Performed By: #### L 500.2500, L501.2450, L501.5200, L100.0100, L500.3400 #### [facility] [address] [place], [address] Lymphocytes/100 WBC (Bld) 15.5 % Low 19-41 [facility] Comment on above: Performed By: #### L 500.2500, L501.2450, L501.5200, L100.0100, L500.3400 #### [facility] [address] [place], [address] MCH (RBC) [Entitic mass] 30.3 pg Normal 27.0-32.0 [facility] Comment on above: Performed By: #### L 500.2500, L501.2450, L501.5200, L100.0100, L500.3400 #### [facility] [address] [place], [address] MCHC (RBC) [Mass/Vol] 34.7 g/dL Normal 32-36 [facility] Comment on above: Performed By: #### L 500.2500, L501.2450, L501.5200, L100.0100, L500.3400 #### [facility] [address] [place], [address] MCV (RBC) [Entitic vol] 87.2 fL Normal 81-99 [facility] Comment on above: Performed By: #### L 500.2500, L501.2450, L501.5200, L100.0100, L500.3400 #### [facility] [address] [place], [address] Monocytes/100 WBC (Bld) 5.9 % Normal 0-10 [facility] Comment on above: Performed By: #### L 500.2500, L501.2450, L501.5200, L100.0100, L500.3400 #### [facility] [address] [place], [address] Neutrophils/100 WBC (Bld) 76.7 % High 47-70 [facility] Comment on above: Performed By: #### L 500.2500, L501.2450, L501.5200, L100.0100, L500.3400 #### [facility] [address] [place], [address] Nucleated RBC (Bld) [#/Vol] 0 10*3/uL Normal 0-5 [facility] Comment on above: Performed By: #### L 500.2500, L501.2450, L501.5200, L100.0100, L500.3400 #### [facility] [address] [place], [address] Platelet mean volume (Bld) [Entitic vol] 10.1 fL Normal 6.2-12.0 [facility] Comment on above: Performed By: #### L 500.2500, L501.2450, L501.5200, L100.0100, L500.3400 #### [facility] [address] [place], [address] Platelets (Bld) [#/Vol] 270 10*3/uL Normal 150-450 [facility] Comment on above: Performed By: #### L 500.2500, L501.2450, L501.5200, L100.0100, L500.3400 #### [facility] [address] [place], [address] RBC (Bld) [#/Vol] 4.46 10*6/uL Normal 4.2-5.4 [facility] Comment on above: Performed By: #### L 500.2500, L501.2450, L501.5200, L100.0100, L500.3400 #### [facility] [address] [place], [address] RDW SD 38.7 fl Normal 35.1-43.9 [facility] Comment on above: Performed By: #### L 500.2500, L501.2450, L501.5200, L100.0100, L500.3400 #### [facility] [address] [place], [address] WBC (Bld) [#/Vol] 14.2 10*3/uL High 4.4-11.0 [facility] Comment on above: Performed By: #### L 500.2500, L501.2450, L501.5200, L100.0100, L500.3400 #### [facility] [address] [facility] [place], [address] Carbon dioxide, total [Moles /volume] in Central venous bloodOrdered By: Clifton Gonsalves on 04-10-2025 CO2 [Moles/Vol] 23.5 mmol/L 21.0-32.0 [facility] Chloride assayOrdered By: Glory Gonsalves on 04-10-2025 Chloride [Moles/Vol] 102 mmol/L 98-108 [facility] Emergency Department Summary on 04-10-2025 Emergency Department Summary [facility] Medical Records Department [address] [place] [address] Emergency Department Summary 04/10/25 MR#: [id number] Acct: [id number] Name: KELLY RAMOS Rep #: [id number] : 2005 20 From: Clifton Gonsalves DO PCP: Dr. Wing Flores MD Status:[facility] ER Location: ED HPI History of Present [...] week from surgery she presents for evaluation [facility] Medical History (Updated 04/10/25 @ 05:43 by [...] afebrile and (more content not included)... Normal [facility] Eosinophil percentageOrdered By: Clifton Gonsalves on 04-10-2025 Eosinophils/100 WBC (Bld) 1.1 % 0-5 [facility] Erythrocyte distribution wid th ratioOrdered By: Clifton Gonsalves on 04-10-2025 Erythrocyte distribution width (RBC) [Ratio] 12.0 % 11.6-14.6 [facility] Erythrocyte distribution wid th standard deviationOrdered By: Clifton Gonsalves on 04-10-2025 Erythrocyte distribution width (RBC) [Ratio] 38.7 fl 35.1-43.9 [facility] Glomerular filtration rate ( GFR) estimation/1.73 sq m using serum, plasma, or whole bOrdered By: Clifton Gonsalves on 04-10-2025 GFR/1.73 sq M.predicted among non-blacks MDRD (S/P/Bld) [Vol rate/Area] 98 mL/min/{1.73_m2} >60 [facility] Comment on above: mL/min/1.73m2 CKD-EP I Creatinine Equation (2020) Hematocrit Auto (Bld) [Volum e fraction]Ordered By: Clifton Gonsalves on 04-10-2025 Hematocrit (Bld) [Volume fraction] 38.9 % 37-47 [facility] Hemoglobin measurementOrdere d By: Clifton Gonsalves on 04-10-2025 Hemoglobin (Bld) [Mass/Vol] 13.5 g/dL 12.0-15.0 [facility] Immature granulocytes/100 WB C Auto (Bld)Ordered By: Clifton Gonsalves on 04-10-2025 Immature granulocytes/100 WBC (Bld) 0.400 % 0.0-0.9 [facility] Comment on above: IG% - Immature Granu locytes (promyelocytes, myelocytes and metamyelocytes) > 1% indicates that a LEFT SHIFT is Present. Laboratory - Chemistry and C hemistry - challengeOrdered By: Clifton Gonsalves on 04-10-2025 AST [Catalytic activity/Vol] 23 U/L <32 [facility] Lipaseon 04-10-2025 Lipase [Catalytic activity/Vol] 19 U/L Normal 13-75 [facility] Comment on above: Result Comment: Minal ortez note: LIPASE revised reference range effective 23. New Lipase methodology. Expected to produce lower values than the previous assay method. NEW Reference Range: 13 - 75 U/L Performed By: #### L 500.2500, L501.2450, L501.5200, L100.0100, L500.3400 #### [facility] [address] [facility] [place], [place], [address] Lipase measurementOrdered By : Clifton Gonsalves on 04-10-2025 Lipase [Catalytic activity/Vol] 19 U/L 13-75 [facility] Comment on above: Please note:LIPASE r evised reference range effective 23. New Lipase methodology. Expected to produce lower values than the previous assay method. NEW Reference Range: 13 - 75 U/L Liver Profileon 04-10-2025 Albumin [Mass/Vol] 4.2 g/dL Normal 3.5-5.0 [facility] Comment on above: Performed By: #### L 500.2500, L501.2450, L501.5200, L100.0100, L500.3400 #### [facility] [address] [place], [address] ALK PHOS 80 U/L Normal 35-104 [facility] Comment on above: Performed By: #### L 500.2500, L501.2450, L501.5200, L100.0100, L500.3400 #### [facility] [address] [place], [address] ALT [Catalytic activity/Vol] 15 U/L Normal <=34 [facility] Comment on above: Performed By: #### L 500.2500, L501.2450, L501.5200, L100.0100, L500.3400 #### [facility] [address] [place], [address] AST [Catalytic activity/Vol] 23 U/L Normal <=31 [facility] Comment on above: Performed By: #### L 500.2500, L501.2450, L501.5200, L100.0100, L500.3400 #### [facility] [address] [place], [address] Bilirubin [Mass/Vol] 0.25 mg/dL Normal 0.00-1.30 [facility] Comment on above: Performed By: #### L 500.2500, L501.2450, L501.5200, L100.0100, L500.3400 #### [facility] [address] [place], [address] Bilirubin.direct [Mass/Vol] 0.10 mg/dL Normal 0.00-0.30 [facility] Comment on above: Performed By: #### L 500.2500, L501.2450, L501.5200, L100.0100, L500.3400 #### [facility] [address] [place], [address] Globulin (S) [Mass/Vol] 2.7 g/dL Normal 2.2-4.2 [facility] Comment on above: Performed By: #### L 500.2500, L501.2450, L501.5200, L100.0100, L500.3400 #### [facility] [address] [place], [address] T PROT 6.9 g/dL Normal 5.9-8.4 [facility] Comment on above: Performed By: #### L 500.2500, L501.2450, L501.5200, L100.0100, L500.3400 #### [facility] [address] [place], [address] MCV (mean corpuscular volume ) determinationOrdered By: Clifton Gonsalves on 04-10-2025 MCV (RBC) [Entitic vol] 87.2 fL 81-99 [facility] Magnesiumon 04-10-2025 Magnesium [Mass/Vol] 2.1 mg/dL Normal 1.5-2.2 [facility] Comment on above: Performed By: #### M 100.6796 #### [facility] [address] [place], [address] Magnesium measurement (mass/ volume)Ordered By: Clifton Gonsalves on 04-10-2025 Magnesium (Unsp spec) [Mass/Vol] 2.1 mg/dL 1.5-2.2 [facility] Mean corpuscular hemoglobin (MCH) determinationOrdered By: Clifton Gonsalves on 04-10-2025 MCH (RBC) [Entitic mass] 30.3 pg 27.0-32.0 [facility] Mean corpuscular hemoglobin concentration (MCHC) determinationOrdered By: Clifton Gonsalves on 04-10-2025 MCHC (RBC) [Mass/Vol] 34.7 g/dL 32-36 [facility] Mean platelet volume determi nationOrdered By: Clifton Gonsalves on 04-10-2025 Platelet mean volume (Bld) [Entitic vol] 10.1 fL 6.2-12.0 [facility] Monocyte percentageOrdered B y: Clifton Gonsalves on 04-10-2025 Monocytes/100 WBC (Bld) 5.9 % 0-10 [facility] Neutrophil percentageOrdered By: Clifton Gonsalves on 04-10-2025 Neutrophils/100 WBC (Bld) 76.7 % High 47-70 [facility] Nucleated red blood cell per centageOrdered By: Clifton Gonsalves on 04-10-2025 Nucleated RBC/100 WBC (Bld) [Ratio] 0 % 0-5 [facility] Platelet countOrdered By: Glory Gonsalves on 04-10-2025 Platelets (Bld) [#/Vol] 270 10*3/uL 150-450 [facility] Potassium measurement (mass/ volume)Ordered By: Clifton Gonsalves on 04-10-2025 Potassium (Unsp spec) [Mass/Vol] 3.6 mmol/L 3.3-5.1 [facility] RBC Auto (Bld) [#/Vol]Ordere d By: Clifton Gonsalves on 04-10-2025 RBC (Bld) [#/Vol] 4.46 10*6/uL 4.2-5.4 [facility] Serum creatinine measurement (mass/volume)Ordered By: Clifton Gonsalves on 04-10-2025 Creatinine [Mass/Vol] 0.87 mg/dL 0.70-1.20 [facility] Serum globulin measurementOr dered By: Clifton Gonsalves on 04-10-2025 Globulin (S) [Mass/Vol] 2.7 g/dL 2.2-4.2 [facility] Serum glucose measurement (m ass/volume)Ordered By: Clifton Gonsalves on 04-10-2025 Glucose [Mass/Vol] 98 mg/dL 70-99 [facility] Serum or plasma alanine sprague otransferase (ALT) measurementOrdered By: Clifton Gonsalves on 04-10-2025 ALT [Catalytic activity/Vol] 15 U/L <35 [facility] Serum or plasma albumin jem urement (mass/volume)Ordered By: Clifton Gonsalves on 04-10-2025 Albumin [Mass/Vol] 4.2 g/dL 3.5-5.0 [facility] Serum or plasma alkaline emre sphatase measurementOrdered By: Clifton Gonsalves on 04-10-2025 ALP [Catalytic activity/Vol] 80 U/L 35-104 [facility] Serum or plasma calcium jem urement (mass/volume)Ordered By: Clifton Gonsalves on 04-10-2025 Calcium [Mass/Vol] 9.1 mg/dL 7.6-11.0 [facility] Serum or plasma urea nitroge n measurement (mass/volume)Ordered By: Clifton Gonsalves on 04-10-2025 Urea nitrogen [Mass/Vol] 18 mg/dL 4-19 [facility] Sodium levelOrdered By: Fazal Gonsalves on 04-10-2025 Sodium [Moles/Vol] 139 mmol/L 133-145 [facility] Total proteinOrdered By: Dustin Gonsalves on 04-10-2025 Protein [Mass/Vol] 6.9 g/dL 5.9-8.4 [facility] White blood cell (WBC) count Ordered By: Clifton Gonsalves on 04-10-2025 WBC (Bld) [#/Vol] 14.2 10*3/uL High 4.4-11.0 [facility] HCG ( test) Ql (U)o n 04-04-2025 Interpretation and review of laboratory results Normal [facility] Work Phone: Preg Test, Ur Negative Negative [facility] Work Phone: [facility] Work Phone: BASIC METABOLIC PANEL WITH A NION GAPon 03-25-2025 BUN/CREATININE RATIO SEE NOTE: Normal 6-22 [facility] Comment on above: Result Comment: Not Reported: BUN and Creatinine are within reference range. Performed By: #### 9 6258, 1759 #### [facility] [address], [address] [place] [phone] [employer]: Chilo Matias MD Calcium [Mass/Vol] 9.1 mg/dL Normal 8.6-10.2 [facility] Comment on above: Performed By: #### 9 2227, 1759 #### [facility] [address] [place] [address], [address] [place] [phone] [employer]: Chilo Matias MD Chloride [Moles/Vol] 103 mmol/L Normal 98-110 [facility] Comment on above: Performed By: #### 9 2497, 1759 #### [facility] [address], [address] [place] [address] [employer]: Chilo Matias MD CO2 [Moles/Vol] 24 mmol/L Normal 20-32 [facility] Comment on above: Performed By: #### 9 2497, 1759 #### [facility] [address], [address] [place] [address] [employer]: Chilo Matias MD Creatinine [Mass/Vol] 0.93 mg/dL Normal 0.50-0.[address] [facility] Comment on above: Performed By: #### 9 2497, 1759 #### [facility] [address], [address] [place] [address] [employer]: Chilo Matias MD ELECTROLYTE BALANCE 12 mmol/L (calc) Normal 7-17 [facility] Comment on above: Performed By: #### 9 2497, 1759 #### [facility] [place] [address] Con[employer]: Chilo Matias MD GFR/1.73 sq M.predicted among non-blacks MDRD (S/P/Bld) [Vol rate/Area] 90 mL/min/{1.73_m2} Normal > OR = 60 [facility] Comment on above: Performed By: #### 9 2497, 1759 #### [facility] [place] [address] [employer]: Chilo Matias MD Glucose [Mass/Vol] 78 mg/dL Normal 65-99 [facility] Comment on above: Result Comment: Fasting reference interval Performed By: #### 9 2497, 1759 #### [facility] [place] [address] [employer]: Chilo Matias MD Potassium [Moles/Vol] 4.3 mmol/L Normal 3.5-5.[address] [facility] Comment on above: Performed By: #### 9 2497, 1759 #### [facility] [place] [address] [employer]: Chilo Matias MD Sodium [Moles/Vol] 139 mmol/L Normal 135-146 [facility] Comment on above: Performed By: #### 9 2497, 175 #### [facility] [place] [address] [employer]: Chilo Matias MD Urea nitrogen [Mass/Vol] 19 mg/dL Normal 7-25 [facility] Comment on above: Performed By: #### 9 2497, 175 #### [facility] [place] [address] [employer]: Chilo Matias MD CBC (H/H, RBC, INDICES, WBC, PLT)on 03-25-2025 Erythrocyte distribution width (RBC) [Ratio] 12.4 % Normal 11.0-15.0 [facility] Comment on above: Performed By: #### 9 2497, 175 #### [facility] [place] [address] [employer]: Chilo Matias MD Hematocrit (Bld) [Volume fraction] 44.5 % Normal 35.0-45.0 [facility] Comment on above: Performed By: #### 9 2497, 175 #### [facility] [place] [address] [employer]: Chilo Matias MD Hemoglobin (Bld) [Mass/Vol] 14.8 g/dL Normal 11.7-15.5 [facility] Comment on above: Performed By: #### 9 2497, 1759 #### [facility] [place] [address] [employer]: Chilo Matias MD MCH (RBC) [Entitic mass] 31.0 pg Normal 27.0-33.0 [facility] Comment on above: Performed By: #### 9 2497, 1759 #### [facility] [place] [address] [employer]: Chilo Matias MD MCHC (RBC) [Mass/Vol] 33.3 [...] 9 2497, 1759 #### [facility] [place] [address] [employer]: Chilo Matias MD MCV (RBC) [Entitic vol] 93.1 fL Normal 80.0-100.0 [facility] Comment on above: Performed By: #### 9 2497, 175 #### [facility] [place] [address] [employer]: Chilo Matias MD Platelet mean volume (Bld) [Entitic vol] 10.0 fL Normal 7.5-12.5 [facility] Comment on above: Performed By: #### 9 2497, 175 #### [facility] [place] [address] [employer]: Chilo Matias MD Platelets (Bld) [#/Vol] 227 10*3/uL Normal 140-400 [facility] Comment on above: Performed By: #### 9 2497, 1759 #### [facility] [place] [address] [employer]: Chilo Matias MD RBC (Bld) [#/Vol] 4.78 10*6/uL Normal 3.80-5.10 [facility] Comment on above: Performed By: #### 9 2497, 175 #### [facility] [place] [address] [employer]: Chilo Matias MD WBC (Bld) [#/Vol] 6.1 10*3/uL Normal 3.8-10.8 [facility] Comment on above: Performed By: #### 9 8018, 1759 #### [facility] [place] [address], [address] [place] [address] Conductor [employer]: Chilo Matias MD Blood type and Indirect anti body screen panel (Bld)on 03-23-2025 ABO group Nom (Bld) B [facility] Comment on above: Performed By: #### 3 4532-2 #### DONAL JACQUES ([id number]) [facility] BLOOD [facility] [address] [place] [address] Blood group antibody screen Ql Negative [facility] Comment on above: Performed By: #### 3 4532-2 #### DONAL JACQUES ([id number]) [facility] ([facility]) [address] [place] [address] D Ag Ql (Bld) Positive [facility] Comment on above: Performed By: #### 3 4532-2 #### DONAL JACQUES ([id number]) [facility] BLOOD [facility] ([facility]) [address] [place] [address] CBC (H/H, RBC, INDICES, WBC, PLT)on 12-22-2024 HEMATOCRIT Normal [facility] Comment on above: Performed By: #### 1 789, 35716 #### [facility] [place] [address] , [address] [place] [address] [employer]: Chilo Matias MD HEMOGLOBIN Normal [facility] Comment on above: Performed By: #### 1 833, 65306 #### [facility] [place] [address] [address] , [address] [place] [address] Con[employer]: Chilo Matias MD [facility] Normal [facility] Comment on above: Performed By: #### 1 294, 56147 #### [facility] [address], [address] [place] [address] Con[employer]: Chilo Matias MD MCHC Normal [facility] Comment on above: Performed By: #### 1 759, 19682 #### [facility] [address], [address] [place] [address] [employer]: Chilo Matias MD MCV Normal [facility] Comment on above: Performed By: #### 1 759, 09401 #### [facility] [address], [address] [place] [address] [employer]: Chilo Matias MD MPV Normal [facility] Comment on above: Performed By: #### 1 009, 03348 #### [facility] [address], [address] [place] [address] [employer]: Chilo Matias MD PLATELET COUNT Normal [facility] Comment on above: Performed By: #### 1 349, 79784 #### [facility] [address], [address] [place] [address] Con[employer]: Chilo Matias MD RDW Normal [facility] Comment on above: Performed By: #### 1 553, 23480 #### [facility] [address], [address] [place] [address] [employer]: Chilo Matias MD RED BLOOD CELL COUNT Normal [facility] Comment on above: Performed By: #### 1 148, 12467 #### [facility] [address], [address] [place] [address] Conductor Yard: Chilo Matias MD WHITE BLOOD CELL COUNT Normal [facility] Comment on above: Performed By: #### 1 801, 87403 #### [facility] [address], [address] [place] [address] Conductor Yard: Chilo Matias MD COMPREHENSIVE METABOLIC PANE L W/ANION GAPon 12-22-2024 Albumin [Mass/Vol] 4.4 g/dL Normal 3.6-5.1 [facility] Comment on above: Performed By: #### 1 857, 98169 #### [facility] [address], [address] [place] [address] Con[employer]: Chilo Matias MD ALP [Catalytic activity/Vol] 66 U/L Normal 36-128 [facility] Comment on above: Performed By: #### 1 143, 48493 #### [facility] [place] [address] [employer]: Chilo Matias MD ALT [Catalytic activity/Vol] 13 U/L Normal 5-32 [facility] Comment on above: Performed By: #### 1 899, 96543 #### [facility] [place] [address] [employer]: Chilo Matias MD AST [Catalytic activity/Vol] 18 U/L Normal 12-32 [facility] Comment on above: Performed By: #### 1 764, 44067 #### [facility] [place] [address] [employer]: Chilo Matias MD Bilirubin [Mass/Vol] 0.4 mg/dL Normal 0.2-1.1 [facility] Comment on above: Performed By: #### 1 429, 48990 #### [facility] [place] [address] [employer]: Chilo Matias MD Calcium [Mass/Vol] 9.0 mg/dL Normal 8.9-10.4 [facility] Comment on above: Performed By: #### 1 747, 48879 #### [facility] [place] [address] [employer]: Chilo Matias MD Chloride [Moles/Vol] 106 mmol/L Normal 98-110 [facility] Comment on above: Performed By: #### 1 822, 58850 #### [facility] [place] [address] [employer]: Chilo Matias MD CO2 [Moles/Vol] 27 mmol/L Normal 20-32 [facility] Comment on above: Performed By: #### 1 513, 70926 #### [facility] of [address], [address] [place] [address] Con[employer]: Chilo Matias MD Creatinine [Mass/Vol] 0.83 mg/dL Normal 0.50-0.[address] [facility] Comment on above: Performed By: #### 1 759, 50093 #### [facility] [address], [address] [place] [address] Con[employer]: Chilo Matias MD ELECTROLYTE BALANCE 8 mmol/L (calc) Normal 7-17 [facility] Comment on above: Performed By: #### 1 759, 19654 #### [facility] [address], [address] [place] [address] Con[employer] Yard: Chilo Matias MD GFR/1.73 sq M.predicted among non-blacks MDRD (S/P/Bld) [Vol rate/Area] 104 mL/min/{1.73_m2} Normal > OR = 60 [facility] Comment on above: Performed By: #### 1 038, 31605 #### [facility] [place] [address] Con[employer]: Chilo Matias MD Glucose [Mass/Vol] 77 mg/dL Normal 65-99 [facility] Comment on above: Result Comment: Fasting reference interval Performed By: #### 1 803, 52737 #### [facility] [place] [address] Con[employer]: Chilo Matias MD Potassium [Moles/Vol] 4.3 mmol/L Normal 3.8-5.[address] [facility] Comment on above: Performed By: #### 1 519, 10583 #### [facility] [place] [address] [employer]: Chilo Matias MD Protein [Mass/Vol] 6.5 g/dL Normal 6.3-8.2 [facility] Comment on above: Performed By: #### 1 513, 14069 #### [facility] [address], [address] [place] [address] Conductor Yard: Chilo Matias MD Sodium [Moles/Vol] 141 mmol/L Normal 135-146 [facility] Comment on above: Performed By: #### 1 759, 40143 #### [facility] [address], [address] [place], [place] [phone] Conductor Yard: Chilo Matias MD Urea nitrogen [Mass/Vol] 15 mg/dL Normal 7-20 [facility] Comment on above: Performed By: #### 1 759, 32849 #### [facility] [place] [address], [address] [place], [place] [address] Conductor Yard: Chilo Matias MD Blood type and Indirect anti body screen panel (Bld)on 12-21-2024 ABO group Nom (Bld) B [facility] Comment on above: Performed By: #### 3 4532-2 #### DONAL JACQUES ([id number]) [facility] [address] [place] [address] Blood group antibody screen Ql Negative [facility] Comment on above: Performed By: #### 3 4532-2 #### DONAL JACQUES ([id number]) [facility] BLOOD [facility] ([facility]) [address] [place] [address] [place] D Ag Ql (Bld) Positive [facility] Comment on above: Performed By: #### 3 4532-2 #### DONAL JACQUES ([id number]) [facility] ([facility]) [address] [place] [address] CNOVon 11-18-2024 CNOV Office Visit ([facility]) KELLY RAMOS ([id number]) 5 F Date Time Provider Department 11/18/24 4:45 PM DAVID HOPKINS [facility] During your visit today, we recorded the following information about you: Temperature Pulse Respiration Blood pressure 97.6 degrees 76/minute 18/minute 131/75 Weight Last Period 58 kg 11/07/24 David Hopkins PA-C 11/18/2024 5:31 PM Signed This note was created using [employer]. Subjective Kelly Ramos is a 19 year old female. Patient is a 19-year-old female who complains of congestion and cough that she has been experiencing for the past 6 days. Patient also reports mild sore throat that she has had for the past 3 days. Patient does attend [employer] and does live in the dormitory. [...] BENZONATATE 100 MG CAPSULE David ANGELA Hopkins Allergies As of Date: 11/18/2024 (No Known Allergies) Date Reviewed: 11/18/2024 Reviewed by: Paige Cunningham LPN - Fully Assessed Reason for Visit: Cough [28] Cmt: Cough, chest congestion, productive green, thick phlegm, heaviness in chest, low grade fever, x 6 days Ear Pain [817] Cmt: Bilat ear pain R is worse Primary Visit Diagnosis:Viral illness [B34.9] Order(s):STREP A MOLECULAR (POC) [6054766] Order #: [id number]. #:[id number] predniSONE (DELTASONE) 20 mg tabletTake 1 tablet [...] days. Level of Service: OFFICE/OUTPATIENT ESTABLISHED MOD MDM 30 MIN [16426] Encounter Status:Closed by DAVID HOPKINS on 11/18/24 Normal [facility] STREP A MOLECULAR (POC)on Procedural Control Valid [facility] Strep A (POCT) Negative Negative [facility] CNOVon 10-22-2024 CNOV Office Visit ([facility]) KELLY RAMOS ([id number]) 5 F Date Time Provider Department 10/22/24 11:30 AM [facility] During your visit today, we recorded the following information about you: Temperature Pulse Respiration Blood pressure 98.2 degrees 82/minute 18/minute 108/68 Weight Last Period 59.5 kg 10/08/24 Jair Riley APRN.[employer]K PLANT MANAGER 10/22/2024 11:31 AM Signed Subjective HPI Nontoxic-appearing [...] of care. This note was generated using [employer] software. It may contain errors in wording, punctuation, or spelling. Jair Riley APRN.BULK PLANT MANAGER Allergies As of Date: 10/22/2024 (No Known Allergies) Date Reviewed: 10/22/2024 Reviewed by: Jair Riley APRN.BULK PLANT MANAGER - Fully Assessed Reason for Visit: Cough [...] days. Problem (more content not included)... Normal [facility] CNOV Office Visit ([facility]) KELLY RAMOS ([id number]) 5 F Date Time Provider Department 10/22/24 11:00 AM [facility] During your visit today, we recorded the following information about you: Referring Provider: SELF [200] Allergies As of Date: 10/22/2024 (No Known Allergies) Date Reviewed: 10/22/2024 Reviewed by: Jair Riley APRN.BULK PLANT MANAGER - Fully Assessed Reason for Visit: Appointment Cancelled [1023] Primary Visit Diagnosis:APPOINTMEN T CANCELLED Prescriptions as of 10/26/2024 - doxycycline (VIBRA-TABS) 100 mg tablet Take 1 tablet by mouth two times a day for 5 days. Problem List As Of Date: 10/22/2024 (None) Encounter Status:Closed by MEGA JOLLY CMA on 10/26/24 Normal [facility] Progress Noteon 04-06-2024 Cylinder Sander Operator Authentication Interface Message Text [facility] PEDI[facility]IC SURGERY CONSULT Name: Kelly [...] polypectomy) performed by Piper Lin MD at [facility] OR RECTAL PROLAPSE REPAIR TONSILLECTOMY AND [...] lives with the her mother School: [employer] REVIEW OF SYSTEMS: History obtained from Mother [...] and the situation. IMAGING: FL Colon Order: [id number] Status: Final result Visible to patient: Yes (seen) Next appt: 07/26/2024 at 09:00 AM in Gastroenterology (Piper Lin MD) Dx: Rectal prolapse 0 Result Notes Details Reading Physician Reading Date Result Priority Josue Daley MD [phone] 02/25/2024 Kelton Zhou MD [phone] 02/25/2024 Narrative & Impression CLINICAL HISTORY: Recurrent Rectal prolapse COMPARISON: None TECHNIQUE: Low-dose fluoroscopy (3 frames/sec) was used for evaluation of the colon. Fluoroscopy time: 1.1 minutes Estimated Dose area product: 310.46 uGy-m2. Contrast: Dilute Gastrografin (diluted 1:5 with water) administered per rectum by gravity drip. FINDINGS: The limited fluoroscopic refrigerating machine operator image shows bowel gas in a nonobstructive patte (more content not included)... Normal [facility] PATHOLOGY SURGICAL LAB TESTo n 03-23-2024 CASE REPORT Normal [facility] Comment on above: Order Comment: Relea se to patient->Automatic (5 days after final result) Result Comment: Surg ical Pathology Report Case: [id number] Authorizing Provider: Piper Lin MD Collected: 03/23/2024 0935 Ordering Location: [facility] MAIN OR Received: 03/23/2024 1300 Pathologist: Ilana Mccormack DO Specimens: A) - Terminal Ileum, TERMINAL ILEUM B) - Right Colon, RIGHT COLON C) - Left Colon, LEFT COLON D) - Rectosigmoid, RECTOSIGMOID Performed By: #### 7 091 #### FRANCIS Galan ([id number]) [facility] (Zachary Pre[address] Clinical Information Normal [facility] Comment on above: Order Comment: Relea se to patient->Automatic (5 days after final result) Result Comment: Rect al prolapse. Performed By: #### 7 786 #### FRANCIS Galan ([id number]) [facility] ([employer]) [address] Final Diagnosis Normal [facility] Comment on above: Order Comment: Relea [...] By: #### 7 741 #### FRANCIS Galan ([id number]) [facility] ([facility]) [address] Gross Description Normal [facility] Comment on above: Order Comment: Relea [...] By: #### 7 741 #### FRANCIS Galan ([id number]) [facility] ([employer]) [address] Microscopic Examination Microscopic slid es reviewed. Normal [facility] Comment on above: Order Comment: Relea se to patient->Automatic (5 days after final result) Performed By: #### 7 741 #### FRANCIS ANTONIO W ([id number]) [facility] (BEAKER) [address] POCT urine HCGOrdered By: As savana Onofre on 03-23-2024 Clear Background *Present [facility] Control Line *Present [facility] HCG ( test) Ql (U) Negative Negative [facility] LOT # [id number] [facility] [place] COLONon 02-25-2024 [place] COLON CLINICAL HISTORY: Recurrent Rectal prolapse COMPARISON: None TECHNIQUE: Low-dose fluoroscopy (3 frames/sec) was used for evaluation of the colon. Fluoroscopy time: 1.1 minutes Estimated Dose area product: 310.46 uGy-m2. Contrast: Dilute Gastrografin (diluted 1:5 with water) administered per rectum by gravity drip. FINDINGS: The limited fluoroscopic refrigerating machine operator image shows bowel gas in a nonobstructive [...] however, this study is not performed at [facility]). Created by resident and approved This report has been created using voice recognition software Signed by: Dr. Josue Daley at 02/25/2024 15:[address] [facility] RF Colon Views W contrast IA on 02-25-2024 IMPRESSION: 1. Normal contrast enema findings. 2. The rectal prolapse is not assessed dynamically with this examination. Defecography may be helpful for dynamic assessment (noting, however, this study is not performed at [facility]). Created by resident and approved This report has been created using voice recognition software [facility] CLINICAL HISTORY: Recurrent Rectal prolapse COMPARISON: None TECHNIQUE: Low-dose fluoroscopy (3 frames/sec) was used for evaluation of the colon. Fluoroscopy time: 1.1 minutes Estimated Dose area product: 310.46 uGy-m2. Contrast: Dilute Gastrografin (diluted 1:5 with water) administered per rectum by gravity drip. FINDINGS: The limited fluoroscopic refrigerating machine operator image shows bowel gas in a nonobstructive [...] within the colonic and distal ileal loops. [facility] Josue Daley MD - 02/25/2024 CLINICAL HISTORY: Recurrent Rectal prolapse COMPARISON: None TECHNIQUE: Low-dose fluoroscopy (3 frames/sec) was used for evaluation of the colon. Fluoroscopy time: 1.1 minutes Estimated Dose area product: 310.46 uGy-m2. Contrast: Dilute Gastrografin (diluted 1:5 with water) administered per rectum by gravity drip. FINDINGS: The limited fluoroscopic refrigerating machine operator image shows bowel gas in a nonobstructive [...] however, this study is not performed at [facility]). Created by resident and approved This report has been created using voice recognition software [facility] Radiology Study observation (narrative) [facility] RF Colon Views W contrast IA Ordered By: Josue Daley on 02-25-[address] [facility] Work Phone: Endomysial IgA Abon 01-26-20 24 Endomysial IgA Ab Negative Normal Negative [facility] Comment on above: Order Comment: Relea se to patient->Automatic [id number]&Blood Result Comment: A ne gative serum IgA [...] as indicated by the Celiac Disease Comprehensive [place] ([place] Test [facility] Code CDCOM). In addition serum IgA endomysial antibody may also be negative in gluten-sensitive patients (with celiac disease, dermatitis herpetiformis or other gluten-sensitive disorders), who adhere to a strict gluten-free diet. ADDITIONAL INFORMATION This test has been modified from the terminal gauger's instructions. Its performance characteristics were determined by [facility] in a manner consistent with CLIA requirements. This test has not been cleared or approved by the U.S. Food and Drug Administration. Test Performed by: [place] [address] Copy Lathe Tender: Ramirez Alatorre M.D. Ph.D.; CLIA# [id number] Performed By: #### E NDOM #### [address] [address] Transglutaminase IgAon 01-24 Transglutaminase IgA 2.00 AU/mL Normal 0.00-8.99 [facility] Comment on above: Order Comment: Relea se to patient->Automatic [id number]&Blood Result Comment: NEGATIVE Interpretation of Results: Negative: <9.0 AU/mL Equivocal: 9.0-16.0 AU/mL Positive: >16.0 AU/mL Method: The anti-tTG antibodies were determined using an TONY-based commercially available kit ([facility]TG [facility] Performed By: #### T RGLA #### [facility] [address] [place] [address] IgAon 01-21-2024 Immunoglobulin A 196 mg/dL 61 - 348 mg/dL [facility] Immunoglobulin Aon Immunoglobulin A 196 mg/dL Normal 61-[address] [facility] Comment on above: Order Comment: Relea se to patient->Automatic [id number]&Blood Performed By: #### I GA #### [facility] [address] [place] [address] No Panel Informationon 01-20 Release to patient->Automatic [facility] Progress Noteon 01-21-2024 Cylinder Sander Operator Authentication Interface Message Text Assessment Kelly is [...] Complaint: Rectal Problems She is unaccompanied. No supervisor modern languages was used. Initial History ABD pain - [...] loss Activity - No issues ---1st year; [place] Fevers - No issues Rashes - No [...] no cyanosis. Piper Lin MD P - [phone] 01/21/[address] [facility] TSH with Reflex to T4, Freeo n 01-21-2024 TSH with reflex to T4, Free 1.[address] [facility] TSH with reflex T4FRon 01-20 TSH with reflex T4FR 1.270 uIU/mL Normal 0.500-4.300 [facility] Comment on above: Order Comment: Relea se to patient->Automatic [id number]&Blood Performed By: #### T SHR #### [place] [address] No Panel InformationOrdered By: Neo Jean on 10-05-2023 Endomysial IgA Antibody Negative Negative W [facility] Serum IgA measurement (units /volume)Ordered By: Neo Jean on 10-05-2023 IgA Qn (S) 140 mg/dL 87-352 [facility] Comment on above: Performed at: [address] [id number] Director: Neo Hewitt PhD, Phone: [phone] Serum or plasma C reactive p rotein measurement (mass/volume)Ordered By: Neo Jean on 10-05-2023 CRP [Mass/Vol] mg/L 0.0-3.0 [facility] Comment on above: C-Reactive Protein ( CRP) provides useful information for thediagnosis, therapy and monitoring of inflammatory processesand associated diseases. For the evaluation of Relative Riskfor Cardiovascular Disease, a High Sensitivity CRP (HSCRP)should be ordered. Serum tissue transglutaminas e IgA antibody assay (units/volume)Ordered By: Neo Jean on 10-05-2023 tTG IgA Qn (S) <2 U/mL 0-3 [facility] Comment on above: Negative 0 - 3 [...] Updated: 03-Jul-2023 17:18 by Ollie Poe (PAC) [facility] Absolute lymphocyte counton 10-06-2022 Lymphocytes Auto (Unsp spec) [#/Vol] 2.62 10*3/uL 0.83-4.51 [facility] Work Phone: Basophil percentageon 2021 Basophils/100 WBC (Bld) 0.4 % 0-1 W [facility] Work Phone: Bilirubin [Mass/Vol] 0.20 mg/dL 0.20-1.00 [facility] Work Phone: Comment on above: For patients on eltr ombopag therapy, use of Dimension [place] TBIL is not recommended. Chloride [Moles/Vol] 105 mmol/L 98-107 [facility] Work Phone: Eosinophils/100 WBC (Bld) 1.5 % 0-3 [facility] Work Phone: Glucose [Mass/Vol] 82 mg/dL 74-106 [facility] Work Phone: Neutrophils (Bld) [#/Vol] 4.0 10*3/uL 2.0-7.7 [facility] Work Phone: Neutrophils/100 WBC (Bld) 54.1 % 34-64 [facility] Work Phone: Potassium [Moles/Vol] 4.3 mmol/L 3.5-5.1 [facility] Work Phone: Protein [Mass/Vol] 6.8 g/dL 6.4-8.2 [facility] Work Phone: Sodium [Moles/Vol] 139 mmol/L 136-145 [facility] Work Phone: WBC (Bld) [#/Vol] 7.5 10*3/uL 4.5-13.0 [facility] Work Phone: Blood erythrocytes count (nu mber/volume)on 10-06-2022 RBC (Bld) [#/Vol] 4.31 10*6/uL 4.1-4.8 [facility] Phone: Blood hemoglobin measurement (mass/volume)on 10-06-2022 Hemoglobin (Bld) [Mass/Vol] 13.5 g/dL 12.0-15.0 [facility] Work Phone: Blood lymphocytes/100 leukoc yteson 10-06-2022 Lymphocytes/100 WBC (Bld) 35.2 % 25-45 [facility] Work Phone: Blood monocytes/100 leukocyt eson 10-06-2022 Monocytes/100 WBC (Bld) 8.5 % 3-6 [facility] Work Phone: Blood platelet mean volumeon 10-06-2022 Platelet mean volume (Bld) [Entitic vol] 10.4 fL 6.2-12.0 [facility] Work Phone: Determination of erythrocyte mean corpuscular volume (MCV)on 10-06-2022 MCV (RBC) [Entitic vol] 92.1 fL 78-96 [facility] Work Phone: Hematocrit Auto (Bld) [Volum e fraction]on 10-06-2022 Hematocrit (Bld) [Volume fraction] 39.7 % 37-46 [facility] Work Phone: Laboratory - Chemistry and C hemistry - challengeon 10-06-2022 ALP [Catalytic activity/Vol] 83 U/L 47-119 [facility] Work Phone: ALT [Catalytic activity/Vol] 34 U/L 13-56 [facility] Work Phone: CO2 [Moles/Vol] 26.0 mmol/L 21.0-32.0 [facility] Work Phone: Globulin (S) [Mass/Vol] 2.9 g/dL 2.2-4.2 [facility] Work Phone: Urea nitrogen/Creatinine [Mass ratio] 25.8 mg/mg 10-20 [facility] Work Phone: Laboratory - Hematology and Cell countson 10-06-2022 Erythrocyte distribution width (RBC) [Entitic vol] 40.9 fL 35.1-43.9 [facility] Work Phone: Erythrocyte distribution width (RBC) [Ratio] 11.9 % 11.6-14.6 [facility] Work Phone: Immature granulocytes/100 WBC (Bld) 0.300 % 0.0-0.9 [facility] Work Phone: Comment on above: IG% - Immature Granu locytes (promyelocytes, myelocytes and metamyelocytes) > 1% indicates that a LEFT SHIFT is Present. MCH (RBC) [Entitic mass] 31.3 pg 25.0-35.0 [facility] Work Phone: Nucleated RBC/100 WBC (Bld) [Ratio] 0 % 0-5 [facility] Work Phone: MCHC Auto (RBC) [Mass/Vol]on 10-06-2022 MCHC (RBC) [Mass/Vol] 34.0 g/dL 32-36 [facility] Work Phone: No Panel Informationon 10-06 Estimated GFR (MDRD) Amer [facility] Work Phone: Comment on above: Test not performedAf rican [place] GFR Calc Estimated GFR (MDRD) Non-Af Amer TNP [facility] Work Phone: Comment on above: Test not performedNo n- GFR Calc Thyroid Stimulating Hormone (TSH) 1.79 uIU/mL 0.358-3.74 [facility] Work Phone: Vitamin D 25-Hydroxy 27.9 ng/mL [facility] Work Phone: Comment on above: Vitamin D 25(OH) Sta tus Range Deficiency <20 ng/mL (50nmol/L) Insufficiency 20 - 30 ng/mL (50 - 75 nmol/L) Sufficiency 30 - 100 ng/mL (75 - 250 nmol/L) Toxicity >100 ng/mL (>250 nmol/L) Platelets bldon 10-06-2022 Platelets (Bld) [#/Vol] 246 10*3/uL 150-450 [facility] Work Phone: Serum or plasma albumin jem urement (mass/volume)on 10-06-2022 Albumin [Mass/Vol] 3.9 g/dL 3.2-5.0 [facility] Work Phone: Serum or plasma albumin/glob ulin mass ratioon 10-06-2022 Albumin/Globulin [Mass ratio] 1.3 {ratio} 0.9-2.4 [facility] Work Phone: Serum or plasma calcium jem urement (mass/volume)on 10-06-2022 Calcium [Mass/Vol] 8.4 mg/dL 8.5-10.1 [facility] Work Phone: Serum or plasma creatinine m easurement (mass/volume)on 10-06-2022 Creatinine [Mass/Vol] 0.81 mg/dL 0.55-1.02 [facility] Work Phone: Comment on above: The validity of the calculated GFR & GFRAA in patients over 70 years has not been determined. Clinical correlation is essential. Serum or plasma urea nitroge n measurement (mass/volume)on 10-06-2022 Urea nitrogen [Mass/Vol] 21 mg/dL 7-18 [facility] Work Phone: Thin prep Papanicolaou smear with manual screeningon 10-06-2022 Thin prep Papanicolaou smear with manual screening 27 U/L 15-37 [facility] Work Phone: Thin prep Papanicolaou smear with manual screening 8 5-15 [facility] Work Phone: Vital Signs Date Time Vital Sign Value Performing Clinician Facility 05-16-2025 09:05-0400 Body height 157.[address] Wing Flores MD Work Phone: [facility] 05-16-2025 09:05-0400 Body mass index (BMI) [Ratio] 23 kg/m2 Dr. Wing Flores MD Work Phone: [facility] 05-16-2025 09:05-0400 Body weight 57.[address] Wing Flores MD Work Phone: [facility] 05-11-2025 22:33-0400 Body temperature 98.3 [degF] Dr. Wing Flores MD Work Phone: [facility] 05-11-2025 22:33-0400 Diastolic blood pressure 60 mm[Hg] Dr. Wing Flores MD Work Phone: [facility] 05-11-2025 22:33-0400 Heart rate 75 /min Dr. Wing Flores MD Work Phone: [facility] 05-11-2025 22:33-0400 Respiratory rate 18 /min Dr. iWng Flores MD Work Phone: [facility] 05-11-2025 22:33-0400 SaO2% (BldA) [Mass fraction] 99 % Dr. Wing Flores MD Work Phone: [facility] 05-11-2025 22:33-0400 Systolic blood pressure 118 mm[Hg] Dr. Wing Flores MD Work Phone: [facility] 05-11-2025 18:28-0400 Body height 157.[address] Wing Flores MD Work Phone: [facility] 05-11-2025 18:28-0400 Body mass index (BMI) [Ratio] 22.4 kg/m2 Dr. Wing Flores MD Work Phone: [facility] 05-11-2025 18:28-0400 Body weight 55.[address] Wing Flores MD Work Phone: [facility] 04-19-2025 10:20-0400 Body mass index (BMI) [Ratio] 22.5 kg/m2 Dena Todd MD Work Phone: [facility] 04-19-2025 10:20-0400 Body temperature 96.3 [degF] Dena Todd MD Work Phone: [facility] 04-19-2025 10:20-0400 Body weight 55.79 kg Dena Todd MD Work Phone: [facility] 04-19-2025 10:20-0400 Diastolic blood pressure 67 mm[Hg] Dena Todd MD Work Phone: [facility] 04-19-2025 10:20-0400 Heart rate 72 /min Dena Todd MD Work Phone: [facility] 04-19-2025 10:20-0400 SaO2% (BldA) [Mass fraction] 99 % Dena Todd MD Work Phone: [facility] 04-19-2025 10:20-0400 Systolic blood pressure 101 mm[Hg] Dena Todd MD Work Phone: [facility] 04-13-2025 21:24-0400 Body temperature 98 [degF] Dr. Wing Flores MD Work Phone: [facility] 04-13-2025 21:24-0400 Diastolic blood pressure 70 mm[Hg] Dr. Wing Flores MD Work Phone: [facility] 04-13-2025 21:24-0400 Heart rate 68 /min Dr. Wing Flores MD Work Phone: [facility] 04-13-2025 21:24-0400 Respiratory rate 15 /min Dr. Wing Flores MD Work Phone: 5(224)538-358145 [place] [address] 04-13-2025 21:24-0400 SaO2% (BldA) [Mass fraction] 99 % Dr. Wing Flores MD Work Phone: 6(576)265-372845 [place] [address] 04-13-2025 21:24-0400 Systolic blood pressure 122 mm[Hg] Dr. Wing Flores MD Work Phone: 5(413)187-094945 [place] [address] 04-13-2025 19:34-0400 Body height 157.[address] Wing Flores MD Work Phone: 4(104)719-090621 [place] [address] 04-10-2025 06:32-0400 Body temperature 97.6 [degF] Dr. Wing Flores MD Work Phone: 7(773)285-938721 [place] [address] 04-10-2025 06:32-0400 Diastolic blood pressure 70 mm[Hg] Dr. Wing Flores MD Work Phone: 9(167)379-398521 [place] [address] 04-10-2025 06:32-0400 Heart rate 85 /min Dr. Wing Flores MD Work Phone: 3(391)940-098021 [place] [address] 04-10-2025 06:32-0400 Respiratory rate 16 /min Dr. Wing Flores MD Work Phone: 4(783)431-834921 [place] [address] 04-10-2025 06:32-0400 SaO2% (BldA) [Mass fraction] 96 % Dr. Wing Flores MD Work Phone: 8(525)257-253845 [place] [address] 04-10-2025 06:32-0400 Systolic blood pressure 118 mm[Hg] Dr. Wing Flores MD Work Phone: 8(110)920-593521 [place] [address] 04-10-2025 02:36-0400 Body height 157.[address] Wing Flores MD Work Phone: 4(627)366-251221 [place] [address] 04-10-2025 02:36-0400 Body mass index (BMI) [Ratio] 24.5 kg/m2 Dr. Wing Flores MD Work Phone: [facility] 04-10-2025 02:36-0400 Body weight 60.[address] Wing Flores MD Work Phone: [facility] 04-04-2025 14:21-0400 Body temperature 97.5 [degF] Dena Todd MD Work Phone: [facility] 04-04-2025 14:21-0400 Diastolic blood pressure 56 mm[Hg] Dena Todd MD Work Phone: [facility] 04-04-2025 14:21-0400 Heart rate 88 /min Dena Todd MD Work Phone: [facility] 04-04-2025 14:21-0400 Respiratory rate 16 /min Dena Todd MD Work Phone: [facility] 04-04-2025 14:21-0400 SaO2% (BldA) [Mass fraction] 98 % Dena Todd MD Work Phone: [facility] 04-04-2025 14:21-0400 Systolic blood pressure 115 mm[Hg] Dena Todd MD Work Phone: [facility] 04-04-2025 06:53-0400 Body height 157.5 cm Dena Todd MD Work Phone: [facility] 04-04-2025 06:53-0400 Body mass index (BMI) [Ratio] 23.59 kg/m2 Dena Todd MD Work Phone: [facility] 04-04-2025 06:53-0400 Body weight 58.5 kg Dena Todd MD Work Phone: [facility] 03-02-2025 17:21-0400 Body temperature 98.29 [degF] Karime Ross DIRECTOR OF PROCUREMENT-BULK PLANT MANAGER Work Phone: [facility] 03-02-2025 17:21-0400 Diastolic blood pressure 73 mm[Hg] Karime Ross DIRECTOR OF PROCUREMENT-BULK PLANT MANAGER Work Phone: [facility] 03-02-2025 17:21-0400 Heart rate 90 /min Karime Ross DIRECTOR OF PROCUREMENT-BULK PLANT MANAGER Work Phone: [facility] 03-02-2025 17:21-0400 Respiratory rate 15 /min Karime Ross DIRECTOR OF PROCUREMENT-BULK PLANT MANAGER Work Phone: [facility] 03-02-2025 17:21-0400 SaO2% (BldA) [Mass fraction] 98 % Karime Ross DIRECTOR OF PROCUREMENT-BULK PLANT MANAGER Work Phone: [facility] 03-02-2025 17:21-0400 Systolic blood pressure 109 mm[Hg] Karime Ross DIRECTOR OF PROCUREMENT-BULK PLANT MANAGER Work Phone: [facility] 11-18-2024 16:50-0500 Body temperature 97.59 [degF] David Clutter PA-C Work Phone: [facility] 11-18-2024 16:50-0500 Body weight 58 kg David Clutter PA-C Work Phone: [facility] 11-18-2024 16:50-0500 Diastolic blood pressure 75 mm[Hg] David Clutter PA-C Work Phone: [facility] 11-18-2024 16:50-0500 Heart rate 76 /min David Clutter PA-C Work Phone: [facility] 11-18-2024 16:50-0500 Respiratory rate 18 /min David Clutter PA-C Work Phone: [facility] 11-18-2024 16:50-0500 SaO2% (BldA) [Mass fraction] 99 % David Clutter PA-C Work Phone: [facility] 11-18-2024 16:50-0500 Systolic blood pressure 131 mm[Hg] David Clutter PA-C Work Phone: [facility] 10-22-2024 11:17-0500 Body temperature 98.2 [degF] [facility] DIRECTOR OF PROCUREMENT.BULK PLANT MANAGER Work Phone: [facility] 10-22-2024 11:17-0500 Body weight 59.5 kg Jair Riley DIRECTOR OF PROCUREMENT.BULK PLANT MANAGER Work Phone: [facility] 10-22-2024 11:17-0500 Diastolic blood pressure 68 mm[Hg] Jair Riley DIRECTOR OF PROCUREMENT.BULK PLANT MANAGER Work Phone: [facility] 10-22-2024 11:17-0500 Heart rate 82 /min Jair Riley DIRECTOR OF PROCUREMENT.BULK PLANT MANAGER Work Phone: [facility] 10-22-2024 11:17-0500 Respiratory rate 18 /min [facility] DIRECTOR OF PROCUREMENT.BULK PLANT MANAGER Work Phone: [facility] 10-22-2024 11:17-0500 SaO2% (BldA) [Mass fraction] 99 % [facility] DIRECTOR OF PROCUREMENT.BULK PLANT MANAGER Work Phone: [facility] 10-22-2024 11:17-0500 Systolic blood pressure 108 mm[Hg] [facility] DIRECTOR OF PROCUREMENT.BULK PLANT MANAGER Work Phone: [facility] 10-12-2024 09:05-0500 Body height 157.5 cm Dena Todd MD Work Phone: [facility] 10-12-2024 09:05-0500 Body mass index (BMI) [Ratio] 23.23 kg/m2 Dena Todd MD Work Phone: [facility] 10-12-2024 09:05-0500 Body temperature 96.8 [degF] Dena Todd MD Work Phone: [facility] 10-12-2024 09:05-0500 Body weight 57.61 kg Dena Todd MD Work Phone: [facility] 10-12-2024 09:05-0500 Diastolic blood pressure 68 mm[Hg] Dena Todd MD Work Phone: [facility] 10-12-2024 09:05-0500 Heart rate 75 /min Dena Todd MD Work Phone: [facility] 10-12-2024 09:05-0500 Respiratory rate 18 /min Dena Todd MD Work Phone: [facility] 10-12-2024 09:05-0500 Systolic blood pressure 106 mm[Hg] Dena Todd MD Work Phone: [facility] 03-23-2024 11:15-0400 Body temperature 98.2 [degF] Piper Lin MD Work Phone: [facility] 03-23-2024 11:15-0400 Diastolic blood pressure 63 mm[Hg] Piper Lin MD Work Phone: [facility] 03-23-2024 11:15-0400 Heart rate 67 /min Piper Lin MD Work Phone: [facility] 03-23-2024 11:15-0400 Respiratory rate 16 /min Piper Lin MD Work Phone: [facility] 03-23-2024 11:15-0400 SaO2% (BldA) [Mass fraction] 100 % Piper Lin MD Work Phone: [facility] 03-23-2024 11:15-0400 Systolic blood pressure 102 mm[Hg] Piper Lin MD Work Phone: [facility] 03-23-2024 08:34-0400 Body height 157.7 cm Piper Lin MD Work Phone: [facility] 03-23-2024 08:34-0400 Body mass index (BMI) [Ratio] 23.16 kg/m2 Piper Lin MD Work Phone: [facility] 03-23-2024 08:34-0400 Body weight 57.6 kg Piper Lin MD Work Phone: [facility] Encounters Encounter Date Encounter Type Care Provider Facility Start: 06-12-2025 End: 06-12-[address] Wing Flores MD Work Phone: -[facility] Start: 06-12-2025 End: 06-12-2025 Patient encounter procedure Xavi Manjarrez DO -[facility] Work Phone: Start: 06-08-2025 ambulatory Wing Flores Facility:[facility] Start: 06-08-2025 Registered Recurring Meg ANGULO -Physical Therapy Work Phone: Start: 05-16-2025 End: 05-16-[address] Gold Ring MD -[facility] Start: 05-16-2025 End: 05-16-[address] Wing Flores MD Work Phone: -[facility] Start: 05-11-2025 End: 05-11-2025 Emergency department patient visit Dr. Wing Flores MD Work Phone: -Emergency Department Work Phone: Start: 04-19-2025 End: 04-19-2025 Postop follow up visit related to original px Dena Todd MD Work Phone: [facility] Comment on above: Rectal prolapse (Deborah molly Dx); Hypermobility syndrome Start: 04-19-2025 End: 04-19-2025 ambulatory [facility] Start: 04-18-2025 End: 04-18-2025 Subsequent hospital visit by physician Rad External Film EF RAD EXTERNAL FILM VIRTUAL Comment on above: Arrived Start: 04-18-2025 End: 04-18-2025 ambulatory [facility] Start: 04-13-2025 End: 04-13-2025 Emergency department patient visit Dr. Wing Flores MD Work Phone: -Emergency Department Work Phone: Start: 04-11-2025 End: 04-11-2025 Subsequent hospital visit by physician Rad External Film EF RAD EXTERNAL FILM VIRTUAL Comment on above: Arrived Start: 04-11-2025 End: 04-11-2025 ambulatory [facility] Start: 04-10-2025 End: 04-10-2025 Emergency department patient visit Dr. Wing Flores MD Work Phone: -Emergency Department Work Phone: Start: 04-04-2025 End: 04-04-2025 ambulatory [facility] Start: 04-04-2025 End: 04-04-2025 Subsequent hospital visit by physician Dena Todd MD Work Phone: [facility] [place] Comment on above: Rectal prolapse (Deborah molly Dx) Start: 03-23-2025 End: 03-23-2025 [place] Start: 03-02-2025 End: 03-02-2025 Patient encounter procedure Karime Ross DIRECTOR OF PROCUREMENT-BULK PLANT MANAGER Work Phone: [facility] Comment on above: Gastroenteritis (Deborah molly Dx); Nausea Start: 03-02-2025 End: 03-02-2025 [facility] Start: 12-21-2024 End: 12-21-2024 [place] Start: 11-18-2024 End: 11-18-2024 [facility] Facility:[facility] Start: 11-18-2024 End: 11-18-2024 Office outpatient visit 25 minutes David Hopkins PA-C Work Phone: [facility] Comment on above: Viral illness (Prima ry Dx) Start: 10-22-2024 End: 10-22-2024 Office outpatient visit 25 minutes Jair Riley DIRECTOR OF PROCUREMENT.BULK PLANT MANAGER Work Phone: [facility] Comment on above: Lower respiratory tr act infection (Primary Dx) Start: 10-22-2024 End: 10-22-2024 ambulatory [facility] Facility:[facility] Start: 10-12-2024 End: 10-12-2024 ambulatory DENA TODD [facility] Start: 10-12-2024 End: 10-12-2024 Office outpatient new 45 minutes Dena Todd MD [facility] Comment on above: Rectal prolapse (Deborah molly Dx); Hypermobility syndrome Start: 07-27-2024 End: 07-27-2024 ambulatory [facility] Start: 06-29-2024 End: 06-29-2024 ambulatory [facility] Start: 06-22-2024 End: 06-22-2024 ambulatory [facility] Start: 04-06-2024 End: 04-06-2024 ambulatory PIPER J [facility] Start: 03-28-2024 End: 03-28-2024 [facility] Start: 03-23-2024 End: 03-23-2024 ambulatory PIPER Wong [facility] Start: 03-23-2024 End: 03-23-2024 Preprocedural examination done Piper Lin MD Work Phone: [facility] Start: 03-23-2024 End: 03-23-2024 Subsequent hospital visit by physician Piper Lin MD Work Phone: [facility] Comment on above: Pre-operative examin ation; Abdominal pain, unspecified abdominal location; Rectal prolapse Start: 03-08-2024 End: 03-08-2024 ambulatory [facility] Start: 02-25-2024 End: 02-25-2024 Subsequent hospital visit by physician Piper Lin MD Work Phone: Radiology Comment on above: Rectal prolapse (Deborah molly Dx) Start: 02-25-2024 End: 02-25-2024 [facility] Start: 01-21-2024 End: 01-21-2024 Subsequent hospital visit by physician Piper Lin MD Work Phone: [facility] Comment on above: Rectal prolapse Start: 01-21-2024 End: 01-21-2024 ambulatory PIPER LIN [facility] Start: 10-05-2023 End: 10-05-2023 ambulatory [facility] Work Phone: Start: 10-05-2023 End: 10-05-2023 Patient encounter procedure [facility] Work Phone: Start: 07-03-2023 End: 07-03-2023 Emergency department patient visit Dr. Wing Flores Facility:[id number] Start: 12-23-2022 Telephone encounter Rhiannon Antonio [facility] Work Phone: [facility] Comment on above: Results Results (Lab/) Start: 10-06-2022 End: 10-06-2022 ambulatory [facility] Work Phone: Start: 10-06-2022 End: 10-06-2022 Patient encounter procedure [facility] Family Procedures Date Procedure Procedure Detail Performing Clinician Start: 05-16-2025 X-ray of lumbosacral spine Dr. Wing casey MD Work Phone: Start: 05-11-[address] Wing Flores MD Work Phone: Start: 05-11-2025 Computed tomography of abdomen and pelvis with intravenous contrast Dr. Wing Flores MD Work Phone: Start: 05-11-2025 Urnls dip stick/tablet reagent auto microscopy Dr. Wing Flores MD Work Phone: Start: 05-11-[address] Wing Flores MD Work Phone: Start: 04-18-2025 End: 04-18-2025 Study Interpretation of outside study Dena Todd MD Work Phone: Start: 04-13-2025 Plain X-ray abdomen Dr. Wing Flores MD Work Phone: Start: 04-11-2025 Study Interpretation of outside study Dena Todd MD Work Phone: Start: 04-10-2025 Computed tomography of abdomen and pelvis with intravenous contrast Dr. Wing Flores MD Work Phone: Start: 04-10-[address] Wing Flores MD Work Phone: Start: 04-04-2025 PULSE OXIMETRY, CONTINUOUS Danny Mcqueen MD Work Phone: Start: 04-04-2025 Urine test visual color cmprsn meths Dena Todd MD Work Phone: Start: 04-04-2025 PULSE OXIMETRY, SPOT Dena Delvalle Work Phone: Start: 11-18-2024 STREP A MOLECULAR (POC) David Carvajal Work Phone: Start: 03-23-2024 Urine test visual color cmprsn meths Peterson Norberto DIRECTOR OF PROCUREMENT-BULK PLANT MANAGER Work Phone: Start: 02-25-2024 Radiologic exam colon single contrast study Piper Lin MD Work Phone: Start: 01-21-2024 IMMUNOGLOBULIN A Piper Lin MD Work Phone: Start: 01-21-2024 TSH WITH REFLEX TO T4, FREE Piper Lin MD Work Phone: H/O: surgery History of intes tinal surgery Dr. Wing Flores MD Work Phone: Plan of Treatment Date Care Activity Detail Author Start: 2055 Zoster Vaccines (1 of 2) Zoster Vaccines (1 of 2) [facility] Start: 07-10-2025 Influenza vaccination Influenza Vaccine (Season Ended) [facility] Start: 05-17-2025 End: 05-17-2025 Patient encounter procedure 05/17/2025 3:00 PM EDT Office Visit Sherice Steen [address] [place] [address] [address] Dena Todd MD [address] [place] [address] Shericesantosh Mathis Celsa Start: 05-16-2025 X-ray of lumbosacral spine L/S Spine Min 4 Views [facility] Start: 05-16-2025 XR Spine Lumbar and Sacrum GE 4 Views [facility] Start: 05-11-2025 [facility] Start: 04-19-2025 End: 04-19-2025 Patient encounter procedure 04/19/2025 10:40 AM EDT [facility] [address] [place] [address] [id number] Dena Todd MD [address] [place] [address] [facility] [place] Start: 04-13-2025 [facility] Start: 04-04-2025 End: 04-04-2025 Admission to same day surgery center 04/04/2025 8:05 AM EDT - 04/04/2025 11:35 AM EDT Surgery [facility] [place] [address] [place] [address] Dena Todd MD [address] [place] [address] Robot Assisted Rectopexy [07442 (CPT )] [facility] OR Comment on above: Robot Assisted Rectopexy [19988 (CPT )] Start: 04-04-2025 End: 04-04-2025 Laparoscopy proctopexy prolapse RECTOPEXY, ROBOT-ASSISTED Rectal prolapse 04/04/2025 8:[address] [facility] OR Start: 04-04-2025 Subsequent hospital visit by physician 04/04/2025 6:35 AM EDT Hospital Encounter [facility] [place] [address] [place] [address] Dena Todd MD [address] [place] [address] [facility] OR Start: 07-26-2024 End: 07-26-2024 Patient encounter procedure 07/26/2024 9:00 AM EDT Office Visit [facility] [address] [place] [address] Piper Lin MD [place], [place] [id number] [facility] Start: 07-10-2024 COVID-19 Vaccine ( season) COVID-19 Vaccine ( season) [facility] Start: 07-10-2024 FLU (Season Ended) FLU (Season Ended) [facility] Start: 07-10-2024 Influenza vaccination Influenza Vaccine (#1) [facility] Start: 03-28-2024 End: 03-28-2024 Patient encounter procedure 03/28/2024 1:00 PM EDT Procedure visit Gastroenterology - [place] [address] [place], [place] [id number] Mariana Parry R, DO [address] [id number] [facility] Start: 03-23-2024 End: 03-23-2024 Admission to same day surgery center 03/23/2024 9:30 AM EDT - 03/23/2024 10:25 AM EDT Surgery [facility] [address] [place], [place] [phone] Piper Lin MD [place], [place] [id number] Colonoscopy with biopsies (possible polypectomy) [facility] OR Comment on above: Colonoscopy with biopsies (possible poly pectomy) Start: 03-23-2024 End: 03-23-2024 Colsc flx w/removal lesion by hot bx forceps [facility] OR Start: 03-23-2024 Subsequent hospital visit by physician 03/23/2024 9:30 AM EDT Hospital Encounter [place] [address] Piper Lin MD [place], [place] [id number] [facility] Start: 03-08-2024 End: 03-08-2024 ambulatory 03/08/2024 3:00 PM EDT Telehealth [facility] -[address] [address] Norberto, Peterson, DIRECTOR OF PROCUREMENT-BULK PLANT MANAGER [place], [place] [phone] [facility] - Start: 02-25-2024 End: 02-25-2024 Patient encounter procedure 02/25/2024 1:40 PM EDT Appointment Radiology [address] [place] [address] [place] [address] Radiology Start: 2024 Hepatitis B (1 of 3 - 19+ 3-dose series) Hepatitis B (1 of 3 - 19+ 3-dose series) [facility] Start: 2024 Hepatitis B Vaccine (1 of 3 - 19+ 3-dose series) Hepatitis B Vaccine (1 of 3 - 19+ 3-dose series) [facility] Start: 2024 Hepatitis B Vaccines (1 of 3 - 19+ 3-dose series) Hepatitis B Vaccines (1 of 3 - 19+ 3-dose series) [facility] Start: 2024 Urine microalbumin profile DTaP,Tdap,Td Vaccine (1 - Tdap) [facility] Start: 12-30-2023 Meningococcal B Vaccine (2 of 2 - Trumenba SCDM 2-dose series) Meningococcal B Vaccine (2 of 2 - Trumenba SCDM 2-dose series) [facility] Start: 12-30-2023 Meningococcal B Vaccine: Consider Based On Risk (2 of 2 - Risk Trumenba 2-dose series) Meningococcal B Vaccine: Consider Based On Risk (2 of 2 - Risk Trumenba 2-dose series) [facility] Start: 07-10-2023 COVID-19 ( season) COVID-19 ( season) [facility] Start: 07-10-2023 FLU (#1) FLU (#1) [facility] Start: 2023 Anxiety Screening Anxiety Screening [facility] Start: 2023 Depression Screening Depression Screening [facility] Start: 2023 GC (Gonorrhea) Screening (18-24) GC (Gonorrhea) Screening (18-) [facility] Start: 2023 Hearing Screening Hearing Screening [facility] Start: 2023 Hepatitis C screening Hepatitis C Screening [facility] Start: 2023 HIV screening HIV Screening [facility] Start: 2023 PATH Education 18+ Years PATH Education 18+ Years [facility] Start: 2023 Screening for Chlamydia trachomatis Chlamydia Screening (18-) [facility] Start: 07-10-2022 Influenza vaccination INFLUENZA (#1) [facility] Start: 01-10-2021 Hepatitis A Vaccines (2 of 2 - 2-dose series) Hepatitis A Vaccines (2 of 2 - 2-dose series) [facility] Start: 2021 MenB (1 of 2 - MenB 2-Dose Series Bexsero) MenB (1 of 2 - MenB 2-Dose Series Bexsero) [facility] Start: 2021 MENINGOCOCCAL CONJUGATE (1 - 2-dose series) MENINGOCOCCAL CONJUGATE (1 - 2-dose series) [facility] Start: 08-10-2020 HPV Vaccine (2 - 3-dose series) HPV Vaccine (2 - 3-dose series) [facility] Start: 08-10-2020 HPV Vaccines (2 - 3-dose series) HPV Vaccines (2 - 3-dose series) [facility] Start: 2020 CHLAMYDIA SCREENING (<18) CHLAMYDIA SCREENING (<18) [facility] Start: 2020 GC (GONORRHEA) SCREENING (<18) GC (GONORRHEA) SCREENING (<18) [facility] Start: 2020 HPV (1 - 3-dose series) HPV (1 - 3-dose series) [facility] Start: 2020 PATH Education 15-17+ Years PATH Education 15-17+ Years [facility] Start: 2020 Vision Screening Vision Screening [facility] Start: 2019 PEDS TO ADULT TRANSITION ANNUAL ASSESSMENT PEDS TO ADULT TRANSITION ANNUAL ASSESSMENT [facility] Start: 2018 Varicella (1 of 2 - 13+ 2-dose series) Varicella (1 of 2 - 13+ 2-dose series) [facility] Start: 2018 Varicella vaccination Varicella Vaccines (1 of 2 - 13+ 2-dose series) [facility] Start: 2017 Adult depression screening assessment DEPRESSION SCREENING [facility] Start: 2017 PATH Education 12-14+ Years PATH Education 12-14+ Years [facility] Start: 2017 PATH Transitional Assessment PATH Transitional Assessment [facility] Start: 2017 PEDS TO ADULT TRANSITION INITIAL DISCUSSION PEDS TO ADULT TRANSITION INITIAL DISCUSSION [facility] Start: 2016 HPV VACCINE (1 - 2-dose series) HPV VACCINE (1 - 2-dose series) [facility] Start: 2015 MENINGOCOCCAL B: Consider based on risk (1 of 2 - Risk Bexsero 2-dose series) MENINGOCOCCAL B: Consider based on risk (1 of 2 - Risk Bexsero 2-dose series) [facility] Start: 2012 DTaP/Tdap/Td Vaccines (1 - Tdap) DTaP/Tdap/Td Vaccines (1 - Tdap) [facility] Start: 2012 Tetanus Diphtheria and Pertussis Vaccines (1 - Tdap) Tetanus Diphtheria and Pertussis Vaccines (1 - Tdap) [facility] Start: 2012 Urine microalbumin profile DTAP,TDAP,TD (1 - Tdap) [facility] Start: 09-28-2009 MMR (1 of 1 - Standard series) MMR (1 of 1 - Standard series) [facility] Start: 09-28-2009 MMR (1 of 2 - Standard series) MMR (1 of 2 - Standard series) [facility] Start: 09-28-2009 MMR Vaccines (1 of 1 - Standard series) MMR Vaccines (1 of 1 - Standard series) [facility] Start: 09-28-2009 VARICELLA (1 of 2 - 2-dose childhood series) VARICELLA (1 of 2 - 2-dose childhood series) [facility] Start: 2009 Hearing Screening (#1) Hearing Screening (#1) [facility] Start: 2005 COVID-19 VACCINE (#1) COVID-19 VACCINE (#1) [facility] Start: 2005 POLIO (1 of 3 - 4-dose series) POLIO (1 of 3 - 4-dose series) [facility] Start: 2005 HEPATITIS B (1 of 3 - 3-dose series) HEPATITIS B (1 of 3 - 3-dose series) [facility] Start: 2005 HIV screening HIV Screening [facility] Start: 2005 Lipid panel Lipid Panel [facility] Start: 2005 Yearly Adult Physical Yearly Adult Physical [facility] End: 04-04-2025 Blood type and Indirect antibody screen panel - Blood Type And Screen Lab Timed As needed (Lab) until discontinued starting 04/04/2025 [facility] Service Area Work Phone: Comment on above: As needed (Lab) until discontinued start ing 04/04/2025 C reactive protein [Mass/volume] in Serum or Plasma [facility] Celiac disease screen [facility] Colonoscopy w/biopsy single/multiple Colonoscopy Rectal prolapse [facility] OR Comprehensive metabolic 2000 panel - Serum or Plasma [facility] Elastase.pancreatic [Presence] in Stool [facility] End: 01-21-2024 Endomysial IgA Ab [facility] Work Phone: Comment on above: 1 Occurrences starting 01/21/2024 until 01/21/2024 [place] virus nuclear IgG Ab [Units/volume] in Cerebral spinal fluid [facility] Fat [Presence] in Stool [facility] Immunoglobulin measurement [facility] Lactoferrin [Presenc e] in Stool by Immunoassay [facility] Patient Education [facility] Work Phone: Patient referral [facility] Work Phone: Procedure [facility] Protein measurement [facility] Radionuclide gastric emptying study [facility] Surgical Pathology L ab Test [facility] Work Phone: Comment on above: Release Upon Ordering for 1 Occurrences starting 03/23/2024, 1 completed End: 01-21-2024 Tissue transglutaminase, IgA [facility] Comment on above: 1 Occurrences starting 01/21/2024 until 01/21/2024 XR Abdomen Single view [facility] Immunizations Immunization Date Immunization Notes Care Provider Fa cility 06-29-2023 meningococcal B vacc ine, fully recombinant Karime Ross APRN-BULK PLANT MANAGER Work Phone: [facility] Work Phone: 06-29-2023 meningococcal oligosaccharide (groups A, C, Y and W-135) diphtheria toxoid conjugate vaccine (MCV4O) Karime Ross DIRECTOR OF PROCUREMENT-BULK PLANT MANAGER Work Phone: [facility] Work Phone: 07-13-2020 hepatitis A vaccine, pediatric/adolescent dosage, 2 dose schedule Karime Ross APRN-BULK PLANT MANAGER Work Phone: [facility] Work Phone: 07-13-2020 Human Papillomavirus 9-valent vaccine Karime Ross APRN-BULK PLANT MANAGER Work Phone: [facility] Work Phone: 07-13-2020 hepatitis A and hepa titis B vaccine Dena Todd MD Work Phone: [facility] Work Phone: 07-13-2020 HPV, unspecified formulation Dena Todd MD Work Phone: [facility] Work Phone: 09-29-2018 influenza, injectabl e, quadrivalent, preservative free Karime Ross DIRECTOR OF PROCUREMENT-BULK PLANT MANAGER Work Phone: [facility] Work Phone: 09-29-2018 influenza virus vacc ine, unspecified formulation Dena Todd MD Work Phone: [facility] Work Phone: 08-31-2009 influenza virus vacc ine, live, attenuated, for intranasal use Karime Ross DIRECTOR OF PROCUREMENT-BULK PLANT MANAGER Work Phone: [facility] Work Phone: 08-31-2009 novel Influenza-H1N1 -09, live virus for nasal administration Karime Ross DIRECTOR OF PROCUREMENT-BULK PLANT MANAGER Work Phone: [facility] Work Phone: Payers Date Payer Category Payer Self-pay [id number] 2024 Unknown MMO MMO [employer] PPO [id number] 2024-Present [phone] [address] [place] [address] PPO [id number] 2022 Private Health Insurance [id number] 2019 Managed Care (Private) [id number] [id number] 2019 Private Health Insurance [id number] 2014 Unknown [id number] 2005 Unknown [id number] 2.16.840.1.149074.3.579.2.1 069 2005 Unknown [id number] 2.16.840.1.811827.3.579.2.4 79 2005 Unknown [id number] 2.16.840.1.748243.3.579.2.4 79 2005 Unknown [id number] 2.16.840.1.855069.3.579.2.4 79 2005 Unknown [id number] 2.16.840.1.864689.3.579.2.4 79 2005 Unknown [id number] 2.16.840.1.116098.3.579.2.4 79 2005 Unknown [id number] 2.16.840.1.910871.3.579.2.4 79 2005 Unknown [id number] 2.16.840.1.656332.3.579.2.4 79 2005 Unknown [id number] 2.16.840.1.629499.3.579.2.4 79 2005 Unknown [id number] 2.16.840.1.477581.3.579.2.4 79 2005 Unknown [id number] 2.16.840.1.271739.3.579.2.4 79 2005 Unknown [id number] 2.16.840.1.737991.3.579.2.1 243 2005 Unknown [id number] 2.16840.1.160434.3.579.2.1 245 2005 Unknown [id number] 2.16.840.1.467119.3.579.2.1 245 2005 Unknown [id number] 2.16.840.1.557217.3.579.2.1 245 2005 Unknown [id number] 2.16.840.1.746488.3.579.2.1 242 2005 Unknown [id number] 2.16.840.1.652552.3.579.2.1 242 2005 Unknown [id number] 2.16.840.1.673068.3.579.2.1 242 2005 Unknown [id number] 2.16.840.1.285169.3.579.2.1 242 2005 Unknown [id number] 2.16.840.1.553678.3.579.2.1 242 Private Health Insurance [id number] Unknown [id number] 2.16.840.1.522961.3.579.2.4 62 Unknown [id number] 2.16.840.1.320072.3.579.2.4 62 Unknown [id number] 2.16.840.1.445970.3.579.2.4 62 Unknown [id number] 2.16.840.1.935344.3.579.2.4 62 Unknown [id number] 2.16.840.1.355759.3.579.2.4 62 Unknown [id number] 2.16.840.1.678328.3.579.2.4 62 Unknown [id number] Social History Date Type Detail Facility Start: 11-06-2021 Tobacco smoking status [facility] Unknown if ever smoked [facility] Start: 03-25-2021 Non-smoker [facility] Start: 2005 Sex Assigned At Female W [facility] Start: 10-15-2015 End: 05-11-2025 Tobacco smoking status MOIS Never smoked tobacco [facility] Start: 10-15-2015 End: 03-02-2025 Tobacco use and exposure Smokeless tobacco non-user [facility] Start: 12-22-2022 End: 11-18-2024 Alcohol intake Not Asked [facility] Start: 2005 Sex Assigned At Not on file [facility] Start: 01-21-2024 End: 03-08-2024 Alcoholic beverage intake Current non-drinker of alcohol (finding) [facility] Start: 01-21-2024 End: 04-04-2025 History of Social function [facility] Start: 01-21-2024 End: 04-04-2025 Tobacco use panel [facility] Start: 10-02-2024 End: 04-19-2025 Exposure to SARS-CoV-2 (event) Not sure [facility] Start: 04-04-2025 Alcoholic beverage intake Lifetime non-drinker (finding) [facility] Work Phone: NEGATED: Highlighted rowStart: NINF History of tobacco use Passive smoker [facility] Goals Date Patient Goal Desired Activity /State Personal health goal Personal health goal Personal health goal Personal health goal Personal health goal Personal health goal Personal health goal Functional Status Date Assessment Result Facility 04-04-2025 Stella - suicide s everity rating scale screener - recent [C-SSRS] [facility] Work Phone: Mental Status Date Assessment Result Facility 04-13-2025 Cognitive function Level Of Cons ciousness Awake;Alert;Appropriate;Follow s Commands [facility] Work Phone: Clinical Notes 12-23-2022 to 05-16-2025 Note Date & Type Note Facility 05-16-2025 Evaluation note Diagnosis Onset Date Resolution Lumbar radiculopathy acute May 16, 2025 9:04am Constipation inactive June 12, 2025 1:59pm [facility] Work Phone: 1(403) 776-549707-03-2025 Discharge summary [facility] Medical Records Department [address] [place] [address] Emergency Department Summary 05/11/25 MR#: [id number] Acct: [id number] Name: KELLY RAMOS Rep #:[id number] : 2005 20 From: Mark Lowry MD PCP: Dr. Wing Flores MD Status:REG ER Location: ED HPI HPI - GI History of Present Illness Chief Complaint: Abd Pain Detail of Chief Complaint: Diarrhea x 12 days. Abdominal cramping. Informant: patient, parent and family Abdominal Pain/Flank Pain Onset: Days Context: Gradual Onset Timing: Continuous Quality: Aching and Cramping Location: Diffuse Current Severity: Mild Maximum Severity: Mild Worsened by: Nothing Relieved by: Nothing Nausea/Vomiting/Emesis GI Symptom: Positive for Nausea; Negative for Vomiting Onset: Days Severity: Mild Diarrhea/Melena/Hematochezia GI Symptom: Positive for Diarrhea; Negative for Melena or Hematochezia Onset: Days (The last 12 days.) Stool Quality: Positive for Watery Severity: Moderate Associated Symptoms Associated Symptoms: Negative for Dysuria, Frequency, Hematuria or Urgency Narrative Narrative: 20-year-old female history of prolapsed rectum that she had surgery and repair at [facility]. She has a history of irritable bowel and has episodes of constipation and diarrhea. For the last12 days she she has had increasing amounts of diarrhea she has gone about every 30 minutes to an hour for the last 24 hours. Mild nausea no vomiting. No fever. No dysuria. Diffuse abdominal cramping.No other prior abdominal surgeries other than the rectal prolapse repair. Prior similar symptoms: No Recent [facility] Medical History (Updated 05/11/25 @ 22:[address] Mark Lowry MD) Rectal prolapse IBS (irritable bowel syndrome) Fracture of thumb, right, closed Disease of tonsils and adenoids Encounter for screening for COVID-19 Home Medications ?Medication ?Instructions ?Recorded ?Last Taken ?Type docusate sodium 100 mg capsule 100 mg PO BID 04/10/25 Unknown History ibuprofen 600 mg tablet 600 mg PO .Q3HR PRN pain 01/03 Unknown History dicyclomine 20 mg tablet 20 mg PO TID PRN abdominal p ain 05/11/25 Unknown Rx #15 tabs ondansetron 4 mg disintegrating 4 mg PO Q6H PRN nausea and 05/11/25 Unknown Rx tablet vomiting #14 tabs Allergy/AdvReac Type Severity Reaction Status Date / Time azithromycin Allergy Mild RASH Verified 05/11/25 18:28 Social History Smoking Status: Never smoker substance use type: does not use ROS ROS ED ROS Narrative Nausea. No vomiting. Positive diarrhea. Abdominal cramping. Constitutional Constitutional ED: Denies chills or fever(s) ENT ENT ED: Denies ear pain Cardiovascular Cardiovascular: Denies chest pain Respiratory/Chest Respiratory/Chest: Denies cough or dyspnea Gastrointestinal Gastrointestinal: Reports abdominal pain, diarrhea and nausea; Denies melena or vomiting Genitourinary Genitourinary ED: Denies dysuria or hematuria Musculoskeletal Musculoskeletal: Denies arthralgias or back pain Integumentary Denies abscess or Abrasions Neurologic Neurologic: Denies headache(s) Endocrine Endocrinology: Denies polydipsia Hematologic/Lymphatic Hematologic/Lymphatic: Denies easy bleeding Allergic/Immunologic Allergic/Immunologic ED: Denies mouth swelling, tongue swelling or urticaria EXAM Physical Exam Narrative Exam Narrative: Well-appearing 20-year-old female. Vital signs stable she does not look septic or toxic. Family at bedside. H EENT exam pupils round reactive light. Mytrex membranes. Neck nontender JVD. Lungs clear to auscultation bilaterally. Hearttachycardic 110 no murmur chest wall ribs nontender. Abdomen soft n ondistended normal bowel sounds without peritoneal signs. Diffusely tender. No hernia or mass. No obstruction. Moving all 4 extremities. Nontender no edema. Back nontender. Neurologically she is awake alert answering questions following commands. Const Vital Signs: 05/11/25 18:28 05/11/25 20:27 Temperature 97.1 F L Temperature Source Temporal Pulse Rate 115 H 71 Respiratory Rate 18 14 Blood Pressure 119/88 H 119/70 Blood Pressure Mean 98 86 Pulse Ox 97 100 Oxygen Delivery Method Room Air Room Air Positive well nourished and well developed; Negative for obese, cachectic, contractures or unkempt General Appearance ED: well developed and NAD; Negative for unkempt, cachectic, contractures or pallor Nutritional Appearance: Negative for cachectic or obese HEENT Reports moist mucous membranes normocephalic and atraumatic Eyes PERRL and EOMs intact bilaterally General Eye ED: Negative for pale conjunctiva or scleral icterus Neck no lymphadenopathy, supple and no JVD General: Negative for tenderness Resp normal respiratory effort and clear to auscultation bilaterally Cardio regular rhythm, S1 normal heart sound, S2 normal heart sound and no murmurs; Negative for regular rate Rate: tachycardic GI non-distended and no masses; Negative for non-tender Inspection: Negative for abdominal distention Auscultation: normoactive bowel sounds Palpation: soft and tender; Negative for guarding, rigid, hernia, mass, pulsatile mass or rebound tenderness present Back/Spine no CVA tenderness General Back: Negative for CVA tenderness Cervical Spine: Negative for cervical spine tenderness Thoracic Spine / Upper Back: Negative for thoracic spinal tenderness Lumbar Spine / Lower Back: Negative for lumbar spinal tenderness Coccyx: Negative for other Extremity full ROM General Extremety ED: Negative for edema or tenderness General Extremity: Negative for edema Neuro CN's II-XII intact bilaterally, moves all extremities and no sensory deficits noted Sensorium / Orientation: alert, oriented to person, oriented to place and oriented to time; Negative for orientation impaired, confused or lethargic Motor Exam: strength 5/5 throughout Psych mental status grossly normal and thought process normal Appearance: Negative for unkempt Attitude: No agitated Mood & Affect: Negative for depressed, anxious or tearful Skin no wounds General Skin Exam: Negative for jaundice or pallor Lesions: no lesions Rashes: no rashes Trauma: Negative for abrasion Nails: Negative for discolored MDM MDM MDM Narrative Medical decision making narrative: 20-year-old female history of irritable bowel and prior rectal prolapse repair. Complaining of 12 days of diarrhea abdominal cramping and pain. CAT scan labs are being obtained. She gave a stool specimen earlier today at another facility. She will be treated with Zofran for nausea she did not want any thing for pain currently. Repeat exam patient is doing well. Abdomen is mildly tender. Her liver test results and CAT scan. Should be discharged home. Bentyl for cramping. Motrin and Tylenol. Zofran for nausea. Outpatient follow-up with her GI doctor. History & Record Review Discussion w/independent historian: Patient and Family Additional record(s) reviewed:: Prior inpatient record, Prior outpatient record,Prior ED visit and Prior labs Lab Data Attestation: I reviewed the patient's lab results. Lab results narrative: UA negative. C. difficile negative. CT abdomen looks good and improving. From prior studies. CBC shows a white count of 7. H&H 13 and 39. Platelets 236. Electrolytes show sodium 139. Gap 13. Normal BUN and creatinine. Glucose 81. Liver enzymes normal. Lipase normal. Serum test negative. UA negative. Labs: Laboratory Results - last 24 hr 05/11/25 05/11/25 18:45 19:23 WBC 7.5 RBC 4.46 Hgb 13.9 Hct 39.1 MCV 87.7 MCH 31.2 MCHC 35.5 RDW Std Deviation 38.8 RDW Coeff of Sarah 12.0 Plt Count 236 MPV 9.9 Immature Gran % (Auto) 0.300 Neut % (Auto) 60.8 Lymph % (Auto) 27.7 Graves % (Auto) 8.7 Eos % (Auto) 2.1 Baso % (Auto) 0.4 Absolute Neuts (auto) 4.5 Absolute Lymphs (auto) 2.07 Nucleated RBC % 0 Sodium 139 Potassium 3.8 Chloride 104 Carbon Dioxide 22.3 Anion Gap 13 BUN 12 Creatinine 0.92 Estim Creat Clear Calc 77.15 Est GFR (MDRD) Non-Af 91 BUN/Creatinine Ratio 13.2 Glucose 81 Calcium 9.0 Total Bilirubin 0.36 AST 20 ALT 13 Alkaline Phosphatase 93 Total Protein 6.9 Albumin 4.4 Globulin 2.5 Albumin/Globulin Ratio 1.7 Lipase 23 Serum , Qual NEGATIVE Urine Color Yellow Urine Clarity Clear Urine pH 6.0 Ur Specific [place] 1.025 Urine Protein 15 H Urine Glucose (UA) Normal Urine Ketones 50 H Urine Occult Blood Negative Urine Nitrite Negative Urine Bilirubin Negative Urine Urobilinogen Normal Ur Leukocyte Esterase Negative Urine RBC 0 SEEN Urine WBC 0-5 SEEN Ur Squamous Epith Cells 0-5 SEEN Urine Bacteria RARE Urine Mucus 0 SEEN Radiography Diagnostic Testing: Clinical Impression(s) from Imaging Studies Abdomen/Pelvis CT 05/11/25 19:18 IMPRESSION: 1. Slight interval improvement in the persistent wall thickening of the distal sigmoid colon and rectum with moderate narrowing of the anorectal junction. 2. Continued decreased size of the perirectal/presacral fluid collection, which is indeterminate and may represent postoperative edema or developing phlegmon. No discrete abscess identified. Reading Location: [facility] Discharge Plan Triage Chief Complaint: Abd Pain Other Complaint: Diarrhea ED Provider: Mark Lowry Dx/Rx/DC Orders Clinical Impression: Diarrhea, History of IBS Instructions: ED Diarrhea, Unknown Cause Prescriptions: New ondansetron 4 mg tablet,disintegrating 4 mg PO Q6H PRN (Reason: nausea and vomiting) Qty: 14 0RF dicyclomine 20 mg tablet 20 mg PO TID PRN (Reason: abdominal pain) Qty: 15 0RF No Action docusate sodium 100 mg capsule 100 mg PO BID ibuprofen 600 mg tablet 600 mg PO .Q3HR PRN (Reason: pain) Primary Care Provider: Wing Flores Referrals: Wing Flores MD [Primary Care Provider] - 3-5 Days if not improving Friend,Xavi, DO [Med Staff - Active Staff] - As soon as possible Activity Restrictions/Additional Instructions: Plenty of fluids and rest. Bentyl for cramping. Motrin and Tylenol for pain. Zofran as needed for nausea. Follow-up with your GI doctor soon as possible. Print Language: Georgian Disposition Disposition: Home, Self Care What to do if you have Problems For any increased pain, shortness of breath, bleeding, nausea or vomiting, chestpain, or any unexpected problems, contact your Primary Care Provider. Call [facility] ([phone]) or report tothe closest Emergency Room. Call 911 if necessary. 05/11/252228 Cosigner Signature (if applicable): CC: Dr. Wing Flores MD ~ Signed [facility]07-03-2025 Radiology Diagnostic study note [facility] Imaging Services [address] [place] [address] Abdomen/Pelvis W IV Cont ONLY MR#: [id number] Acct: [id number] Name: KELLY RAMOS Rep #: [id number] : 2005 F 20 From: Nanette Rivero MD PCP: Dr. Wing Flores MD Status: REG ER Study:Abdomen/Pelvis W IV Cont ONLY Date of E xam: 05/11/25 Exam# [id number] Ordering Dr: Marvin Lowry MD PROCEDURE: ABDOMEN/PELVIS W IV CONT ONLY 05/11/2025 REASON FOR EXAM: ABD PAIN TECHNIQUE: ABDOMEN/PELVIS W IV CONT ONLY Coronal and Sagittal reconstruction series were provided. CONTRAST: Isovue 370 VOLUME: 100 mL One or more dose reduction techniques were used (e.g., Automated exposure control, adjustment of the mA and/or kV according to patient size, use of iterative reconstruction technique. RADIATION DOSE SUMMARY: DLP: 314 mGycm COMPARISON: CT abdomen pelvis 04/10/2025. FINDINGS: Lung bases: Unremarkable. Liver: Normal in size without suspicious hepatic mass. The major portal veins are patent. No biliary ductal dilation. Gallbladder: No radiopaque stones within the gallbladder. Spleen: Normal in size. Pancreas: Unremarkable. Adrenals: No adrenal mass. Kidneys: No hydronephrosis or nephrolithiasis. Bladder: Minimally distended and unremarkable. Reproductive Organs: Normal uterine size and contour. Ovaries are unremarkable. Bowel: The bowel loops are nondilated. There is mild improvement in the persistent wall thickening of the distal sigmoid colon and rectum. Slight interval improvement in the moderate narrowing at the anorectal junction. Continued decreased size of the perirectal/presacral fluid collection. No rim enhancement of the ill-defined fluid collection. No pneumoperitoneum. No inflammatory mass in the expected region of the appendix. Lymph nodes: No suspicious lymph node enlargement. Vasculature: The abdominal aorta and IVC are normal. Bones: Unremarkable. CT/Abdomen/Pelvis W IV Cont ONLY IMPRESSION: 1. Slight interval improvement in the persistent wall thickening of the distal sigmoid colon and rectum with moderate narrowing of the anorectal junction. 2. Continued decreased size of the perirectal/presacral fluid collection, which is indeterminate and may represent postoperative edema or developing phlegmon. No discrete abscess identified. Reading Location: [facility] CC: Dr. Wing Flores MD; Dr. Mark Lowry MD ~ Business System Manager: Signed [facility]07-03-2025 Discharge summary Author Mark Lowry [facility] Note Date/Time May 11, 2025 10:29 pm [facility] Medical Records Department [address] [place] [address] Emergency Department Summary 05/11/25 MR#: [id number] Acct: [id number] Name: KELLY RAMOS Rep #:[id number] : 2005 20 From: Mark Lowry MD PCP: Dr. Wing Flores MD Status:REG ER Location: ED HPI HPI - GI History of Present Illness Chief Complaint: Abd Pain Detail of Chief Complaint: Diarrhea x 12 days. Abdominal cramping. Informant: patient, parent and family Abdominal Pain/Flank Pain Onset: Days Context: Gradual Onset Timing: Continuous Quality: Aching and Cramping Location: Diffuse Current Severity: Mild Maximum Severity: Mild Worsened by: Nothing Relieved by: Nothing Nausea/Vomiting/Emesis GI Symptom: Positive for Nausea; Negative for Vomiting Onset: Days Severity: Mild Diarrhea/Melena/Hematochezia GI Symptom: Positive for Diarrhea; Negative for Melena or Hematochezia Onset: Days (The last 12 days.) Stool Quality: Positive for Watery Severity: Moderate Associated Symptoms Associated Symptoms: Negative for Dysuria, Frequency, Hematuria or Urgency Narrative Narrative: 20-year-old female history of prolapsed rectum that she had surgery and repair at [facility]. She has a history of irritable bowel and has episodes of constipation and diarrhea. For the last 12 days she she has had increasing amounts of diarrhea she has gone about every 30 minutes to an hour for the last 24 hours. Mild nausea no vomiting. No fever. No dysuria. Diffuse abdominal cramping. No other prior abdominal surgeries other than the rectal prolapse repair. Prior similar symptoms: No Recent Illness/Hospitalization: No [facility] Medical History (Updated 05/11/25 @ 22:[address] Mark Lowry MD) Rectal prolapse IBS (irritable bowel syndrome) Fracture of thumb, right, closed Disease of tonsils and adenoids Encounter for screening for COVID-19 Home Medications ?Medication ?Instructions ?Recorded ?Last Taken ?Type docusate sodium 100 mg capsule 100 mg PO BID 04/10/25 Unknown History ibuprofen 600 mg tablet 600 mg PO .Q3HR PRN pain 01/03 Unknown History dicyclomine 20 mg tablet 20 mg PO TID PRN abdominal p ain 05/11/25 Unknown Rx #15 tabs ondansetron 4 mg disintegrating 4 mg PO Q6H PRN nausea and 05/11/25 Unknown Rx tablet vomiting #14 tabs Allergy/AdvReac Type Severity Reaction Status Date / Time azithromycin Allergy Mild RASH Verified 05/11/25 18:28 Social History Smoking Status: Never smoker substance use type: does not use ROS ROS ED ROS Narrative Nausea. No vomiting. Positive diarrhea. Abdominal cramping. Constitutional Constitutional ED: Denies chills or fever(s) ENT ENT ED: Denies ear pain Cardiovascular Cardiovascular: Denies chest pain Respiratory/Chest Respiratory/Chest: Denies cough or dyspnea Gastrointestinal Gastrointestinal: Reports abdominal pain, diarrhea and nausea; Denies melena or vomiting Genitourinary Genitourinary ED: Denies dysuria or hematuria Musculoskeletal Musculoskeletal: Denies arthralgias or back pain Integumentary Denies abscess or Abrasions Neurologic Neurologic: Denies headache(s) Endocrine Endocrinology: Denies polydipsia Hematologic/Lymphatic Hematologic/Lymphatic: Denies easy bleeding Allergic/Immunologic Allergic/Immunologic ED: Denies mouth swelling, tongue swelling or urticaria EXAM Physical Exam Narrative Exam Narrative: Well-appearing 20-year-old female. Vital signs stable she does not look septic or toxic. Family at bedside. H EENT exam pupils round reactive light. Mytrex membranes. Neck nontender JVD. Lungs clear to auscultation bilaterally. Hearttachycardic 110 no murmur chest wall ribs nontender. Abdomen soft nondistended normal bowel sounds without peritoneal signs. Diffusely tender. No hernia or mass. No obstruction. Moving all 4 extremities. Nontender no edema. Back nontender. Neurologically she is awake alert answering questions following commands. Const Vital Signs: 05/11/25 18:28 05/11/25 20:27 Temperature 97.1 F L Temperature Source Temporal Pulse Rate 115 H 71 Respiratory Rate 18 14 Blood Pressure 119/88 H 119/70 Blood Pressure Mean 98 86 Pulse Ox 97 100 Oxygen Delivery Method Room Air Room Air Positive well nourished and well developed; Negative for obese, cachectic, contractures or unkempt General Appearance ED: well developed and NAD; Negative for unkempt, cachectic, contractures or pallor Nutritional Appearance: Negative for cachectic or obese HEENT Reports moist mucous membranes normocephalic and atraumatic Eyes PERRL and EOMs intact bilaterally General Eye ED: Negative for pale conjunctiva or scleral icterus Neck no lymphadenopathy, supple and no JVD General: Negative for tenderness Resp normal respiratory effort and clear to auscultation bilaterally Cardio regular rhythm, S1 normal heart sound, S2 normal heart sound and no murmurs; Negative for regular rate Rate: tachycardic GI non-distended and no masses; Negative for non-tender Inspection: Negative for abdominal distention Auscultation: normoactive bowel sounds Palpation: soft and tender; Negative for guarding, rigid, hernia, mass, pulsatile mass or rebound tenderness present Back/Spine no CVA tenderness General Back: Negative for CVA tenderness Cervical Spine: Negative for cervical spine tenderness Thoracic Spine / Upper Back: Negative for thoracic spinal tenderness Lumbar Spine / Lower Back: Negative for lumbar spinal tenderness Coccyx: Negative for other Extremity full ROM General Extremety ED: Negative for edema or tenderness General Extremity: Negative for edema Neuro CN's II-XII intact bilaterally, moves all extremities and no sensory deficits noted Sensorium / Orientation: alert, oriented to person, oriented to place and oriented to time; Negative for orientation impaired, confused or lethargic Motor Exam: strength 5/5 throughout Psych mental status grossly normal and thought process normal Appearance: Negative for unkempt Attitude: No agitated Mood & Affect: Negative for depressed, anxious or tearful Skin no wounds General Skin Exam: Negative for jaundice or pallor Lesions: no lesions Rashes: no rashes Trauma: Negative for abrasion Nails: Negative for discolored MDM MDM MDM Narrative Medical decision making narrative: 20-year-old female history of irritable bowel and prior rectal prolapse repair. Complaining of 12 days of diarrhea abdominal cramping and pain. CAT scan labs are being obtained. She gave a stool specimen earlier today at another facility. She will be treated with Zofran for nausea she did not want any thing for pain currently. Repeat exam patient is doing well. Abdomen is mildly tender. Her liver test results and CAT scan. Should be discharged home. Bentyl for cramping. Motrin and Tylenol. Zofran for nausea. Outpatient follow-up with her GI doctor. History & Record Review Discussion w/independent historian: Patient and Family Additional record(s) reviewed:: Prior inpatient record, Prior outpatient record,Prior ED visit and Prior labs Lab Data Attestation: I reviewed the patient's lab results. Lab results narrative: UA negative. C. difficile negative. CT abdomen looks good and improving. From prior studies. CBC shows a white count of 7. H&H 13 and 39. Platelets 236. Electrolytes show sodium 139. Gap 13. Normal BUN and creatinine. Glucose 81. Liver enzymes normal. Lipase normal. Serum test negative. UA negative. Labs: Laboratory Results - last 24 hr 05/11/25 05/11/25 18:45 19:23 WBC 7.5 RBC 4.46 Hgb 13.9 Hct 39.1 MCV 87.7 MCH 31.2 MCHC 35.5 RDW Std Deviation 38.8 RDW Coeff of Sarah 12.0 Plt Count 236 MPV 9.9 Immature Gran % (Auto) 0.300 Neut % (Auto) 60.8 Lymph % (Auto) 27.7 Graves % (Auto) 8.7 Eos % (Auto) 2.1 Baso % (Auto) 0.4 Absolute Neuts (auto) 4.5 Absolute Lymphs (auto) 2.07 Nucleated RBC % 0 Sodium 139 Potassium 3.8 Chloride 104 Carbon Dioxide 22.3 Anion Gap 13 BUN 12 Creatinine 0.92 Estim Creat Clear Calc 77.15 Est GFR (MDRD) Non-Af 91 BUN/Creatinine Ratio 13.2 Glucose 81 Calcium 9.0 Total Bilirubin 0.36 AST 20 ALT 13 Alkaline Phosphatase 93 Total Protein 6.9 Albumin 4.4 Globulin 2.5 Albumin/Globulin Ratio 1.7 Lipase 23 Serum , Qual NEGATIVE Urine Color Yellow Urine Clarity Clear Urine pH 6.0 Ur Specific [place] 1.025 Urine Protein 15 H Urine Glucose (UA) Normal Urine Ketones 50 H Urine Occult Blood Negative Urine Nitrite Negative Urine Bilirubin Negative Urine Urobilinogen Normal Ur Leukocyte Esterase Negative Urine RBC 0 SEEN Urine WBC 0-5 SEEN Ur Squamous Epith Cells 0-5 SEEN Urine Bacteria RARE Urine Mucus 0 SEEN Radiography Diagnostic Testing: Clinical Impression(s) from Imaging Studies Abdomen/Pelvis CT 05/11/25 19:18 IMPRESSION: 1. Slight interval improvement in the persistent wall thickening of the distal sigmoid colon and rectum with moderate narrowing of the anorectal junction. 2. Continued decreased size of the perirectal/presacral fluid collection, which is indeterminate and may represent postoperative edema or developing phlegmon. No discrete abscess identified. Reading Location: [id number] Discharge Plan Triage Chief Complaint: Abd Pain Other Complaint: Diarrhea ED Provider: Mark Lowry Dx/Rx/DC Orders Clinical Impression: Diarrhea, History of IBS Instructions: ED Diarrhea, Unknown Cause Prescriptions: New ondansetron 4 mg tablet,disintegrating 4 mg PO Q6H PRN (Reason: nausea and vomiting) Qty: 14 0RF dicyclomine 20 mg tablet 20 mg PO TID PRN (Reason: abdominal pain) Qty: 15 0RF No Action docusate sodium 100 mg capsule 100 mg PO BID ibuprofen 600 mg tablet 600 mg PO .Q3HR PRN (Reason: pain) Primary Care Provider: Wing Flores Referrals: Wing Flores MD [Primary Care Provider] - 3-5 Days if not improving Friend,DO Xavi [Med Staff - Active Staff] - As soon as possible Activity Restrictions/Additional Instructions: Plenty of fluids and rest. Bentyl for cramping. Motrin and Tylenol for pain. Zofran as needed for nausea. Follow-up with your GI doctor soon as possible. Print Language: Georgian Disposition Disposition: Home, Self Care What to do if you have Problems For any increased pain, shortness of breath, bleeding, nausea or vomiting, chestpain, or any unexpected problems, contact your Primary Care Provider. Call [facility] ([phone]) or report to the closest Emergency Room. Call 911 if necessary. 05/11/252228 <Electronically signed by Mark Lowry MD> Cosigner Signature (if applicable): CC: Dr. Wing Flores MD ~ Signed [facility] Work Phone: [phone]) 964-669806-11-2025 History of Present illness Narrative* Dena Todd MD - 04/19/2025 10:40 AM EDT Kelly Ramos is a 20 year old female with history of rectal prolapse. Returns to office for post op visit. She is taking ibuprofen, metamucil and miralax. She is pretty regular nowadays and is soft. She is completely. It feels very different. She is having some back pain which she feels is related to the sutures. She is sitting there for 2 minutes. No blood and mucous. She is starting to eat pretty well. 04/04/2025 Operation: Robotic Rectopexy Did well until April 10 when she developed back pain and abdominal pain that sent her to local ER. InER patient was given oral laxative and an enema which made her feel better. Imaging sent to our office and reviewed. She was prescribed Hydrocortisone suppositories and Vaginal Valium. Advised to take oral laxative and enemas. Returned to ER on April 13. 04/10/2025 CT Abd/Pelvis with iv contrast Diffuse thickening of the anorectal junction, probably secondary to recent intervention, edema and/or spasm. Associated perirectal fluid collection is noted measuring 7.6 x 4.2 cm in it's largest transverse and anteroposterior dimensions respectively. Secondary moderate narrowing of the anorectal junction. Fluid filled dilated colon proximal to this level. Associated mild stercoral colitis of the sigmoid colon. No evidence of perforation or pneumatosis coli. The largest transverse dimension on the distended colon is 4.8 cm at the level of the transverse colon. XR ABDOMEN No bowel obstruction or ileum Visit Vitals BP 101/67 Pulse 72 Temp 35.7 C (96.3 F) Wt 55.8 kg (123 lb) LMP 03/21/2025 (Approximate) SpO2 99% BMI 22.50 kg/m OB Status Having periods Smoking Status Never BSA 1.56 m Review of Systems Constitutional: Negative for fever, [...] guarding, no masses palpable, no organomegaly, +BS, incisions CDI Extremities: normal extremities, no cyanosis edema, contusions or wounds, 2+ femoral pulses B/L, hypermobility of the hands, elbow joiints Neurological: alert and oriented x3, normal strength, Normal gait Lymphatic: No palpable inguinal lymphadenopathy Psychological: Appropriate mood and behavior Skin: Warm and dry, no lesions, no rashes Anorectal: Normal rectal tone. Impression: Rectal prolapse - constipation much better now than postop Plan: Would recommend to continue metamucil and start weaning the miralax as she gets better Not straining Can use smooth move tea documented in this [facility] Work Phone: 1(541) 914-817506-05-2025 Discharge summary [facility] Medical Records Department [address] [place] [id number] Emergency Department Summary 04/13/25 MR#: [id number] Acct: [id number] Name: KELLY RAMOS Rep #:[id number] : 2005 20 From: Makr Lowry MD PCP: Dr. Wing Flores MD Status:REG ER Location: ED HPI HPI - GI History of Present Illness Chief Complaint: Other, Pain/Inj Detail of Chief Complaint: Constipation after rectal prolapse repair surgery about a week ago. Informant: patient and parent Abdominal Pain/Flank Pain Onset: Days Context: Gradual Onset Timing: Intermittent Quality: Cramping Location: - (Lower abdomen and rectum.) Current Severity: Mild Maximum Severity: Mild Nausea/Vomiting/Emesis GI Symptom: Negative for Nausea or Vomiting Diarrhea/Melena/Hematochezia GI Symptom: Positive for - (Constipation. Last bowel movement on Thursday.); Negative for Diarrhea, Melena or Hematochezia Associated Symptoms Associated Symptoms: Negative for Dysuria, Frequency, Hematuria or Urgency Narrative Narrative: 20-year-old female on April 04 had laparoscopic rectal prolapse repair surgery done at [facility]. Since that time she has had problems with constipation. Was recently seen in this emergency department had a CAT scan which showed constipation and normal postop changes. Was treated with enemas and improved. She has not had much of a bowel movement since Thursday. They have been trying different things at home and working with her: Rectal surgeon from . Today was having more crampy pain. Prior similar symptoms: Yes Recent Illness/Hospitalization: Yes [facility] Medical History IBS (irritable bowel syndrome) Fracture of thumb, right, closed Disease of tonsils and adenoids Encounter for screening for COVID-19 Home Medications ?Medication ?Instructions ?Recorded ?Last Taken ?Type docusate sodium 100 mg capsule 100 mg PO BID 04/10/25 Unknown History ibuprofen 600 mg tablet 600 mg PO .Q3HR PRN pain 01/03 Unknown History Allergy/AdvReac Type Severity Reaction Status Date / Time azithromycin Allergy Mild RASH Verified 04/13/25 19:37 Social History Smoking Status: Never smoker substance use type: does not use ROS ROS ED ROS Narrative Constipation. Constitutional Constitutional ED: Denies chills or fever(s) ENT ENT ED: Denies ear pain Cardiovascular Cardiovascular: Denies chest pain Respiratory/Chest Respiratory/Chest: Denies cough Gastrointestinal Gastrointestinal: Reports abdominal pain and constipation; Denies diarrhea, melena, nausea or vomiting Genitourinary Genitourinary ED: Denies dysuria or hematuria Musculoskeletal Musculoskeletal: Denies arthralgias or back pain Integumentary Denies abscess or Abrasions Neurologic Neurologic: Denies headache(s) Psychiatric Psychiatric: Denies anxiety Endocrine Endocrinology: Denies polydipsia Hematologic/Lymphatic Hematologic/Lymphatic: Denies easy bleeding Allergic/Immunologic Allergic/Immunologic ED: Denies mouth swelling, tongue swelling or urticaria EXAM Physical Exam Narrative Exam Narrative: 20-year-old female vital signs are stable is tachycardic. Complaining of abdominal cramping. Parents present in room. H EENT exam pupils round react light. Moist mucous membranes. Neck nontender. Back nontender. Lungs clear to auscultation bilaterally. Heart tachycardic rate about 120 no murmur. Abdomen soft fusilli tender well-healing laparoscopic incisions. Dry and clean. No significant distention. No signs of obstruction. Positive bowel sounds. Moving all 4 extremities. Nontender no edema. Neurologically she is awake alert. No focal motor deficits. Answering questions and following commands. Const Vital Signs: 04/13/25 19:34 04/13/25 20:34 04/13/25 20:35 Temperature 98 F Temperature Source Temporal Pulse Rate 128 H 98 Respiratory Rate 20 H 18 Respiratory Effort Normal Respiratory Pattern Tachypnea Blood Pressure 119/102 H 136/93 H Blood Pressure Mean 107 107 Pulse Ox 100 97 Oxygen Delivery Method Room Air Room Air Positive well nourished and well developed; Negative for obese, cachectic, contractures or unkempt General Appearance ED: well developed and NAD; Negative for unkempt, cachectic, contractures or pallor Nutritional Appearance: Negative for cachectic or obese HEENT Reports moist mucous membranes normocephalic and atraumatic Eyes PERRL and EOMs intact bilaterally Neck no lymphadenopathy, supple and no JVD Resp normal respiratory effort and clear to auscultation bilaterally Cardio regular rhythm, S1 normal heart sound, S2 normal heart sound and no murmurs; Negative for regular rate Rate: tachycardic GI non-distended and no masses; Negative for non-tender GI Narrative: Mildly tender. Well-healing laparoscopic incisions. Dry and clean. No obstruction. No significant distention. Auscultation: normoactive bowel sounds Palpation: soft and tender; Negative for guarding, rigid, hernia, mass, pulsatile mass or rebound tenderness present Back/Spine no CVA tenderness Extremity full ROM General Extremety ED: Negative for edema or tenderness General Extremity: Negative for edema Neuro CN's II-XII intact bilaterally and moves all extremities Sensorium / Orientation: alert, oriented to person, oriented to place and oriented to time; Negative for orientation impaired Motor Exam: strength 5/5 throughout Psych mental status grossly normal and thought process normal Appearance: Negative for unkempt Skin no wounds General Skin Exam: Negative for jaundice or pallor Lesions: no lesions Rashes: no rashes MDM MDM MDM Narrative Medical decision making narrative: 20-year-old female constipation with abdominal cramping after rectal prolapse laparoscopic repair surgery on April 04. I spoke to her general surgeon who did her procedure Dr. Todd. She recommendeda enema. And if the patient needs to be transferred she is have to accept her to . I will discussthis with thefamily. Repeat exam patient is doing well at 21:18. She has had 3 liquid bowel movementsince she has been here. She wanted to hold off on the enema because she was feeling better. Her abdomen is benign. Her and her parents are comfortable with her being discharged home. They will follow-up with her colorectal surgeonfrom tomorrow. They are going to do a soft diet. Liquids. Continue using the MiraLAX and stool softeners. History & Record Review Discussion w/independent historian: Patient Additional record(s) reviewed:: Prior inpatient record, Prior outpatient record,Prior ED visit and Prior labs Radiography Diagnostic Testing: Clinical Impression(s) from Imaging Studies KUB X-Ray 04/13/25 20:01 IMPRESSION: No bowel obstruction or ileus. Reading Location: [facility] 2 films 1 view. By myself and radiologist. Shows no obstruction. Stool inthe rectum but not significantly throughout the colon. No air-fluid levels. I went over the film with the parents. Discharge Plan Triage Chief Complaint: Other, Pain/Inj ED Provider: Mark Lowry Dx/Rx/DC Orders Clinical Impression: Constipation, History of intestinal surgery Instructions: ED Constipation (Adult) Prescriptions: No Action docusate sodium 100 mg capsule 100 mg PO BID ibuprofen 600 mg tablet 600 mg PO .Q3HR PRN (Reason: pain) Primary Care Provider: Wing Flores Referrals: Wing Flores MD [Primary Care Provider] - Activity Restrictions/Additional Instructions: Call and follow-up with your surgeon from Dr. Todd in her office tomorrow. Plenty of fluids. Fiber. Soft diet. Slowly increase as tolerated. Continue your MiraLAX as needed. Enema if having significant constipation with you not having bowel movements and feel bloated. Print Language: Georgian Disposition Disposition: Home, Self Care What to do if you have Problems For any increased pain, shortness of breath, bleeding, nausea or vomiting, chestpain, or any unexpected problems, contact your Primary Care Provider. Call [facility] ([phone]) or report tothe closest Emergency Room. Call 911 if necessary. 04/13/252120 Cosigner Signature (if applicable): CC: Dr. Wing Flores MD ~ Signed [facility]06-05-2025 Radiology Diagnostic study note [facility] Imaging Services [address] [place], [place] [address] Abdomen Single View MR#: [id number] Acct: [id number] Name: KELLY RAMOS Rep #: [id number] : 2005 F 20 From: Alejandra Meza MD PCP: Dr. Wing Flores MD Status: PRE ER Study:Abdomen Single View Date of Exam: 04/13/25 Exam# [id number] Ordering Dr: Marvin Lowry MD PROCEDURE: ABDOMEN SINGLE VIEW 04/13/2025 REASON FOR EXAM: CONSTIPATION TECHNIQUE: Single view abdomen. FINDINGS: No bowel obstruction or ileus. No suspicious calcifications. No acute fractureor dislocations. RAD/Abdomen Single View IMPRESSION: No bowel obstruction or ileus. Reading Location: [facility] CC: Dr. Wing Flores MD; Dr. Mark Lowry MD ~ Business System Manager: Signed [facility]06-05-2025 Discharge summary Author Mark Lowry [facility] Note Date/Time April 13, 2025 9:21p m [facility] Medical Records Department [address] [place] [address] Emergency Department Summary 04/13/25 MR#: [id number] Acct: [id number] Name: KELLY RAMOS Rep #:[id number] : 2005 20 From: Mark Lowry MD PCP: Dr. Wnig Flores MD Status:REG ER Location: ED HPI HPI - GI History of Present Illness Chief Complaint: Other, Pain/Inj Detail of Chief Complaint: Constipation after rectal prolapse repair surgery about a week ago. Informant: patient and parent Abdominal Pain/Flank Pain Onset: Days Context: Gradual Onset Timing: Intermittent Quality: Cramping Location: - (Lower abdomen and rectum.) Current Severity: Mild Maximum Severity: Mild Nausea/Vomiting/Emesis GI Symptom: Negative for Nausea or Vomiting Diarrhea/Melena/Hematochezia GI Symptom: Positive for - (Constipation. Last bowel movement on Thursday.); Negative for Diarrhea, Melena or Hematochezia Associated Symptoms Associated Symptoms: Negative for Dysuria, Frequency, Hematuria or Urgency Narrative Narrative: 20-year-old female on April 04 had laparoscopic rectal prolapse repair surgery done at [facility]. Since that time she has had problems with constipation. Was recently seen in this emergency department had a CAT scan which showed constipation and normal postop changes. Was treated with enemas and improved. She has not had much of a bowel movement since Thursday. They have been trying different things at home and working with her: Rectal surgeon from . Today was having more crampy pain. Prior similar symptoms: Yes Recent Illness/Hospitalization: Yes [facility] Medical History IBS (irritable bowel syndrome) Fracture of thumb, right, closed Disease of tonsils and adenoids Encounter for screening for COVID-19 Home Medications ?Medication ?Instructions ?Recorded ?Last Taken ?Type docusate sodium 100 mg capsule 100 mg PO BID 04/10/25 Unknown History ibuprofen 600 mg tablet 600 mg PO .Q3HR PRN pain 01/03 Unknown History Allergy/AdvReac Type Severity Reaction Status Date / Time azithromycin Allergy Mild RASH Verified 04/13/25 19:37 Social History Smoking Status: Never smoker substance use type: does not use ROS ROS ED ROS Narrative Constipation. Constitutional Constitutional ED: Denies chills or fever(s) ENT ENT ED: Denies ear pain Cardiovascular Cardiovascular: Denies chest pain Respiratory/Chest Respiratory/Chest: Denies cough Gastrointestinal Gastrointestinal: Reports abdominal pain and constipation; Denies diarrhea, melena, nausea or vomiting Genitourinary Genitourinary ED: Denies dysuria or hematuria Musculoskeletal Musculoskeletal: Denies arthralgias or back pain Integumentary Denies abscess or Abrasions Neurologic Neurologic: Denies headache(s) Psychiatric Psychiatric: Denies anxiety Endocrine Endocrinology: Denies polydipsia Hematologic/Lymphatic Hematologic/Lymphatic: Denies easy bleeding Allergic/Immunologic Allergic/Immunologic ED: Denies mouth swelling, tongue swelling or urticaria EXAM Physical Exam Narrative Exam Narrative: 20-year-old female vital signs are stable is tachycardic. Complaining of abdominal cramping. Parents present in room. H EENT exam pupils round react light. Moist mucous membranes. Neck nontender. Back nontender. Lungs clear to auscultation bilaterally. Heart tachycardic rate about 120 no murmur. Abdomen soft fusilli tender well- healing laparoscopic incisions. Dry and clean. No significant distention. No signs of obstruction. Positive bowel sounds. Moving all 4 extremities. Nontender no edema. Neurologically she is awake alert. No focal motor deficits. Answering questions and following commands. Const Vital Signs: 04/13/25 19:34 04/13/25 20:34 04/13/25 20:35 Temperature 98 F Temperature Source Temporal Pulse Rate 128 H 98 Respiratory Rate 20 H 18 Respiratory Effort Normal Respiratory Pattern Tachypnea Blood Pressure 119/102 H 136/93 H Blood Pressure Mean 107 107 Pulse Ox 100 97 Oxygen Delivery Method Room Air Room Air Positive well nourished and well developed; Negative for obese, cachectic, contractures or unkempt General Appearance ED: well developed and NAD; Negative for unkempt, cachectic, contractures or pallor Nutritional Appearance: Negative for cachectic or obese HEENT Reports moist mucous membranes normocephalic and atraumatic Eyes PERRL and EOMs intact bilaterally Neck no lymphadenopathy, supple and no JVD Resp normal respiratory effort and clear to auscultation bilaterally Cardio regular rhythm, S1 normal heart sound, S2 normal heart sound and no murmurs; Negative for regular rate Rate: tachycardic GI non-distended and no masses; Negative for non-tender GI Narrative: Mildly tender. Well-healing laparoscopic incisions. Dry and clean. No obstruction. No significant distention. Auscultation: normoactive bowel sounds Palpation: soft and tender; Negative for guarding, rigid, hernia, mass, pulsatile mass or rebound tenderness present Back/Spine no CVA tenderness Extremity full ROM General Extremety ED: Negative for edema or tenderness General Extremity: Negative for edema Neuro CN's II-XII intact bilaterally and moves all extremities Sensorium / Orientation: alert, oriented to person, oriented to place and oriented to time; Negative for orientation impaired Motor Exam: strength 5/5 throughout Psych mental status grossly normal and thought process normal Appearance: Negative for unkempt Skin no wounds General Skin Exam: Negative for jaundice or pallor Lesions: no lesions Rashes: no rashes MDM MDM MDM Narrative Medical decision making narrative: 20-year-old female constipation with abdominal cramping after rectal prolapse laparoscopic repair surgery on April 04. I spoke to her general surgeon who did her procedure Dr. Todd. She recommended a enema. And if the patient needs to be transferred she is have to accept her to . I will discuss this with thefamily. Repeat exam patient is doing well at 21:18. She has had 3 liquid bowel movementsince she has been here. She wanted to hold off on the enema because she was feeling better. Her abdomen is benign. Her and her parents are comfortable with her being discharged home. They will follow-up with her colorectal surgeonfrom tomorrow. They are going to do a soft diet. Liquids. Continue using the MiraLAX and stool softeners. History & Record Review Discussion w/independent historian: Patient Additional record(s) reviewed:: Prior inpatient record, Prior outpatient record,Prior ED visit and Prior labs Radiography Diagnostic Testing: Clinical Impression(s) from Imaging Studies KUB X-Ray 04/13/25 20:01 IMPRESSION: No bowel obstruction or ileus. Reading Location: [facility] 2 films 1 view. By myself and radiologist. Shows no obstruction. Stool inthe rectum but not significantly throughout the colon. No air-fluid levels. I went over the film with the parents. Discharge Plan Triage Chief Complaint: Other, Pain/Inj ED Provider: Mark Lowry Dx/Rx/DC Orders Clinical Impression: Constipation, History of intestinal surgery Instructions: ED Constipation (Adult) Prescriptions: No Action docusate sodium 100 mg capsule 100 mg PO BID ibuprofen 600 mg tablet 600 mg PO .Q3HR PRN (Reason: pain) Primary Care Provider: Wing Flores Referrals: Wing Flores MD [Primary Care Provider] - Activity Restrictions/Additional Instructions: Call and follow-up with your surgeon from Dr. Todd in her office tomorrow. Plenty of fluids. Fiber. Soft diet. Slowly increase as tolerated. Continue your MiraLAX as needed. Enema if having significant constipation with you not having bowel movements and feel bloated. Print Language: Georgian Disposition Disposition: Home, Self Care What to do if you have Problems For any increased pain, shortness of breath, bleeding, nausea or vomiting, chestpain, or any unexpected problems, contact your Primary Care Provider. Call [facility] ([phone]) or report to the closest Emergency Room. Call 911 if necessary. 06/05/25 2121 <Electronically signed by Mark Lowry MD> Cosigner Signature (if applicable): CC: Dr. Wing Flores MD ~ Signed [facility] Work Phone: 1(918) 116-956306-02-2025 Discharge summary [facility] Medical Records Department [address] [place] [address] Emergency Department Summary 04/10/25 MR#: [id number] Acct: [id number] Name: KELLY RAMOS Rep #:[id number] : [...] and this did seem to help for afew hours but then the pain returned and worsened and would not respond tofurther doses of the medication. The patient denies any fevers or chills or dysuria. She states she feels that she has to have a bowel movement but is onlyable to get a small amount out. Based on the worsening pain roughly 1 week fromsurgery she presents for evaluation [facility] Medical History (Updated 04/10/25 @ 05:43 by [...] and normotensive and that her pain is mostlikely related to the intestinal inflammation and constipation. She recommends an enema and magnesium citrate. This was provided to the patient in the ER. The patient and mother were informed of the discussion with her general surgeon and that the recommendation is discharge at this time with outpatient follow-up. The patient was able to have further bowel movements in the ER which reportedly didhelp reduce some of her symptoms. She has remained hemodynamically stable with a soft nonsurgical ab domen and therefore she will bedischarged to follow-up [...] 76.7 H Lymph % (Auto) 15.5 L Graves % (Auto) 5.9 Eos % (Auto) 1.1 [...] 4.8 cm at the level of the transversecolon. Reading Location: [place] [address] Management Discussion w/another healthcare provider: [employer] Discharge Plan Triage Chief Complaint: Abd Pain [...] further concerns please return to the ER forrepeat evaluation. Print Language: Georgian Disposition Disposition: Home, Self Care What to do if you have Problems For any increased pain, shortness of breath, bleeding, nausea or vomiting, chestpain, or any unexpected problems, contact your Primary Care Provider. Call [facility] ([phone]) or report tothe closest Emergency Room. Call 911 if necessary. 04/10/25624 Cosigner Signature (if applicable): CC: Dr. Wing Flores MD ~ Signed [facility]06-02-2025 Radiology Diagnostic study note [facility] Imaging Services [address] [place] [address] Abdomen/Pelvis W IV Cont ONLY MR#: [id number] Acct: [id number] Name: KELLY RAMOS Rep #: [id number] : 2005 F 20 From: Abdoul Franklin MD PCP: Dr. Wing Flores MD Status: REG ER Study:Abdomen/Pelvis W IV Cont ONLY Date of E xam: 04/10/25 Exam# [id number] Ordering Dr: Glory Gonsalves DO PROCEDURE: ABDOMEN/PELVIS [...] 4.8 cm at the level of the transversecolon. Reading Location: [place] [address] CC: Dr. Wing Flores MD; Clifton Gonsalves DO ~ Business System Manager: Signed [facility]05-27-2025 Miscellaneous Notes* Perioperative Nursing Note - Annalisa Avitia RN - 04/04/2025 1:21 PM EDT 1321- Assuming care of pt at this [...] time. 1409- pt medicated per emr order. * Perioperative Nursing Note - Annabel Berkowitz RN - 04/04/2025 12:39 PM EDT 1236 Assuming care of pt at this time. Bedside report received from outgoing RN. 1242 Pt mother- amna given update 1245 no changes 1300 no changes 1315 no changes 1320 see changes * Perioperative Nursing Note - Annabel Berkowitz RN - 04/04/2025 10:51 AM EDT 1059 Assuming care of pt at this time. Bedside report received from outgoing RN. Pt arrived to pacubay 45 at this time, report received from OR and anesthesia staff. Phase 1 care started. Message sent to family via text at this time. 1100 see changes 1108 o2 removed 1115 see changes 1128 dilaudid 0.5mg given 1130 see changes 1135 dilaudid 0.5mg given 1145 see changes 1148 dilaudid 0.5mg given 1200 report given to Bess pts mother given update * Op Note - Dena Todd MD - 04/04/2025 8:58 AM EDT Robotic Assisted Rectopexy Operative Note Date: 04/04/2025 OR Location: [facility] OR Name: Kelly Ramos, : 2005, Age: 20 y.o., , Sex: female Diagnosis Pre-op Diagnosis * Rectal prolapse [K62.3] Post-op Diagnosis * Rectal prolapse [K62.3] Procedures Robotic Assisted Rectopexy 22698 - [place] LAPAROSCOPY PROCTOPEXY PROLAPSE Surgeons * Dena Todd - Primary Resident/Fellow/Other Feed Research Technician: Surgeons and Role: * Verónica Gomes MD - Resident - Assisting Staff: Camp Program Director: Barrel Charrer: Chante Scrub Person: Henrietta Scrub Person: Jw Montoya Scrub: Susanne Montoya Barrel Charrer: Mayelin Anesthesia Staff: Anesthesiologist: Danny Mcqueen MD [...] has been actively warmed in preoperative area. Preopera tive antibiotics have been ordered and given within [...] right under direct vision. A 5 mm lpn medical assistant port was placed in the right lateral [...] to the pelvic floor. The right and leftsides were joined and the anterior peritoneal reflection [...] and tubes and ovaries laid over the exposedmesorectum, therefore the peritoneum was not closed. A [...] entire procedure. [facility]ena Todd [facility] Work Phone: 1(250) 336-244305-27-2025 Nurse Surgical operation note* Perioperative Nursing Note - Annalisa Avitia RN - 04/04/2025 1:21 PM EDT 1321- Assuming care of pt at this [...] time. 1409- pt medicated per emr order. [facility]05-27-[facility] Nurse Surgical operation note* Perioperative Nursing Note - Annabel Berkowitz RN - 04/04/2025 12:39 PM EDT 1236 Assuming care of pt at this time. Bedside report received from outgoing RN. 1242 Pt mother- amna given update 1245 no changes 1300 no changes 1315 no changes 1320 see changes [facility] Work Phone: 1(578) 672-985405-27-2025 Nurse Surgical operation note* Perioperative Nursing Note - Annabel Berkowitz RN - 04/04/2025 10:51 AM EDT 1059 Assuming care of pt at this time. Bedside report received from outgoing RN. Pt arrived to pacubay 45 at this time, report received from OR and anesthesia staff. Phase 1 care started. Message sent to family via text at this time. 1100 see changes 1108 o2 removed 1115 see changes 1128 dilaudid 0.5mg given 1130 see changes 1135 dilaudid 0.5mg given 1145 see changes 1148 dilaudid 0.5mg given 1200 report given to Bess, pts mother given update [facility] Work Phone: 1(760) 337-180605-27-2025 Surgery Surgical operation note* Op Note - Dena Todd MD - 04/04/2025 8:58 AM EDT Robotic Assisted Rectopexy Operative Note Date: 04/04/2025 OR Location: [facility] OR Name: Kelly Ramos, : 2005, Age: 20 y.o., , Sex: female Diagnosis Pre-op Diagnosis * Rectal prolapse [K62.3] Post-op Diagnosis * Rectal prolapse [K62.3] Procedures Robotic Assisted Rectopexy 00683 - [place] LAPAROSCOPY PROCTOPEXY PROLAPSE Surgeons * Dena Todd - Primary Resident/Fellow/Other Feed Research Technician: Surgeons and Role: * Verónica Gomes MD - Resident - Assisting Staff: Camp Program Director: Barrel Charrer: Chante Guillory Person: Henrietta Scrub Person: Jw Montoya Scrub: Susanne Montoya Barrel Charrer: Mayelin Anesthesia Staff: Anesthesiologist: Danny Mcqueen MD [...] has been actively warmed in preoperative area. Preopera tive antibiotics have been ordered and given within [...] right under direct vision. A 5 mm lpn medical assistant port was placed in the right lateral [...] to the pelvic floor. The right and leftsides were joined and the anterior peritoneal reflection [...] and tubes and ovaries laid over the exposedmesorectum, therefore the peritoneum was not closed. A [...] scrubbed for the entire procedure. Dena Todd [facility] Work Phone: 1(190) 722-390305-27-2025 History and physical note* Verónica Gomes MD - 04/04/2025 8:13 AM EDT History Of Present Illness Kelly Ramos is [...] to OR for Robotic Rectopexy with Dr. Tdod Consent completed at office visit, questions addressed today Verónica Gomes MD General Surgery PGY-3 Colon and Rectal Surgery Verónica Gomes MD [1] Past Medical History: Diagnosis Date Abdominal pain Rectal prolapse [2] Past Surgical History: Procedure Laterality Date COLONOSCOPY WISDOM TOOTH EXTRACTION [3] No family history on file. Cosigned by Dena Todd MD at 04/04/2025 8:22 AM EDT [facility] Work Phone: 1(483) 465-616505-27-2025 History and physical note* Verónica Gomes MD - 04/04/2025 8:13 AM EDT History Of Present Illness Kelly Ramos is [...] 04/04/2025 8:22 AM EDT [facility] Work Phone: 1(891) 840-228204-24-2025 History of Present illness Narrative* Karime Ross APRN-CATRACHITA - 03/02/2025 5:10 PM EDT [facility] NOTE: Name: Kelly Ramos, 20 y.o. CSN:[id number] ALL: Allergies[1] Chief Complaint: Nausea, loss of [...] wax and wanes, worse with eating. Tolerating POfluids well. No history of recent travel, medication [...] history, surgical history, social history, as well asfamily history (when relevant). In this case, I [...] Those SDOH influencing Kelly's care are: none COURSE/MEDICAL DECISION MAKING: Kelly is a 20 y.o., who presents with a working diagnosis of 1. Gastroenteritis 2. Nausea Plan of Care: 1) Zofran given in office and prescription sent to [facility] pharmacy 2) encouraged to continue drinking p.o. [...] discharge Dwain Ross DNP Advanced Practice Provider [facility] Please note: While the patient [...] with 15 ml after toothbrushing the night beforesurgery and on the morning of surgery. Expectorate after rinsing. Do not swallow. (Patient not taking: Reported on 03/02/2025) 120 mL 0 gabapentin (Neurontin) 100 mg capsule Take one capsule by mouth starting three days before surgery at bedtime. (Patient not taking: Reported on 03/02/2025) 3 capsule 0 HYDROcodone-acetaminophen ([place]) 5-325 mg tablet Take 1 tablet by [...] 1 tablet (4 mg) in the mouth every8 hours if needed for nausea or vomiting for up to 7 days. 20 tablet 0 rifAXIMin (Xifaxan) 200 mg tablet Take 0.5 tablets (100 mg) by mouth. (Patient not taking: Reportedon 03/02/2025) No current facility-administered medications for this visit. [4] No past surgical history on file. [5] No family history on file. documented in this [facility] Work Phone: 1(866) 195-302801-10-2025 NoteHNO ID: [id number] Author: DAVID HOPKINS PA-C Service: ? Author Type: Physician Feed Research Technician Type: Progress Notes Filed: 11/18/2024 17:31 Note Text: This note was created using [employer]. Subjective Kelly Ramos is a 19 year old female. Patient is a 19-year-old female who complains of congestion and cough that she has been experiencing for the past 6 days. Patient also reports mild sore throat that she has had for the past 3 days. Patient does attend [employer] and does live in the dormitory. [...] MG TABLET - BENZONATATE 100 MG CAPSULE ADELE [facility]01-10-2025 History of Present illness Narrative* David Hopkins PA-C - 11/18/2024 5:25 PM EST This note was created using [employer]. Subjective Kelly Ramos is a 19 year old female. Patient is a 19-year-old female who complains of congestion and cough that she has been experiencing for the past 6 days. Patient also reports mild sore throat that she has had for the past 3 days. Patient does attend [employer] and does live in the dormitory. [...] BENZONATATE 100 MG CAPSULE David Hopkins PA-C documented in this encounterProm[facility]12-14-[facility]24 NoteHNO ID: [id number] Author: JAIR RILEY APRN.[facility] Service: ? Author Type: Nurse Practitioner Type: [...] of care. This note was generated using [employer] software. It may contain errors in wording, punctuation, or spelling. Jair Riley APRN.[facility]12-14-2024 History of Present illness Narrative* Jair Riley APRN.[facility] - 10/22/2024 11:25 AM EST Subjective HPI Nontoxic-appearing female presents urgent care [...] 59.5 kg (131 lb 2.8 oz) LMP 10/08/2024(Approximate) SpO2 99% .Patient presents with: Cough: Persistent [...] with primary care provider 48 hours reevaluation. Patientwas instructed to immediately proceed to emergency room for any new, worsening, or symptoms lastinglonger than anticipated. The patient's clinical presentation is otherwise unremarkable at this time. Based on exam and clinical finding, the patient is stable for discharge. Plan of care was discussed with patient. Patient verbalizes understanding and agrees to plan of care. This note was generatedusing [employer] software. It may contain errors in wording, punctuation, or spelling. Jair Riley APRN.[facility] documented in this encounterPromedica [facility]12-04-2024 History of Present illness Narrative* Dena Todd MD - 10/12/2024 9:00 AM EST Kelly Ramos is a 19 year old [...] bowel motion. She did go for biofeedback 82023. She reports that the biofeedback did not [...] robotic rectopexy Consent done documented in this [facility] Work Phone: 1(576) 280-680605-15-2024 Plan of care note* Plan of Care - Madison Fernandez RN - 03/23/2024 10:42 AM EDT Ongoing [facility]05-15-2024 Miscellaneous Notes* Plan of Care - Madison Fernandez RN - 03/23/2024 10:42 AM EDT Ongoing * Op Note - Piper Lin MD - 03/23/2024 10:28 AM EDT Patient Name KELLY RAMOS Date of 2005 Record Number [id number] Date/Time of Procedure 03/23/2024 , 9:30:00 AM Referring Physician Endoscopist VEDA SALDAÑA PROCEDURE PERFORMED Colonoscopy INDICATIONS FOR EXAMINATION Rectal prolapse [K62.3] K62.3 Rectal prolapse MEDICATIONSGeneral Anesthesia with LMA; ASA II ESTIMATED BLOOD LOSS2 ML INSTRUMENTS CF [id number] PROCEDURE TECHNIQUE A physical exam was performed. Informed consent was obtained from the patient's parents/guardian after explaining all the risks (perforation, bleeding, infection and adverse effects to the medicine),benefits and alternatives to the procedure which the [...] removed slowly while carefully examining the color, texture,anatomy, and integrity of the mucosa on the [...] colonoscopy RECOMMENDATIONS Pending biopsy. [facility] Procedure note* Op Note - Piper Lin MD - 03/23/2024 10:28 AM EDT Patient Name KELLY RAMOS Date of 2005 Record Number [id number] Date/Time of Procedure 03/23/2024 , 9:30:00 AM Referring Physician Endoscopist VEDA SALDAÑA PROCEDURE PERFORMED Colonoscopy INDICATIONS FOR EXAMINATION Rectal prolapse [K62.3] K62.3 Rectal prolapse MEDICATIONSGeneral Anesthesia with LMA; ASA II ESTIMATED BLOOD LOSS2 ML INSTRUMENTS CF [id number] PROCEDURE TECHNIQUE A physical exam was performed. Informed consent was obtained from the patient's parents/guardian after explaining all the risks (perforation, bleeding, infection and adverse effects to the medicine),benefits and alternatives to the procedure which the [...] removed slowly while carefully examining the color, texture,anatomy, and integrity of the mucosa on the [...] ENDOSCOPIC DIAGNOSIS Normal colonoscopy RECOMMENDATIONS Pending biopsy. [facility]05-15-2024 Attending History and physical note* Piper Lin MD - 03/23/2024 8:35 AM EDT H&P reviewed, patient examined, no changes have occured since H&P completed. Piper Lin MD P - [phone] 03/23/2024 Source Note - Peterson Thornton APRN-CNP - 03/08/2024 3:00 PM EDT PRE-OP CONSULTATION This is a telemedicine video visit requested by the patient/guardian that was performed with the patient's location at home and the provider's location at office. DATE OF SERVICE: 03/08/2024 SPEECH AND LANGUAGE TUTOR PROVIDER: LAYLA Godinez SURGICAL DIAGNOSIS: Rectal prolapse [...] and a chart review for evaluation for surgicalrisk factors. PMH significant for rectal prolapse and [...] documented above or are in the HPI. Allother systems were negative. Recent Illnesses? no Hx of COVID in last 12 months? no HISTORY: Noncontributory DEVELOPMENTAL HISTORY: Milestones: Not pertinent IMMUNIZATIONS: Stated as up to date, no records available COVID vaccinated? no SOCIAL/FAMILY HISTORY: Kelly lives with parents, one brother, and one sister Special Needs: None Preferred Language: Georgian School: College Smoking/Alcohol/Drug Use or Exposure: None [...] significant for rectal prolapse and abdominal pain. [facility] JOAO physical examination limited due to telehealth via video encounter. Pertinent and/or unperformed aspects of physical exam due to these limitations will be performed and/or addended by attending provider/anesthesia on day of surgery. Family instructed to contact the surgery center/PS if any changes occur since this evaluation. [...] to surgery -Remove all piercings and nail cape verdean/acrylics on the day of surgery -HCG DOS Care coordination: Wing Flores MD OTHER FINDINGS OR COMMENTS: Cc: MD Peterson Delgadillo, DIRECTOR OF PROCUREMENT-BULK PLANT MANAGER 03/08/2024 3:08 PM This visit was conducted via telehealth. I spent 40 minutes with patient/family and performing chart review for this consult. Counseling and/or coordination of care was greater than 50% of the total time spent on the encounter. This note or partial portions of this note may have been created using a copy forward or copy pastefeature, but these portions have been verified and re- edited for accuracy and any portions not in need of editing or review are not being used to generate any component necessary for billing purposes. Elements necessary for proper CPT code selection are based only on elements of the visit that are reviewed, re-examined or unique to this visit. [facility]05-15-2024 History and physical note* Piper Lin MD - 03/23/2024 8:35 AM EDT H&P reviewed, patient examined, no changes have occured since H&P completed. Piper Lin MD P - [phone] 03/23/2024 Source Note - Peterson Thornton APRN-CNP - 03/08/2024 3:00 PM EDT PRE-OP CONSULTATION This is a telemedicine video visit requested by the patient/guardian that was performed with the patient's location at home and the provider's location at office. DATE OF SERVICE: 03/08/2024 SPEECH AND LANGUAGE TUTOR PROVIDER: LAYLA Godinez SURGICAL DIAGNOSIS: Rectal prolapse [...] and a chart review for evaluation for surgicalrisk factors. PMH significant for rectal prolapse and [...] documented above or are in the HPI. Allother systems were negative. Recent Illnesses? no Hx of COVID in last 12 months? no HISTORY: Noncontributory DEVELOPMENTAL HISTORY: Milestones: Not pertinent IMMUNIZATIONS: Stated as up to date, no records available COVID vaccinated? no SOCIAL/FAMILY HISTORY: Kelly lives with parents, one brother, and one sister Special Needs: None Preferred Language: Georgian School: College Smoking/Alcohol/Drug Use or Exposure: None [...] significant for rectal prolapse and abdominal pain. [facility] JOAO physical examination limited due to telehealth [...] to surgery -Remove all piercings and nail cape verdean/acrylics on the day of surgery -HCG DOS Care coordination: Wing Flores MD OTHER FINDINGS OR COMMENTS: Cc: MD Peterson Delgadilloh, DIRECTOR OF PROCUREMENT-BULK PLANT MANAGER 03/08/2024 3:08 PM This visit was conducted via telehealth. I spent 40 minutes with patient/family and performing chart review for this consult. Counseling and/or coordination of care was greater than 50% of the total time spent on the encounter. This note or partial portions of this note may have been created using a copy forward or copy pastefeature, but these portions have been verified and re- edited for accuracy and any portions not in need of editing or review are not being used to generate any component necessary for billing purposes. Elements necessary for proper CPT code selection are based only on elements of the visit that are reviewed, re-examined or unique to this visit. documented in this [facility]Mer[facility] NotePRE-OP CONSULTATION This is a telemedicine video visit requested by the patient/guardian that was performed with the patient's location at home and the provider's location at office. DATE OF SERVICE: 03/08/2024 SPEECH AND LANGUAGE TUTOR PROVIDER: LAYLA Godinez SURGICAL DIAGNOSIS: Rectal prolapse [...] one sister Special Needs: None Preferred Language: Georgian School: College Smoking/Alcohol/Drug Use or Exposure: None [...] of motion [facility] [place] (more content not included)...[facility]04-18-2024 History of Present illness Narrative* Deborah Boss PA-C - 02/25/2024 1:40 PM EDT On 02/25/2024 at 1359 I performed Diagnostic contrast enema without supervision. The supervising provider for this procedure was N/A. The procedure was successfully performed. There were not complications. documented in this encounterMer[facility]02-14-2023 Miscellaneous Notes* Telephone Encounter - Sabi Ledezma LPN - 12/23/2022 11:22 AM EST Pt's father Mark notified of all results, mark voiced understanding. Sabi Ledezma LPN * Telephone Encounter - Rhiannon Antonio APRN.CNP - 12/23/2022 10:59 AM EST Covid flu, rsv all negative. .me documented in this encounterPromedica [facility]02-14-2023 Miscellaneous Notes* Telephone Encounter - Ilana Castaneda - 12/23/2022 7:44 AM EST Patient given results and verbalized understanding of instructions given. Ilana Castaneda * Telephone Encounter - Rhiannon Antonio APRN.CNP - 12/23/2022 7:36 AM EST Please notify of negative covid test, flu rsv still pending. Rhiannon Antonio APRN.CNP documented in this encounterClarksville ClinicDiswyandot [facility] hospitalr summary Author Clifton Gonsalves [facility] Note Date/Time April 10, 2025 6:25a m [facility] Medical Records Department [address] [place] [address] Emergency Department Summary 04/10/25 MR#: [id number] Acct: [id number] Name: KELLY RAMOS Rep #:[id number] : 2005 20 From: Clifton Gonsalves DO PCP: Dr. Wing Flores MD Status:[facility] ER Location: ED HPI History of Present [...] 1 week fromsurgery she presents for evaluation [facility] Medical History (Updated 04/10/25 @ 05:43 by [...] 76.7 H Lymph % (Auto) 15.5 L Graves % (Auto) 5.9 Eos % (Auto) 1.1 [...] level of the transverse colon. Reading Location: [place] [address] Management Discussion w/another healthcare provider: Sheetmetal Patternmaker Discharge Plan Triage Chief Complaint: Abd Pain [...] the ER for repeat evaluation. Print Language: Georgian Disposition Disposition: Home, Self Care What to do if you have Problems For any increased pain, shortness of breath, bleeding, nausea or vomiting, chestpain, or any unexpected problems, contact your Primary Care Provider. Call [facility] ([phone]) or report to the closest Emergency Room. Call 911 if necessary. 04/10/25624 <Electronically signed by Clifton Gonsalves DO> Cosigner Signature (if applicable): CC: Dr. Wing Flores MD ~ Signed [facility] Work Phone: Evaluation noteNo assessment information available [facility] Work Phone: Evaluation note* Diagnosis Rectal prolapse documented in this encounter [facility]* Diagnosis Rectal prolapse- Primary Rectal prolapse- Primary Rectal prolapse documented in this encounter [facility] note* Diagnosis Rectal prolapse- Primary Pre-operative examination Preoperative examination, unspecified Abdominal pain, unspecified abdominal location Rectal prolapse documented in this encounter [facility] note* Diagnosis Rectal prolapse- Primary Hypermobility syndrome documented in this encounter [facility] Work Phone: Evaluation note* Diagnosis Lower respiratory tract infection- Primary Other diseases of respiratory system, not elsewhere classified documented in this encounter [facility]* Diagnosis Viral illness- Primary Unspecified viral infection, in conditions classified elsewhere and of unspecified site documented in this encounter [facility]* Diagnosis Rectal prolapse- Primary Gastroenteritis- Primary Other and unspecified noninfectious gastroenteritis and colitis Nausea Nausea alone Rectal prolapse documented in this encounter [facility] Work Phone: Evaluation note* Diagnosis Rectal prolapse- Primary Rectal prolapse documented in this encounter [facility] Work Phone: Evaluation note* Diagnosis Rectal prolapse- Primary Hypermobility syndrome documented in this encounter [facility] Work Phone: Hospital Discharge instructions* Attachments The following attachments cannot be sent through Care Everywhere. * Managing pain after surgery (Georgian) * How to Prevent Surgical Site Infections (Georgian) * General Anesthesia Discharge Instructions (Georgian) [facility] Work Phone: Hospital Discharge instructions Additional [...] please return to the ER for repeat evaluation.[facility] Work Phone: Hospital Discharge instructions Additional Instructions Call and follow-up with your surgeon from Dr. Todd in her office tomorrow. Plenty of fluids. Fiber. Soft diet. Slowly increase as tolerated. Continue your MiraLAX as needed. Enema if having significant constipation with you not having bowel movements and feel bloated.[facility] Work Phone: Hospital Discharge instructionsAdditional Instructions Plenty of fluids and rest. Bentyl for cramping. Motrin and Tylenol for pain. Zofran as needed for nausea. Follow-up with your GI doctor soon as possible.[facility] Work Phone: Reason for referral (narrative)* Referral (Routine) - Closed Specialty Diagnoses / Procedures Referred By Saroj dumont Referred To Contact Radiology Diagnoses Rectal prolapse Procedures [place] [address] Referral ID Status Reason Start Date Expiration Date Visits Re quested Visits Authorized [id number] Closed 01/26/2024 03/08/2024 1 1 [facility] for referral (narrative)No reason for referral information availableWMercy Health [facility] Work Phone: Reason for visit Narrative* Referral (Routine) - Closed Specialty Diagnoses / Procedures Referred By Contac t Referred To Contact Radiology Diagnoses Rectal prolapse Procedures [place] [address] Referral ID Status Reason Start Date Expiration Date Visits Re quested Visits Authorized [id number] Closed 01/26/2024 03/08/2024 1 1 [facility] for visit Narrative* Auth/Cert Specialty Diagnoses / Procedures Referred By Contac t Referred To Contact Diagnoses Rectal prolapse Rectal prolapse [K62.3] Procedures IA LAPAROSCOPY PROCTOPEXY PROLAPSE Robotic Assisted Rectopexy Dena Todd MD [address] [place] [address] Phone: tel: fax: [facility] [place] [address] [place] [address] fax: Referral ID Status Reason Start Date Expiration Date Visits Re quested Visits Authorized [id number] 1 1 [facility] Work Phone: Advance Directives Advance Directive Response Recorded Date/ Time Living Will No October 26 9:30pm Power of Career Coach No October 26, 2015 9:30pm Date Activated Date Inactivated Comments 04/04/2025 6:37 AM Question Answer Comments Plan of Care: Code Status Discussion Completed Decision Maker: Patient Advance Directive Response Recorded Date/ Time Do you have a Healthcare Power of Career Coach? No April 10, 2025 2:40am Advance Directive Response Recorded Date/ Time Do you have a Healthcare Power of Career Coach? No April 10, 2025 2:40am Do you have a Healthcare Power of Career Coach? No April 13, 2025 8:35pm Date Activated Date Inactivated Comments 04/04/2025 6:37 AM Question Answer Comments Plan of Care: Code Status Discussion Completed Decision Maker: Patient Advance Directive Response Recorded Date/ Time Do you have a Healthcare Power of Career Coach? No April 10, 2025 2:40am Do you have a Healthcare Power of Career Coach? No April 13, 2025 8:35pm Do you have a Healthcare Power of Career Coach? No May 11, 2025 7:39pm Health Concerns Infection Onset Date Last Indicated [...] ABDOMINAL PAIN April 10, 2025 2:31a m Chief Complaint Admit Date ABDOMINAL PAIN April 10, 2025 2:31a m Rectal pain April 13, 2025 7:34p m Chief Complaint Admit Date ABDOMINAL PAIN April 10, 2025 2:31a m Rectal pain April 13, 2025 7:34p m abd pain, diarrhea May 11, 2025 6:27p m Chief Complaint Admit Date ABDOMINAL PAIN April 10, 2025 2:31a m Rectal pain April 13, 2025 7:34p m abd pain, diarrhea May 11, 2025 6:27p m LUMBAR SPINE May 16, 2025 9:04a m room 3 May 16, 2025 9:16a m Chief Complaint Admit Date ABDOMINAL PAIN April 10, 2025 2:31a m Rectal pain April 13, 2025 7:34p m abd pain, diarrhea May 11, 2025 6:27p m LUMBAR SPINE May 16, 2025 9:04a m room 3 May 16, 2025 9:16a m LOW BACK PAIN. RX HERE June 08, 2025 2 :00pm ESTABLISH CARE IBS REPAIRED RECTAL PROLA PSE June 12, 2025 1:59pm Reason for Visit Admit Date Lumbar radiculopathy May 16, 2025 9:04 am Constipation June 12, 2025 1:5 9pm Additional Source Comments Goals (unrecognized section and [...] or prosecute any alcohol or drug abuse patient.[facility] HospitalIn the event this information is protected by the Federal Confidentiality of Alcohol and Drug Abuse Patient Records regulations: The Federal rules restrict any use of the information to criminally investigate or prosecute any alcohol or drug abuse patient.[facility] HospitalIn the event this information is protected by the Federal Confidentiality of Alcohol and Drug Abuse Patient Records regulations: The Federal rules restrict any use of the information to criminally investigate or prosecute any alcohol or drug abuse patient.[facility] HospitalIn the event this information is protected by the Federal Confidentiality of Alcohol and Drug Abuse Patient Records regulations: The Federal rules restrict any use of the information to criminally investigate or prosecute any alcohol or drug abuse patient.[facility] Reason for Visit (unrecogniz ed section and content) Reason Comments Results Reason Comments Results Lab Specialty Diagnoses / Procedures Referred By Saroj t Referred To Contact Diagnoses Rectal prolapse Rectal prolapse [K62.3] Procedures IA COLSC FLX W/REMOVAL LESION BY HOT BX FORCEPS IA COLSC FLX W/RMVL OF TUMOR POLYP LESION SNARE TQ Colonoscopy with biopsies (possible polypectomy) Colonoscopy with biopsies (possible polypectomy) [place] [address] Referral ID Status Reason Start Date Expiration Date Visits Re quested Visits Authorized [id number] 1 1 Reason Comments New patient visit [...] Diarrhea Chills, sweats X 6 d ays Reason Comments post op INFORMATION SOURCE (unrecogn ized section and content) DATE CREATED AUTHOR 07/04/2023 [facility] DATE CREATED AUTHOR AUTHOR'S ORGANIZ ATION 07/29/[address] [facility] DATE CREATED AUTHOR AUTHOR'S ORGANIZ ATION 10/25/2024 [facility] DATE CREATED AUTHOR AUTHOR'S ORGANIZ ATION 11/23/2024 [facility] DATE CREATED AUTHOR AUTHOR'S ORGANIZ ATION 12/24/2024 [facility] DATE CREATED AUTHOR AUTHOR'S ORGANIZ ATION 03/04/2025 [facility] DATE CREATED AUTHOR AUTHOR'S ORGANIZ ATION 04/25/2025 [facility] DATE CREATED AUTHOR AUTHOR'S ORGANIZ ATION 05/18/2025 [facility] DATE CREATED AUTHOR AUTHOR'S ORGANIZ ATION 05/18/2025 [facility] DATE CREATED AUTHOR AUTHOR'S ORGANIZ ATION [facility]/20[facility] Teams (unrecognized sec tion and content) Team Status: Active Member Role Status Dates Dr. Wing Flores MD Family Provider Active Dr. Wing Flores MD Primary Care Provider Active Team Status: Inactive Member Role Status Dates Dr. Wing Flores MD Primary Care Provider Active Dr. Neo Jean MD Attending Provider, Referring Provider Active Video Recorder Mechanic Relationship Specialty Start Date End Date Wing Flores MD [address] [place] [address] PCP - General 12/02/14 Video Recorder Mechanic Relationship Specialty Start Date End Date Wing Flores MD [address] [place] [address] PCP - General 12/02/14 Video Recorder Mechanic Relationship Specialty Start Date End Date Wing Flores MD [address] [place] [address] PCP - General 12/02/14 Video Recorder Mechanic Relationship Specialty Start Date End Date Wing Flores MD [address] [place] [address] PCP - General 07/03/23 Video Recorder Mechanic Relationship Specialty Start Date End Date Wing Flores MD [address] [address] [place] [address] PCP - General Family Medicine 11/13/23 Video Recorder Mechanic Relationship Specialty Start Date End Date Wing Flores MD [address] [place] [address] PCP - General Family Medicine 11/13/23 Video Recorder Mechanic Relationship Specialty Start Date End Date Wing Flores MD [address] [place] [address] PCP - General 07/03/23 Video Recorder Mechanic Relationship Specialty Start Date End Date Wing Flores MD [address] [place], [place] [id number] PCP - General 07/03/23 Team Status: Active Member Role Status Dates Dr. Wing Flores MD Primary Care Provider Active Team Status: Inactive Member Role Status Dates Dr. Wing Flores MD Primary Care Provider Active Start: April 10, 2025 End: April 10, 2025 Dr. Clifton Gonsalves DO Emergency Provider Active Start: April 10, 2025 End: April 10, 2025 Team Status: Inactive Member Role Status Dates Dr. Wing Flores MD Primary Care Provider Active Start: April 13, 2025 End: April 13, 2025 Dr. Mark Lowry MD Referring Provider Active S tart: April 13, 2025 End: April 13, 2025 Dr. Mark Lowry MD Emergency Provider Active S tart: April 13, 2025 End: April 13, 2025 Video Recorder Mechanic Relationship Specialty Start Date End Date Wing Flores MD [address] [place] [address] PCP - General 07/03/23 Video Recorder Mechanic Relationship Specialty Start Date End Date Wing Flores MD [address] [place], [place] [id number] PCP - General 07/03/23 Video Recorder Mechanic Relationship Specialty Start Date End Date Wing Flores MD [address] [place] [address] PCP - General 07/03/23 Team Status: Active Member Role/Relationship Status Dates Dr. Wing Flores MD Primary Care Provider Active Team Status: Inactive Member Role/Relationship Status Dates Dr. Wing Flores MD Primary Care Provider Active Start: April 10, 2025 End: April 10, 2025 Dr. Clifton Gonsalves DO Attending Provider Active Start: April 10, 2025 End: April 10, 2025 Dr. Clifton Gonsalves DO Emergency Provider Active Start: April 10, 2025 End: April 10, 2025 Team Status: Inactive Member Role/Relationship Status Dates Dr. Wing Flores MD Primary Care Provider Active Start: April 13, 2025 End: April 13, 2025 Dr. Mark Lowry MD Attending Provider Active S tart: April 13, 2025 End: April 13, 2025 Dr. Mark Lowry MD Referring Provider Active S tart: April 13, 2025 End: April 13, 2025 Dr. Mark Lowry MD Emergency Provider Active S tart: April 13, 2025 End: April 13, 2025 Team Status: Inactive Member Role/Relationship Status Dates Dr. Wing Flores MD Primary Care Provider Active Start: May 11, 2025 End: May 11, 2025 Dr. Mark Lowry MD Emergency Provider Active S tart: May 11, 2025 End: May 11, 2025 Team Status: Active Member Role/Relationship Status Dates Dr. Wing Flores MD Primary Care Provider Active Start: May 16, 2025 Dr. Wing Flores MD Referring Provider Active St art: May 16, 2025 ADELE Reyez Attending Provider Active Star t: May 16, 2025 Team Status: Inactive Member Role/Relationship Status Dates Dr. Wing Flores MD Primary Care Provider Active Start: May 16, 2025 End: May 16, 2025 Dr. Gold Ring MD Attending Provider Active S tart: May 16, 2025 End: May 16, 2025 Team Status: Inactive Member Role/Relationship Status Dates Dr. Wing Flores MD Primary Care Provider Active Start: May 16, 2025 End: May 16, 2025 Dr. Wing Flores MD Referring Provider Active St art: May 16, 2025 End: May 16, 2025 ADELE Reyez Attending Provider Active Star t: May 16, 2025 End: May 16, 2025 Team Status: Inactive Member Role/Relationship Status Dates Dr. Wing Flores MD Primary Care Provider Active Start: May 11, 2025 End: May 11, 2025 Dr. Mark Lowry MD Attending Provider Active S tart: May 11, 2025 End: May 11, 2025 Dr. Mark Lowry MD Emergency Provider Active S tart: May 11, 2025 End: May 11, 2025 Team Status: Active Member Role/Relationship Status Dates Dr. Wing Flores MD Primary Care Provider Active Start: June 08, 2025 ADELE Reyez Attending Provider Active Star t: June 08, 2025 ADELE Reyez Referring Provider Active Star t: June 08, 2025 Team Status: Inactive Member Role/Relationship Status Dates Dr. Wing Flores MD Primary Care Provider Active Start: June 12, 2025 End: June 12, 2025 Dr. Wing Flores MD Referring Provider Active St art: June 12, 2025 End: June 12, 2025 Dr. Xavi Manjarrez DO Attending Provider Active Start: June 12, 2025 End: June 12, 2025 Continuous Active and Recently Administ ered Medications (unrecognized section and content) Medication Order 03/21/2024 03/22/2024 03/23/2024 Lactated Ringers IV (CANCELED) CONTINUOUS, Intravenous, at 100 mL/hr, Starting on Thu03/23/24 at 1100, For 90 days, PACU 1031 (Restarted from Bag - Provider: Madison Fernandez RN)1044 (Dose/Rate Verification - Provider: Madison Fernandez RN)1053 (Stopped - Provider: Madison Fernandez RN) Scheduled Medication Order 04/02/2025 04/03/2025 04/04/2025 aprepitant [...] mg (COMPLETED) 25 mg, intravenous, Once, On e 04/04/25 at 1215, For 1 dose, If giving IV push, max rate of 25 mg/min. 1235 (Given - Provid er: Bess Adames RN) lidocaine PF (Xylocaine) 10 mg/mL (1 %) injection 1 mg 1 mg (0.1 mL), subcutaneous, Once, On e 04/04/25 at 1115, For 1 dose, Recovery (only), [...] BE BASED ON THE PRIMARY CLINICAL RECORDS. [facility]. provides no warranty or guarantee of the accuracy or completeness of information in this document.
[2025-06-16 15:08] LABS: Pancreatic Elastase, Fecal > 800 (>200)
[2025-06-17 02:07] LABS: Calprotectin, Stool 21 ug/g (0-120); Fats, Neutral Normal (.); Fats, Total Normal (.)
== END | disposition home or self-care (01) ==
LOC: LABSPEC 11:48
PROVIDERS: PCP Family Medicine; Referring Provider Internal Medicine Gastroenterology; Visit Provider Internal Medicine Gastroenterology
DX: K59.00 Constipation, unspecified (principal); K58.9 Irritable bowel syndrome, unspecified
CPT/HCPCS: 82653; 82705; 83630; 83993; 87177; 87209; 87329

== ENCOUNTER 2025-06-22 14:00 | Outpatient (RCR) | payer OTHER, SELFPAY ==
--- NOTE | 2025-05-19 16:27 | HP.PTEVAL_ITS ---
Patient's Visit Information Visit Information Visit Information: BROOKS RAMOS is a 20 year old F referred to Physical Therapy by ADELE Reyez with a diagnosis of LOW BACK PAIN. Date of Evaluation: 05/19/25 Physical Therapist: Gino Galvez, PT, Cert MDT, OCS Visit Plan Frequency: 2x /Week Duration: 4 Weeks Plan: PT INTERVENTIONS FOCUS ON DLS IN NEUTRAL POSITION, POSTURAL EX'S HIP STRENGTHENING ,MODALITIES PRN AND ACTIVITY MODIFICATION Subjective Subjective: This 20 y/o female presents to physical therapy with lumbar pain. Patient ahs had lumbar pain many years 14 -15 years old. Symptoms never got better . Patient rectal prolapse surgery abdominal approach April 04 . Symptoms got worse after PT. Patient had lifting restriction 5 # ( gallon milk) . Seen [facility] Antonio ,cathryn PT x-rays -normal ,other than extra vertebrae .If PT doesn't help May do MRI. Patient was in ER abnormal pain. Recommend ibuprofen. Locations symmetrical LS ,ache pain worse right than left. Occasional affects ache. Pain occurred one time with twisting. Occasionally paresthesia/tingling-. Patient aggravating bending ,standing ,lifting ,sitting some ,arching. Last summer did working pain symptom worse. Alleviating flexion in sitting . Coughing/sneezing irritates abdominal. No abnormal night pain. Patient to normal activities ,like pickle ball ,work. VOCATION: student Pain Bilateral Back: Pain Intensity (Out of 10): 4 Pain Intensity Range: 10 Objective Objective: POSTURE: rounded shoulders head forward GAIT:reciprocal pattern PALALPTION: SI right TTP NEURO: denies paresthesia/tingling ,reflexes L3-4,L4-5,L5- S1 2/3 LUMBAR ROM: flexion /extension/side glides WNL all planes excessive motion MMT: quads/hams 4/5 ,hip flexion 4-/5 ,hip abd 4/5 ,ankle 5/5 SYMMETRIES: align - Stork test -Standing Gillet test MUSCLUAR ENDURANCE: unable to hold Special Tests L/S Slump test left side: Negative L/S Slump test right side: Negative L/S Left Straight Leg Raise: Negative L/S Right Straight Leg Raise: Negative Lumbar Standing: Flexion - Mechanical Response: No effect Lumbar Standing: Flexion - Symptoms During Testing: No effect Lumbar Standing: Flexion - Symptoms After Testing: No effect Lumbar Standing: Extension - Mechanical Response: No effect Lumbar Standing: Extension - Symptoms During Testing: Increases Lumbar Standing: Extension - Symptoms After Testing: No worse Lumbar Standing: Right Side Glides - Mechanical Response: No effect Lumbar Standing: Right Side Carpenter - Symptoms During Testing: No effect Lumbar Standing: Right Side Carpenter - Symptoms After Testing: No effect Lumbar Standing: Left Side Carpenter - Mechanical Response: No effect Lumbar Standing: Left Side Carpenter - Symptoms During Testing: No effect Lumbar Standing: Left Side Carpenter - Symptoms After Testing: No effect Balance/Special Test Scores Oswestry Low Back Score: 23 Goals Goal 1:: Patient to be I with HEP for lumbar Goal Time Frame: 4-6 Weeks Goal 2:: Patient to improve muscular endurance test for abdominals by 10-15 seconds Goal Time Frame: 4-6 Weeks Goal 3:: Patient to improve back oswestry score by 5 points to improve QOL, and function Goal Time Frame: 4-6 Weeks Goal 4:: Patient to demonstrate 50% improvement with less pain and improved function Goal Time Frame: 4-6 Weeks Rehabilitation Potential Physical Therapy Diagnosis: This patient has lumbar pain with poor dynamic lumbar due to weakness with pain worse with standing and bending thus benefit from skilled PT Rehabilitation Potential: Good Anticipated Interventions Patient/Client Instruction: Educate patient on: Condition and Plan of Care For the Purpose of:: To decrease pain, To improve muscle performance and motor function, To improve ability to perform ADL's, To increase tolerance to activity/condition/position, To improve ability of physical actions for home/community/work/leisure, To reduce risk of recurrence and To improve health and function Therapeutic Exercise to Include: Strength training, Endurance training, Balance training, Postural training, Flexibilty training and Dynamic Lumbar Stabilization For the Purpose of:: To decrease pain, To improve muscle performance and motor function, To improve ability to perform ADL's, To increase tolerance to activity/condition/position, To improve ability of physical actions for home/community/work/leisure, To reduce risk of recurrence and To improve health and function TENS: Yes IF ES: Yes Cryotherapy (ice pack, ice massage): Yes Thermo therapy (hot pack): Yes For the Purpose of:: To decrease pain, To increase ROM, To improve nutrient delivery to tissue, To increase oxygenation perfusion, To improve health of tissue and To decrease soft tissue restriction Text: Thank you for the opportunity to evaluate your patient. For Medicare and Medicare HMO plans, please review the plan of care and approve it. It will need to be FAXED BACK to us at [phone] for Medicare purposes. For Medicare only, by signing this I certify the plan of care. Please let me know if there are questions or concerns regarding this plan of care. Physician Signature: Date:
--- NOTE | 2025-06-22 14:52 | HP.PTDCSUM ---
Discharge Summary D/C summary: It has been my pleasure to treat BROOKS RAMOS referred by ADELE Reyez, with the diagnosis of LOW BACK PAIN for a total of 8 visit(s). Discharge Date: 06/22/25 Please see the following information for a summary of their discharge status. Subjective Subjective: Prolonged sitting and standing aggravates back ,walking uneven surfaces painful ,or any movement Driving Better with prolonged activity Pain Bilateral Back: Pain Intensity (Out of 10): 1 Overall Improvement % Improvement: 20 Objective Objective/Function: POSTURE: rounded shoulders head forward GAIT:reciprocal pattern PALALPTION: SI right TTP NEURO: denies paresthesia/tingling ,reflexes L3-4,L4-5,L5- S1 2/3 LUMBAR ROM: flexion /extension/side glides WNL all planes excessive motion MMT: quads/hams 4/5 ,hip flexion 4-/5 ,hip abd 4/5 ,ankle 5/5 SYMMETRIES: align - Stork test Goals Goal 1:: Patient to be I with HEP for lumbar Goal 2:: Patient to improve muscular endurance test for abdominals by 10-15 seconds Goal 3:: Patient to improve back oswestry score by 5 points to improve QOL, and function Goal 4:: Patient to demonstrate 50% improvement with less pain and improved function Plan Plan: D/C RTD D/C Information Discharge Comments: HEP d/c sentence: If there are questions or concerns regarding this patient's physical therapy, please feel free to call me at [phone]. Thank you for the referral of this patient. Sincerely, Gino Galvez, PT, Cert MDT, OCS Balance/Gait/Functional tests Balance/Special Test Scores Oswestry Low Back Score: 23 Improvement % Improvement: 20
== END 2025-06-22 19:00 | disposition home or self-care (01) ==
LOC: PT 14:00
PROVIDERS: PCP Family Medicine; Referring Provider Student in an Organized Health Care Education/Training Program; Visit Provider Student in an Organized Health Care Education/Training Program
DX: M54.50 Low back pain, unspecified (principal)
CPT/HCPCS: 97110; 97161; 97530

== ENCOUNTER → 2025-07-25 | Outpatient (CLI) | payer SELFPAY ==
--- NOTE | 2025-07-25 13:20 | MRI_ITS ---
PROCEDURE: SPINE LUMBAR (ROUTINE) 07/25/2025 REASON FOR EXAM: CONTINUED LPB AFTER PT TECHNIQUE: Procedure Code: [id number] Modality: MR Procedure: SPINE LUMBAR (ROUTINE) COMPARISON: Lumbar spine x-ray 05/16/2025. FINDINGS: Vertebrae: Preserved in height and signal. Alignment: Normal. Conus Medullaris: Unremarkable. L1-2: Unremarkable L2-3: Unremarkable L3-4: Unremarkable L4-5: Unremarkable L5-S1: Unremarkable Sacrum: Unremarkable. MRI/Spine Lumbar (Routine) IMPRESSION: Unremarkable MRI of the lumbar spine without significant foraminal or canal segundo nosis. Reading Location: [id number]
== END | disposition home or self-care (01) ==
PROVIDERS: PCP Family Medicine; Referring Provider Student in an Organized Health Care Education/Training Program; Visit Provider Student in an Organized Health Care Education/Training Program
DX: M54.16 Radiculopathy, lumbar region (principal)
CPT/HCPCS: 72148

== ENCOUNTER 2025-08-09 02:39 | Emergency (ER) | payer OTHER, SELFPAY ==
[2025-08-09 02:39] VITALS: BP 121/84; PULSE 97; RESP 18; TEMP 36.8; O2SAT 99; BMI 24.9
--- NOTE | 2025-08-09 03:43 | EDS_ITS ---
HPI History of Present Illness Chief Complaint: Constipation Informant: patient and parent Narrative Narrative: Patient is a 20-year-old female with past medical history of rectal prolapse requiring surgical intervention as well as irritable bowel syndrome. She states that ever since her surgery she has had increasing struggles with constipation and states she has required intervention such as enemas in the past. Patient denies any previous diagnosis of infectious or inflammatory colitis or small bowel obstruction or intestinal abscess. She states that she did not have a bowel movement for the last few days and today had increasing pain. She states she was concerned she was progressing as previously and would need intervention and therefore presents to the hospital for evaluation. Patient does state that while waiting for evaluation she was able to have a bowel movement while in the ER. [facility] Medical History Rectal prolapse IBS (irritable bowel syndrome) Fracture of thumb, right, closed Disease of tonsils and adenoids Encounter for screening for COVID-19 Home Medications ?Medication ?Instructions ?Recorded ?Last Taken ?Type NK 08/09/25 Unknown History Allergy/AdvReac Type Severity Reaction Status Date / Time azithromycin Allergy Mild RASH Verified 08/09/25 02:40 Surgical History History of rectopexy Social History Smoking Status: Never smoker substance use type: does not use ROS ROS ED Constitutional Constitutional ED: Denies chills or fever(s) ENT ENT ED: Denies sore throat Cardiovascular Cardiovascular: Denies chest pain Respiratory/Chest Respiratory/Chest: Denies cough or dyspnea Gastrointestinal Gastrointestinal: Reports abdominal pain and constipation; Denies diarrhea, melena, nausea or vomiting Genitourinary Genitourinary ED: Denies dysuria Musculoskeletal Musculoskeletal: Denies back pain or myalgias Integumentary Denies rash Neurologic Neurologic: Denies headache(s) Psychiatric Psychiatric: Reports anxiety Hematologic/Lymphatic Hematologic/Lymphatic: Denies easy bleeding or easy bruising EXAM Physical Exam Const Vital Signs: 08/09/25 02:39 Temperature 98.3 F Temperature Source Oral Pulse Rate 97 Respiratory Rate 18 Blood Pressure 121/84 H Blood Pressure Mean 96 Pulse Ox 99 Oxygen Delivery Method Room Air Positive well nourished and well developed General Appearance ED: well developed; Negative for pallor HEENT HEENT Narrative: Normocephalic atraumatic Eyes PERRL and EOMs intact bilaterally General Eye ED: Negative for scleral icterus Neck supple Resp normal respiratory effort and clear to auscultation bilaterally Cardio regular rate and regular rhythm GI non-tender, non-distended and no masses GI Narrative: Abdomen is soft and nontender and nondistended with hypoactive bowel sounds. No voluntary guarding or rigidity or pulsatile mass. No peritoneal signs or fluid wave. No increased tympany Auscultation: hypoactive bowel sounds Palpation: soft Extremity normal to inspection Neuro oriented x3, CN's II-XII intact bilaterally and no sensory deficits noted Sensorium / Orientation: alert Motor Exam: strength 5/5 throughout Psych Mood & Affect: anxious Skin no rashes or lesions noted General Skin Exam: Negative for jaundice or pallor MDM MDM MDM Narrative Medical decision making narrative: Patient arrived to the ER with stable vitals and a soft nonsurgical abdomen. She had concerned that she was progressing to severe constipation requiring in tervention such as enema which she has required in the past. We discussed that patient most likely has interval bowel syndrome leading to bouts of constipation versus diarrhea. However there could be concern for developing ileus or infectious or inflammatory colitis. Patient denies any recent fever or blood in her stool and states there is been no recent antibiotic use. Moreover she states she was able to have a normal bowel meant once she arrived to the ER. Therefore at this time her abdomen is soft and nonsurgical her vitals are stable and her symptoms are spontaneously improving. Therefore we will hold off on imaging testing at this time. Patient will be provided magnesium citrate to take home and if her constipation worsens she can take this. She understands that if there is no improvement after using the magnesium citrate that she should return to the ER for further intervention and testing. However at this time her abdomen is soft and nonsurgical and she has had spontaneous resolution of symptoms and is otherwise safe for discharge. History & Record Review Discussion w/independent historian: Patient Discharge Plan Triage Chief Complaint: Constipation ED Provider: Clifton Gonsalves Dx/Rx/DC Orders Clinical Impression: Constipation, History of rectopexy, IBS (irritable bowel syndrome) Instructions: ED Constipation (Adult) Prescriptions: No Action NK Primary Care Provider: Dean Flores Referrals: Dean Flores MD [Primary Care Provider, Family Practice] Activity Restrictions/Additional Instructions: If your constipation worsens please use the magnesium citrate provided in the ER. If this fails to stimulate a bowel movement please return for repeat evaluation. Print Language: Lao Disposition Disposition: Home, Self Care Discharge Date/Time: 08/09/25 04:02
[2025-08-09] MEDS: Magnesium Citrate 300 ML PO (03:59)
[2025-08-09 04:01] VITALS: BP 115/75; PULSE 97; RESP 18; TEMP 36.8; O2SAT 99
== END 2025-08-09 04:02 | disposition home or self-care (01) ==
LOC: ED 03:52
PROVIDERS: Emergency Provider Emergency Medicine; PCP Family Medicine; Visit Provider Emergency Medicine
DX: K59.00 Constipation, unspecified (principal); F41.9 Anxiety disorder, unspecified; Z87.19 Personal history of other diseases of the digestive system
CPT/HCPCS: 99282

== ENCOUNTER → 2025-10-16 | Outpatient (CLI) | payer SELFPAY ==
--- NOTE | 2025-10-16 13:20 | MRI_ITS ---
EXAM: PELVIS W/WO CONTRAST 10/16/2025 CLINICAL HISTORY: PEVLIC PAIN S/P RECTAL SURGERY WITH REFERRED TO BACK PAIN, LIMIT. TECHNIQUE: Procedure Code: [id number] Modality: MR Procedure: PELVIS W/WO CONTRAST Multiplanar and multisequence images were obtained without and with intravenous gadolinium contrast. CONTRAST: Clariscan VOLUME: 10 mL COMPARISON: CT of the abdomen and pelvis of 05/11/2025 FINDINGS: Interval decrease in the fluid in the presacral space with no wall thickening or other inflammatory change seen. Previously noted inflammatory changes in the rectosigmoid noted on prior CT have also resolved. There is no lymphadenopathy or mass. Moderate amount of stool is present in the colon. The uterus and adnexa are normal. There is normal appearance of the endometrium and cervix. No mass detected. The ovaries demonstrate benign bilateral follicles. There is no adnexal mass. The urinary bladder is decompressed. Osseous structures are normal. Normal symmetrical appearance of the SI joints and hips. No soft tissue abnormality seen. MRI/Pelvis W/WO Contrast IMPRESSION: Continued interval decrease in the presacral fluid collection which does not ap pear to have any inflammatory changes or enhancing wall to suggest abscess. Moderate amount of stool in the rectosigmoid colon. Complete resolution of the inflammatory changes seen in the rectosigmoid colon back in 05/11/2025. Reading Location: [facility]
== END | disposition home or self-care (01) ==
PROVIDERS: PCP Family Medicine; Referring Provider Family Medicine; Visit Provider Family Medicine
DX: R10.20 Pelvic and perineal pain unspecified side (principal)
CPT/HCPCS: 72197; A9575

== ENCOUNTER → 2025-11-06 | Outpatient (CLI) | payer SELFPAY ==
--- NOTE | 2025-11-06 08:18 | NM_ITS ---
PROCEDURE: GASTRIC EMPTYING STUDY - 4 HR 11/06/2025 REASON FOR EXAM: ABDOMINAL PAIN COMPARISON: None. TECHNIQUE: Procedure Code: [id number] Modality: NM Procedure: GASTRIC EMPTYING STUDY - 4 HR The patient ingested a standard meal of 2 eggs, 2 pads of butter, 2 slices of bread, and 6 oz water. There was no vomiting postprandially. Anterior and posterior planar images of the upper abdomen were obtained for 1 minute immediately following the meal at 1h, 2h and 4h if more than 10% of the activity persisted within the stomach. Regions of interest were drawn, and a geometric mean was used to calculate a [id number]. RADIOPHARMACEUTICAL: Within the solid meal, oral administration of 1.0 mCi technetium 99 M sulfur colloid. FINDINGS: Linear fit gastric emptying half-time of 112.32 minutes. Raw data fit gastric emptying half-time of 85.56 minutes Percent activity remaining in stomach: 1 hour 67 % (normal 37-90%) 2 hours: 30 % (normal 30-60%) 4 hours: 0 % (normal 0-10%) NM/Gastric Emptying Study - 4 HR IMPRESSION: Normal solid phase gastric emptying. Reading Location: [place] [id number]
== END | disposition home or self-care (01) ==
PROVIDERS: PCP Family Medicine; Referring Provider Internal Medicine Gastroenterology; Visit Provider Internal Medicine Gastroenterology
DX: K59.00 Constipation, unspecified (principal); R10.9 Unspecified abdominal pain
CPT/HCPCS: 78264; A9541